=== PATIENT | female | born 1965 | race Caucasian/White ===

== ENCOUNTER 2019-08-15 10:49 | Outpatient (CLI) | payer MEDICAID, SELFPAY ==
--- NOTE | 2019-08-15 | US_ITS ---
WS: [id number] ULTRASOUND RENAL TECHNIQUE: Ultrasound examination of both kidneys. CLINICAL INFORMATION: LEFT FLANK PAIN COMPARISON: May 26, 2019 FINDINGS: RIGHT: Right kidney is normal in size and appearance. Echogenicity: Normal. Hydronephrosis: None. Perinephric fluid: None. Right kidney measures: 9.8 cm x 4.4 cm x 4.5 cm. LEFT: Incidental left renal cysts measuring 2.9 x 3.3 x 2.7 cm and 1.4 x 1.1 x 1.3 cm Left kidney is normal in size and appearance. Echogenicity: Normal. Hydronephrosis: None. Perinephric fluid: None. Left kidney measures: 10.3 cm x 5.6 cm x 4.9 cm. Normal visualized aorta. Normal bladder US/US renal BI* [id number] IMPRESSION: 1. Normal renal ultrasound. No hydronephrosis. 2. Incidental left renal cysts.
== END 2019-08-15 10:50 | disposition home or self-care (01) ==
LOC: RADOUTREAD 08-16 09:25
PROVIDERS: Family Provider Internal Medicine; Visit Provider Internal Medicine
DX: N28.1 Cyst of kidney, acquired (principal); R10.9 Unspecified abdominal pain

== ENCOUNTER 2020-08-21 09:03 | Outpatient (CLI) | payer MEDICAID, SELFPAY ==
--- NOTE | 2020-08-21 09:28 | MM_ITS ---
WS: [id number] BILATERAL DIGITAL SCREENING MAMMOGRAPHY WITH CAD CLINICAL INFORMATION: SCREENING HISTORY: Screening mammogram. No current complaints. COMPARISON: June 06, 2014 TECHNIQUE: Bilateral CC and MLO views. FINDINGS: Scattered fibroglandular densities bilaterally. No suspicious focal mass, asymmetry, calcifications, or architectural distortion. No evidence of malignancy. Punctate calcification right breast. MM/[place] [id number] IMPRESSION: BI-RADS: 2-Benign FOLLOW UP: 1 Year Follow-up Recommend return to annual screening mammography.
== END 2020-08-21 09:04 | disposition home or self-care (01) ==
LOC: RADSHAW 09:05
PROVIDERS: PCP Internal Medicine; Visit Provider Family Medicine
DX: Z12.31 Encounter for screening mammogram for malignant neoplasm of breast (principal)
CPT/HCPCS: 77067

== ENCOUNTER → 2020-09-13 13:28 | Outpatient (BNVA) | payer MEDICAID, SELFPAY | PROVIDERS: PCP Internal Medicine; Visit Provider Obstetrics & Gynecology | DX: Z20.822 Contact with and (suspected) exposure to COVID-19 (principal) | CPT/HCPCS: 87635 ==

== ENCOUNTER 2020-09-17 06:08 | Day surgery (SDC) | payer MEDICAID, SELFPAY ==
[2020-09-17 06:36] VITALS: BP 133/80; PULSE 81; RESP 18; TEMP 36.2; O2SAT 96
[2020-09-17] MEDS: sodium chloride 0.9% 1,000 ML 30 ML IV (06:53)
[2020-09-17 07:07] LABS: Basophils # 0.1 10^3/uL (0.0-0.1); Basophils % 0.5 %; Eosinophils # 0.1 10^3/uL (0.0-0.8); Eosinophils % 1.4 %; Hematocrit 42.2 % (37.0-47.0); Hemoglobin 13.9 g/dL (11.5-15.3); Lymphocytes # 3.7 10^3/uL (0.8-4.8); Lymphocytes % 38.1 %; Mean Corpuscular HGB Conc 32.9 g/dL (30.0-36.0); Mean Corpuscular Hemoglobin 30.1 pg (28.0-34.0); Mean Corpuscular Volume 91.3 fL (81-99); Mean Platelet Volume 9.3 fL (7.4-10.4); Monocytes # 0.6 10^3/uL (0.2-0.9); Monocytes % 6.2 %; Neutrophils # 5.16 10^3/uL (1.8-7.7); Neutrophils % 53.4 %; Nucleated Red Blood Cells % 0 %; Platelet Count 412 10^3/cmm (130-400); Red Blood Count 4.62 10^6/uL (4.1-5.3); Red Cell Distribution Width 13.4 % (12.1-15.1); White Blood Count 9.7 10^3/uL (4.0-10.0)
--- NOTE | 2020-09-17 07:23 | P.ANESASSM_ITS ---
Pre-Anesthetic Assessment Pre-Anesthetic Assessment: Height/Weight: Height 1.5 m Weight 59.421 kg Temp Pulse Resp BP Pulse Ox 97.2 F L 81 18 133/80 96 09/17/20 06:36 09/17/20 06:36 09/17/20 06:36 09/17/20 06:36 09/17/20 06:36 Preop Diagnosis: diagnostic Proposed Procedure: Operation Date: 09/17/20 08:05 Proposed Procedures p Hysteroscopy 58803 97136 N95.0 93901 R10.30(Not Applicable) - Courtney Alejandro MD s Dilation And Curettage (D&C)(Not Applicable) - Courtney Elliott MD s Colonoscopy(Not Applicable) - Trevor Hudson MD Familial anesthetic complications: NOne Was Beta Vj taken within 24 hours: Yes (states she took it this morning) Last intake: Intake Last Liquid Date 09/16/20 Last Liquid Time 19:00 Last Solid Date 09/15/20 Social: Social History: Tobacco and No alcohol Exam: Pre-Anes Outpt Exam: alert, oriented x 3, clear to auscultation bilaterally and regular rate & rhythm Airway: Cervical ROM: WNL MP: 3 Dentition: False and Other (2 broken/rotten teeth on bottom) Pulmonary: Pulmonary: COPD and Sleep apnea CV/HEM: CV/HEM: HTN Anesthetic Plan: ASA status: 3 Anesthesia: MAC Risk of > 500 ml blood loss (7ml/kg in children): No Meds/Allergies Current Medications: Current Medications Generic Name Dose Route Start Last Admin Trade Name Freq PRN Reason Stop Dose Admin Sodium Chloride 1,000 mls @ 30 ml s/hr 09/17/20 06:15 09/17/20 06:53 Sodium Chloride 0.9% IV 09/18/20 06:14 30 mls/hr .Q24H CHRIST Administration PFSH Anesthesia PFSH: Medical History Anxiety and depression Has been asymptomatic all her life per patient. She is well controlled on citalopram which she has been on since the and follows up with her primary care provider. Chronic back pain Reports having a herniated disc in her lower back and neck and just takes muscle relaxers for this. Used to follow up with the pain clinic in the past but not anymore and this is managed by her primary care provider Chronic hypertension Diagnosed in 2019 and has been on medication since then managed by PMD COPD (chronic obstructive pulmonary disease) Diagnosed in 2015 and is controlled with medication managed by PMD at this time Surgical History History of colonoscopy (~2015) S/P section At the age of 20 S/P cholecystectomy Laparoscopic procedure performed by Dr. Hudson at [facility] in June 2020 S/P tubal ligation At the age of 20 when she had her Family History Mother Diabetes Hypertension Thyroid condition Sister Diabetes Hypertension Father Diabetes Stroke Denies family history of Colon cancer Ovarian cancer Heart disease Hyperlipidemia Breast cancer Uterine cancer Data Anesthesia CBC & Chem 7: 09/17/20 06:45 Other Labs: Laboratory Results - last 48 hr 09/17/20 06:45 WBC 9.7 RBC 4.62 Hgb 13.9 Hct 42.2 MCV 91.3 MCH 30.1 MCHC 32.9 RDW 13.4 Plt Count 412 H MPV 9.3 Neut % (Auto) 53.4 Lymph % (Auto) 38.1 [place] % (Auto) 6.2 Eos % (Auto) 1.4 Baso % (Auto) 0.5 Neut # (Auto) 5.16 Lymph # (Auto) 3.7 [place] # (Auto) 0.6 Eos # (Auto) 0.1 Baso # (Auto) 0.1 Nucleated RBC % (auto) 0 Nucleated RBCs # 0.0 Cardiac Studies: No Data to Display
--- NOTE | 2020-09-17 09:34 | P.OP_ITS ---
Operative Report Date of procedure: September 17, 2020 OPERATIVE REPORT Date of surgery: 09/17/2020 Date of dictation: 09/17/2020 Preoperative diagnosis: Postmenopausal bleeding Postoperative diagnosis/findings: Same, 8-week size retroverted uterus, mobile, no adnexal masses. On hysteroscopy and the cervical canal and endometrial canal appeared normal-thin atrophic endometrium without any obvious growths noted. Bilateral ostia visualized. Procedure done: Hysteroscopy, D&C Specimens removed/disposition of specimens: Endometrial curettings sent to pathology Surgeon: Dr. Courtney Ingram litigation assistant: Lala Anesthesia: MAC Estimated blood loss: Less than 25 ml Intravenous fluids: 200 mL of LR Urine output: 20 mL of urine via red rubber catheter prior to start of procedure Medications: As per anesthesia records Complications: None, patient was left in the operating room for Dr. Hudson to perform his part of surgery-colonoscopy PROCEDURE: After consent was obtained patient was taken to the operating room where she is placed under laryngeal mask anesthesia without any difficulty. She was placed supine on the table in lithotomy position. Care was taken to ensure that her legs were well positioned to avoid pressure points. She was then prepped and draped in the usual sterile fashion. Exam under anesthesia was done at this time which showed findings noted above . The weighted speculum and lateral vaginal wall retractors were placed in the vagina and the cervix was visualized. The cervix appeared normal. The cervix was dilated to a 16 Bledsoe dilator. This allowed placement of a 3 mm hysteroscope into the uterine cavity without any difficulty. Once the hysteroscope was placed in the uterine cavity, the endoc ervical canal was visualized and appeared normal .the uterine cavity was visualized and normal with findings noted above. The hysteroscope was withdrawn. Sharp curettage was then performed and the endometrial curettings were sent to pathology. No active bleeding was noted from the cervix. Tenaculum was removed and hemostasis achieved with silver nitrate.. Good hemostasis was achieved. All instruments were removed from the vagina. Patient was left in lithotomy position for Dr. Hudson to perform colonoscopy. FOLLOW UP: Follow-up in 2 weeks and 6 weeks with surgeon MEDICATION ON DISCHARGE: Colace 100 mg by mouth every 12 hours when necessary constipation, 30 tablets, no refills Ibuprofen 800 mg by mouth every 8 hours when necessary pain, 60 tablets, no refills. [place] 5/325 mg 1 tablet by mouth every 6 hours when necessary pain,[default value] tablets, no refills Continue other home medication[default value] DISPOSITION: Home in a stable condition This documentation was created by Spangle test administrator software (known for inherent test administrator error). Every effort was made to assure accuracy of test administrator. Any obvious errors or omissions should be clarified with the author of the document. Pre-op Diagnosis: diagnostic
[2020-09-17] MEDS: silver nitrate applicator 1 EACH TOPICAL (09:41)
[2020-09-17 10:05] VITALS: BP 138/75; PULSE 81; RESP 16; TEMP 36.6; O2SAT 91
[2020-09-17 10:17] VITALS: BP 171/72; PULSE 84; RESP 18; O2SAT 96
--- NOTE | 2020-09-17 10:28 | P.HPUD_ITS ---
Surgery/Procedure H&P Update DATE OF PROCEDURE: September 17, 2020 DATE H&P PERFORMED: 09/10/20 H&P UPDATE INFORMATION: I have reviewed H&P completed within last 30 days, I have examined patient prior to procedure and No changes to prior documentation PREOP DIAGNOSIS: diagnostic PLANNED PROCEDURE: Operation Date: 09/17/20 08:05 Proposed Procedures p Hysteroscopy 23344 13971 N95.0 24745 R10.30(Not Applicable) - Courtney Alejandro MD s Dilation And Curettage (D&C)(Not Applicable) - Courtney Elliott MD s Colonoscopy(Not Applicable) - Trevor Hudson MD
--- NOTE | 2020-09-17 11:54 | ANE.PACU2 ---
Inpatient post-anesthesia follow up: Airway intact: Yes Vital signs: Temperature 97.9 F Pulse Rate 84 Respiratory Rate 18 Blood Pressure 171/72 Pulse Oximetry 96 Oxygen Delivery Me thod Room Air Oxygen Flow Rate Fraction of Inspir ed Oxygen Hydration adequate: Yes Nausea and vomiting: No Pain level: 1 Mental status: Baseline
== END 2020-09-17 11:10 | disposition home or self-care (01) ==
PROVIDERS: Surgery; PCP Internal Medicine; Visit Provider Obstetrics & Gynecology
PROC: 0UJD8ZZ Inspection of Uterus and Cervix, Via Natural or Artificial Opening Endoscopic (ICD-10-PCS; CPT 58555; principal; 2020-09-17 08:05)
PROC: (CPT 58120; 2020-09-17 08:05)
PROC: 0DJD8ZZ Inspection of Lower Intestinal Tract, Via Natural or Artificial Opening Endoscopic (ICD-10-PCS; CPT 45378; 2020-09-17 08:05)
DX: Z12.11 Encounter for screening for malignant neoplasm of colon (principal); N95.0 Postmenopausal bleeding; D12.2 Benign neoplasm of ascending colon; D12.4 Benign neoplasm of descending colon; D12.5 Benign neoplasm of sigmoid colon; K64.8 Other hemorrhoids; J44.9 Chronic obstructive pulmonary disease, unspecified; G47.30 Sleep apnea, unspecified; I10 Essential (primary) hypertension; Z82.49 Family history of ischemic heart disease and other diseases of the circulatory system; Z83.3 Family history of diabetes mellitus
CPT/HCPCS: 58558; 36415; 85025; 86850; 86900; 88305; J2704; J3010; J7030

== ENCOUNTER 2020-10-08 17:12 | Emergency (ER) | payer MEDICAID, SELFPAY ==
[2020-10-08 17:28] VITALS: BP 141/99; PULSE 78; RESP 18; TEMP 36.7; O2SAT 96; BMI 26.4
--- NOTE | 2020-10-08 17:37 | CTR_ITS ---
PROCEDURE INFORMATION: Exam: CT Abdomen And Pelvis With Contrast Exam date and time: 10/08/2020 6:01 PM Age: 55 years old Clinical indication: Fever and nausea and vomiting and other: Weakness; Abdominal pain; Localized; Upper; Prior surgery; Surgery type: Gb, tubal, , hyst; Additional info: Abd pain TECHNIQUE: Imaging protocol: Computed tomography of the abdomen and pelvis with contrast. Sagittal and coronal reformatted images were created and reviewed. Radiation optimization: All CT scans at this facility use at least one of these dose optimization techniques: automated exposure control; mA and/or kV adjustment per patient size (includes targeted exams where dose is matched to clinical indication); or iterative reconstruction. Contrast material: OMNI 300; Contrast volume: 95 ml; Contrast route: INTRAVENOUS (IV); COMPARISON: US transvaginal [id number] 06/05/2020 2:11 PM RADIATION DOSE METRICS: Total DLP (mGy-cm): 940.77 FINDINGS: Lungs: Visualized lungs are clear. Pleural spaces: No pleural effusion. Heart: Visualized portions of the heart are unremarkable. Liver: Diffuse, mildly decreased attenuation in the liver. Findings are consistent with mild fatty infiltration. Gallbladder and bile ducts: Patient has had a previous cholecystectomy. No biliary ductal dilatation. Pancreas: The pancreas is unremarkable. No pancreatic ductal dilatation. Spleen: The spleen is unremarkable. Adrenal glands: The right and left adrenal glands are unremarkable. Kidneys and ureters: Subcentimeter hypodense focus in the right kidney that is too small to characterize, however likely represents a small cyst. Minimally complex cyst in the left kidney with thin internal septation consistent with a Bosniak type 2 cyst, this measures 3.6 x 2.9 cm (series 2, image 19). Simple cyst in the left kidney measuring 1.6 cm (series 2, image 28). The right and left ureters are unremarkable. Stomach and bowel: No obstruction. No mucosal thickening. Appendix: The appendix is visualized and is unremarkable. No findings to suggest acute appendicitis. Intraperitoneal space: No free intraperitoneal air. No ascites. No loculated fluid collections to suggest an abscess. Vasculature: Mild atherosclerotic changes in the visualized arteries. No evidence for aortic aneurysm or aortic dissection. Incidental note of a retroaortic left renal vein. Hepatic veins, portal veins, splenic vein, and SMV are patent. Lymph nodes: No lymphadenopathy. Urinary bladder: The bladder is incompletely filled, which can limit evaluation. No focal abnormality in the bladder however. Reproductive: The uterus, right ovary, and left ovary are unremarkable. Bones/joints: [id number] multilevel degenerative changes in the visualized spine. Soft tissues: No acute abnormality in the extra-abdominal soft tissues. CT/CT abdomen pelvis w con* [id number] IMPRESSION: 1. No acute abnormality in the abdomen or pelvis. 2. The patient's history describes a prior hysterectomy. However, the uterus and both ovaries were visualized. Recommend correlation with surgical history. 3. Mild fatty infiltration of the liver. 4. Bosniak type 2 cyst in the left kidney. No further workup recommended. 5. Incidental/nonacute findings are listed in the report. COMMENTS: Consistent with the [employer]'s Incidental Findings Committee white paper (J Am Eric Radiol 2018): Any incidental renal lesion less than 1 cm or classified as too small to characterize, or any incidental cystic renal lesion characterized as simple-appearing, is likely benign. No follow-up imaging is recommended for these lesions per consensus recommendations based on imaging criteria. Radiation Dose CTDIVOL = (mGy): DLP = 940.77 (mGy-cm)
[2020-10-08] MEDS: ondansetron 2 mg/ML SDV 2 mL 4 MG IVP (17:47)
[2020-10-08] MEDS: sodium chloride 0.9% 1,000 ML 999 ML IV (17:48)
--- NOTE | 2020-10-08 17:59 | W.ED.ABDPA2 ---
HPI - Abdominal Pain General: Chief Complaint: Nausea/Vomiting/Diarrhea Stated Complaint: N/V, lower back pain,weakness Time Seen by Provider: 10/08/20 17:36 Source: patient Mode of arrival: ambulatory Limitations: no limitations History of Present Illness: HPI narrative: 55-year-old female who states she has had severe nausea vomiting over the last week with getting much worse today. States she had abdominal pain earlier in the week the pain is improved. States she just does not able to keep anything down. She states she was started on antibiotic for a paronychia and her vomiting started soon after that. She denies any diarrhea. Denies any fevers. Associated Symptoms: Reports nausea and vomiting; Denies chills, dysuria and fever(s) Review of Systems Const: Denies: fever(s), chills, body aches or change in appetite Eyes: Denies: blurry vision or eye discomfort ENMT: Denies: throat pain or dental pain Card: Denies: chest pain Resp: Denies: dyspnea GI: Reports: abdominal pain, nausea and vomiting : Denies: dysuria Musc: Denies: neck pain or back pain Skin/Breast: Denies: rash Neuro: Denies: headache(s) Psych: Denies: depression Josue/Lymph: Denies: easy bruising All/Imm: Denies: urticaria PFSH ED PFSH: Medical History Anxiety and depression Has been asymptomatic all her life per patient. She is well controlled on citalopram which she has been on since the and follows up with her primary care provider. Chronic back pain Reports having a herniated disc in her lower back and neck and just takes muscle relaxers for this. Used to follow up with the pain clinic in the past but not anymore and this is managed by her primary care provider Chronic hypertension Diagnosed in 2019 and has been on medication since then managed by PMD COPD (chronic obstructive pulmonary disease) Diagnosed in 2015 and is controlled with medication managed by PMD at this time Surgical History History of colonoscopy (09/17/20) 2016 S/P section At the age of 20 S/P cholecystectomy Laparoscopic procedure performed by Dr. Hudson at [facility] in June 2020 S/P tubal ligation At the age of 20 when she had her Status post hysteroscopy 09/17/2020---hysteroscopy with D&C for postmenopausal bleeding performed by Dr. Ingram at [facility]. ---at time of hysteroscopy benign atrophic endometrium identified without any polyps. Pathology showed inactive endometrial glands on a background of mucin and debris, no atypia or hyperplasia polyps or malignancy identified. Family History Mother Diabetes Hypertension Thyroid condition Sister Diabetes Hypertension Father Diabetes Stroke Denies family history of Colon cancer Ovarian cancer Heart disease Hyperlipidemia Breast cancer Uterine cancer Physical Exam Const: COMMON NORMALS: no acute distress, patient oriented x3 and healthy appearing HENMT: COMMON NORMALS: normocephalic and atraumatic HEAD & SCALP: normocephalic and atraumatic Eye: COMMON NORMALS: Equal, round and reactive pupils present and EOMs intact bilaterally PUPIL: Yes Equal, round and reactive pupils present Neck/C-Spine: COMMON NORMALS: full ROM and supple Chest: COMMONS NORMALS: normal inspection of the chest and normal palpation of entire chest wall Resp: COMMON NORMALS: normal respiratory effort, No retractions, No use of accessory muscles and clear to auscultation bilaterally AUSCULTATION: clear to auscultation bilaterally Cardio: COMMON NORMALS: regular rate, regular rhythm and No murmurs present (Cardio) RATE: regular rate RHYTHM: regular rhythm GI: COMMON NORMALS: Normal to inspection, nondistended, normoactive bowel sounds present, Soft to palpation, non-tender and no masses PALPATION: Yes Soft to palpation Extremity: COMMON NORMALS: normal to inspection and full ROM Neuro: COMMON NORMALS: patient oriented x3, moves all extremities and no focal motor deficits Psych: COMMON NORMALS: mental status grossly normal, Normal thought process present and cooperative THOUGHT PROCESS: Normal thought process present Skin: COMMON NORMALS: no rashes or lesions noted and no wounds GENERAL SKIN EXAM: no rashes or lesions noted Course Vital Signs: Vital signs: Vital Signs Temperature 98.0 F 10/08/20 17:28 Pulse Rate 82 10/08/20 19:08 Respiratory Rate 18 10/08/20 19:08 Blood Pressure 138/82 10/08/20 19:08 Pulse Oximetry 98 10/08/20 19:08 MDM - Abdominal Pain MDM Narrative: Medical decision making narrative: Piper presents here with vomiting can be related to antibiotics for viral syndrome. Her blood work and CT scan are negative. She is well-appearing here and abdominal exam at discharge is benign. Will place her on Zofran. She is to follow-up with PCP in 2 to 4 days return if worsening. She understands and agrees to plan. Lab Data: Labs: Lab Results 10/08/20 10/08/20 10/08/20 Range/Units 17:40 17:40 17:40 WBC 10.4 H (4.0-10.0) 10^3/ uL RBC 4.23 (4.1-5.3) 10^6/u L Hgb 12.8 (11.5-15.3) g/dL Hct 38.7 (37.0-47.0) % MCV 91.5 (81-99) fL MCH 30.3 (28.0-34.0) pg MCHC 33.1 (30.0-36.0) g/dL RDW 13.2 (12.1-15.1) % Plt Count 419 H (130-400) 10^3/c mm MPV 9.3 (7.4-10.4) fL Neut % (Auto) 65.7 % Lymph % (Auto) 28.3 % [place] % (Auto) 4.1 % Eos % (Auto) 1.1 % Baso % (Auto) 0.4 % Neut # (Auto) 6.86 (1.8-7.7) 10^3/u L Lymph # (Auto) 3.0 (0.8-4.8) 10^3/u L [place] # (Auto) 0.4 (0.2-0.9) 10^3/u L Eos # (Auto) 0.1 (0.0-0.8) 10^3/u L Baso # (Auto) 0.0 (0.0-0.1) 10^3/u L Nucleated RBC % (a uto) 0 % Nucleated RBCs # 0.0 /100WBC Sodium 135 L (136-145) mmol/L Potassium 3.4 L (3.5-5.1) mmol/L Chloride 99 (98-107) mmol/L Carbon Dioxide 26 (22-29) mmol/L Anion Gap 13.4 (5-19) BUN 8 (6-20) mg/dL Creatinine 0.9 (0.5-0.9) mg/dL GFR Calculation 64.8 L (90-130) mL/min Glucose 104 (65-115) mg/dL Calculated Osmolal ity 279 L (285-295) mOsm/k g Calcium 8.7 (8.5-10.5) mg/dL Total Bilirubin 0.4 (0.15-1.2) mg/dL AST 13 (0-32) U/L ALT 13 (0-33) U/L Alkaline Phosphata se 61 (35-105) IU/L Total Protein 7.5 (6.6-8.7) g/dL Albumin 4.2 (3.5-5.2) g/dL Globulin 3.3 (1.3-4.6) g/dL Lipase 14 (13-60) U/L Urine Color Yellow (Yellow) Urine Appearance Sl hazy (CLEAR) Urine pH 5 (5-7) Ur Specific Gravit y 1.025 (1.005-1.030) Urine Protein Trace (Negative) Urine Glucose (UA) Norm (Normal) Urine Ketones Negative (Negative) Urine Blood 3+ H (Negative) Urine Nitrate Negative (Negative) Urine Bilirubin Neg (Negative) Urine Urobilinogen Norm (Negative) mg/dL Ur Leukocyte Radha ase 1+ H (Negative) Urine RBC 5-10 H (0-2) /hpf Urine WBC 55-80 H (0-5) /hpf Ur Squamous Epith Cells 15-25 H (0-5) /hpf Amorphous Sediment Not Reportable Urine Bacteria 1+ H (NONE) /hpf Imaging Data ^: CT Abd/Pel: Attestation: I personally reviewed and interpreted this imaging study as follows: Radiologist's impression: [address] [address] [address] Scan Report Signed Patient: Sara Cummings Unit #: [id number] : 1965 Age/Sex: 55 / F ADM Date: 10/08/20 Loc: ER Room/Bed: Attending Dr: Ordering Provider/Ordering MD: Ildefonso Tony DO Date of Service: 10/08/20 Procedure(s): CT abdomen pelvis w con* [id number] Accession Number(s): [id number] Report Number: [id number] PROCEDURE INFORMATION: Exam: CT Abdomen And Pelvis With Contrast Exam date and time: 10/08/2020 6:01 PM Age: 55 years old Clinical indication: Fever and nausea and vomiting and other: Weakness; Abdominal pain; Localized; Upper; Prior surgery; Surgery type: Gb, tubal, , hyst; Additional info: Abd pain TECHNIQUE: Imaging protocol: Computed tomography of the abdomen and pelvis with contrast. Sagittal and coronal reformatted images were created and reviewed. Radiation optimization: All CT scans at this facility use at least one of these dose optimization techniques: automated exposure control; mA and/or kV adjustment per patient size (includes targeted exams where dose is matched to clinical indication); or iterative reconstruction. Contrast material: OMNI 300; Contrast volume: 95 ml; Contrast route: INTRAVENOUS (IV); COMPARISON: US transvaginal [id number] 06/05/2020 2:11 PM RADIATION DOSE METRICS: Total DLP (mGy-cm): 940.77 FINDINGS: Lungs: Visualized lungs are clear. Pleural spaces: No pleural effusion. Heart: Visualized portions of the heart are unremarkable. Liver: Diffuse, mildly decreased attenuation in the liver. Findings are consistent with mild fatty infiltration. Gallbladder and bile ducts: Patient has had a previous cholecystectomy. No biliary ductal dilatation. Pancreas: The pancreas is unremarkable. No pancreatic ductal dilatation. Spleen: The spleen is unremarkable. Adrenal glands: The right and left adrenal glands are unremarkable. Kidneys and ureters: Subcentimeter hypodense focus in the right kidney that is too small to characterize, however likely represents a small cyst. Minimally complex cyst in the left kidney with thin internal septation consistent with a Bosniak type 2 cyst, this measures 3.6 x 2.9 cm (series 2, image 19). Simple cyst in the left kidney measuring 1.6 cm (series 2, image 28). The right and left ureters are unremarkable. Stomach and bowel: No obstruction. No mucosal thickening. Appendix: The appendix is visualized and is unremarkable. No findings to suggest acute appendicitis. Intraperitoneal space: No free intraperitoneal air. No ascites. No loculated fluid collections to suggest an abscess. Vasculature: Mild atherosclerotic changes in the visualized arteries. No evidence for aortic aneurysm or aortic dissection. Incidental note of a retroaortic left renal vein. Hepatic veins, portal veins, splenic vein, and SMV are patent. Lymph nodes: No lymphadenopathy. Urinary bladder: The bladder is incompletely filled, which can limit evaluation. No focal abnormality in the bladder however. Reproductive: The uterus, right ovary, and left ovary are unremarkable. Bones/joints: [id number] multilevel degenerative changes in the visualized spine. Soft tissues: No acute abnormality in the extra-abdominal soft tissues. CT/CT abdomen pelvis w con* [id number] IMPRESSION: 1. No acute abnormality in the abdomen or pelvis. 2. The patient's history describes a prior hysterectomy. However, the uterus and both ovaries were visualized. Recommend correlation with surgical history. 3. Mild fatty infiltration of the liver. 4. Bosniak type 2 cyst in the left kidney. No further workup recommended. 5. Incidental/nonacute findings are listed in the report Discharge Plan Discharge Patient Disposition: Home Clinical Impression: Vomiting Qualifiers: Vomiting type: unspecified Vomiting Intractability: non-intractable Nausea presence: with nausea Qualified Code(s): R11.2 - Nausea with vomiting, unspecified Condition: Stable Prescriptions: New ondansetron 4 mg tablet,disintegrating 4 mg PO Q6H PRN (Reason: nausea and vomiting) Qty: 14 RF: 0 No Action ibuprofen 200 mg tablet 800 mg PO Q8H PRN (Reason: Pain) RF: 0 metronidazole 500 mg tablet 500 mg PO TID 7 Days Qty: 21 RF: 0 pantoprazole 40 mg tablet,delayed release (DR/EC) 40 mg PO DAILY RF: 0 metoprolol succinate 50 mg tablet extended release 24 hr 50 mg PO DAILY RF: 0 citalopram 20 mg tablet 20 mg PO DAILY RF: 0 potassium chloride 20 mEq tablet extended release 20 meq PO DAILY RF: 0 albuterol sulfate [ProAir HFA] 90 mcg/actuation HFA aerosol inhaler 2 puff inhalation Q6H PRN (Reason: Wheezing) RF: 0 albuterol sulfate 1.25 mg/3 mL solution for nebulization 1.25 mg inhalation QID PRN (Reason: Wheezing) RF: 0 baclofen 5 mg tablet 5 mg PO BID RF: 0 nicotine 21 mg/24 hr patch 24 hour 1 patch topical Q24H RF: 0 Discharge Orders: Discharge ED (Routine); Ordered 10/08/20 Ordered By: Shanice Singleton Referrals: Ten Branham DO [Primary Care Provider] - 1-3 days Discharge Diet: Advance as tolerated Discharge Activity: Resume usual activity Patient Instructions: Acute Nausea and Vomiting (ED) Coding Level of Care Code ED Certified Activities Director for Chg Fwd Exam Comprehensive
[2020-10-08 18:01] VITALS: BP 128/64; PULSE 72; RESP 23; O2SAT 97
[2020-10-08 18:02] VITALS: O2SAT 98
[2020-10-08 18:07] LABS: Urine Color Yellow (Yellow)
[2020-10-08 18:08] LABS: Add Urine Microscopic? YES; Bacteria Urine 1+ /hpf; Bilirubin Urine Neg (Negative); Blood Urine 3+ (Negative); Glucose Urine UA Norm (Normal); Ketones Urine Negative (Negative); Leukocyte Esterase Urine 1+ (Negative); Nitrate Urine Negative (Negative); Protein Urine Trace (Negative); Specific Gravity, Urine 1.025 (1.005-1.030); Squamous Epithelial Cell Urine 15-25 /hpf (0-5); Urine Appearance SL Hazy (CLEAR); Urobilinogen Urine Norm (Negative); WBC Urine 55-80 /hpf (0-5); pH Urine 5 (5-7)
[2020-10-08 18:10] LABS: Basophils % 0.4 %; Eosinophils # 0.1 10^3/uL (0.0-0.8); Eosinophils % 1.1 %; Hematocrit 38.7 % (37.0-47.0); Hemoglobin 12.8 g/dL (11.5-15.3); Lymphocytes % 28.3 %; Mean Corpuscular HGB Conc 33.1 g/dL (30.0-36.0); Mean Corpuscular Hemoglobin 30.3 pg (28.0-34.0); Mean Corpuscular Volume 91.5 fL (81-99); Mean Platelet Volume 9.3 fL (7.4-10.4); Monocytes # 0.4 10^3/uL (0.2-0.9); Monocytes % 4.1 %; Neutrophils # 6.86 10^3/uL (1.8-7.7); Neutrophils % 65.7 %; Nucleated Red Blood Cells % 0 %; Platelet Count 419 10^3/cmm (130-400); Red Blood Count 4.23 10^6/uL (4.1-5.3); Red Cell Distribution Width 13.2 % (12.1-15.1); White Blood Count 10.4 10^3/uL (4.0-10.0)
[2020-10-08] MEDS: iohexol 300 mg/mL 100 mL Btl IV (18:13)
[2020-10-08 18:25] LABS: Alanine Aminotransferase 13 U/L (0-33); Albumin Level 4.2 g/dL (3.5-5.2); Alkaline Phosphatase 61 IU/L (35-105); Aspartate Amino Transferase 13 U/L (0-32); Blood Urea Nitrogen 8 mg/dL (6-20); Calcium 8.7 mg/dL (8.5-10.5); Carbon Dioxide 26 mmol/L (22-29); Chloride 99 mmol/L (98-107); Globulin 3.3 g/dL (1.3-4.6); Glomerular Filtration Rate 64.8 mL/min (90-130); Glucose 104 mg/dL (65-115); Lipase 14 U/L (13-60); Osmolality Calculated 279 mOsm/kg (285-295); Sodium 135 mmol/L (136-145); Total Bilirubin 0.4 mg/dL (0.15-1.2); Total Protein 7.5 g/dL (6.6-8.7)
[2020-10-08 18:41] LABS: Anion Gap 13.4 (5-19); Potassium 3.4 mmol/L (3.5-5.1)
[2020-10-08 19:08] VITALS: BP 138/82; PULSE 82; RESP 18; O2SAT 98
== END 2020-10-08 19:10 | disposition home or self-care (01) ==
PROVIDERS: Family Medicine; Emergency Provider Emergency Medicine; PCP Internal Medicine
DX: R11.2 Nausea with vomiting, unspecified (principal); J44.9 Chronic obstructive pulmonary disease, unspecified
CPT/HCPCS: 74177; 80053; 81001; 83690; 85025; 96361; 96374; 99283; J2405; J7030; Q9967

== ENCOUNTER 2020-10-31 06:00 | Outpatient (CLI) | payer MEDICAID, SELFPAY | END 2020-10-31 06:01 | disposition home or self-care (01) | LOC: RAD 12-08 15:37 | PROVIDERS: PCP Family Medicine Adult Medicine; Visit Provider Orthopaedic Surgery | DX: M50.31 Other cervical disc degeneration, high cervical region (principal); M46.02 Spinal enthesopathy, cervical region | CPT/HCPCS: 72050 ==

== ENCOUNTER → 2021-01-03 10:04 | Outpatient (BNVA) | payer MEDICAID, SELFPAY | PROVIDERS: PCP Internal Medicine; Visit Provider Family Medicine Adult Medicine | DX: I10 Essential (primary) hypertension (principal); M15.9 Polyosteoarthritis, unspecified; J44.9 Chronic obstructive pulmonary disease, unspecified; F41.9 Anxiety disorder, unspecified; F32.9 Major depressive disorder, single episode, unspecified; M54.9 Dorsalgia, unspecified; G89.29 Other chronic pain; R94.4 Abnormal results of kidney function studies; Z87.898 Personal history of other specified conditions | CPT/HCPCS: 80053; 80061; 83036; 84443; 85025; 85651 ==

== ENCOUNTER → 2021-03-14 15:04 | Outpatient (BNVA) | payer MEDICAID, SELFPAY | PROVIDERS: PCP Family Medicine Adult Medicine; Visit Provider Obstetrics & Gynecology | DX: N89.8 Other specified noninflammatory disorders of vagina (principal); N82.9 Female genital tract fistula, unspecified | CPT/HCPCS: 87106; 87107 ==

== ENCOUNTER 2021-03-26 10:03 | Outpatient (CLI) | payer MEDICAID, SELFPAY ==
--- NOTE | 2021-03-26 10:12 | CT_ITS ---
WS: [id number] CT PELVIS WITHOUT AND WITH GADOLINIUM ENHANCEMENT RECTAL CONTRAST TECHNIQUE: Contrast-enhanced CT of the pelvis with coronal and sagittal reformatted images. CLINICAL INFORMATION: N82.9 - Female genital tract fistula, unspecified COMPARISON: CT abdomen pelvis October 08, 2020 DLP: 900.[address] scans at [facility] use at least one of these dose optimization techniques: automat ed exposure control; mA and/or kV adjustment per patient size (includes targeted exams where dose is matched to clinical indication); or iterative reconstruction. FINDINGS: Tortuous sigmoid colon. A few sigmoid diverticuli. No evidence of acute diverticulitis. No free fluid in the pelvis. Bladder is normal in appearance. Normal appendix in the right lower quadrant. Low rectovaginal fistula with fistulous connection in the perineum. Rectal contrast and air extends a nteriorly along the vaginal lumen after administration of rectal contrast. This is best seen on the s agittal imaging. IMPRESSION: 1. 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 2. Rectal contrast and air extends anteriorly along the vaginal lumen after administration of rectal contrast. Recommend correlation with clinical symptoms.
[2021-03-26] MEDS: iohexol 300 mg/mL 100 mL Btl IV (11:56)
[2021-03-26] MEDS: diatrizoate meglumine 120 mL Sol PR ×2 (12:00→12:01)
== END 2021-03-26 10:04 | disposition home or self-care (01) ==
PROVIDERS: PCP Family Medicine Adult Medicine; Visit Provider Obstetrics & Gynecology
DX: N82.9 Female genital tract fistula, unspecified (principal)
CPT/HCPCS: 72193; 87070; 87205

== ENCOUNTER → 2021-05-16 10:55 | Outpatient (BNVA) | payer MEDICAID, SELFPAY | PROVIDERS: PCP Family Medicine Adult Medicine; Visit Provider Obstetrics & Gynecology | DX: N82.9 Female genital tract fistula, unspecified (principal); Z20.822 Contact with and (suspected) exposure to COVID-19 | CPT/HCPCS: 87635 ==

== ENCOUNTER 2021-05-21 10:18 | Day surgery (SDC) | payer MEDICAID, SELFPAY ==
[2021-05-19 10:50] VITALS: BMI 25.4
--- NOTE | 2021-05-19 13:16 | ANES.PREANE2 ---
Pre-Anesthetic Assessment Pre-Anesthetic Assessment: Height/Weight: Height 1.5 m Weight 57.153 kg Preop Diagnosis: diagnostic Proposed Procedure: Operation Date: 05/21/21 08:00 Proposed Procedures p Recto-Vaginal Fistula Repair 55835 N82.9(Not Applicable) - Kwabean Cruz MD Was Beta Vj taken within 24 hours: Yes Was Clonidine taken within 24 hours: N/A Social: Social History: Tobacco and No alcohol Exam: Pre-Anes Outpt Exam: alert, oriented x 3 and regular rate & rhythm Airway: Submandibular: WNL Cervical ROM: WNL MP: 2 Dentition: False (upper) Pulmonary: Pulmonary: COPD CV/HEM: CV/HEM: HTN GI: GI: GERD Musc/skel: Musc/skel: Lower Back Pain Neuropsych: Neuropsych: Anxiety, Depression and Neuropathy Anesthetic Plan: ASA status: 3 Anesthesia: General Risk of > 500 ml blood loss (7ml/kg in children): No PFSH Anesthesia PFSH: Medical History Anxiety and depression Has been asymptomatic all her life per patient. She is well controlled on citalopram which she has been on since the and follows up with her primary care provider. Chronic back pain Reports having a herniated disc in her lower back and neck and just takes muscle relaxers for this. 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 Hudson at [facility] in June 2020 S/P tubal ligation At the age of 20 when she had her Status post hysteroscopy 09/17/2020---hysteroscopy with D&C for postmenopausal bleeding performed by Dr. Ingram at [facility]. ---at time of hysteroscopy benign atrophic endometrium identified without any polyps. Pathology showed inactive endometrial glands on a background of mucin and debris, no atypia or hyperplasia polyps or malignancy identified. Family History Mother Diabetes Hypertension Thyroid condition Sister Diabetes Hypertension Father Diabetes Stroke Denies family history of Colon cancer Ovarian cancer Heart disease Hyperlipidemia Breast cancer Uterine cancer Social History Smoking and tobacco status: current every day smoker cigarettes Packs smoked per day: 1.5 Alcohol intake: never Marital status: Number of children: 2 Number of grandchildren: 2 Current occupational status: disabled Data Anesthesia Cardiac Studies: No Data to Display
[2021-05-21] VITALS (8 sets, daily range): BP systolic 128–163; BP diastolic 66–107; PULSE 65–100; RESP 14–18; TEMP 36.1–36.6; O2SAT 93–100
--- NOTE | 2021-05-21 11:24 | W.PM.OPSUD ---
Surgery/Procedure H&P Update DATE OF PROCEDURE: May 21, 2021 DATE H&P PERFORMED: 05/19/21 H&P UPDATE INFORMATION: I have reviewed H&P completed within last 30 days, I have examined patient prior to procedure and No changes to prior documentation PREOP DIAGNOSIS: Rectovaginal fistula PLANNED PROCEDURE: Operation Date: 05/21/21 12:25 Proposed Procedures p Recto-Vaginal Fistula Repair [id number] N82.9(Not Applicable) - Kwabena Cruz MD
[2021-05-21] MEDS: scopolamine 1.5 Patch 1 PATCH TRANSDERMA (11:26)
[2021-05-21] MEDS: sodium chloride 0.9% 500 ML IV (11:26)
[2021-05-21 11:42] LABS: Basophils % 0.6 %; Eosinophils # 0.2 10^3/uL (0.0-0.8); Eosinophils % 2.9 %; Hematocrit 37.6 % (37.0-47.0); Hemoglobin 11.7 g/dL (11.5-15.3); Lymphocytes # 2.6 10^3/uL (0.8-4.8); Lymphocytes % 39.9 %; Mean Corpuscular HGB Conc 31.1 g/dL (30.0-36.0); Mean Corpuscular Hemoglobin 29.1 pg (28.0-34.0); Mean Corpuscular Volume 93.5 fl (81-99); Mean Platelet Volume 9.1 fL (7.4-10.4); Monocytes # 0.4 10^3/uL (0.2-0.9); Monocytes % 5.5 %; Neutrophils # 3.32 10^3/uL (1.8-7.7); Neutrophils % 50.8 %; Nucleated Red Blood Cells % 0 %; Platelet Count 404 10^3/cmm (130-400); Red Blood Count 4.02 10^6/uL (4.1-5.3); Red Cell Distribution Width 14.3 % (12.1-15.1); White Blood Count 6.5 10^3/uL (4.0-10.0)
[2021-05-21] MEDS: sodium chloride 0.9% 1,000 ML 30 ML IV (11:45)
[2021-05-21 11:58] LABS: Alanine Aminotransferase 8 U/L (0-33); Albumin Level 3.9 g/dL (3.5-5.2); Alkaline Phosphatase 60 IU/L (35-105); Aspartate Amino Transferase 12 U/L (0-32); Blood Urea Nitrogen 9 mg/dL (6-20); Calcium 8.9 mg/dL (8.5-10.5); Carbon Dioxide 24 mmol/L (22-29); Chloride 104 mmol/L (98-107); Globulin 3.3 g/dL (1.3-4.6); Glomerular Filtration Rate 103.4 mL/min (90-130); Glucose 82 mg/dL (65-115); Osmolality Calculated 290 mOsm/kg (285-295); Sodium 141 mmol/L (136-145); Total Bilirubin 0.2 mg/dL (0.15-1.2); Total Protein 7.2 g/dL (6.6-8.7)
--- NOTE | 2021-05-21 12:12 | ANES.PAUD2 ---
Pre-Anesthetic Update Pre-Anesthetic Assessment: Date of Surgery/Procedure: 05/21/21 Preop Diagnosis: Rectovaginal fistula Proposed Procedure: Operation Date: 05/21/21 12:25 Proposed Procedures p Recto-Vaginal Fistula Repair 51762 N82.9(Not Applicable) - Kwabena Cruz MD Any changes to Pre-Anesthetic Assessment?: No Last Intake: Intake Last Liquid Date 05/20/21 Last Liquid Time 20:00 Last Solid Date 05/20/21 Last Solid Time 20:00 Labs Last 48hrs: Laboratory Results - last 48 hr 05/21/21 05/21/21 05/21/21 11:21 11:21 11:21 WBC 6.5 RBC 4.02 L Hgb 11.7 Hct 37.6 MCV 93.5 MCH 29.1 MCHC 31.1 RDW 14.3 Plt Count 404 H MPV 9.1 Neut % (Auto) 50.8 Lymph % (Auto) 39.9 [place] % (Auto) 5.5 Eos % (Auto) 2.9 Baso % (Auto) 0.6 Neut # (Auto) 3.32 Lymph # (Auto) 2.6 [place] # (Auto) 0.4 Eos # (Auto) 0.2 Baso # (Auto) 0.0 Nucleated RBC % (a uto) 0 Nucleated RBCs # 0.0 Sodium 141 Chloride 104 Carbon Dioxide 24 BUN 9 Creatinine 0.6 GFR Calculation 103.4 Glucose 82 Calculated Osmolal ity 290 Calcium 8.9 Total Bilirubin 0.2 AST 12 ALT 8 Alkaline Phosphata se 60 Total Protein 7.2 Albumin 3.9 Globulin 3.3 Blood Type A Positive Rho(D) Type Positive Vitals: Temperature 97.0 F L 05/21/21 11:04 Temperature Source Temporal Artery S can 05/21/21 11:04 Pulse Rate 65 05/21/21 11:04 Pulse Rhythm 05/21/21 11:04 Pulse Strength 3+ Normal 05/21/21 11:04 Respiratory Rate 18 05/21/21 11:04 Blood Pressure 163/81 05/21/21 11:04 Blood Pressure Anika n 108 05/21/21 11:04 Pulse Oximetry 99 05/21/21 11:04 Oxygen Delivery Me thod 05/21/21 11:04 Exam: Pre-Anes Outpt Exam: alert, oriented x 3, clear to auscultation bilaterally and regular rate & rhythm Cardiac Studies: No Data to Display
[2021-05-21 12:19] LABS: Add Urine Microscopic? YES; Bilirubin Urine 1+ (Negative); Blood Urine 3+ (Negative); Glucose Urine UA Norm (Normal); Ketones Urine Negative (Negative); Leukocyte Esterase Urine 2+ (Negative); Nitrate Urine Negative (Negative); Protein Urine 1+ (Negative); Specific Gravity, Urine 1.015 (1.005-1.030); Urine Appearance Cloudy (CLEAR); Urine Color Yellow (Yellow); Urobilinogen Urine Norm (Negative); pH Urine 5 (5-7)
[2021-05-21 12:21] LABS: Bacteria Urine 2+ /hpf; Mucus Urine 1+ /hpf; RBC Urine 0-4 /hpf (0-2); Squamous Epithelial Cell Urine 15-25 /hpf (0-5); WBC Urine 40-55 /hpf (0-5)
[2021-05-21 12:22] LABS: Anion Gap 16.3 (5-19); Potassium 3.3 mmol/L (3.5-5.1)
[2021-05-21 12:22] LABS: Add Urine Culture? No
[2021-05-21] MEDS: metroNIDAZOLE IV 500 MG/100 ML PREMIX 100 MG IV (12:42)
[2021-05-21] MEDS: levofloxacin-dextrose 5 % 500 MG/100 ML PREMIX 100 MG IV (12:50)
--- NOTE | 2021-05-21 13:52 | P.OP_ITS ---
Operative Report Date of procedure: May 21, 2021 Pre-op Diagnosis: Rectovaginal fistula Post-op diagnosis: same Procedure Done: Rectovaginal fistula repair Pathology: none sent Surgeon: Kwabena Cruz MD Anesthesia: General Estimated blood loss (mL): 10 IV fluids (mL): 500 Urine output (mL): 100 Complications: None Condition: stable Disposition: PACU Procedure: After obtaining informed consent, the patient was taken to the operating room and she was then placed in the lithotomy position using candy- cane stirrups. The abdomen, vulva and vagina were prepped and draped in a sterile manner. A time out procedure was performed. A [place] retractor was placed. The posterior vaginal wall rectovaginal fistula was identified. A lacrimal duct probe was used to define the fistulous tract and the vaginal mucosa was then injected in the midline with 2% lidocaine with epinephrine. A transperineal incision was made. The rectovaginal septum was developed and with an index finger in the rectum, the rectovaginal septum was easily defined. The fistulous tract was isolated and using the lacrimal duct probe, it was complet clint isolated. Using electrocautery dissection on the pure cut mode, the rectal mucosa was entered in a circumferential fashion as was the vaginal mucosa. This allowed for removal of the fistulous tract intact, with both epithelial layers preserved. The perineum and rectum were irrigated vigorously and then the rectal mucosa was reapproximated with a running stitch of number 4-0 chromic. The rectal vault was distended with saline and the repair was watertight. The defect was irrigated, suctioned, inspected and found to be free of clot, blood or debris. The perineal body was reconstructed with reapproximation of the levator muscles, using a series of interrupted horizontal mattress stitches of number 2- 0 Vicryl. This allowed for excellent yazdanism of the perineal body. After this was accomplished, the defect was once again irrigated, suctioned, inspected, and found to be free of clot, blood or debris. The vaginal defect was closed with a running locking stitch of number 2-0 Vicryl and the perineal incision was closed with a subcuticular stitch of number 2-0 Vicryl. The patient was awakened and taken to the recovery room in stable condition, after having tolerated the procedure well.
[2021-05-21] MEDS: oxyCODONE-APAP 5-325 mg Tablet 1 TAB PO (14:55)
--- NOTE | 2021-05-21 15:46 | ANE.PACU2 ---
Inpatient post-anesthesia follow up: Airway intact: Yes Vital signs: Temperature 97.9 F Pulse Rate 82 Respiratory Rate 16 Blood Pressure 145/90 Pulse Oximetry 98 Oxygen Delivery Me thod Room Air Oxygen Flow Rate 4 Fraction of Inspir ed Oxygen Hydration adequate: Yes Nausea and vomiting: No Pain level: 3 Mental status: Baseline
== END 2021-05-21 15:15 | disposition home or self-care (01) ==
PROVIDERS: PCP Family Medicine Adult Medicine; Visit Provider Obstetrics & Gynecology
PROC: (CPT 57308; principal; 2021-05-21 12:15)
DX: N82.3 Fistula of vagina to large intestine (principal); J44.9 Chronic obstructive pulmonary disease, unspecified; I10 Essential (primary) hypertension; E78.5 Hyperlipidemia, unspecified; M15.9 Polyosteoarthritis, unspecified; Z98.51 Tubal ligation status; F17.210 Nicotine dependence, cigarettes, uncomplicated
CPT/HCPCS: 57308; 36415; 80053; 81001; 85025; 86850; 86900; 96365; J1100; J1956; J2405; J2704; J3010; J3490; J7030; J7040; S0030

== ENCOUNTER → 2021-06-12 13:45 | Outpatient (BNVA) | payer MEDICAID, SELFPAY | PROVIDERS: PCP Family Medicine Adult Medicine; Visit Provider Family Medicine Adult Medicine | DX: R39.15 Urgency of urination (principal); N82.9 Female genital tract fistula, unspecified; I10 Essential (primary) hypertension | CPT/HCPCS: 81000 ==

== ENCOUNTER 2021-06-21 18:15 | Emergency (ER) | payer MEDICAID, SELFPAY ==
[2021-06-21 18:18] VITALS: BP 144/80; PULSE 81; RESP 16; TEMP 37.3; O2SAT 97; BMI 25.2
--- NOTE | 2021-06-21 18:23 | CTR_ITS ---
PROCEDURE INFORMATION: Exam: CT Abdomen And Pelvis With Contrast Exam date and time: 06/21/2021 6:23 PM Age: 55 years old Clinical indication: Nausea and vomiting; Prior surgery; Surgery date: 6+ months; Surgery type: Gb, hyst, vaginal; Patient HX: C/O n/v/d x 5 days TECHNIQUE: Imaging protocol: Computed tomography of the abdomen and pelvis with contrast. Radiation optimization: All CT scans at this facility use at least one of these dose optimization techniques: automated exposure control; mA and/or kV adjustment per patient size (includes targeted exams where dose is matched to clinical indication); or iterative reconstruction. Contrast material: OMNI 300; Contrast volume: 95 ml; Contrast route: INTRAVENOUS (IV); COMPARISON: CT pelvis w con* [id number] 03/26/2021 11:46 AM RADIATION DOSE METRICS: Total DLP (mGy-cm): 821.11 FINDINGS: Liver: Normal. No mass. Gallbladder and bile ducts: Cholecystectomy. Nondilated biliary system. Pancreas: Normal. No ductal dilation. Spleen: Normal. No splenomegaly. Adrenal glands: Normal. No mass. Kidneys and ureters: Left renal cortical cyst. The cyst at the superior margin of the left kidney contains a thin enhancing septation. No nodularity. No calcification. Negative for hydronephrosis. Stomach and bowel: Unremarkable. No obstruction. No mucosal thickening. Appendix: Normal appendix. Intraperitoneal space: Unremarkable. No free air. No significant fluid collection. Vasculature: Unremarkable. No abdominal aortic aneurysm. Lymph nodes: Unremarkable. No enlarged lymph nodes. Urinary bladder: Unremarkable as visualized. Reproductive: Unremarkable as visualized. Bones/joints: Unremarkable. No acute fracture. Soft tissues: Unremarkable. CT/CT abdomen pelvis w con* [id number] IMPRESSION: 1. Negative for acute abdominopelvic abnormality. 2. Septated upper pole left renal cyst. 3. Recommend ultrasound follow-up in 12 months to document stability. COMMENTS: Consistent with the [employer]'s Incidental Findings Committee white paper (J Am Eric Radiol 2018): Any incidental renal lesion less than 1 cm or classified as too small to characterize, or any incidental cystic renal lesion characterized as simple-appearing, is likely benign. No follow-up imaging is recommended for these lesions per consensus recommendations based on imaging criteria. Radiation Dose CTDIVOL = (mGy): DLP = 821.11 (mGy-cm)
--- NOTE | 2021-06-21 18:23 | XRR_ITS ---
PROCEDURE INFORMATION: Exam: XR Chest Exam date and time: 06/21/2021 6:23 PM Age: 55 years old Clinical indication: Cough TECHNIQUE: Imaging protocol: XR of the chest. Views: 1 view. COMPARISON: CR Chest 2 views* [id number] 07/01/2018 9:57 AM FINDINGS: Lungs: Unremarkable. No consolidation. Pleural spaces: Unremarkable. No pleural effusion. No pneumothorax. Heart/Mediastinum: Unremarkable. No cardiomegaly. Bones/joints: Unremarkable. XR/XR chest 1V portable [id number] IMPRESSION: No acute findings. Radiation Dose CTDIVOL = (mGy): DLP = (mGy-cm)
--- NOTE | 2021-06-21 18:26 | W.ED.GENADLT ---
HPI - General Adult General: Chief complaint: General Medical Stated complaint: N/V/D X5 DAYS; RIGHT FLANK PAIN X2 DAYS Time Seen by Provider: 06/21/21 18:19 Source: patient and EMS Mode of arrival: EMS Limitations: no limitations History of Present Illness: HPI narrative: 55-year-old female who states that she has been having nausea vomiting diarrhea and abdominal cramping over the last 5 days she states she has not felt well getting weak from being dehydrated. She states that she is also had a slight cough subjective fevers at home afebrile here. She denies any worsening improving factors. Denies any chest pain denies any headache. Associated symptoms: Reports nausea and vomiting; Deny chest pain, headache(s) or rash Review of Systems Const: Denies: fever(s), chills, body aches or change in appetite Eyes: Denies: blurry vision or eye discomfort ENMT: Denies: throat pain or dental pain Card: Denies: chest pain Resp: Reports: non-productive cough GI: Reports: abdominal pain, nausea, vomiting and diarrhea : Denies: dysuria Musc: Denies: neck pain or back pain Skin/Breast: Denies: rash Neuro: Denies: headache(s) Psych: Denies: depression Josue/Lymph: Denies: easy bruising All/Imm: Denies: urticaria PFSH ED PFSH: Medical History Aftercare following surgery of the genitourinary system Anxiety and depression Has been asymptomatic all her life per patient. She is well controlled on citalopram which she has been on since the and follows up with her primary care provider. BV (bacterial vaginosis) Chronic back pain Reports having a herniated disc in her lower back and neck and just takes muscle relaxers for this. 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 Cruz at [facility] History of colonoscopy (09/17/20) 2016 S/P section At the age of 20 S/P cholecystectomy Laparoscopic procedure performed by Dr. Hudson at [facility] in June 2020 S/P tubal ligation At the age of 20 when she had her Status post hysteroscopy 09/17/2020---hysteroscopy with D&C for postmenopausal bleeding performed by Dr. Ingram at [facility]. ---at time of hysteroscopy benign atrophic endometrium identified without any polyps. Pathology showed inactive endometrial glands on a background of mucin and debris, no atypia or hyperplasia polyps or malignancy identified. Family History Mother Diabetes Hypertension Thyroid condition Sister Diabetes Hypertension Father Diabetes Stroke Denies family history of Colon cancer Ovarian cancer Heart disease Hyperlipidemia Breast cancer Uterine cancer Social History Smoking and tobacco status: current every day smoker cigarettes Packs smoked per day: 1 Alcohol intake: never Current occupational status: disabled Physical Exam Const: COMMON NORMALS: no acute distress, patient oriented x3 and healthy appearing HENMT: COMMON NORMALS: normocephalic and atraumatic HEAD & SCALP: normocephalic and atraumatic Eye: COMMON NORMALS: Equal, round and reactive pupils present and EOMs intact bilaterally PUPIL: Yes Equal, round and reactive pupils present Neck/C-Spine: COMMON NORMALS: full ROM and supple Chest: COMMONS NORMALS: normal inspection of the chest and normal palpation of entire chest wall Resp: COMMON NORMALS: normal respiratory effort, No retractions, No use of accessory muscles and clear to auscultation bilaterally AUSCULTATION: clear to auscultation bilaterally Cardio: COMMON NORMALS: regular rate, regular rhythm and No murmurs present (Cardio) RATE: regular rate RHYTHM: regular rhythm GI: COMMON NORMALS: Normal to inspection, nondistended, normoactive bowel sounds present, Soft to palpation, non-tender and no masses PALPATION: Yes Soft to palpation Extremity: COMMON NORMALS: normal to inspection and full ROM Neuro: COMMON NORMALS: patient oriented x3, moves all extremities and no focal motor deficits Psych: COMMON NORMALS: mental status grossly normal, Normal thought process present and cooperative THOUGHT PROCESS: Normal thought process present Skin: COMMON NORMALS: no rashes or lesions noted and no wounds GENERAL SKIN EXAM: no rashes or lesions noted Course Vital Signs: Vital signs: Vital Signs Temperature 99.1 F 06/21/21 18:18 Pulse Rate 81 06/21/21 18:18 Respiratory Rate 16 06/21/21 18:18 Blood Pressure 144/80 06/21/21 18:18 Pulse Oximetry 97 06/21/21 18:18 MDM - General Adult MDM Narrative: Medical decision making narrative: Patient presents with vomiting feels much improved here she is well-appearing here with normal blood work CT scan here shows no acute abnormalities does has a slight urinary tract infection. Will prescribe her some nausea medicine along with antibiotic she is to follow-up with PCP and return if worsening she understands agrees to plan. Lab Data: Labs: Lab Results 06/21/21 06/21/21 06/21/21 18:43 18:43 18:43 WBC 6.6 10^3/uL 10^3/ uL (4.0-10.0) RBC 3.62 10^6/uL L 10 ^6/uL (4.1-5.3) Hgb 10.7 g/dL L g/dL (11.5-15.3) Hct 31.0 % L % (37.0-47.0) MCV 85.6 fl fl (81-99) MCH 29.6 pg pg (28.0-34.0) MCHC 34.5 g/dL g/dL (30.0-36.0) RDW 13.1 % % (12.1-15.1) Plt Count 312 10^3/cmm 10^3 /cmm (130-400) MPV 9.5 fL fL (7.4-10.4) Neut % (Auto) 63.8 % % Lymph % (Auto) 27.5 % % Canadian % (Auto) 7.6 % % Eos % (Auto) 0.2 % % Baso % (Auto) 0.3 % % Neut # (Auto) 4.21 10^3/uL 10^3 /uL (1.8-7.7) Lymph # (Auto) 1.8 10^3/uL 10^3/ uL (0.8-4.8) [place] # (Auto) 0.5 10^3/uL 10^3/ uL (0.2-0.9) Eos # (Auto) 0.0 10^3/uL 10^3/ uL (0.0-0.8) Baso # (Auto) 0.0 10^3/uL 10^3/ uL (0.0-0.1) Nucleated RBC % (a uto) 0 % % Nucleated RBCs # 0.0 /100WBC /100W BC Sodium 135 mmol/L L mmol /L (136-145) Potassium 3.1 mmol/L L mmol /L (3.5-5.1) Chloride 95 mmol/L L mmol/ L (98-107) Carbon Dioxide 26 mmol/L mmol/L (22-29) Anion Gap 17.1 (5-19) BUN 14 mg/dL mg/dL (6-20) Creatinine 0.6 mg/dL mg/dL (0.5-0.9) GFR Calculation 103.4 mL/min mL/m in (90-130) Glucose 92 mg/dL mg/dL (65-115) Calculated Osmolal ity 280 mOsm/kg L mOs m/kg (285-295) Calcium 7.5 mg/dL L mg/dL (8.5-10.5) Total Bilirubin 0.3 mg/dL mg/dL (0.15-1.2) AST 8 U/L U/L (0-32) ALT < 5 U/L U/L (0-33) Alkaline Phosphata se 42 IU/L IU/L (35-105) Total Protein 5.8 g/dL L g/dL (6.6-8.7) Albumin 3.5 g/dL g/dL (3.5-5.2) Globulin 2.3 g/dL g/dL (1.3-4.6) Lipase 13 U/L U/L (13-60) Urine Color Urine Appearance Urine pH Ur Specific Gravit y Urine Protein Urine Glucose (UA) Urine Ketones Urine Blood Urine Nitrate Urine Bilirubin Urine Urobilinogen Ur Leukocyte Radha ase Amorphous Sediment SARS-CoV-2 Ag (Rap id) Negative (Negative) 06/21/21 20:09 WBC RBC Hgb Hct MCV MCH MCHC RDW Plt Count MPV Neut % (Auto) Lymph % (Auto) Canadian % (Auto) Eos % (Auto) Baso % (Auto) Neut # (Auto) Lymph # (Auto) Canadian # (Auto) Eos # (Auto) Baso # (Auto) Nucleated RBC % (a uto) Nucleated RBCs # Sodium Potassium Chloride Carbon Dioxide Anion Gap BUN Creatinine GFR Calculation Glucose Calculated Osmolal ity Calcium Total Bilirubin AST ALT Alkaline Phosphata se Total Protein Albumin Globulin Lipase Urine Color Yellow (Yellow) Urine Appearance Sl hazy (CLEAR) Urine pH 5 (5-7) Ur Specific Gravit y 1.010 (1.005-1.030) Urine Protein 1+ H (Negative) Urine Glucose (UA) Norm (Normal) Urine Ketones 1+ H (Negative) Urine Blood 3+ H (Negative) Urine Nitrate Negative (Negative) Urine Bilirubin Neg (Negative) Urine Urobilinogen Norm mg/dL mg/dL (Negative) Ur Leukocyte Radha ase 2+ H (Negative) Amorphous Sediment Not Reportable SARS-CoV-2 Ag (Rap id) Imaging Data^: CT Abd/Pel: Attestation: I personally reviewed and interpreted this imaging study as follows: Radiologist's impression: CT Scan Report Signed Patient: Sara López Unit #: [id number] : 1965 Age/Sex: 55 / F ADM Date: 06/21/21 Loc: ER Room/Bed: Attending Dr: Ordering Provider/Ordering MD: Shanice Singleton MD Date of Service: 06/21/21 Procedure(s): CT abdomen pelvis w con* [id number] Accession Number(s): [id number] Report Number: [id number] PROCEDURE INFORMATION: Exam: CT Abdomen And Pelvis With Contrast Exam date and time: 06/21/2021 6:23 PM Age: 55 years old Clinical indication: Nausea and vomiting; Prior surgery; Surgery date: 6+ months; Surgery type: Gb, hyst, vaginal; Patient HX: C/O n/v/d x 5 days TECHNIQUE: Imaging protocol: Computed tomography of the abdomen and pelvis with contrast. Radiation optimization: All CT scans at this facility use at least one of these dose optimization techniques: automated exposure control; mA and/or kV adjustment per patient size (includes targeted exams where dose is matched to clinical indication); or iterative reconstruction. Contrast material: OMNI 300; Contrast volume: 95 ml; Contrast route: INTRAVENOUS (IV); COMPARISON: CT pelvis w con* [id number] 03/26/2021 11:46 AM RADIATION DOSE METRICS: Total DLP (mGy-cm): 821.11 FINDINGS: Liver: Normal. No mass. Gallbladder and bile ducts: Cholecystectomy. Nondilated biliary system. Pancreas: Normal. No ductal dilation. Spleen: Normal. No splenomegaly. Adrenal glands: Normal. No mass. Kidneys and ureters: Left renal cortical cyst. The cyst at the superior margin of the left kidney contains a thin enhancing septation. No nodularity. No calcification. Negative for hydronephrosis. Stomach and bowel: Unremarkable. No obstruction. No mucosal thickening. Appendix: Normal appendix. Intraperitoneal space: Unremarkable. No free air. No significant fluid collection. Vasculature: Unremarkable. No abdominal aortic aneurysm. Lymph nodes: Unremarkable. No enlarged lymph nodes. Urinary bladder: Unremarkable as visualized. Reproductive: Unremarkable as visualized. Bones/joints: Unremarkable. No acute fracture. Soft tissues: Unremarkable. CT/CT abdomen pelvis w con* [id number] IMPRESSION: 1. Negative for acute abdominopelvic abnormality. 2. Septated upper pole left renal cyst. 3. Recommend ultrasound follow-up in 12 months to document stability. COMMENTS: Consistent with the [employer]'s Incidental Findings Committee white paper (J Am Eric Radiol 2018): Any incidental renal lesion less than 1 cm or classified as too small to characterize, or any incidental cystic renal lesion characterized as simple-appearing, is likely benign. No follow-up imaging is recommended for these lesions per consensus recommendations based on imaging criteria. Radiation Dose CTDIVOL = (mGy): DLP = 821.11 (mGy-cm) Dictated By: Yefri Asher Signed By: Yefri Asher Signed Date/Time: 06/21/212016 DD/ 22 Discharge Plan Discharge Patient Disposition: Home Clinical Impression: Acute cystitis Qualifiers: Hematuria presence: with hematuria Qualified Code(s): N30.01 - Acute cystitis with hematuria Vomiting Qualifiers: Vomiting type: unspecified Vomiting Intractability: non-intractable Nausea presence: without nausea Qualified Code(s): R11.11 - Vomiting without nausea Condition: Stable Prescriptions: New cephalexin 500 mg capsule 500 mg PO TID 7 Days Qty: 21 RF: 0 ondansetron 4 mg tablet,disintegrating 4 mg PO Q6H PRN (Reason: nausea and vomiting) Qty: 14 RF: 0 No Action sertraline 50 mg tablet 50 mg PO DAILY Qty: 30 RF: 4 niacin 250 mg tablet extended release 250 mg PO DAILY Qty: 60 RF: 5 metoprolol succinate 50 mg tablet extended release 24 hr 50 mg PO DAILY 90 Days Qty: 90 RF: 2 potassium chloride 20 mEq tablet extended release 20 meq PO DAILY 90 Days Qty: 90 RF: 2 pantoprazole 40 mg tablet,delayed release (DR/EC) 40 mg PO DAILY 90 Days Qty: 90 RF: 2 albuterol sulfate [ProAir HFA] 90 mcg/actuation HFA aerosol inhaler 2 puff inhalation Q6H PRN (Reason: Wheezing) 90 Days Qty: 25.5 RF: 0 albuterol sulfate 1.25 mg/3 mL solution for nebulization 1.25 mg inhalation QID PRN (Reason: Wheezing) 90 Days Qty: 90 RF: 2 (DME) Compact Compressor Nebulizer Misc See Rx Instructions .Route Qty: 1 RF: 0 Suprep Bowel Prep Kit 17.5-3.13-1.6 gram recon soln See Rx Instructions PO .COMPLEX Qty: 177 RF: 0 ibuprofen 800 mg tablet 800 mg PO TID PRN (Reason: pain) Qty: 60 RF: 0 Colace 100 mg capsule 100 mg PO BID Qty: 60 RF: 0 acetaminophen 325 mg capsule 325 mg PO Q4H PRN (Reason: fever or pain) Qty: 60 RF: 0 Discharge Orders: Discharge ED (Routine); Ordered 06/21/21 Ordered By: Shanice Snigleton Referrals: Thien Herbert MD [Primary Care Provider] - 1-3 days Discharge Diet: Advance as tolerated Discharge Activity: Resume usual activity Patient Instructions: Urinary Tract Infection in Women (DC), Acute Nausea and Vomiting (ED) Coding Level of Care Code ED [employer] for [employer] Fwd Exam Comprehensive
[2021-06-21] MEDS: sodium chloride 0.9% 1,000 ML 999 ML IV (18:29)
[2021-06-21 19:01] LABS: Basophils % 0.3 %; Eosinophils % 0.2 %; Hemoglobin 10.7 g/dL (11.5-15.3); Lymphocytes # 1.8 10^3/uL (0.8-4.8); Lymphocytes % 27.5 %; Mean Corpuscular HGB Conc 34.5 g/dL (30.0-36.0); Mean Corpuscular Hemoglobin 29.6 pg (28.0-34.0); Mean Corpuscular Volume 85.6 fl (81-99); Mean Platelet Volume 9.5 fL (7.4-10.4); Monocytes # 0.5 10^3/uL (0.2-0.9); Monocytes % 7.6 %; Neutrophils # 4.21 10^3/uL (1.8-7.7); Neutrophils % 63.8 %; Nucleated Red Blood Cells % 0 %; Platelet Count 312 10^3/cmm (130-400); Red Blood Count 3.62 10^6/uL (4.1-5.3); Red Cell Distribution Width 13.1 % (12.1-15.1); White Blood Count 6.6 10^3/uL (4.0-10.0)
[2021-06-21 19:17] LABS: Alanine Aminotransferase < 5 U/L (0-33); Albumin Level 3.5 g/dL (3.5-5.2); Alkaline Phosphatase 42 IU/L (35-105); Anion Gap 17.1 (5-19); Aspartate Amino Transferase 8 U/L (0-32); Blood Urea Nitrogen 14 mg/dL (6-20); Calcium 7.5 mg/dL (8.5-10.5); Carbon Dioxide 26 mmol/L (22-29); Chloride 95 mmol/L (98-107); Globulin 2.3 g/dL (1.3-4.6); Glomerular Filtration Rate 103.4 mL/min (90-130); Glucose 92 mg/dL (65-115); Lipase 13 U/L (13-60); Osmolality Calculated 280 mOsm/kg (285-295); Potassium 3.1 mmol/L (3.5-5.1); Sodium 135 mmol/L (136-145); Total Bilirubin 0.3 mg/dL (0.15-1.2); Total Protein 5.8 g/dL (6.6-8.7)
[2021-06-21 19:22] LABS: SARS Covid-2 Antigen Negative (Negative)
[2021-06-21] MEDS: iohexol 300 mg/mL 100 mL Btl IV (19:36)
[2021-06-21 20:00] VITALS: PULSE 84; RESP 16; O2SAT 98
[2021-06-21 20:57] LABS: Add Urine Microscopic? YES; Bilirubin Urine Neg (Negative); Blood Urine 3+ (Negative); Glucose Urine UA Norm (Normal); Ketones Urine 1+ (Negative); Leukocyte Esterase Urine 2+ (Negative); Nitrate Urine Negative (Negative); Protein Urine 1+ (Negative); Urine Appearance SL Hazy (CLEAR); Urine Color Yellow (Yellow); Urobilinogen Urine Norm (Negative); pH Urine 5 (5-7)
[2021-06-21 21:03] LABS: Add Urine Culture? Yes; Bacteria Urine 4+ /hpf; RBC Urine 25-40 /hpf (0-2); WBC Urine 80-100 /hpf (0-5)
[2021-06-21 21:28] VITALS: BP 146/56; PULSE 82; RESP 16; O2SAT 96
== END 2021-06-21 21:29 | disposition home or self-care (01) ==
PROVIDERS: Emergency Medicine; Emergency Provider Emergency Medicine; PCP Family Medicine Adult Medicine
DX: N30.01 Acute cystitis with hematuria (principal); R11.11 Vomiting without nausea; J44.9 Chronic obstructive pulmonary disease, unspecified; E78.5 Hyperlipidemia, unspecified; F17.210 Nicotine dependence, cigarettes, uncomplicated; Z20.822 Contact with and (suspected) exposure to COVID-19
CPT/HCPCS: 71045; 74177; 80053; 81001; 83690; 85025; 87077; 87086; 87186; 87426; 96360; 99283; J7030; Q9967

== ENCOUNTER 2021-06-30 13:09 | Inpatient (IN) | payer MEDICAID, SELFPAY ==
[2021-06-30 13:20] VITALS: BP 163/82; PULSE 78; RESP 18; TEMP 37; O2SAT 97; BMI 28.3
--- NOTE | 2021-06-30 13:29 | W.ED.GENADLT ---
HPI - General Adult General: Chief complaint: Nausea/Vomiting/Diarrhea Stated complaint: no intake x 1 wk,p/s vag bleeding,n/v Time Seen by Provider: 06/30/21 13:14 History of Present Illness: HPI narrative: Patient is a 55-year-old female with a history of rectovaginal fistula status post removal on 04/18/2021 who presents the emergency room with concerns of diarrhea, decreased p.o. intake and fatigue since procedure. Patient says that she has not been feeling well since her procedure. Patient says that she has decreased appetite and increased loose stool with weakness since then. Patient has no complaints abdominal pain, chest pain, shortness breath, fever or chills, cough, runny nose sore throat. Patient said that she has barely been able to hold anything down. Denies any melena or hematochezia has no urinary complaints at this time. Patient denies any recent travel, or hospitalization other than surgery. Of note, patient recently was seen on 06/2020 for evaluation of abdominal cramps which she is does not claim to have today. CT scan was normal at that time. Patient was diagnosed with UTI was given antibiotics to go home with. Patient says that she has been taking the cephalexin 500mg TID since onset of symptoms. Onset: chronic Duration:ongoing Location:home Severity:moderate Review of Systems Narrative: Constitutional: No fever, no chills. HEENT: No vision changes CV: No chest pain, no palpitations PULM: no cough, no dyspnea. GI: No abdominal pain, +N/+V/+D. : No dysuria MSKEL: No muscle pain SKIN: No new rashes, no lesions. NEURO: No headache, no focal weakness. HEME: No visible bruises PSYCH: Normal mood PFSH ED PFSH: Medical History Aftercare following surgery of the genitourinary system Anxiety and depression Has been asymptomatic all her life per patient. She is well controlled on citalopram which she has been on since the and follows up with her primary care provider. BV (bacterial vaginosis) Chronic back pain Reports having a herniated disc in her lower back and neck and just takes muscle relaxers for this. 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 Cruz at [facility] History of colonoscopy (09/17/20) 2015 S/P section At the age of 20 S/P cholecystectomy Laparoscopic procedure performed by Dr. Hudson at [facility] in June 2020 S/P tubal ligation At the age of 20 when she had her Status post hysteroscopy 09/17/2020---hysteroscopy with D&C for postmenopausal bleeding performed by Dr. Ingram at [facility]. ---at time of hysteroscopy benign atrophic endometrium identified without any polyps. Pathology showed inactive endometrial glands on a background of mucin and debris, no atypia or hyperplasia polyps or malignancy identified. Family History Mother Diabetes Hypertension Thyroid condition Sister Diabetes Hypertension Father Diabetes Stroke Denies family history of Colon cancer Ovarian cancer Heart disease Hyperlipidemia Breast cancer Uterine cancer Social History Smoking and tobacco status: current every day smoker cigarettes Packs smoked per day: 1 Alcohol intake: never Current occupational status: disabled Physical Exam Narrative: EXAM NARRATIVE: Head: Atraumatic Eyes: PERRL, conjunctiva without injection ENT: Mucous membrane Dry NECK: Supple, ROM intact LUNGS: LCTAB, no crackles/rhonchi CV: Sinus tachycardia ABDOMEN: Soft, no focal TTP. NO guarding rebound, guarding, rigidity. No CVA tenderness to percussion. Neg Dunham/Neg McBurney's point tenderness, no suprabupic tenderness to palpation. EXTREMITY: Normal ROM SKIN: No rash or erythema NEURO: Awake and alert, no focal motor deficits PSYCH: Normal mood and affect Course Vital Signs: Vital signs: Vital Signs Temperature 98.6 F 06/30/21 13:20 Pulse Rate 63 06/30/21 13:57 Respiratory Rate 18 06/30/21 13:57 Blood Pressure 163/82 06/30/21 13:57 Pulse Oximetry 18 L 06/30/21 13:57 MDM - General Adult MDM Narrative: Medical decision making narrative: Patient is a 55-year-old female with history of rectovaginal fistula, recent UTI diagnosis on Keflex 3 times daily presenting to the emergency room with worsening diarrhea, generalized weakness. On exam, patient appears to be dry mildly tachycardic. Laboratory evaluation potassium of 2.3, sodium 127. Patient is status post IV 20 mEq potassium and 40 mEq p.o. tablet for repletion. Patient received 2 L of fluid reported mild symptomatic improvement. Patient will be admitted to the hospital for rehydration electrolyte correction. Disposition: Admission Lab Data: Labs: Lab Results 06/30/21 06/30/21 06/30/21 13:36 13:36 13:41 WBC 7.4 10^3/uL 10^3/ uL (4.0-10.0) RBC 4.44 10^6/uL 10^6 /uL (4.1-5.3) Hgb 12.8 g/dL g/dL (11.5-15.3) Hct 36.8 % L % (37.0-47.0) MCV 82.9 fl fl (81-99) MCH 28.8 pg pg (28.0-34.0) MCHC 34.8 g/dL g/dL (30.0-36.0) RDW 12.5 % % (12.1-15.1) Plt Count 405 10^3/cmm H 10 ^3/cmm (130-400) MPV 9.4 fL fL (7.4-10.4) Neut % (Auto) 67.4 % % Lymph % (Auto) 23.2 % % [place] % (Auto) 8.3 % % Eos % (Auto) 0.4 % % Baso % (Auto) 0.3 % % Neut # (Auto) 4.98 10^3/uL 10^3 /uL (1.8-7.7) Lymph # (Auto) 1.7 10^3/uL 10^3/ uL (0.8-4.8) [place] # (Auto) 0.6 10^3/uL 10^3/ uL (0.2-0.9) Eos # (Auto) 0.0 10^3/uL 10^3/ uL (0.0-0.8) Baso # (Auto) 0.0 10^3/uL 10^3/ uL (0.0-0.1) Nucleated RBC % (a uto) 0 % % Nucleated RBCs # 0.0 /100WBC /100W BC Sodium 127 mmol/L L mmol /L (136-145) Potassium 2.3 mmol/L L* mmo l/L (3.5-5.1) Chloride 80 mmol/L L mmol/ L (98-107) Carbon Dioxide 33 mmol/L H mmol/ L (22-29) Anion Gap 16.3 (5-19) BUN 12 mg/dL mg/dL (6-20) Creatinine 0.4 mg/dL L mg/dL (0.5-0.9) GFR Calculation 165.1 mL/min H mL /min (90-130) Glucose 92 mg/dL mg/dL (65-115) Calculated Osmolal ity 263 mOsm/kg L mOs m/kg (285-295) Calcium 8.7 mg/dL mg/dL (8.5-10.5) Total Bilirubin 0.7 mg/dL mg/dL (0.15-1.2) AST 9 U/L U/L (0-32) ALT 6 U/L U/L (0-33) Alkaline Phosphata se 50 IU/L IU/L (35-105) Total Protein 6.0 g/dL L g/dL (6.6-8.7) Albumin 3.8 g/dL g/dL (3.5-5.2) Globulin 2.2 g/dL g/dL (1.3-4.6) Lipase 14 U/L U/L (13-60) Influenza Type A A g Negative (Negative) Influenza Type B A g Negative (Negative) SARS-CoV-2 Ag (Rap id) 06/30/21 13:41 WBC RBC Hgb Hct MCV MCH MCHC RDW Plt Count MPV Neut % (Auto) Lymph % (Auto) [place] % (Auto) Eos % (Auto) Baso % (Auto) Neut # (Auto) Lymph # (Auto) [place] # (Auto) Eos # (Auto) Baso # (Auto) Nucleated RBC % (a uto) Nucleated RBCs # Sodium Potassium Chloride Carbon Dioxide Anion Gap BUN Creatinine GFR Calculation Glucose Calculated Osmolal ity Calcium Total Bilirubin AST ALT Alkaline Phosphata se Total Protein Albumin Globulin Lipase Influenza Type A A g Influenza Type B A g SARS-CoV-2 Ag (Rap id) Negative (Negative) Discharge Plan Discharge Prescriptions: No Action sertraline 50 mg tablet 50 mg PO DAILY Qty: 30 RF: 4 niacin 250 mg tablet extended release 250 mg PO DAILY Qty: 60 RF: 5 metoprolol succinate 50 mg tablet extended release 24 hr 50 mg PO DAILY 90 Days Qty: 90 RF: 2 potassium chloride 20 mEq tablet extended release 20 meq PO DAILY 90 Days Qty: 90 RF: 2 pantoprazole 40 mg tablet,delayed release (DR/EC) 40 mg PO DAILY 90 Days Qty: 90 RF: 2 albuterol sulfate [ProAir HFA] 90 mcg/actuation HFA aerosol inhaler 2 puff inhalation Q6H PRN (Reason: Wheezing) 90 Days Qty: 25.5 RF: 0 albuterol sulfate 1.25 mg/3 mL solution for nebulization 1.25 mg inhalation QID PRN (Reason: Wheezing) 90 Days Qty: 90 RF: 2 (DME) Compact Compressor Nebulizer Misc See Rx Instructions .Route Qty: 1 RF: 0 Suprep Bowel Prep Kit 17.5-3.13-1.6 gram recon soln See Rx Instructions PO .COMPLEX Qty: 177 RF: 0 ondansetron 4 mg tablet,disintegrating 4 mg PO Q6H PRN (Reason: nausea and vomiting) Qty: 14 RF: 0 ibuprofen 800 mg tablet 800 mg PO TID PRN (Reason: pain) Qty: 60 RF: 0 Colace 100 mg capsule 100 mg PO BID Qty: 60 RF: 0 acetaminophen 325 mg capsule 325 mg PO Q4H PRN (Reason: fever or pain) Qty: 60 RF: 0 Coding Level of Care Code ED [employer] for [employer]a [employer]
[2021-06-30 13:54] LABS: Basophils % 0.3 %; Eosinophils % 0.4 %; Hematocrit 36.8 % (37.0-47.0); Hemoglobin 12.8 g/dL (11.5-15.3); Lymphocytes # 1.7 10^3/uL (0.8-4.8); Lymphocytes % 23.2 %; Mean Corpuscular HGB Conc 34.8 g/dL (30.0-36.0); Mean Corpuscular Hemoglobin 28.8 pg (28.0-34.0); Mean Corpuscular Volume 82.9 fl (81-99); Mean Platelet Volume 9.4 fL (7.4-10.4); Monocytes # 0.6 10^3/uL (0.2-0.9); Monocytes % 8.3 %; Neutrophils # 4.98 10^3/uL (1.8-7.7); Neutrophils % 67.4 %; Nucleated Red Blood Cells % 0 %; Platelet Count 405 10^3/cmm (130-400); Red Blood Count 4.44 10^6/uL (4.1-5.3); Red Cell Distribution Width 12.5 % (12.1-15.1); White Blood Count 7.4 10^3/uL (4.0-10.0)
[2021-06-30 13:57] VITALS: BP 163/82; PULSE 63; RESP 18; O2SAT 18
[2021-06-30] MEDS: lactated ringers 1,000 ML 999 ML IV ×2 (14:04→16:15)
[2021-06-30] MEDS: ondansetron 2 mg/ML SDV 2 mL 4 MG IVP (14:04)
[2021-06-30 14:15] LABS: Influenza A by IFA Negative (Negative); Influenza B by IFA Negative (Negative); SARS Covid-2 Antigen Negative (Negative)
[2021-06-30 14:24] LABS: Alanine Aminotransferase 6 U/L (0-33); Albumin Level 3.8 g/dL (3.5-5.2); Alkaline Phosphatase 50 IU/L (35-105); Anion Gap 16.3 (5-19); Aspartate Amino Transferase 9 U/L (0-32); Blood Urea Nitrogen 12 mg/dL (6-20); Calcium 8.7 mg/dL (8.5-10.5); Carbon Dioxide 33 mmol/L (22-29); Chloride 80 mmol/L (98-107); Globulin 2.2 g/dL (1.3-4.6); Glomerular Filtration Rate 165.1 mL/min (90-130); Glucose 92 mg/dL (65-115); Lipase 14 U/L (13-60); Osmolality Calculated 263 mOsm/kg (285-295); Sodium 127 mmol/L (136-145); Total Bilirubin 0.7 mg/dL (0.15-1.2)
[2021-06-30 14:25] LABS: Potassium 2.3 mmol/L (3.5-5.1)
--- NOTE | 2021-06-30 14:43 | CTR_ITS ---
PROCEDURE INFORMATION: Exam: CT Abdomen And Pelvis With Contrast Exam date and time: 06/30/2021 2:43 PM Age: 55 years old Clinical indication: Abdominal pain; Prior surgery; Additional info: Abd pain per Dr morrow TECHNIQUE: Imaging protocol: Computed tomography of the abdomen and pelvis with contrast. Radiation optimization: All CT scans at this facility use at least one of these dose optimization techniques: automated exposure control; mA and/or kV adjustment per patient size (includes targeted exams where dose is matched to clinical indication); or iterative reconstruction. Contrast material: OMNI 300; Contrast volume: 95 ml; Contrast route: INTRAVENOUS (IV); COMPARISON: CT abdomen pelvis w con* [id number] 06/21/2021 7:34 PM RADIATION DOSE METRICS: Total DLP (mGy-cm): 754.33 FINDINGS: Liver: Normal. No mass. Gallbladder and bile ducts: There has been cholecystectomy. Pancreas: Normal. No ductal dilation. Spleen: Normal. No splenomegaly. Adrenal glands: Normal. No mass. Kidneys and ureters: There is a 3.5 cm cyst in the superior left kidney as well as a cyst in the mid left kidney. No renal calcification or hydronephrosis. Stomach and bowel: No bowel obstruction or wall thickening. The appearance of the ascending colon is not significantly changed and is likely related to underdistention rather than pathology. Appendix: The appendix is visualized and appears normal. Intraperitoneal space: Unremarkable. No free air. No significant fluid collection. Vasculature: Unremarkable. No abdominal aortic aneurysm. Lymph nodes: Unremarkable. No enlarged lymph nodes. Urinary bladder: Unremarkable as visualized. Reproductive: Unremarkable as visualized. Bones/joints: Unremarkable. No acute fracture. Soft tissues: Unremarkable. CT/CT abdomen pelvis w con* [id number] IMPRESSION: There are no acute concerning abnormalities. No significant change when compared with 06/21/2021. COMMENTS: Consistent with the [employer]'s Incidental Findings Committee white paper (J Am Eric Radiol 2018): Any incidental renal lesion less than 1 cm or classified as too small to characterize, or any incidental cystic renal lesion characterized as simple-appearing, is likely benign. No follow-up imaging is recommended for these lesions per consensus recommendations based on imaging criteria. Radiation Dose CTDIVOL = (mGy): DLP = 754.33 (mGy-cm)
[2021-06-30 14:52] LABS: Lactate (Lactic Acid level) 1.4 mmol/L (0.5-2.2)
[2021-06-30 15:00] VITALS: BP 157/72; PULSE 68; RESP 18; O2SAT 100
[2021-06-30] MEDS: iohexol 300 mg/mL 100 mL Btl IV (15:03)
--- NOTE | 2021-06-30 15:47 | PC.PHAR ---
pt unable to verify medications-pt states her boyfriend genaro helps her with her medications-called genaro [phone] no answer left message-medications entered are meds that the pharmacy has filled recently and what was on previous entered med list-notes are made on the pharmacy comments
[2021-06-30 16:00] VITALS: PULSE 68; RESP 18; O2SAT 100
--- NOTE | 2021-06-30 16:31 | P.HP_ITS ---
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 Patient tells me that she had a history of rectovaginal fistula, status post repair on May 21, 2021, she did well after surgery, but starting on 21 June she started feeling ill, complaining of fatigue, malaise, nausea, vomiting, she she she also had low-grade fevers, she went to the emergency room, was diagnosed with UTI, was put on Keflex, she finished the Keflex, but continued to have symptoms. She tells me that she feels very nauseous, is not able to keep down anything, she is also having low-grade fevers, and developing epigastric discomfort. She says that her last bowel movement was this morning, no bloody or black stools. No hemoptysis, no hematemesis, no bilious emesis. Does have me that her abdomen is a bit distended. She also tells me that for the last few days, she has been noticing stool-like discharge coming from her vagina, she thinks that she is having recurrence of the rectovaginal fistula, she called Dr. Cruz's office, who advised her that she might need a fistulogram patient presented to the emergency room, she was found to be h yponatremic, hypokalemic, CT scan no acute findings, no hemodynamic compromise, remained afebrile, no cough, shortness of breath, known exposure to COVID-19, she was complaining of severe chills during my examination. Review of Systems Const: Reports: fever(s), chills, change in appetite, fatigue and malaise Eyes: Denies: change in vision or blurry vision ENMT: Denies: nasal congestion Card: Denies: chest pain or palpitations Resp: Denies: dyspnea, productive cough, non-productive cough or wheezing GI: Reports: abdominal pain, nausea and vomiting; Denies: hematemesis, diarrhea, constipation, hematochezia or melena : Denies: flank pain, dysuria or urinary frequency Musc: Denies: neck pain or back pain Skin/Breast: Denies: rash Neuro: Denies: headache(s), dizziness or vertigo Endo: Denies: polyuria or polydipsia Medications/Allergies Home Medications Medication Instructions Recorded Confirmed Last Taken Type albuterol sulfate 1.25 mg/3 mL 1.25 mg INHALATION QID PRN 90 Days 03/27/21 06/30/21 05/21/21 Rx solution for nebulization #90 ml albuterol sulfate 90 mcg/actuation 2 puff INHALATION Q6H PRN 90 Days 03/27/21 06/30/21 Unknown Rx aerosol inhaler #25.5 g pantoprazole 40 mg tablet,delayed 40 mg PO DAILY 90 Days #90 tab 03/27/21 06/30/21 05/20/21 Rx release potassium chloride 20 mEq 20 meq PO DAILY 90 Days #90 tab 03/27/21 06/30/21 05/20/21 Rx tablet,extended release acetaminophen 325 mg PO Q4H PRN #60 cap 05/21/21 06/30/21 Unknown Rx ibuprofen 800 mg PO TID PRN #60 tab 05/21/21 06/30/21 Unknown Rx nebulizers #1 ea 06/16/21 06/30/21 Unknown Rx ondansetron 4 mg PO Q6H PRN #14 tab 06/21/21 06/30/21 Unknown Rx cephalexin 500 mg PO TID 06/30/21 06/30/21 Unknown History docusate sodium [Colace] 100 mg PO BID 06/30/21 06/30/21 Unknown History metoprolol succinate 50 mg PO DAILY 06/30/21 06/30/21 Unknown History niacin 500 mg PO BID 06/30/21 06/30/21 Unknown History sertraline 50 mg PO DAILY 06/30/21 06/30/21 Unknown History sodium,potassium,mag sulfates See Rx Instructions PO .COMPLEX 06/30/21 06/30/21 Unknown History [Suprep Bowel Prep Kit] Allergies Allergy/AdvReac Type Severity Reaction Status Date / Time influenza virus vaccine tvs Allergy rash Verified 06/30/21 15:33 (65 yr and up) [From Fluad (65yr+)(PF)] Penicillins Allergy Rash Verified 06/30/21 15:33 vaccine adjuvant emulsion Allergy rash Verified 06/30/21 15:33 [id number].1 [From Fluad (65yr+)(PF)] oxycodone AdvReac Dizziness, Verified 06/30/21 15:33 flushed sulfamethoxazole AdvReac Nausea Verified 06/30/21 15:33 [From Bactrim] trimethoprim [From Bactrim] AdvReac Nausea Verified 06/30/21 15:33 PFSH Acute PFSH: Medical History Aftercare following surgery of the genitourinary system Anxiety and depression Has been asymptomatic all her life per patient. She is well controlled on citalopram which she has been on since the and follows up with her primary care provider. BV (bacterial vaginosis) Chronic back pain Reports having a herniated disc in her lower back and neck and just takes muscle relaxers for this. 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 Cruz at [facility] History of colonoscopy (09/17/20) 2015 S/P section At the age of 20 S/P cholecystectomy Laparoscopic procedure performed by Dr. Hudson at [facility] in June 2020 S/P tubal ligation At the age of 20 when she had her Status post hysteroscopy 09/17/2020---hysteroscopy with D&C for postmenopausal bleeding performed by Dr. Ingram at [facility]. ---at time of hysteroscopy benign atrophic endometrium identified without any polyps. Pathology showed inactive endometrial glands on a background of mucin and debris, no atypia or hyperplasia polyps or malignancy identified. Family History Mother Diabetes Hypertension Thyroid condition Sister Diabetes Hypertension Father Diabetes Stroke Denies family history of Colon cancer Ovarian cancer Heart disease Hyperlipidemia Breast cancer Uterine cancer Social History Smoking and tobacco status: current every day smoker cigarettes Packs smoked per day: 1 Alcohol intake: never Current occupational status: disabled Vitals/I&O/Wt Last Vital Signs Temp 98.6 F 06/30/21 13:20 Pulse 68 06/30/21 16:00 Resp 18 06/30/21 16:00 BP 157/72 06/30/21 15:00 Pulse Ox 100 06/30/21 16:00 06/30/21 06/30/21 06/30/21 06:59 14:59 22:59 Intake Total 1000 / 1000 Balance 1000 / 1000 Weight last 48 hrs Weight 63.503 kg Physical Exam Const: COMMON NORMALS: no acute distress and patient oriented x3 GENERAL APPEARANCE: cooperative and comfortable HENMT: COMMON NORMALS: normocephalic HEAD & SCALP: normocephalic Eye: COMMON NORMALS: Equal, round and reactive pupils present and EOMs intact bilaterally GENERAL EYE: appearance normal, both eyes and all related structures PUPIL: Yes Equal, round and reactive pupils present Neck/C-Spine: COMMON NORMALS: full ROM and no lymphadenopathy THYROID: Thyroid normal Lymph: LYMPHATIC: no lymphadenopathy noted Resp: COMMON NORMALS: normal respiratory effort, No retractions, No use of accessory muscles and clear to auscultation bilaterally AUSCULTATION: clear t o auscultation bilaterally Cardio: COMMON NORMALS: regular rate, regular rhythm, S1 normal heart sound present, S2 normal heart sound present, No gallops present (Cardio), No clicks present (Cardio) and No murmurs present (Cardio) RATE: regular rate RHYTHM: regular rhythm HEART SOUNDS: S1 normal heart sound present and S2 normal heart sound present GI: COMMON NORMALS: Normal to inspection, nondistended, normoactive bowel sounds present, Soft to palpation, non-tender and No hepatosplenomegaly present PALPATION: Yes Soft to palpation and Yes No hepatosplenomegaly present Extremity: COMMON NORMALS: no pedal edema Neuro: COMMON NORMALS: patient oriented x3, CN's II-XII intact bilaterally, moves all extremities and no focal motor deficits Psych: COMMON NORMALS: mental status grossly normal, Normal thought process present and cooperative THOUGHT PROCESS: Normal thought process present Data : 06/30/21 13:36 06/30/21 13:36 A&P Assessment and plan (1) 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 Cruz -We will likely require fistulogram Concerns for UTI, with history of rectovaginal fistula, CT scan no evidence of pyelonephritis, no flank pain, will start her on Primaxin Dehydration, IV hydration, clear liquid diet Hypokalemia, she is received 20 mEq of potassium in the emergency room, cannot take oral potassium, advised nurse to hold oral potassium, will give 40 mEq of potassium, recheck BMP at 10 PM Hyponatremia, secondary hydration, IV fluids Zofran for nausea Protonix for GI prophylaxis Lovenox for DVT prophylaxis Full code Status: Acute (2) Hypokalemia: Status: Acute (3) Dehydration: Status: Acute (4) Hyponatremia: Status: Acute Attestations Medical Necessity Statement*: Patient requires hospitalization, outpatient with observation, for dehydration, hypokalemia, hyponatremia, concerns for recurrence of rectovaginal fistula, UTI Coding Level of Care Code Acute 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
--- NOTE | 2021-06-30 16:57 | PC.NURSE ---
Attempt report to 259.2
[2021-06-30 17:00] VITALS: BP 157/72; PULSE 74; RESP 18; O2SAT 100
[2021-06-30 17:21] LABS: Bilirubin Urine Neg (Negative); Blood Urine 3+ (Negative); Glucose Urine UA Norm (Normal); Ketones Urine 2+ (Negative); Leukocyte Esterase Urine 2+ (Negative); Nitrate Urine Negative (Negative); Protein Urine Trace (Negative); Urine Appearance Hazy (CLEAR); Urine Color Yellow (Yellow); Urobilinogen Urine Norm (Negative); pH Urine 8 (5-7)
[2021-06-30 17:22] LABS: Add Urine Microscopic? YES; Bacteria Urine 1+ /hpf; RBC Urine 0-4 /hpf (0-2); WBC Urine 15-25 /hpf (0-5)
[2021-06-30 17:23] LABS: Add Urine Culture? Yes
[2021-06-30 18:00] LABS: Procalcitonin 0.05 ng/mL (0-0.5)
[2021-06-30 18:11] LABS: C Reactive Protein 16.3 mg/L (0.0-4.9); Creatine Phosphokinase 19 U/L (26-192); Lipase 14 U/L (13-60)
[2021-06-30 18:45] LABS: Lactate (Lactic Acid level) 0.8 mmol/L (0.5-2.2)
[2021-06-30] MEDS: dextrose 5%-sod chloride 0.9% 1,000 ML 100 ML IV (19:30)
[2021-06-30 20:00] VITALS: BP 154/72; PULSE 74; RESP 17; TEMP 36.8; O2SAT 94
[2021-06-30] MEDS: pantoprazole 40 mg SDV IVP (20:55)
[2021-06-30 20:57] VITALS: BMI 28.3
[2021-06-30 21:50] LABS: Alanine Aminotransferase < 5 U/L (0-33); Albumin Level 3.4 g/dL (3.5-5.2); Alkaline Phosphatase 41 IU/L (35-105); Anion Gap 18.3 (5-19); Aspartate Amino Transferase 8 U/L (0-32); Blood Urea Nitrogen 8 mg/dL (6-20); Carbon Dioxide 29 mmol/L (22-29); Chloride 83 mmol/L (98-107); Globulin 1.7 g/dL (1.3-4.6); Glomerular Filtration Rate 165.1 mL/min (90-130); Glucose 86 mg/dL (65-115); Osmolality Calculated 264 mOsm/kg (285-295); Sodium 128 mmol/L (136-145); Thyroid Stimulating Hormone 1.18 uIU/mL (0.27-4.20); Total Bilirubin 0.5 mg/dL (0.15-1.2); Total Protein 5.1 g/dL (6.6-8.7)
[2021-06-30 21:54] LABS: Potassium 2.3 mmol/L (3.5-5.1)
[2021-06-30] MEDS: enoxaparin 40 mg/0.4 mL Syringe SUBCUT (22:18)
[2021-06-30] MEDS: lidocaine 1% 5 ML in potassium chloride premix 100 ML 25 ML IV (22:44)
[2021-07-01] VITALS: BP 138/70; PULSE 74; RESP 18; TEMP 36.6; O2SAT 94
--- NOTE | 2021-07-01 | XR_ITS ---
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 FINDINGS: Normal bowel gas pattern. Mild lumbar curve. Cholecystectomy. XR/XR KUB [id number] Impression: Normal bowel gas pattern
[2021-07-01] MEDS: lidocaine 1% 5 ML in potassium chloride premix 100 ML 25 ML IV (03:21)
[2021-07-01 04:00] VITALS: BP 148/69; PULSE 66; RESP 16; TEMP 36.5; O2SAT 92
[2021-07-01] MEDS: dextrose 5%-sod chloride 0.9% 1,000 ML 100 ML IV ×2 (05:30→21:54)
[2021-07-01 06:56] LABS: Basophils % 0.5 %; Eosinophils # 0.1 10^3/uL (0.0-0.8); Eosinophils % 0.9 %; Hematocrit 35.1 % (37.0-47.0); Hemoglobin 12.1 g/dL (11.5-15.3); Lymphocytes # 2.2 10^3/uL (0.8-4.8); Lymphocytes % 34.2 %; Mean Corpuscular HGB Conc 34.5 g/dL (30.0-36.0); Mean Corpuscular Hemoglobin 28.9 pg (28.0-34.0); Mean Corpuscular Volume 83.8 fl (81-99); Mean Platelet Volume 9.7 fL (7.4-10.4); Monocytes # 0.6 10^3/uL (0.2-0.9); Monocytes % 9.5 %; Neutrophils % 54.6 %; Nucleated Red Blood Cells % 0 %; Platelet Count 358 10^3/cmm (130-400); Red Blood Count 4.19 10^6/uL (4.1-5.3); Red Cell Distribution Width 12.5 % (12.1-15.1); White Blood Count 6.4 10^3/uL (4.0-10.0)
[2021-07-01 07:15] LABS: Alanine Aminotransferase < 5 U/L (0-33); Albumin Level 3.4 g/dL (3.5-5.2); Alkaline Phosphatase 46 IU/L (35-105); Anion Gap 11.6 (5-19); Aspartate Amino Transferase 8 U/L (0-32); Blood Urea Nitrogen 7 mg/dL (6-20); Calcium 8.8 mg/dL (8.5-10.5); Carbon Dioxide 34 mmol/L (22-29); Chloride 88 mmol/L (98-107); Glomerular Filtration Rate 127.6 mL/min (90-130); Glucose 75 mg/dL (65-115); Magnesium 1.9 mg/dL (1.7-2.3); Osmolality Calculated 267 mOsm/kg (285-295); Phosphorus 3.3 mg/dL (2.5-4.5); Potassium 3.6 mmol/L (3.5-5.1); Sodium 130 mmol/L (136-145); Total Bilirubin 0.5 mg/dL (0.15-1.2); Total Protein 5.4 g/dL (6.6-8.7)
[2021-07-01 08:00] VITALS: BP 164/74; PULSE 60; RESP 17; TEMP 36.6; O2SAT 94
[2021-07-01] MEDS: pantoprazole 40 mg SDV IVP ×2 (08:53→21:55)
[2021-07-01] MEDS: metoprolol succinate ER (24 HR) 50 mg Tablet PO (08:53)
[2021-07-01 09:15] LABS: Influenza A by IFA Negative (Negative)
[2021-07-01 09:16] LABS: Influenza B by IFA Negative (Negative)
[2021-07-01 12:00] VITALS: BP 187/68; PULSE 59; RESP 18; TEMP 36.8; O2SAT 93
--- NOTE | 2021-07-01 12:53 | P.PN_ITS ---
Subjective Subjective: Interval history: Patient was seen this morning, she tells me that she is feeling better, no nausea, no vomiting, denies any vaginal discharge, no stool output from her vagina, no lightheadedness, no dizziness, Vitals/I&O/Wt Last Vital Signs Temp 97.8 F 07/01/21 08:00 Pulse 60 07/01/21 08:00 Resp 17 07/01/21 08:00 BP 164/74 07/01/21 08:00 Pulse Ox 94 07/01/21 08:00 06/30/21 07/01/21 07/01/21 22:59 06:59 14:59 Intake Total 1424.166 / 3424.999 345 / 345 Output Total 850 / 850 Balance 1424.166 / 3424.999 -505 / -505 Weight last 48 hrs Weight 63.503 kg Weight 63.503 kg Physical Exam Const: COMMON NORMALS: no acute distress and patient oriented x3 Resp: COMMON NORMALS: normal respiratory effort, No retractions, No use of accessory muscles and clear to auscultation bilaterally AUSCULTATION: clear to auscultation bilaterally Cardio: COMMON NORMALS: regular rate, regular rhythm, S1 normal heart sound present and S2 normal heart sound present RATE: regular rate RHYTHM: regu lar rhythm HEART SOUNDS: S1 normal heart sound present and S2 normal heart sound present GI: COMMON NORMALS: Normal to inspection, nondistended, normoactive bowel sounds present, Soft to palpation and non-tender PALPATION: Yes Soft to palpation Extremity: COMMON NORMALS: no pedal edema Neuro: COMMON NORMALS: patient oriented x3 Psych: COMMON NORMALS: mental status grossly normal Data : 07/01/21 05:58 07/01/21 05:58 Micro: Microbiology 06/30/21 18:08 Blood Culture - Preliminary Blood SPECIMEN COLLECTED 06/30/21 18:10 Blood Culture - Preliminary Blood SPECIMEN COLLECTED A&P Assessment and plan (1) 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 Cruz to see this afternoon, will order barium enema Concerns for UTI, UA with evidence of UTI with history of rectovaginal fistula, CT scan no evidence of pyelonephritis, no flank pain, will start her on Primaxin Dehydration, IV hydration, advance to full's Hypokalemia, resolved Hyponatremia, resolving Zofran for nausea Protonix for GI prophylaxis Lovenox for DVT prophylaxis Full code Status: Acute (2) Hypokalemia: Status: Acute (3) Dehydration: Status: Acute (4) Hyponatremia: Status: Acute Attestations Medical Necessity Statement*: Patient requires hospitalization for dehydration, UTI, concern for rectovaginal fistula Coding Level of Care Code Acute 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
[2021-07-01 14:50] LABS: Coronavirus Test Green County Not Detected
[2021-07-01 15:18] VITALS: BP 177/70; PULSE 64; RESP 18; TEMP 36.9; O2SAT 96
[2021-07-01] MEDS: ondansetron 2 mg/ML SDV 2 mL 4 MG IVP (16:34)
[2021-07-01] MEDS: amlodipine 10 mg Tablet PO (17:31)
[2021-07-01] MEDS: enoxaparin 40 mg/0.4 mL Syringe SUBCUT (17:31)
--- NOTE | 2021-07-01 18:32 | PC.NURSE ---
PATIENT HASN'T FELT WELL TODAY. SHE HAD ONE BM TODAY THROUGH RECTUM AND VAGINA. DR. FORTUNE NOTIFIED. PATIENT BECAME NAUSEOUS. ZOFRAN ADMINISTERED. GOOD URINE OUTPUT. MINIMAL COMPLAINTS OF PAIN. BLOOD PRESSURE ELEVATED. DR. FORTUNE NOTIFIED. AMLODIPINE STARTED.
[2021-07-01 20:00] VITALS: BP 159/64; PULSE 73; RESP 17; TEMP 36.9; O2SAT 96
[2021-07-02] VITALS: BP 141/56; PULSE 78; RESP 18; TEMP 37.1; O2SAT 93
[2021-07-02 04:00] VITALS: BP 145/56; PULSE 61; RESP 18; TEMP 36.5; O2SAT 96
[2021-07-02 06:33] LABS: Basophils % 0.4 %; Eosinophils % 0.4 %; Hematocrit 33.7 % (37.0-47.0); Hemoglobin 11.9 g/dL (11.5-15.3); Lymphocytes # 2.1 10^3/uL (0.8-4.8); Lymphocytes % 30.8 %; Mean Corpuscular HGB Conc 35.3 g/dL (30.0-36.0); Mean Corpuscular Hemoglobin 29.3 pg (28.0-34.0); Mean Platelet Volume 9.6 fL (7.4-10.4); Monocytes # 0.6 10^3/uL (0.2-0.9); Monocytes % 9.1 %; Neutrophils # 3.94 10^3/uL (1.8-7.7); Nucleated Red Blood Cells % 0 %; Platelet Count 351 10^3/cmm (130-400); Red Blood Count 4.06 10^6/uL (4.1-5.3); Red Cell Distribution Width 12.4 % (12.1-15.1); White Blood Count 6.7 10^3/uL (4.0-10.0)
[2021-07-02 06:54] LABS: Alanine Aminotransferase < 5 U/L (0-33); Albumin Level 3.4 g/dL (3.5-5.2); Alkaline Phosphatase 40 IU/L (35-105); Anion Gap 16.5 (5-19); Aspartate Amino Transferase 8 U/L (0-32); Blood Urea Nitrogen 6 mg/dL (6-20); Calcium 8.1 mg/dL (8.5-10.5); Carbon Dioxide 28 mmol/L (22-29); Chloride 86 mmol/L (98-107); Globulin 1.8 g/dL (1.3-4.6); Glomerular Filtration Rate 165.1 mL/min (90-130); Glucose 85 mg/dL (65-115); Magnesium 1.7 mg/dL (1.7-2.3); Osmolality Calculated 263 mOsm/kg (285-295); Sodium 128 mmol/L (136-145); Total Bilirubin 0.4 mg/dL (0.15-1.2); Total Protein 5.2 g/dL (6.6-8.7)
[2021-07-02 07:56] LABS: Potassium 2.5 mmol/L (3.5-5.1)
--- NOTE | 2021-07-02 08:12 | PC.NURSE ---
Dr. Pfeiffer notified at this time of critical K+ called to this nurse at this time. New orders received.
[2021-07-02] MEDS: metoprolol succinate ER (24 HR) 50 mg Tablet PO (08:17)
[2021-07-02] MEDS: amlodipine 10 mg Tablet PO (08:17)
[2021-07-02] MEDS: pantoprazole 40 mg SDV IVP ×2 (08:17→21:19)
[2021-07-02] MEDS: lidocaine 1% 5 ML in potassium chloride premix 100 ML IV ×2 (08:17→13:53)
[2021-07-02 08:30] VITALS: BP 142/63; PULSE 55; RESP 16; TEMP 36.5; O2SAT 97
[2021-07-02] MEDS: dextrose 5%-sod chloride 0.9% 1,000 ML 100 ML IV ×2 (08:33→22:20)
[2021-07-02 15:55] VITALS: BP 151/74; PULSE 68; RESP 16; TEMP 36.5; O2SAT 99
--- NOTE | 2021-07-02 16:16 | P.PN_ITS ---
Subjective Subjective: Interval history: Patient was seen this morning, yesterday afternoon patient refused to do her barium enema, as she had hemorrhoids, and was complaining of severe pain, this morning she again refuses to do the barium enema, I advised her that to definitively see if she has a rectovaginal fistula we would have to give her enema to help with the fistula, patient tells me that she does not want to have the test, but is willing to do it if we do it under anesthesia, I advised him not comfortable putting her through the the risk of anesthesia to perform the procedure. I offered to give her medication for pain anxiety however she declined. This morning she denies any chest pain, no palpitations, no lightheadedness, dizziness, she tells me that she has adequate oral intake, denies any dysuria, no hematuria, no diarrhea Vitals/I&O/Wt Last Vital Signs Temp 97.7 F 07/02/21 15:55 Pulse 68 07/02/21 15:55 Resp 16 07/02/21 15:55 BP 151/74 07/02/21 15:55 Pulse Ox 99 07/02/21 15:55 07/02/21 07/02/21 07/02/21 06:59 14:59 22:59 Intake Total 200 / 2221.667 1228 / 1228 Output Total 900 / 2350 Balance -700 / -626.635 4257 / 1228 Weight last 48 hrs Weight 63.503 kg Physical Exam Const: COMMON NORMALS: no acute distress and patient oriented x3 Resp: COMMON NORMALS: normal respiratory effort, No retractions, No use of accessory muscles and clear to auscultation bilaterally AUSCULTATION: clear to auscultation bilaterally Cardio: COMMON NORMALS: regular rate, regular rhythm, S1 normal heart sound present and S2 normal heart sound present RATE: regular rate RHYTHM: regular rhythm HEART SOUNDS: S1 normal heart sound present and S2 normal heart sound present GI: COMMON NORMALS: Normal to inspection, nondistended, normoactive bowel sounds present, Soft to palpation and non-tender PALPATION: Yes Soft to palpation Extremity: COMMON NORMALS: no pedal edema Neuro: COMMON NORMALS: patient oriented x3 Psych: COMMON NORMALS: mental status grossly normal Data : 07/02/21 05:48 07/02/21 05:48 Micro: Microbiology 06/30/21 16:45 Urine Culture - Final Urine,Clean Catch 07/01/21 16:30 C.difficile Toxin B Gene (PCR) - Final Stool Routine Collection 06/30/21 18:08 Blood Culture - Preliminary Blood NEGATIVE TO DATE 06/30/21 18:10 Blood Culture - Preliminary Blood NEGATIVE TO DATE A&P Assessment and plan (1) 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: -No complaints of stool discharge this morning -Now having severe dehydration, hyperkalemia, hyponatremia, -CT scan no acute findings -Patient declined a barium enema for now Concerns for UTI, UA with evidence of UTI with history of rectovaginal fistula, CT scan no evidence of pyelonephritis, no flank pain, continue Primaxin Dehydration, IV hydration, advance diet as tolerated Hypokalemia, potassium 2.5, will place Hyponatremia, sodium 128, IV hydration Zofran for nausea Protonix for GI prophylaxis Lovenox for DVT prophylaxis Full code Status: Acute (2) Hypokalemia: Status: Acute (3) Dehydration: Status: Acute (4) Hyponatremia: Status: Acute Attestations Medical Necessity Statement*: Patient requires hospitalization for rectovaginal fistula, severe hypokalemia, hyponatremia, UTI Coding Level of Care Code Acute 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
[2021-07-02] MEDS: enoxaparin 40 mg/0.4 mL Syringe SUBCUT (17:09)
[2021-07-02 20:00] VITALS: BP 116/63; PULSE 77; RESP 17; TEMP 36.9; O2SAT 98
[2021-07-02] MEDS: promethazine 25 mg/mL SDV 1 mL 12.5 MG IM (22:21)
[2021-07-03] VITALS (8 sets, daily range): BP systolic 110–144; BP diastolic 54–74; PULSE 62–75; RESP 16–18; TEMP 36.7–37.1; O2SAT 94–99
[2021-07-03 06:18] LABS: Basophils # 0.1 10^3/uL (0.0-0.1); Basophils % 0.6 %; Eosinophils # 0.1 10^3/uL (0.0-0.8); Eosinophils % 0.9 %; Hematocrit 34.2 % (37.0-47.0); Hemoglobin 11.8 g/dL (11.5-15.3); Lymphocytes # 2.2 10^3/uL (0.8-4.8); Mean Corpuscular HGB Conc 34.5 g/dL (30.0-36.0); Mean Corpuscular Hemoglobin 29.2 pg (28.0-34.0); Mean Corpuscular Volume 84.7 fl (81-99); Mean Platelet Volume 9.4 fL (7.4-10.4); Monocytes # 0.7 10^3/uL (0.2-0.9); Monocytes % 8.8 %; Neutrophils # 4.64 10^3/uL (1.8-7.7); Neutrophils % 60.3 %; Nucleated Red Blood Cells % 0 %; Platelet Count 327 10^3/cmm (130-400); Red Blood Count 4.04 10^6/uL (4.1-5.3); Red Cell Distribution Width 12.5 % (12.1-15.1); White Blood Count 7.7 10^3/uL (4.0-10.0)
[2021-07-03 06:39] LABS: Magnesium 1.6 mg/dL (1.7-2.3); Phosphorus 2.1 mg/dL (2.5-4.5)
[2021-07-03 06:47] LABS: Alanine Aminotransferase < 5 U/L (0-33); Albumin Level 3.2 g/dL (3.5-5.2); Alkaline Phosphatase 37 IU/L (35-105); Anion Gap 13.4 (5-19); Aspartate Amino Transferase 7 U/L (0-32); Blood Urea Nitrogen 2 mg/dL (6-20); Calcium 7.7 mg/dL (8.5-10.5); Carbon Dioxide 25 mmol/L (22-29); Chloride 93 mmol/L (98-107); Globulin 2.1 g/dL (1.3-4.6); Glomerular Filtration Rate 165.1 mL/min (90-130); Glucose 122 mg/dL (65-115); Osmolality Calculated 265 mOsm/kg (285-295); Sodium 129 mmol/L (136-145); Total Bilirubin 0.3 mg/dL (0.15-1.2); Total Protein 5.3 g/dL (6.6-8.7)
[2021-07-03 07:04] LABS: Potassium 2.4 mmol/L (3.5-5.1)
[2021-07-03] MEDS: metoprolol succinate ER (24 HR) 50 mg Tablet PO (08:31)
[2021-07-03] MEDS: amlodipine 10 mg Tablet PO (08:31)
[2021-07-03] MEDS: pantoprazole 40 mg SDV IVP ×2 (10:12→20:01)
[2021-07-03] MEDS: lidocaine 1% 5 ML in potassium chloride premix 100 ML 25 ML IV (10:25)
[2021-07-03] MEDS: magnesium sulfate premix 4 GM/100 ML PREMIX IV (10:57)
--- NOTE | 2021-07-03 12:37 | PM.CONSULT ---
Providers/Reason For Consult Consulting Physician/Specialty*: General Surgery Nestor Stephen MD Reason for Consult*: Requesting EGD for intractable nausea/vomiting. Attending Physician: Dimitrios Pfeiffer MD Primary Care Provider: Thien Herbert MD History of Present Illness History of Present Illness Sara López is a 55 year old female who was admitted several days ago with a 3-week history of nausea, vomiting and diarrhea. She was also complaining of fatigue, lightheadedness, dizziness and a poor appetite at that time. She tells me that her nausea started one day a little over 3 weeks ago. She had not changed medications. She was in the emergency department with what she thought was a recurrent rectovaginal fistula after having a repair in May of this year by Dr. Cruz. She was diagnosed with a urinary tract infection and put on Keflex. She said this did not help any of her symptoms. She has not been around anyone ill. When she came back to the emergency department several days ago she had a CAT scan which revealed no significant abnormalities. She was admitted after being found to have multiple electrolyte abnormalities which are being corrected. She says she feels the best that she has over the past couple of weeks today. She has been on a clear liquid diet but still vomited yesterday. She has never seen evidence of hematochezia, melena or hematemesis. She says she does have some epigastric discomfort but that has been going on for years. She has been advanced to a regular diet today but has not attempted this yet. The patient tells me that she has no known history of peptic ulcer disease. She had a colonoscopy earlier this year which apparently revealed a small colon polyp. She says she has been diagnosed with a hiatal hernia in the past in [place], but does not remember how this was done. She does not recall having an EGD in the past. She admits to me that she was taking perhaps 500 tablets of ibuprofen a month up until about 3 months ago. She said she has been doing that for probably 30 years for chronic back pain. She no longer takes regular NSAIDs. She has no known family history of upper GI neoplasia. Review of Systems General: Reports: 10 or more systems reviewed and unremarkable except in HPI and below Const: Reports: fever(s), chills and fatigue GI: Reports: abdominal pain (Epigastrium -- for years ) and diarrhea; Denies: hematemesis, hematochezia or melena Musc: Reports: back pain (Chronic) Psych: Reports: anxiety and depression Meds/Allergies Home Medications and Allergies Home Medications Medication Instructions Recorded Confirmed Last Taken Type albuterol sulfate 1.25 mg/3 mL 1.25 mg INHALATION QID PRN 90 Days 03/27/21 06/30/21 05/21/21 Rx solution for nebulization #90 ml albuterol sulfate 90 mcg/actuation 2 puff INHALATION Q6H PRN 90 Days 03/27/21 06/30/21 Unknown Rx aerosol inhaler #25.5 g pantoprazole 40 mg tablet,delayed 40 mg PO DAILY 90 Days #90 tab 03/27/21 06/30/21 05/20/21 Rx release potassium chloride 20 mEq 20 meq PO DAILY 90 Days #90 tab 03/27/21 06/30/21 05/20/21 Rx tablet,extended release acetaminophen 325 mg PO Q4H PRN #60 cap 05/21/21 06/30/21 Unknown Rx ibuprofen 800 mg PO TID PRN #60 tab 05/21/21 06/30/21 Unknown Rx nebulizers #1 ea 06/16/21 06/30/21 Unknown Rx ondansetron 4 mg PO Q6H PRN #14 tab 06/21/21 06/30/21 Unknown Rx cephalexin 500 mg PO TID 06/30/21 06/30/21 Unknown History docusate sodium [Colace] 100 mg PO BID 06/30/21 06/30/21 Unknown History metoprolol succinate 50 mg PO DAILY 06/30/21 06/30/21 Unknown History niacin 500 mg PO BID 06/30/21 06/30/21 Unknown History sertraline 50 mg PO DAILY 06/30/21 06/30/21 Unknown History sodium,potassium,mag sulfates See Rx Instructions PO .COMPLEX 06/30/21 06/30/21 Unknown History [Suprep Bowel Prep Kit] Allergies Allergy/AdvReac Type Severity Reaction Status Date / Time influenza virus vaccine tvs Allergy rash Verified 06/30/21 15:33 (65 yr and up) [From Fluad (65yr+)(PF)] Penicillins Allergy Rash Verified 06/30/21 15:33 vaccine adjuvant emulsion Allergy rash Verified 06/30/21 15:33 [id number] [From Fluad 2014-(65yr+)(PF)] oxycodone AdvReac Dizziness, Verified 06/30/21 15:33 flushed sulfamethoxazole AdvReac Nausea Verified 06/30/21 15:33 [From Bactrim] trimethoprim [From Bactrim] AdvReac Nausea Verified 06/30/21 15:33 Current Medications Current Medications Generic Name Dose Route Start Last Admin Trade Name Freq PRN Reason Stop Dose Admin Amlodipine Besylate 10 mg 07/01/21 17:05 07/03/21 08:31 Amlodipine 10 Mg Tablet PO 10 mg DAILY CHRIST Administration Enoxaparin Sodium 40 mg 06/30/21 19:30 07/02/21 17:09 Enoxaparin 40 Mg/0.4 Ml Syringe SUBCUT 40 mg Q24H CHRIST Administration Dextrose/Sodium Chloride 1,000 mls @ 100 mls/hr 06/30/21 19:30 07/03/21 03:15 Dextrose 5%-Sod Chloride 0.9% IV 100 mls/hr .Q10H CHRIST Infusion Metoprolol Succinate 50 mg 07/01/21 09:00 07/03/21 08:31 Metoprolol Succinate Er (24 Hr) 50 Mg Tablet PO 50 mg DAILY CHRIST Administration Ondansetron HCl 4 mg 06/30/21 19:30 07/01/21 16:34 Ondansetron 2 Mg/Ml Sdv 2 Ml IVP 4 mg Q8H PRN Administration vomiting, or N/V if npo Pantoprazole Sodium 40 mg 06/30/21 19:30 07/03/21 10:12 Pantoprazole 40 Mg Sdv IVP 40 mg Q12H CHRIST Administration Phenyleph/Shark Oil/Min Oil/Petrol 1 applic 07/01/21 21:00 07/03/21 11:29 Phenyleph-Mineral Oil-Petrolat Oint 28 Gm WA Not Given QID CHRIST Promethazine HCl 12.5 mg 06/30/21 19:30 07/02/21 22:21 Promethazine 25 Mg/Ml Sdv 1 Ml IM 12.5 mg Q6H PRN Administration NAUSEA PFSH Acute PFSH: Medical History (Updated 07/03/21 @ 12:54 by Nestor Stephen MD) Aftercare following surgery of the genitourinary system Anxiety and depression Has been asymptomatic all her life per patient. She is well controlled on citalopram which she has been on since the and follows up with her primary care provider. BV (bacterial vaginosis) Chronic back pain Reports having a herniated disc in her lower back and neck and just takes muscle relaxers for this. 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 Cruz at [facility] History of colonoscopy (09/17/20) 2016 S/P section At the age of 20 S/P cholecystectomy Laparoscopic procedure performed by Dr. Hudson at [facility] in June 2020 S/P tubal ligation At the age of 20 when she had her Status post hysteroscopy 09/17/2020---hysteroscopy with D&C for postmenopausal bleeding performed by Dr. Ingram at [facility]. ---at time of hysteroscopy benign atrophic endometrium identified without any polyps. Pathology showed inactive endometrial glands on a background of mucin and debris, no atypia or hyperplasia polyps or malignancy identified. Family History Mother Diabetes Hypertension Thyroid condition Sister Diabetes Hypertension Father Diabetes Stroke Denies family history of Colon cancer Ovarian cancer Heart disease Hyperlipidemia Breast cancer Uterine cancer Social History Smoking and tobacco status: current every day smoker cigarettes Packs smoked per day: 1 Alcohol intake: never Current occupational status: disabled Vitals/I&O/Wt Last Vital Signs Temp 98.0 F 07/03/21 11:28 Pulse 62 07/03/21 11:28 Resp 17 07/03/21 11:28 BP 125/69 07/03/21 11:28 Pulse Ox 96 07/03/21 11:28 07/02/21 07/03/21 07/03/21 22:59 06:59 14:59 Intake Total 1220.000 / 2923.000 325 / 2923.000 480 / 480 Output Total 1000 / 1000 Balance 220.000 / 1923.000 325 / 1923.000 480 / 480 Physical Exam Narrative: EXAM NARRATIVE: The patient was encountered in her hospital room. She does not appear to be in any acute distress. The pupils seem equal. No carotid bruits are heard. The lungs are clear anteriorly. The heart is regular. The abdomen is mildly obese but is soft. She has bowel sounds. She does have some mild tenderness in the epigastrium but no masses are palpated anywhere. The extremities reveal no edema. Neurologically the patient appears to be grossly intact. Data Micro: Micro: Microbiology 06/30/21 16:45 Urine Culture - Fi nal Urine,Clean Catch 07/01/21 16:30 C.difficile Toxin B Gene (PCR) - Fin al Stool Routine Col lection Imaging^: CT Abd/Pel: Radiologist's impression: CT abdomen pelvis 06/30/2021 IMPRESSION: There are no acute concerning abnormalities. No significant change when compared with 06/21/2021. A&P Assessment and plan (1) Nausea vomiting and diarrhea: This seemed to start without any rhyme or reason about 3-1/2 weeks ago. I have been asked to discuss an EGD with the patient. EGDs were discussed with her in some detail. The rare risks of the procedure including bleeding, possible need for surgical intervention, etc. were gone over. The patient seems to understand and agrees to proceed. I will make the patient n.p.o. after midnight tonight. She is on the schedule for an EGD at 07:30 tomorrow. Status: Acute (2) Epigastric discomfort: She has had epigastric pain for years. Status: Acute (3) NSAID long-term use: The patient has an impressive history of NSAID use, but says she quit this several months ago after doing it for perhaps 35 years. Status: Acute Consult Attestations Medical Necessity Statement: See admitting service's notation. 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
[2021-07-03] MEDS: dextrose 5%-ns + KCl 40 40 MEQ/1,000 ML BAG 100 MEQ IV (14:43)
--- NOTE | 2021-07-03 16:08 | PM.PN ---
Subjective Subjective: Interval history: Patient advises me that she has been feeling unwell overnight, she had was having significant epigastric discomfort, nausea, vomiting, is had several episodes of vomiting, was unable to keep down liquids, denies a history of EGD in the past, no history of hiatal hernia, Vitals/I&O/Wt Last Vital Signs Temp 98.5 F 07/03/21 16:00 Pulse 74 07/03/21 16:00 Resp 17 07/03/21 16:00 BP 129/74 07/03/21 16:00 Pulse Ox 96 07/03/21 16:00 07/03/21 07/03/21 07/03/21 06:59 14:59 22:59 Intake Total 325 / 2923.000 720 / 720 Balance 325 / 1923.000 720 / 720 Physical Exam Const: COMMON NORMALS: no acute distress and patient oriented x3 Resp: COMMON NORMALS: normal respiratory effort, No retractions, No use of accessory muscles and clear to auscultation bilaterally AUSCULTATION: clear to auscultation bilaterally Cardio: COMMON NORMALS: regular rate, regular rhythm, S1 normal heart sound present and S2 normal heart sound present RATE: regular rate RHYTHM: regular rhythm HEART SOUNDS: S1 normal heart sound present and S2 normal heart sound present GI: COMMON NORMALS: Normal to inspection, nondistended, normoactive bowel sounds present, Soft to palpation and non-tender PALPATION: Yes Soft to palpation Extremity: COMMON NORMALS: no pedal edema Neuro: COMMON NORMALS: patient oriented x3 Psych: COMMON NORMALS: mental status grossly normal Data : 07/03/21 05:28 07/03/21 05:28 Micro: Microbiology 06/30/21 16:45 Urine Culture - Final Urine,Clean Catch A&P Assessment and plan (1) 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: -No complaints of stool discharge this morning -Now having severe dehydration, hyperkalemia, hyponatremia, -CT scan no acute findings -Patient declined a barium enema for now Concerns for UTI, UA with evidence of UTI with history of rectovaginal fistula, CT scan no evidence of pyelonephritis, no flank pain, urine cultures negative, stop Primaxin Dehydration, IV hydration, advance diet as tolerated Hypokalemia, potassium 2.5, will place Hyponatremia, sodium 128, IV hydration Nausea, vomiting, epigastric discomfort, will consult general surgery for consideration of EGD Zofran for nausea Protonix for GI prophylaxis Lovenox for DVT prophylaxis Full code Status: Acute (2) Hypokalemia: Status: Acute (3) Dehydration: Status: Acute (4) Hyponatremia: Status: Acute Attestations Medical Necessity Statement*: Requires hospitalization for nausea vomiting, hyperkalemia, hypernatremia` Coding Level of Care Code Acute Photolith Operator for g Fwd Diagnoses 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
[2021-07-03] MEDS: enoxaparin 40 mg/0.4 mL Syringe SUBCUT (18:32)
[2021-07-04] MEDS: dextrose 5%-ns + KCl 40 40 MEQ/1,000 ML BAG 100 MEQ IV ×2 (00:09→10:55)
[2021-07-04 03:41] VITALS: BP 133/74; PULSE 73; RESP 18; TEMP 36.9; O2SAT 96
[2021-07-04 05:53] LABS: Basophils % 0.4 %; Eosinophils # 0.1 10^3/uL (0.0-0.8); Eosinophils % 1.1 %; Hematocrit 33.9 % (37.0-47.0); Hemoglobin 11.6 g/dL (11.5-15.3); Lymphocytes # 2.2 10^3/uL (0.8-4.8); Lymphocytes % 27.5 %; Mean Corpuscular HGB Conc 34.2 g/dL (30.0-36.0); Mean Corpuscular Hemoglobin 29.2 pg (28.0-34.0); Mean Corpuscular Volume 85.4 fl (81-99); Mean Platelet Volume 9.5 fL (7.4-10.4); Monocytes # 0.6 10^3/uL (0.2-0.9); Monocytes % 8.1 %; Neutrophils # 4.94 10^3/uL (1.8-7.7); Neutrophils % 62.5 %; Nucleated Red Blood Cells % 0 %; Platelet Count 308 10^3/cmm (130-400); Red Blood Count 3.97 10^6/uL (4.1-5.3); Red Cell Distribution Width 12.7 % (12.1-15.1); White Blood Count 7.9 10^3/uL (4.0-10.0)
[2021-07-04 06:22] LABS: Alanine Aminotransferase < 5 U/L (0-33); Alkaline Phosphatase 37 IU/L (35-105); Anion Gap 14.3 (5-19); Aspartate Amino Transferase 6 U/L (0-32); Blood Urea Nitrogen 2 mg/dL (6-20); Calcium 7.4 mg/dL (8.5-10.5); Carbon Dioxide 22 mmol/L (22-29); Chloride 96 mmol/L (98-107); Globulin 2.1 g/dL (1.3-4.6); Glomerular Filtration Rate 230.1 mL/min (90-130); Glucose 102 mg/dL (65-115); Osmolality Calculated 264 mOsm/kg (285-295); Potassium 3.3 mmol/L (3.5-5.1); Sodium 129 mmol/L (136-145); Total Bilirubin 0.3 mg/dL (0.15-1.2); Total Protein 5.1 g/dL (6.6-8.7)
[2021-07-04 06:26] LABS: Magnesium 1.9 mg/dL (1.7-2.3); Phosphorus 2.2 mg/dL (2.5-4.5)
[2021-07-04 06:27] VITALS: BP 143/80; PULSE 78; RESP 18; TEMP 36.9; O2SAT 97
[2021-07-04] MEDS: sodium chloride 0.9% 1,000 ML 30 ML IV (06:33)
--- NOTE | 2021-07-04 06:56 | ANES.PREANE2 ---
Pre-Anesthetic Assessment Pre-Anesthetic Assessment: Height/Weight: Height 1.5 m Weight 63.503 kg Temp Pulse Resp BP Pulse Ox 98.5 F 78 18 143/80 97 07/04/21 06:27 07/04/21 06:27 07/04/21 06:27 07/04/21 06:27 07/04/21 06:27 Preop Diagnosis: dehydration N/V Proposed Procedure: Operation Date: 07/04/21 07:30 Proposed Procedures p EGD(Not Applicable) - Nestor Stephen MD Last intake: Intake Last Liquid Date 07/03/21 Last Liquid Time 21:00 Last Solid Date 07/03/21 Last Solid Time 20:00 Social: Social History: Tobacco Exam: Pre-Anes Outpt Exam: alert and oriented x 3 Airway: Submandibular: WNL Cervical ROM: WNL MP: 2 Dentition: False History/ROS: No significant history except as noted Pulmonary: Pulmonary: COPD, Sleep apnea and SOB Comments: smoker, wears 2L oxygen continous. CV/HEM: CV/HEM: HTN : : Chronic renal Insufficiency Hepatic: Hepatic: None reported GI: GI: GERD Comments: frequent vomiting Metabolic: Metabolic: None reported Musc/skel: Musc/skel: Lower Back Pain and OA/DJD Neuropsych: Neuropsych: Anxiety Comments: METS 4 Anesthetic Plan: ASA status: 3 Anesthesia: MAC Risk of > 500 ml blood loss (7ml/kg in children): No Meds/Allergies Current Medications: Current Medications Generic Name Dose Route Start Last Admin Trade Name Freq PRN Reason Stop Dose Admin Amlodipine Besylat e 10 mg 07/01/21 17:05 07/03/21 08:31 Amlodipine 10 Mg Tablet PO 10 mg DAILY CHRIST Administration Enoxaparin Sodium 40 mg 06/30/21 19:30 07/03/21 18:32 Enoxaparin 40 Mg /0.4 Ml Syringe SUBCUT 40 mg Q24H CHRIST Administration Potassium Chloride /Dextrose/Sod Cl 40 meq in 1,000 m ls @ 100 mls/hr 07/03/21 13:00 07/04/21 00:09 Dextrose 5%-Ns + Kcl 40 IV 100 mls/hr .Q10H CHRIST Administration Sodium Chloride 1,000 mls @ 30 ml s/hr 07/04/21 06:30 07/04/21 06:33 Sodium Chloride 0.9% IV 07/05/21 06:29 30 mls/hr .Q24H CHRIST Administration Metoprolol Succina te 50 mg 07/01/21 09:00 07/03/21 08:31 Metoprolol Succi bobby Er (24 Hr) 50 Mg Tablet PO 50 mg DAILY CHRIST Administration Ondansetron HCl 4 mg 06/30/21 19:30 07/01/21 16:34 Ondansetron 2 Mg /Ml Sdv 2 Ml IVP 4 mg Q8H PRN Administration vomiting, or N/V if npo Pantoprazole Sodiu m 40 mg 06/30/21 19:30 07/03/21 20:01 Pantoprazole 40 Mg Sdv IVP 40 mg Q12H CHRIST Administration Phenyleph/Shark Oi l/Min Oil/Petrol 1 applic 07/01/21 21:00 07/03/21 20:28 Phenyleph-Minera l Oil-Petrolat Oin t 28 Gm MA Not Given QID CHRIST Promethazine HCl 12.5 mg 06/30/21 19:30 07/02/21 22:21 Promethazine 25 Mg/Ml Sdv 1 Ml IM 12.5 mg Q6H PRN Administration NAUSEA PFSH Anesthesia PFSH: Medical History (Updated 07/03/21 @ 12:54 by Nestor Stephen MD) Aftercare following surgery of the genitourinary system Anxiety and depression Has been asymptomatic all her life per patient. She is well controlled on citalopram which she has been on since the and follows up with her primary care provider. BV (bacterial vaginosis) Chronic back pain Reports having a herniated disc in her lower back and neck and just takes muscle relaxers for this. 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 Cruz at [facility] History of colonoscopy (09/17/20) 2016 S/P section At the age of 20 S/P cholecystectomy Laparoscopic procedure performed by Dr. Hudson at [facility] in June 2020 S/P tubal ligation At the age of 20 when she had her Status post hysteroscopy 09/17/2020---hysteroscopy with D&C for postmenopausal bleeding performed by Dr. Ingram at [facility]. ---at time of hysteroscopy benign atrophic endometrium identified without any polyps. Pathology showed inactive endometrial glands on a background of mucin and debris, no atypia or hyperplasia polyps or malignancy identified. Family History Mother Diabetes Hypertension Thyroid condition Sister Diabetes Hypertension Father Diabetes Stroke Denies family history of Colon cancer Ovarian cancer Heart disease Hyperlipidemia Breast cancer Uterine cancer Social History Smoking and tobacco status: current every day smoker cigarettes Packs smoked per day: 1 Alcohol intake: never Current occupational status: disabled Data Anesthesia CBC & Chem 7: 07/04/21 05:00 07/04/21 05:00 Other Labs: Laboratory Results - last 48 hr 07/02/21 07/03/21 07/03/21 05:48 05:28 05:28 WBC 7.7 RBC 4.04 L Hgb 11.8 Hct 34.2 L MCV 84.7 MCH 29.2 MCHC 34.5 RDW 12.5 Plt Count 327 MPV 9.4 Neut % (Auto) 60.3 Lymph % (Auto) 29.0 [place] % (Auto) 8.8 Eos % (Auto) 0.9 Baso % (Auto) 0.6 Neut # (Auto) 4.64 Lymph # (Auto) 2.2 [place] # (Auto) 0.7 Eos # (Auto) 0.1 Baso # (Auto) 0.1 Nucleated RBC % (auto) 0 Nucleated RBCs # 0.0 Sodium 128 L 129 L Potassium 2.5 L* D 2.4 L* Chloride 86 L 93 L Carbon Dioxide 25 Anion Gap 13.4 BUN 2 L Creatinine 0.4 L 0.4 L GFR Calculation 165.1 H 165.1 H Glucose 122 H Calculated Osmolality 263 L 265 L Calcium 8.1 L 7.7 L Phosphorus Magnesium Total Bilirubin 0.3 AST 7 ALT < 5 Alkaline Phosphatase 37 Total Protein 5.2 L 5.3 L Albumin 3.4 L 3.2 L Globulin 2.1 07/03/21 07/04/21 07/04/21 05:28 05:00 05:00 WBC 7.9 RBC 3.97 L Hgb 11.6 Hct 33.9 L MCV 85.4 MCH 29.2 MCHC 34.2 RDW 12.7 Plt Count 308 MPV 9.5 Neut % (Auto) 62.5 Lymph % (Auto) 27.5 [place] % (Auto) 8.1 Eos % (Auto) 1.1 Baso % (Auto) 0.4 Neut # (Auto) 4.94 Lymph # (Auto) 2.2 [place] # (Auto) 0.6 Eos # (Auto) 0.1 Baso # (Auto) 0.0 Nucleated RBC % (auto) 0 Nucleated RBCs # 0.0 Sodium 129 L Potassium 3.3 L Chloride 96 L Carbon Dioxide 22 Anion Gap 14.3 BUN 2 L Creatinine 0.3 L GFR Calculation 230.1 H Glucose 102 Calculated Osmolality 264 L Calcium 7.4 L Phosphorus 2.1 L Magnesium 1.6 L Total Bilirubin 0.3 AST 6 ALT < 5 Alkaline Phosphatase 37 Total Protein 5.1 L Albumin 3.0 L Globulin 2.1 07/04/21 05:00 WBC RBC Hgb Hct MCV MCH MCHC RDW Plt Count MPV Neut % (Auto) Lymph % (Auto) [place] % (Auto) Eos % (Auto) Baso % (Auto) Neut # (Auto) Lymph # (Auto) [place] # (Auto) Eos # (Auto) Baso # (Auto) Nucleated RBC % (auto) Nucleated RBCs # Sodium Potassium Chloride Carbon Dioxide Anion Gap BUN Creatinine GFR Calculation Glucose Calculated Osmolality Calcium Phosphorus 2.2 L Magnesium 1.9 Total Bilirubin AST ALT Alkaline Phosphatase Total Protein Albumin Globulin Cardiac Studies: No Data to Display
--- NOTE | 2021-07-04 07:01 | P.PN_ITS ---
Subjective Subjective: Interval history: The patient said she tolerated solid food yesterday for the first time in weeks. She is not quite back to normal but says she is very close. Vitals/I&O/Wt Last Vital Signs Temp 98.5 F 07/04/21 06:27 Pulse 78 07/04/21 06:27 Resp 18 07/04/21 06:27 BP 143/80 07/04/21 06:27 Pulse Ox 97 07/04/21 06:27 07/03/21 07/04/21 07/04/21 22:59 06:59 14:59 Intake Total 1249.0909 / 2912.4239 943.333 / 2912.4239 Balance 1249.0909 / 2912.4239 943.333 / 2912.4239 Physical Exam Narrative: EXAM NARRATIVE: No significant change. Data : 07/04/21 05:00 07/04/21 05:00 A&P Assessment and plan (1) Nausea vomiting and diarrhea: I told the patient it is possible we will not find anything significant in her stomach, but given the sudden onset of her symptoms several weeks ago I think it is worth checking just to make sure there is nothing there that could have precipitated these events. She agrees. EGD this morning. Status: Acute (2) Epigastric discomfort: She has had epigastric pain for years. Status: Acute (3) NSAID long-term use: The patient has an impressive history of NSAID use, but says she quit this several months ago after doing it for perhaps 35 years. Status: Acute Attestations Medical Necessity Statement*: See admitting service's notation. Coding Level of Care Code Acute Check Out Clerk for [facility] Diagnoses Nausea vomiting and diarrhea R11.2; R19.7 Epigastric discomfort R10.13 NSAID long-term use Z79.1
[2021-07-04 07:52] VITALS: BP 141/74; PULSE 69; RESP 16; TEMP 36.3; O2SAT 98
--- NOTE | 2021-07-04 08:02 | ANE.PACU2 ---
Inpatient post-anesthesia follow up: Airway intact: Yes Vital signs: Temperature 97.4 F Pulse Rate 69 Respiratory Rate 16 Blood Pressure 141/74 Pulse Oximetry 98 Oxygen Delivery Me thod Nasal Cannula Oxygen Flow Rate 2 Fraction of Inspir ed Oxygen Hydration adequate: Yes Nausea and vomiting: No Mental status: Baseline
[2021-07-04 08:09] VITALS: BP 134/69; PULSE 71; RESP 16; O2SAT 99
--- NOTE | 2021-07-04 08:11 | PC.NURSE ---
Active bowel sounds in all four quadrants, pt denies pain.
[2021-07-04 08:36] VITALS: BP 138/74; PULSE 67; RESP 16; TEMP 36.8; O2SAT 95
[2021-07-04] MEDS: amlodipine 10 mg Tablet PO (08:43)
[2021-07-04] MEDS: metoprolol succinate ER (24 HR) 50 mg Tablet PO (08:43)
[2021-07-04] MEDS: phosphorus 250 mg Tablet PO (10:55)
[2021-07-04] MEDS: magnesium oxide 400 mg tablet PO (10:55)
[2021-07-04] MEDS: potassium chloride ER 20 mEq Tablet 40 MEQ PO (10:55)
[2021-07-04 11:41] VITALS: BP 133/80; PULSE 71; RESP 16; TEMP 36.9; O2SAT 97
--- NOTE | 2021-07-04 13:36 | P.DS_ITS ---
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 Patient was admitted to [facility] for dehydration, with hypokalemia, hyponatremia, hypomagnesemia, requiring IV replacement over multiple days, nausea control, EGD performed due to epigastric discomfort and nausea did not show any significant findings. Electrolytes improved throughout her hospitalization, discharged on instructions to drink plenty of electrolyte balance fluids, p.o. electrolyte replacement, and follow-up with primary care provider for recheck potassium and phosphorus as outpatient. Patient has had a history of rectovaginal fistula repair, had complaints of recurrence of rectovaginal fistula, due to complaints of stool discharge from her vagina, CT scan of the abdomen did not show any acute findings, attempts were made to perform barium enema however patient declined testing due to significant pain. Patient will follow up with Dr. Benjamin as outpatient. There is also concern for UTI during hospital admission, she did receive broad- spectrum therapy, cultures have been unremarkable. Physical Exam Const: COMMON NORMALS: no acute distress and patient oriented x3 Resp: COMMON NORMALS: normal respiratory effort, No retractions, No use of accessory muscles and clear to auscultation bilaterally AUSCULTATION: clear to auscultation bilaterally Cardio: COMMON NORMALS: regular rate, regular rhythm, S1 normal heart sound present and S2 normal heart sound present RATE: regular rate RHYTHM: regular rhythm HEART SOUNDS: S1 normal heart sound present and S2 normal heart sound present GI: COMMON NORMALS: Normal to inspection, nondistended, normoactive bowel sounds present, Soft to palpation and non-tender PALPATION: Yes Soft to palpation Extremity: COMMON NORMALS: no pedal edema Neuro: COMMON NORMALS: patient oriented x3 Psych: COMMON NORMALS: mental status grossly normal Discharge Data Data Completed and Pending: Completed Studies During Hospitalization Category Date Time Status CT abdomen pelvis w con* [id number] Urge nt Cat Scan 06/30/21 14:43 Completed XR KUB [id number] Rout ine Exams 07/01/21 Completed Pending at discharge Category Date Time Status Blood Culture Sta t Lab 06/30/21 18:08 Results Clostridioides Di fficile PCR Routin e Lab 07/03/21 12:10 Ordered Enteric Bacterial Panel by PCR Rout ine Lab 07/03/21 12:10 Ordered Enteric Parasite Panel by PCR Routi ne Lab 07/03/21 12:10 Ordered H. Pylori / KENNETH T est Routine Lab 07/04/21 07:52 Ordered Immunochemical Fe annbael OCB Routine Lab 07/03/21 12:10 Ordered Lactoferrin Routi ne Lab 07/03/21 12:10 Ordered Magnesium AM LABS Lab 07/05/21 04:00 Ordered Magnesium AM LABS Lab 07/06/21 04:00 Ordered Phosphorus AM LAB S Lab 07/05/21 04:00 Ordered Phosphorus AM LAB S Lab 07/06/21 04:00 Ordered Labs from last 24 hours 07/04/21 07/04/21 07/04/21 05:00 05:00 05:00 WBC 7.9 RBC 3.97 L Hgb 11.6 Hct 33.9 L MCV 85.4 MCH 29.2 MCHC 34.2 RDW 12.7 Plt Count 308 MPV 9.5 Neut % (Auto) 62.5 Lymph % (Auto) 27.5 [place] % (Auto) 8.1 Eos % (Auto) 1.1 Baso % (Auto) 0.4 Neut # (Auto) 4.94 Lymph # (Auto) 2.2 [place] # (Auto) 0.6 Eos # (Auto) 0.1 Baso # (Auto) 0.0 Nucleated RBC % (a uto) 0 Nucleated RBCs # 0.0 Sodium 129 L Potassium 3.3 L Chloride 96 L Carbon Dioxide 22 Anion Gap 14.3 BUN 2 L Creatinine 0.3 L GFR Calculation 230.1 H Glucose 102 Calculated Osmolal ity 264 L Calcium 7.4 L Phosphorus 2.2 L Magnesium 1.9 Total Bilirubin 0.3 AST 6 ALT < 5 Alkaline Phosphata se 37 Total Protein 5.1 L Albumin 3.0 L Globulin 2.1 Vitals: Last Vital Signs Temp 98.5 F 07/04/21 11:41 Pulse 71 07/04/21 11:41 Resp 16 07/04/21 11:41 BP 133/80 07/04/21 11:41 Pulse Ox 97 07/04/21 11:41 Discharge Plan Discharge Patient Disposition: Home Condition: Stable Prescriptions: New Preparation H 0.25-14-74.9 % Ointment 1 applic IA QID PRN (Reason: hemorrhoids) 30 Days Qty: 57 RF: 0 potassium chloride [Klor-Con M20] 20 mEq Tablet,Er Particles/Crystals 20 meq PO DAILY 30 Days Qty: 30 RF: 0 amlodipine 10 mg Tablet 10 mg PO DAILY 30 Days Qty: 3 RF: 0 Phospha 250 Neutral 250 mg Tablet 250 mg PO BID 30 Days Qty: 60 RF: 0 Continued pantoprazole 40 mg tablet,delayed release (DR/EC) 40 mg PO DAILY 90 Days Qty: 90 RF: 2 albuterol sulfate [ProAir HFA] 90 mcg/actuation HFA aerosol inhaler 2 puff inhalation Q6H PRN (Reason: Wheezing) 90 Days Qty: 25.5 RF: 0 albuterol sulfate 1.25 mg/3 mL solution for nebulization 1.25 mg inhalation QID PRN (Reason: Wheezing) 90 Days Qty: 90 RF: 2 (DME) Compact Compressor Nebulizer Misc See Rx Instructions .Route Qty: 1 RF: 0 niacin 500 mg tablet extended release 24 hr 500 mg PO BID RF: 0 metoprolol succinate 50 mg tablet extended release 24 hr 50 mg PO DAILY RF: 0 Colace 100 mg capsule 100 mg PO BID RF: 0 sertraline 50 mg tablet 50 mg PO DAILY RF: 0 ibuprofen 800 mg tablet 800 mg PO TID PRN (Reason: pain) Qty: 60 RF: 0 acetaminophen 325 mg capsule 325 mg PO Q4H PRN (Reason: fever or pain) Qty: 60 RF: 0 ondansetron 4 mg tablet,disintegrating 4 mg PO Q6H PRN (Reason: nausea and vomiting) 15 Days Qty: 30 RF: 0 Discontinued potassium chloride 20 mEq tablet extended release 20 meq PO DAILY 90 Days Qty: 90 RF: 2 cephalexin 500 mg capsule 500 mg PO TID RF: 0 Suprep Bowel Prep Kit 17.5-3.13-1.6 gram recon soln See Rx Instructions PO .COMPLEX RF: 0 Discharge Orders: Discharge Order (Routine); Ordered 07/04/21 Ordered By: Dimitrios Pfeiffer Referrals: Kwabena Cruz MD [Physician] - 1 week Thien Herbert MD [Primary Care Provider] - 07/10/21 9:30 am Discharge Diet: Advance as tolerated and Regular Discharge Activity: Resume usual activity Patient Instructions: GI Discharge Instructions, Opioid Safety Activity Restrictions/Additional Instructions: -Please drink plenty of electrolyte balance fluids such as Gatorade or Powerade, at least 2 L a day -Please follow-up with primary care provider about electrolyte replacement and repeat potassium and phosphorus check -Follow-up with Dr. Cruz, for consideration of referral for barium enema under sedation Discharge Attestations Time Spent in Discharge Care*: less than 30 min Quality Metrics Clinical Quality Measures During this hospital stay, did patient experience: None Coding Level of Care Code Acute Chg DC note Diagnoses Nausea vomiting and diarrhea R11.2; R19.7 Epigastric discomfort R10.13 NSAID long-term use Z79.1
[2021-07-07 06:59] LABS: H. Pylori / CLO Test Negative
== END 2021-07-04 14:15 | disposition home or self-care (01) | DRG 641 ==
LOC: ER 15:32 → MEDSURG 07-02 14:37
PROVIDERS: Surgery; Admitting Provider Family Medicine; Emergency Provider Emergency Medicine; PCP Family Medicine Adult Medicine; Visit Provider Family Medicine
PROC: 0DJ08ZZ Inspection of Upper Intestinal Tract, Via Natural or Artificial Opening Endoscopic (ICD-10-PCS; CPT 43235; principal; 2021-07-04 07:30)
DX: E87.1 Hypo-osmolality and hyponatremia (principal); N39.0 Urinary tract infection, site not specified; N82.3 Fistula of vagina to large intestine; E86.0 Dehydration; E87.6 Hypokalemia; F41.8 Other specified anxiety disorders; G89.29 Other chronic pain; M54.9 Dorsalgia, unspecified; I10 Essential (primary) hypertension; J44.9 Chronic obstructive pulmonary disease, unspecified; E78.5 Hyperlipidemia, unspecified; R73.03 Prediabetes; M19.90 Unspecified osteoarthritis, unspecified site; F17.210 Nicotine dependence, cigarettes, uncomplicated; Z79.51 Long term (current) use of inhaled steroids; R10.13 Epigastric pain; E83.42 Hypomagnesemia; K29.70 Gastritis, unspecified, without bleeding; K64.9 Unspecified hemorrhoids
CPT/HCPCS: 36415; 43239; 74018; 74177; 74270; 80053; 81001; 82550; 83605; 83690; 83735; 84100; 84145; 84443; 85025; 86140; 87040; 87077; 87086; 87426; 87493; 87635; 87804; 96372; C9113; J0743; J1650; J2405; J2550; J2704; J3475; J3480; J7030; Q9963; Q9967

== ENCOUNTER → 2021-07-10 10:10 | Outpatient (BNVA) | payer MEDICAID, SELFPAY | PROVIDERS: PCP Family Medicine Adult Medicine; Visit Provider Family Medicine Adult Medicine | DX: E86.0 Dehydration (principal); Z09 Encounter for follow-up examination after completed treatment for conditions other than malignant neoplasm | CPT/HCPCS: 80048 ==

== ENCOUNTER 2021-10-14 09:41 | Outpatient (CLI) | payer MEDICAID, SELFPAY ==
--- NOTE | 2021-10-14 10:45 | FL_ITS ---
WS: [id number] Single contrast barium enema, 10/14/2021 Clinical Data: N82.3 - Fistula of vagina to large intestine Comparison: None. Fluoroscopy time: 4.1 minutes. Findings: The barium was introduced in a retrograde fashion to fill the entire colon. There is reflux into the appendix. There was no fistula connecting the large intestine to the vagina. The mucosal surface was normal. No polyps or masses were seen. The hospital pattern was unremarkable. There is reflux into th e appendix. The postevacuation films are unremarkable. There are clips in the right upper quadrant fr om a cholecystectomy. FL/FL barium enema [id number] Impression: 1. Negative barium enema. 2. No evidence of fistula connecting large bowel with the vagina.
== END 2021-10-14 09:42 | disposition home or self-care (01) ==
LOC: RAD 09:41
PROVIDERS: PCP Family Medicine Adult Medicine; Visit Provider Obstetrics & Gynecology
DX: N82.3 Fistula of vagina to large intestine (principal)
CPT/HCPCS: 74270

== ENCOUNTER 2022-05-21 12:25 | Emergency (ER) | payer MEDICAID, SELFPAY ==
[2022-05-21 12:50] VITALS: BP 133/75; PULSE 84; RESP 15; TEMP 36.4; O2SAT 98
[2022-05-21 12:51] VITALS: BMI 25.4
[2022-05-21 14:11] LABS: Basophils % 0.4 %; Eosinophils % 0.4 %; Hematocrit 41.8 % (37.0-47.0); Hemoglobin 13.6 g/dL (11.5-15.3); Lymphocytes # 2.5 10^3/uL (0.8-4.8); Lymphocytes % 29.6 %; Mean Corpuscular HGB Conc 32.5 g/dL (30.0-36.0); Mean Corpuscular Hemoglobin 29.4 pg (28.0-34.0); Mean Corpuscular Volume 90.5 fl (81-99); Monocytes # 0.4 10^3/uL (0.2-0.9); Monocytes % 4.5 %; Neutrophils # 5.38 10^3/uL (1.8-7.7); Neutrophils % 64.7 %; Nucleated Red Blood Cells % 0 %; Platelet Count 374 10^3/cmm (130-400); Red Blood Count 4.62 10^6/uL (4.1-5.3); White Blood Count 8.3 10^3/uL (4.0-10.0)
[2022-05-21 14:31] LABS: Alanine Aminotransferase 8 U/L (0-33); Albumin Level 4.5 g/dL (3.5-5.2); Alkaline Phosphatase 81 U/L (35-105); Anion Gap 22.8 (5-19); Aspartate Amino Transferase 14 U/L (0-32); Blood Urea Nitrogen 18 mg/dL (6-20); Calcium 9.5 mg/dL (8.5-10.5); Carbon Dioxide 23 mmol/L (22-29); Chloride 95 mmol/L (98-107); Globulin 3.5 g/dL (1.3-4.6); Glomerular Filtration Rate 86.2 mL/min (90-130); Glucose 73 mg/dL (65-115); Osmolality Calculated 284 mOsm/kg (285-295); Potassium 3.8 mmol/L (3.5-5.1); Sodium 137 mmol/L (136-145); Total Bilirubin 0.4 mg/dL (0.15-1.2)
--- NOTE | 2022-05-21 17:25 | W.ED.DIZZY ---
HPI - Dizziness General: Chief Complaint: Dizziness Stated Complaint: N/V Time Seen by Provider: 05/21/22 17:25 History of Present Illness: HPI Narrative: Ms. López is a 56-year-old lady who presents to the emergency department due to generalized illness. Onset of symptoms was subacute approximately 4 days ago. She endorses dizziness with lightheadedness and poor p.o. intake. Dizziness is a spinning sensation and worse with movement including head movement and mildly improved with remaining still. She has had numerous episodes of nonbilious and nonbloody emesis. She also notes hearing loss out of the left ear. Overall intensity symptoms is moderate to severe. Course has worsened. No other specific changes in health, exacerbating, or alleviating factors identified. Onset (ago): day(s) Timing: sudden onset Severity: severe Description: sense of movement, room spinning and difficulty walking History of similar symptoms: No Exacerbating factors: movement/ambulation, change in body position and keeping eyes open Relieving factors: remaining still Associated symptoms: Reports change in hearing, headache(s), malaise, nausea and vomiting Review of Systems General: Reports: 10 or more systems reviewed and unremarkable except in HPI and below Const: Reports: malaise ENMT: Reports: change in hearing GI: Reports: nausea and vomiting Neuro: Reports: headache(s) PFSH ED PFSH: Medical History Anxiety Anxiety and depression Has been asymptomatic all her life per patient. She is well controlled on citalopram which she has been on since the and follows up with her primary care provider. Benign essential tremor BV (bacterial vaginosis) Chronic back pain Reports having a herniated disc in her lower back and neck and just takes muscle relaxers for this. 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 Cruz at [facility] History of colonoscopy (09/17/20) 2016 S/P section At the age of 20 S/P cholecystectomy [place] [facility] [place] S/P tubal ligation At the age of 20 when she had her Status post hysteroscopy 09/17/2020---hysteroscopy with D&C for postmenopausal bleeding [place] [facility] [place]at time of hysteroscopy benign atrophic endometrium identified without any polyps. Pathology showed inactive endometrial glands on a background of mucin and debris, no atypia or hyperplasia polyps or malignancy identified. Family History Mother Diabetes Hypertension Thyroid condition Sister Diabetes Hypertension Father Diabetes Stroke Denies family history of Colon cancer Ovarian cancer Heart disease Hyperlipidemia Breast cancer Uterine cancer Social History Smoking and tobacco status: current every day smoker (1ppd) cigarettes Packs smoked per day: 1 Alcohol intake: never Adopted: No Caregiver/support person: No Lives independently: Yes service: No Current occupational status: disabled History of recent travel: No Current gender identity: Female Special yair needs: No Physical Exam Const: COMMON NORMALS: patient oriented x3 and alert GENERAL APPEARANCE: cooperative and well developed HENMT: COMMON NORMALS: normocephalic, atraumatic, external ears normal, EAC's normal, TM's normal bilaterally and Normal external nose present HEAD & SCALP: normocephalic and atraumatic NOSE: Normal external nose present EXTERNAL EAR: Yes external ears normal EXTERNAL AUDITORY CANAL: EAC's normal TYMPANIC MEMBRANE: TM's normal bilaterally THROAT: posterior oropharynx normal Eye: COMMON NORMALS: conjunctivae normal CONJUNCTIVA: Yes conjunctivae normal SCLERA: sclerae normal Neck/C-Spine: COMMON NORMALS: supple GENERAL: Yes trachea midline Resp: COMMON NORMALS: normal respiratory effort EFFORT & INSPECTION: Yes able to speak in complete sentences Cardio: COMMON NORMALS: regular rate and regular rhythm RATE: regular rate RHYTHM: regular rhythm GI: COMMON NORMALS: Soft to palpation PALPATION: Yes Soft to palpation and No Tenderness to palpation present (GI) PERCUSSION: normal to percussion Extremity: GENERAL: Yes normal exam except as noted and No edema Neuro: COMMON NORMALS: patient oriented x3, CN's II-XII intact bilaterally, moves all extremities, no focal motor deficits and no sensory deficits noted SENSORIUM/ORIENTATION: Yes alert and No Orientation impaired OTHER: Leftward beating nystagmus on far right gaze Psych: COMMON NORMALS: mental status grossly normal and Normal thought process present THOUGHT PROCESS: Normal thought process present Course Vital Signs: Vital signs: Vital Signs Temperature 97.6 F 05/21/22 12:50 Pulse Rate 78 05/21/22 20:37 Respiratory Rate 16 05/21/22 20:37 Blood Pressure 115/73 05/21/22 20:37 Pulse Oximetry 99 05/21/22 20:37 Oxygen Delivery Me thod 05/21/22 19:49 MDM - Dizziness Medical Decision Making 56-year-old lady presenting with dizzy and lightheaded feeling as well as poor p.o. intake. Neurologic exam only remarkable for leftward beating nystagmus on far right gaze. There are no other focal neurologic symptoms and no evidence of meningismus. Vital signs satisfactory. Laboratory studies notable for unremarkable hematologic panel, metabolic panel with likely mild dehydration. Urinalysis with hematuria, squamous epithelial contamination present. Patient does not have symptoms of urinary tract infection. Given somewhat mixed central and peripheral description of patient's symptoms CT imaging is warranted. CT/CTA notable for no intracranial hemorrhage or mass. No large vessel occlusion or significant stenosis. Upon reassessment patient had mild to moderate improvement in symptoms and is satisfactory for outpatient management. The results of ED evaluation were discussed with the patient including prescriptions and/or symptomatic cares (if applicable) including appropriate and responsible use, followup plan, and return precautions. The patient verbalized understanding and felt safe for discharge. Medical Records I reviewed the patient's medical records. Lab Data I reviewed the patient's lab results. : 05/21/22 13:56 05/21/22 13:56 Radiology Impressions Head/Neck CTA 05/21/22 18:03 IMPRESSION: No large vessel stenosis or occlusion. IMPRESSION: No stenosis or occlusion. REFERENCES: NASCET CRITERIA. The degree of stenosis in the cervical segment of the internal carotid artery is based on NASCET criteria. Normal is no stenosis. Mild is less than 50% stenosis. Moderate is 50-69% stenosis. Severe is 70% to 99% stenosis. Total occlusion is no detectable patent lumen. Laboratory Results WBC 8.3 10^3/uL (4.0-10.0) 05/21/22 13:56 RBC 4.62 10^6/uL (4.1-5.3) 05/21/22 13:56 Hgb 13.6 g/dL (11.5-15.3) 05/21/22 13:56 Hct 41.8 % (37.0-47.0) 05/21/22 13:56 MCV 90.5 fl (81-99) 05/21/22 13:56 MCH 29.4 pg (28.0-34.0) 05/21/22 13:56 MCHC 32.5 g/dL (30.0-36.0) 05/21/22 13:56 RDW 14.0 % (12.1-15.1) 05/21/22 13:56 Plt Count 374 10^3/cmm (130-400) 05/21/22 13:56 MPV 9.0 fL (7.4-10.4) 05/21/22 13:56 Neut % (Auto) 64.7 % 05/21/22 13:56 Lymph % (Auto) 29.6 % 05/21/22 13:56 Hand % (Auto) 4.5 % 05/21/22 13:56 Eos % (Auto) 0.4 % 05/21/22 13:56 Baso % (Auto) 0.4 % 05/21/22 13:56 Neut # (Auto) 5.38 10^3/uL (1.8-7.7) 05/21/22 13:56 Lymph # (Auto) 2.5 10^3/uL (0.8-4.8) 05/21/22 13:56 Hand # (Auto) 0.4 10^3/uL (0.2-0.9) 05/21/22 13:56 Eos # (Auto) 0.0 10^3/uL (0.0-0.8) 05/21/22 13:56 Baso # (Auto) 0.0 10^3/uL (0.0-0.1) 05/21/22 13:56 Nucleated RBC % (auto) 0 % 05/21/22 13:56 Nucleated RBCs # 0.0 /100WBC 05/21/22 13:56 Sodium 137 mmol/L (136-145) 05/21/22 13:56 Potassium 3.8 mmol/L (3.5-5.1) 05/21/22 13:56 Chloride 95 mmol/L (98-107) L 05/21/22 13:56 Carbon Dioxide 23 mmol/L (22-29) 05/21/22 13:56 Anion Gap 22.8 (5-19) H 05/21/22 13:56 BUN 18 mg/dL (6-20) 05/21/22 13:56 Creatinine 0.7 mg/dL (0.5-0.9) 05/21/22 13:56 GFR Calculation 86.2 mL/min (90-130) L 05/21/22 13:56 Glucose 73 mg/dL (65-115) 05/21/22 13:56 Calculated Osmolality 284 mOsm/kg (285-295) L 05/21/22 13:56 Calcium 9.5 mg/dL (8.5-10.5) 05/21/22 13:56 Total Bilirubin 0.4 mg/dL (0.15-1.2) 05/21/22 13:56 AST 14 U/L (0-32) 05/21/22 13:56 ALT 8 U/L (0-33) 05/21/22 13:56 Alkaline Phosphatase 81 U/L (35-105) 05/21/22 13:56 Total Protein 8.0 g/dL (6.6-8.7) 05/21/22 13:56 Albumin 4.5 g/dL (3.5-5.2) 05/21/22 13:56 Globulin 3.5 g/dL (1.3-4.6) 05/21/22 13:56 Urine Color Yellow (Yellow) 05/21/22 17:40 Urine Appearance Clear (CLEAR) 05/21/22 17:40 Urine pH 5 (5-7) 05/21/22 17:40 Ur Specific [place] 1.025 (1.005-1.030) 05/21/22 17:40 Urine Protein 1+ (Negative) H 05/21/22 17:40 Urine Glucose (UA) Norm (Normal) 05/21/22 17:40 Urine Ketones 3+ (Negative) H 05/21/22 17:40 Urine Blood 2+ (Negative) H 05/21/22 17:40 Urine Nitrate Negative (Negative) 05/21/22 17:40 Urine Bilirubin Neg (Negative) 05/21/22 17:40 Urine Urobilinogen Norm mg/dL (Negative) 05/21/22 17:40 Ur Leukocyte Esterase 1+ (Negative) H 05/21/22 17:40 Urine RBC 0-4 /hpf (0-2) H 05/21/22 17:40 Urine WBC 25-40 /hpf (0-5) H 05/21/22 17:40 Ur Squamous Epith Cells 5-10 /hpf (0-5) H 05/21/22 17:40 Amorphous Sediment Not Reportable 05/21/22 17:40 Urine Bacteria 1+ /hpf (NONE) H 05/21/22 17:40 Discharge Plan Discharge Patient Disposition: Home Clinical Impression: Dizziness, Hematuria, Dehydration Condition: Stable Prescriptions: New ondansetron 4 mg tablet,disintegrating 4 mg PO Q8H PRN (Reason: nausea and vomiting) Qty: 15 0RF meclizine 25 mg tablet 25 mg PO TID PRN (Reason: dizziness) Qty: 20 0RF No Action (DME) CPAP Mask small- Air Touch F-20 with tubing and supplies See Rx Instructions .Route .MEDSUPPLY Qty: 1 0RF Rx Instructions: As directed buspirone 5 mg tablet 5 mg PO TID Qty: 90 3RF oxybutynin chloride [Ditropan XL] 10 mg tablet extended release 24hr 10 mg PO DAILY Qty: 30 3RF albuterol sulfate [ProAir HFA] 90 mcg/actuation HFA aerosol inhaler 2 puff inhalation Q6H PRN (Reason: Wheezing) 90 Days Qty: 25.5 11RF guaifenesin 600 mg tablet extended release 12hr 600 mg PO BID Qty: 30 0RF (DME) Compact Compressor Nebulizer Misc See Rx Instructions .Route Qty: 1 0RF Rx Instructions: As directed, tubing and supplies included. ibuprofen 800 mg tablet See Rx Instructions .ROUTE .COMPLEX Qty: 90 3RF Dose Instruction: TAKE 1 TABLET BY MOUTH EVERY 8 HOURS NEEDED FOR PAIN Rx Instructions: TAKE 1 TABLET BY MOUTH EVERY 8 HOURS NEEDED FOR PAIN metoprolol succinate 50 mg tablet extended release 24 hr See Rx Instructions .ROUTE .COMPLEX Qty: 90 0RF Dose Instruction: TAKE 1 TABLET BY MOUTH EVERY DAY Rx Instructions: TAKE 1 TABLET BY MOUTH EVERY DAY potassium chloride 20 mEq tablet extended release See Rx Instructions .ROUTE .COMPLEX Qty: 90 0RF Dose Instruction: TAKE 1 TABLET BY MOUTH EVERY DAY Rx Instructions: TAKE 1 TABLET BY MOUTH EVERY DAY pantoprazole 40 mg tablet,delayed release (DR/EC) See Rx Instructions .ROUTE .COMPLEX Qty: 90 0RF Dose Instruction: TAKE 1 TABLET BY MOUTH EVERY DAY Rx Instructions: TAKE 1 TABLET BY MOUTH EVERY DAY albuterol sulfate 1.25 mg/3 mL solution for nebulization See Rx Instructions .ROUTE .COMPLEX Qty: 75 2RF Dose Instruction: USE ONE VIAL IN NEBULIZER FOUR TIMES DAILY NEEDED FOR WHEEZING Rx Instructions: USE ONE VIAL IN NEBULIZER FOUR TIMES DAILY NEEDED FOR WHEEZING sertraline 50 mg tablet 50 mg PO DAILY Qty: 90 1RF meclizine 25 mg tablet 25 mg PO .q 6hr PRN (Reason: dizziness) Qty: 30 0RF doxycycline hyclate 100 mg capsule 100 mg PO BID Qty: 14 0RF Discharge Orders: Discharge ED (Routine); Ordered 05/21/22 Ordered By: Danyel Ly Referrals: Thien Herbert MD [Primary Care Provider] - Discharge Diet: Usual diet Discharge Activity: Increase activity as tolerated Patient Instructions: Dehydration (ED), Vertigo (ED), Hematuria (ED), Dizziness (ED) Activity Restrictions/Additional Instructions: Thank you for visiting the emergency department. You were seen and evaluated for dizziness. The exact cause of your symptoms is unclear though may be related to vertigo. You were found to have dehydration and blood in your urine. I recommend follow-up with a primary care provider including repeat urinalysis to ensure resolution as if you still have blood in your urine you need urology follow-up. Please return to the emergency department for any new neurologic symptoms or anything else that you are concerned about and feel needs emergency department evaluation. Coding Level of Care Code ED Motor Tune Up Specialist for Britta Fwmiriam Exam Comprehensive
[2022-05-21 17:30] VITALS: BP 111/69; PULSE 80; O2SAT 97
--- NOTE | 2022-05-21 18:03 | CTR_ITS ---
PROCEDURE INFORMATION: Exam: CTA Head With Contrast, Arteriography Exam date and time: 05/21/2022 6:40 PM Age: 56 years old Clinical indication: Headache; Additional info: Headache, L ear hearing loss, dizzy TECHNIQUE: Imaging protocol: Computed tomographic angiography of the head with contrast. Exam focused on the arteries. 3D rendering (Not supervised by radiologist): MIP and/or 3D reconstructed images were created by the technologist. Radiation optimization: All CT scans at this facility use at least one of these dose optimization techniques: automated exposure control; mA and/or kV adjustment per patient size (includes targeted exams where dose is matched to clinical indication); or iterative reconstruction. Contrast material: OMNI 350; Contrast volume: 100 ml; Contrast route: INTRAVENOUS (IV); COMPARISON: CR XR cervical spine 4-5V [id number] 10/31/2020 2:22 PM RADIATION DOSE METRICS: Total DLP (mGy-cm): 1009.74 FINDINGS: ANTERIOR CIRCULATION: Right internal carotid artery: Intracranial segment is patent with no significant stenosis. No aneurysm. Right middle cerebral artery: No occlusion or significant stenosis. No aneurysm. Right anterior cerebral artery: No occlusion or significant stenosis. No aneurysm. Left internal carotid artery: Intracranial segment is patent with no significant stenosis. No aneurysm. Left middle cerebral artery: No occlusion or significant stenosis. No aneurysm. Left anterior cerebral artery: No occlusion or significant stenosis. No aneurysm. POSTERIOR CIRCULATION: Right vertebral artery: No occlusion or significant stenosis. No aneurysm. Left vertebral artery: No occlusion or significant stenosis. No aneurysm. Basilar artery: No occlusion or significant stenosis. No aneurysm. Right posterior cerebral artery: No occlusion or significant stenosis. No aneurysm. Left posterior cerebral artery: No occlusion or significant stenosis. No aneurysm. Brain: No intracranial hemorrhage. No edema. No significant white matter disease. No mass effect. Cerebral ventricles: No ventriculomegaly. Bones/joints: Unremarkable. No acute fracture. Soft tissues: Unremarkable. PROCEDURE INFORMATION: Exam: CTA Neck With Contrast Exam date and time: 05/21/2022 6:40 PM Age: 56 years old Clinical indication: Headache; Additional info: Headache, L ear hearing loss, dizzy TECHNIQUE: Imaging protocol: Computed tomographic angiography of the neck with contrast. 3D rendering (Not supervised by radiologist): MIP and/or 3D reconstructed images were created by the technologist. Radiation optimization: All CT scans at this facility use at least one of these dose optimization techniques: automated exposure control; mA and/or kV adjustment per patient size (includes targeted exams where dose is matched to clinical indication); or iterative reconstruction. Contrast material: OMNI 350; Contrast volume: 100 ml; Contrast route: INTRAVENOUS (IV); COMPARISON: CR XR cervical spine 4-5V [id number] 10/31/2020 2:22 PM RADIATION DOSE METRICS: Total DLP (mGy-cm): 1009.74 FINDINGS: Right common carotid artery: No stenosis. No dissection or occlusion. Right internal carotid artery: No stenosis of the extracranial segment. No dissection or occlusion. Right external carotid artery: No occlusion or stenosis of the origin. Left common carotid artery: No stenosis. No dissection or occlusion. Left internal carotid artery: No stenosis of the extracranial segment. No dissection or occlusion. Left external carotid artery: No occlusion or stenosis of the origin. Right vertebral artery: No stenosis. No dissection or occlusion. Left vertebral artery: No stenosis. No dissection or occlusion. Soft tissues: Normal. No significant soft tissue swelling. Bones/joints: No acute fracture. CT/CT angio headneck* [id number] IMPRESSION: No large vessel stenosis or occlusion. IMPRESSION: No stenosis or occlusion. REFERENCES: NASCET CRITERIA. The degree of stenosis in the cervical segment of the internal carotid artery is based on NASCET criteria. Normal is no stenosis. Mild is less than 50% stenosis. Moderate is 50-69% stenosis. Severe is 70% to 99% stenosis. Total occlusion is no detectable patent lumen.
[2022-05-21] MEDS: meclizine 25 mg tablet 50 MG PO (18:12)
[2022-05-21 18:14] LABS: Specific Gravity, Urine 1.025 (1.005-1.030); Urine Appearance Clear (CLEAR); Urine Color Yellow (Yellow); pH Urine 5 (5-7)
[2022-05-21 18:15] LABS: Add Urine Microscopic? YES; Bilirubin Urine Neg (Negative); Blood Urine 2+ (Negative); Glucose Urine UA Norm (Normal); Ketones Urine 3+ (Negative); Leukocyte Esterase Urine 1+ (Negative); Nitrate Urine Negative (Negative); Protein Urine 1+ (Negative); Urobilinogen Urine Norm (Negative)
[2022-05-21] MEDS: sodium chloride 0.9% 1,000 ML 999 ML IV (18:15)
[2022-05-21 18:16] LABS: Bacteria Urine 1+ /hpf; RBC Urine 0-4 /hpf (0-2); WBC Urine 25-40 /hpf (0-5)
[2022-05-21 18:17] LABS: Add Urine Culture? No
[2022-05-21] MEDS: iohexol 350 mg/mL 100 mL Btl IV (18:46)
[2022-05-21] MEDS: metoclopramide 5 mg/mL SDV 2 mL 10 MG IVP (19:47)
[2022-05-21] MEDS: diphenhydrAMINE 50 mg/mL SDV 1mL 12.5 MG IVP (19:48)
[2022-05-21 19:49] VITALS: PULSE 71; RESP 16; O2SAT 98
[2022-05-21 20:37] VITALS: BP 115/73; PULSE 78; RESP 16; O2SAT 99
== END 2022-05-21 20:34 | disposition home or self-care (01) ==
PROVIDERS: Emergency Provider Emergency Medicine; PCP Family Medicine Adult Medicine
DX: R42 Dizziness and giddiness (principal); R31.9 Hematuria, unspecified; E86.0 Dehydration; F17.210 Nicotine dependence, cigarettes, uncomplicated; J44.9 Chronic obstructive pulmonary disease, unspecified; E78.5 Hyperlipidemia, unspecified
CPT/HCPCS: 36415; 70496; 70498; 80053; 81001; 85025; 96361; 96374; 96375; 99285; J1200; J2765; J7030; J8597; Q9967

== ENCOUNTER → 2022-06-01 07:44 | Outpatient (BNVA) | payer MEDICAID, SELFPAY | PROVIDERS: PCP Family Medicine Adult Medicine; Visit Provider Surgery | DX: N82.9 Female genital tract fistula, unspecified (principal) | CPT/HCPCS: 99213 ==

== ENCOUNTER → 2022-06-10 16:15 | Outpatient (BNVA) | payer MEDICAID, SELFPAY | PROVIDERS: PCP Family Medicine Adult Medicine; Visit Provider Family Medicine Adult Medicine | DX: R31.9 Hematuria, unspecified (principal); N95.2 Postmenopausal atrophic vaginitis | CPT/HCPCS: 81000 ==

== ENCOUNTER → 2022-07-08 12:31 | Outpatient (BNVA) | payer MEDICAID, SELFPAY | PROVIDERS: PCP Family Medicine Adult Medicine; Visit Provider Otolaryngology | DX: H60.543 Acute eczematoid otitis externa, bilateral (principal); H91.93 Unspecified hearing loss, bilateral | CPT/HCPCS: 99203 ==

== ENCOUNTER → 2022-08-10 09:29 | Outpatient (BNVA) | payer MEDICAID, SELFPAY | PROVIDERS: PCP Family Medicine Adult Medicine; Visit Provider Otolaryngology | DX: H60.543 Acute eczematoid otitis externa, bilateral (principal); H91.93 Unspecified hearing loss, bilateral | CPT/HCPCS: 99213 ==

== ENCOUNTER 2022-08-19 09:58 | Outpatient (CLI) | payer MEDICAID, SELFPAY ==
--- NOTE | 2022-08-19 10:07 | FL_ITS ---
WS: [email or web address] FL barium enema [id number] REASON FOR EXAM: FISTULA/INVOLVING FEMALE GENITAL FLUOROSCOPY TIME: 2min [id number] # OF SPOT FILMS: Multiple FINDINGS: Due to the clinical history of possible vaginal colorectal fistula examination was performed as follo ws: Procedure was performed as a solid column examination. Barium was infused to the level of the hepatic flexure with the patient in the left lateral decubitus position. Multiple spot films were obtained of the rectum and rectosigmoid colon with the patient in both lateral decubitus position and both oblique positions. No fistula to the vagina or uterine cavity was identified. The enema tip balloon was deflated and multiple spot films obtained in both decubitus and oblique to determine if there was a low rectal fistula. Again, no fistula to the vaginal vault or uterine cavity was identified. Postevacuation images in the AP and both oblique projections were obtained. No fistula to the uterine cavity or vaginal vault was identified. There is no diverticulosis of the sigmoid or left colon. No mucosal lesion or intraluminal mass was identified in the rectum or sigmoid or distal left colon. FL/FL barium enema [id number] IMPRESSION: Focused, limited barium enema was performed as described above without demonstr ation of the anticipated colorectal vaginal or uterine fistula. No disease of the rectum, sigmoid, distal left colon was identified that might cause fistulous communication with the vaginal vaginal vault or uterine cavity.
== END 2022-08-19 09:59 | disposition home or self-care (01) ==
LOC: RAD 09:58
PROVIDERS: PCP Family Medicine Adult Medicine; Visit Provider Family Medicine Adult Medicine
DX: N82.9 Female genital tract fistula, unspecified (principal)
CPT/HCPCS: 74270

== ENCOUNTER → 2022-11-03 16:06 | Outpatient (BNVA) | payer MEDICAID, SELFPAY | PROVIDERS: PCP Family Medicine Adult Medicine; Visit Provider Obstetrics & Gynecology | DX: Z00.00 Encounter for general adult medical examination without abnormal findings (principal) | CPT/HCPCS: 87624 ==

== ENCOUNTER → 2022-11-10 10:04 | Outpatient (BNVA) | payer MEDICAID, SELFPAY | PROVIDERS: PCP Family Medicine Adult Medicine; Visit Provider Family Medicine Adult Medicine | DX: G25.0 Essential tremor (principal); I10 Essential (primary) hypertension; E78.5 Hyperlipidemia, unspecified | CPT/HCPCS: 80053; 80061; 83036; 84443 ==

== ENCOUNTER 2022-11-12 09:22 | Outpatient (CLI) | payer MEDICAID, SELFPAY ==
--- NOTE | 2022-11-12 09:33 | MM_ITS ---
WS: [email or web address] BILATERAL SCREENING DIGITAL TOMOSYNTHESIS MAMMOGRAM WITH CAD HISTORY: Screening. COMPARISON: 08/21/2020 Bilateral CC and MLO views with tomosynthesis and synthetic mammography submitted. Computer aided det ection analyzed. Breast composition: There are scattered areas of fibroglandular density. No suspicious masses, microc alcifications or architectural distortion. Benign calcification RIGHT breast. MM/[place] [id number] IMPRESSION: BI-RADS: 2-Benign FOLLOW UP: 1 Year Follow-up
== END 2022-11-12 09:23 | disposition home or self-care (01) ==
LOC: RAD 09:23
PROVIDERS: PCP Family Medicine Adult Medicine; Visit Provider Obstetrics & Gynecology
DX: Z12.31 Encounter for screening mammogram for malignant neoplasm of breast (principal)
CPT/HCPCS: 77063; 77067

== ENCOUNTER → 2023-01-11 08:49 | Outpatient (BNVA) | payer MEDICAID, SELFPAY | PROVIDERS: PCP Family Medicine Adult Medicine; Visit Provider Internal Medicine Cardiovascular Disease | DX: R07.9 Chest pain, unspecified (principal); R06.09 Other forms of dyspnea; F17.210 Nicotine dependence, cigarettes, uncomplicated; E78.5 Hyperlipidemia, unspecified | CPT/HCPCS: 93005; 99204 ==

== ENCOUNTER → 2023-01-11 09:05 | Outpatient (BNVA) | payer MEDICAID, SELFPAY | PROVIDERS: PCP Family Medicine Adult Medicine; Visit Provider Internal Medicine Cardiovascular Disease | DX: R06.09 Other forms of dyspnea (principal); R07.9 Chest pain, unspecified; R55 Syncope and collapse; E78.5 Hyperlipidemia, unspecified; I10 Essential (primary) hypertension; J44.9 Chronic obstructive pulmonary disease, unspecified; G47.33 Obstructive sleep apnea (adult) (pediatric); Z99.89 Dependence on other enabling machines and devices; F17.210 Nicotine dependence, cigarettes, uncomplicated | CPT/HCPCS: 93005 ==

== ENCOUNTER 2023-02-15 07:53 | Outpatient (CLI) | payer MEDICAID, SELFPAY ==
--- NOTE | 2023-02-15 | ECG_ITS ---
[facility] Test Date: 2023-02-15 Pat Name: Sara López Department: Room: Gender: Female Diversity Manager: Charo Fowler : 1965 Requested By: Hawa Jarrett Order Number: [id number] Ruchi MD: Hawa Jarrett M.D. Interpretive Statements NAME OF STUDY: EXERCISE SESTAMIBI STRESS TEST INDICATION: Chest Pain Baseline blood pressure of 132/71 mm Hg, heart rate of 69 beats per minute and oxygen saturation of 96%. EKG showed sinus rhythm with normal axis with artifact with normal ST-Ts. The patient exercised for 2 minutes 44 seconds on a standard Riccardo protocol. Patient attained a maximum heart rate of 149 beats per minute(91 % of the maximum predicted heart rate) with a blood pressure at the peak exercise of 172/95 mm Hg oxygen saturation of 97%. The EKG at the peak exercise revealed sinus tachycardia with no significant ST-T wave changes. Patient did not have any chest pain or any significant arrhythmis with the exercise. During the recovery phase, there were no new changes. Blood pressure at the end of the recovery phase was 170/85 mm Hg with a heart rate of 82 beats per minute oxygen saturation of 98%. CONCLUSION: 1. Normal EKG response to treadmill exercise 2. No exercise-induced chest pain or cardiac arrhythmia 3. Decreased exercise tolerance, attained a maximum of METs. 4. Baseline normal blood pressure with normal response to exercise. 5. Perfusion scan will be documented separately. Electronically Signed On 02-24-2023 15:07:25 CDT by Hawa Jarrett M.D. [email or web address]
[2023-02-15 08:01] VITALS: BMI 26.2
--- NOTE | 2023-02-15 08:17 | NMCV_ITS ---
NM gabriel perf SPECT r/s* [id number] Sara López Age: 57 Gender: F : 1965 Exam Date: 02/15/2023 08:52 Ordering Phys: Hawa Jarrett MD ([email or web address]) Technologist: MAYNOR Rushing Exam Location: [facility] Indications: SHORTNESS OF BREATH, CHEST PAIN STRESS TEST Please see separate stress test report in [facility] for full findings IMAGE PROTOCOL Rest/Stress 1 Exercise Day Radiopharmaceutical Dose (mCi) Administration Site Administered by Rest: Tc-99m 10.7 IV MAYNOR Kwon Sestamibi Stress:Tc-99m 32.6 IV MAYNOR Kwon Sestamibi Rest: 15-Feb-2023 60 Discovery 630 Stress: 15-Feb-2023 30 Discovery 630 Radiopharmaceutical was injected at 87 % maximum heart rate. Images obtained in supine and prone position. SPECT RESULTS Technical Quality: Excellent Raw Data Analysis: Normal Image Corrections: No attenuation or motion correction applied Summed Stress Score: 0 Summed Rest Score: 0 Summed Difference Score: 0 PERFUSION FINDINGS SPECT images demonstrate homogeneous tracer distribution throughout the myocardium. FUNCTIONAL RESULTS (calculated via Gated SPECT) Stress Image LV EF (%): 93 Stress EDV (mL):59 TID: 0.81 Stress ESV (mL):4 FUNCTIONAL FINDINGS: The left ventricle is normal in size. Transient Ischemia Dilatation of 0.81. The left ventricular ejection fraction is normal with a value of 93%. There is hyperdynamic left ventricular wall thickening. IMPRESSIONS 1. Myocardial perfusion imaging is normal. 2. Overall left ventricular systolic function is hyperdynamic without regional wall motion abnormalities, LVEF=93%. 3. EKG portion of the study will be reported separately. 4. Scan indicates low risk for cardiac events. Hawa Jarrett MD (Electronically Signed) Final Date: 19 February 2023 20:37 S
[2023-02-15 09:50] VITALS: BP 170/85; PULSE 82
== END 2023-02-15 07:54 | disposition home or self-care (01) ==
LOC: CDL 07:53
PROVIDERS: PCP Family Medicine Adult Medicine; Visit Provider Internal Medicine Cardiovascular Disease
DX: R07.9 Chest pain, unspecified (principal)
CPT/HCPCS: 36415; 78452; 93017; 99204; A9500

== ENCOUNTER → 2023-03-10 14:50 | Outpatient (BNVA) | payer MEDICAID, SELFPAY | PROVIDERS: PCP Family Medicine Adult Medicine; Visit Provider Family Medicine Adult Medicine | DX: R39.9 Unspecified symptoms and signs involving the genitourinary system (principal); G25.0 Essential tremor; R32 Unspecified urinary incontinence; I10 Essential (primary) hypertension; G47.33 Obstructive sleep apnea (adult) (pediatric); Z99.89 Dependence on other enabling machines and devices; J30.9 Allergic rhinitis, unspecified; F41.9 Anxiety disorder, unspecified; F32.9 Major depressive disorder, single episode, unspecified; J44.9 Chronic obstructive pulmonary disease, unspecified | CPT/HCPCS: 81000 ==

== ENCOUNTER → 2023-04-12 10:15 | Outpatient (BNVA) | payer MEDICAID, SELFPAY | PROVIDERS: PCP Family Medicine Adult Medicine; Visit Provider Internal Medicine Cardiovascular Disease | DX: R07.9 Chest pain, unspecified (principal); F17.210 Nicotine dependence, cigarettes, uncomplicated | CPT/HCPCS: 99214 ==

== ENCOUNTER 2023-06-03 13:22 | Outpatient (CLI) | payer MEDICAID, SELFPAY ==
--- NOTE | 2023-06-03 13:32 | MR_ITS ---
WS: [email or web address] MRI BRAIN WITH HIGH-RESOLUTION IMAGING THROUGH THE INTERNAL AUDITORY CANALS WITHOUT AND WITH CONTRAST HISTORY: Dizziness and giddiness, hearing loss COMPARISON: None available. TECHNIQUE: Multiplanar, multisequence imaging is performed through the brain. Additional 3 mm imaging performed in multiple planes through the internal auditory canal. Postcontrast imaging with 10 ml's of MultiHance. No acute intracranial hemorrhage, midline shift, edema or mass effect. No significant atrophy. There is mild small vessel ischemic changes in the periventricular white daniele er. No prior infarct. No midline shift. Ventricles and extra-axial spaces are normal. No inferior displacement of cerebellar tonsils. Clivus and pituitary gland are normal. Internal and external auditory canals: Unremarkable. Cranial nerves VII and VIII complexes: Unremarkable. No enhancement or mass. Cerebellopontine angles: Normal. Paranasal sinuses: Mucous retention cyst in the posterior sphenoid sinus. Mastoid air cells: Normal. Calvarium and scalp: Normal. Visualized [place] and dural venous sinuses demonstrate no abnormality. IMPRESSION: 1. Normal appearance of the internal auditory canals. No enhancement or mass effect. 2. No significant atrophy. Mild small vessel ischemic changes in the periventricular white matter. 3. No intracranial mass. 4. Sphenoid sinus mucous retention cyst.
[2023-06-03] MEDS: gadobenate dimeglumine 20 mL vial IV (14:45)
== END 2023-06-03 13:23 | disposition home or self-care (01) ==
LOC: RAD 13:22
PROVIDERS: PCP Family Medicine Adult Medicine; Visit Provider Otolaryngology
DX: H83.02 Labyrinthitis, left ear (principal); H90.3 Sensorineural hearing loss, bilateral; R42 Dizziness and giddiness; J34.1 Cyst and mucocele of nose and nasal sinus
CPT/HCPCS: 70553; A9577

== ENCOUNTER 2023-10-05 20:00 | Outpatient (CLI) | payer MEDICAID, SELFPAY | END 2023-10-05 20:01 | disposition home or self-care (01) | LOC: SLEEP 10-06 06:05 | PROVIDERS: PCP Family Medicine Adult Medicine; Visit Provider Specialist | DX: G47.33 Obstructive sleep apnea (adult) (pediatric) (principal) | CPT/HCPCS: 95810 ==

== ENCOUNTER → 2023-10-21 08:40 | Outpatient (BNVA) | payer MEDICAID, SELFPAY | PROVIDERS: PCP Family Medicine Adult Medicine; Visit Provider Family Medicine Adult Medicine | DX: R39.9 Unspecified symptoms and signs involving the genitourinary system (principal); L98.9 Disorder of the skin and subcutaneous tissue, unspecified; L98.499 Non-pressure chronic ulcer of skin of other sites with unspecified severity | CPT/HCPCS: 81000 ==

== ENCOUNTER → 2023-12-09 15:44 | Outpatient (BNVA) | payer MEDICAID, SELFPAY | PROVIDERS: PCP Family Medicine Adult Medicine; Visit Provider Nurse Practitioner Women's Health | DX: Z78.0 Asymptomatic menopausal state (principal); Z13.820 Encounter for screening for osteoporosis; I10 Essential (primary) hypertension; Z01.411 Encounter for gynecological examination (general) (routine) with abnormal findings; L73.2 Hidradenitis suppurativa; N82.9 Female genital tract fistula, unspecified | CPT/HCPCS: 80053 ==

== ENCOUNTER 2023-12-15 13:53 | Outpatient (CLI) | payer OTHER, SELFPAY ==
--- NOTE | 2023-12-15 14:00 | XR_ITS ---
WS: [email or web address] DEXA (DUAL ENERGY X-RAY ABSORPTIOMETRY) Bone mineral density was performed using a [employer] machine. HISTORY: Z78.0 - Asymptomatic menopausal state COMPARISON: None available. Lumbar spine BMD (L1-L4): 1.240 g/cm2 T score: 0.5 Z score: 1.9 Total hip BMD: Left: 0.956 g/cm2. T score: -0.4 Z score: 0.7 Right: 1.002 g/cm2. T score: 0.0 Z score: 1.0 10 year probability of a major osteoporotic fracture is 11.0%. XR/XR DEXA axial skeleton* [id number] IMPRESSION: NORMAL BONE MINERAL DENSITY based upon the WHO classification for females.
--- NOTE | 2023-12-15 14:30 | MM_ITS ---
WS: [email or web address] Bilateral screening 3D tomosynthesis digital mammogram, 12/15/2023 Clinical Data: Z12.31 - Encounter for screening mammogram for malignant ... Comparison: 11/12/2022, 08/21/2020, 06/06/2014. Findings: The breast parenchymal pattern shows fibroglandular tissue. No spiculated masses or clustered calcifi cations are seen. There are no secondary signs of carcinoma. MM/[place] [id number] Impression: 1. Negative bilateral mammogram unchanged. 2. Recommend annual screening mammograms. BIRADS: 1-Negative FOLLOW UP: 1 Year Follow-up The CAD checkering machine adjuster was used.
== END 2023-12-15 13:54 | disposition home or self-care (01) ==
LOC: RAD 13:53
PROVIDERS: PCP Family Medicine Adult Medicine; Visit Provider Nurse Practitioner Women's Health
DX: Z12.31 Encounter for screening mammogram for malignant neoplasm of breast (principal); Z78.0 Asymptomatic menopausal state; Z13.820 Encounter for screening for osteoporosis; R92.323 Mammographic fibroglandular density, bilateral breasts
CPT/HCPCS: 77063; 77067; 77080

== ENCOUNTER 2024-03-16 14:27 | Outpatient (CLI) | payer MEDICAID, SELFPAY ==
--- NOTE | 2024-03-16 14:45 | CT_ITS ---
WS: [email or web address] LDCT LUNG CANCER SCREENING HISTORY: screening in smoker TECHNIQUE: Axial imaging performed from the apices to 1 cm below the costophrenic angles. Coronal and sagittal reformats are submitted with axial MIP series. All CT scans at [facility] use at least one of these dose optimization techniques: automated exposure control; mA and/or kV adjustment per patient size (includes targeted exams where dose is matched to clinical indication); or iterativ e reconstruction. DLP: 40.32 mGy.cm DIvol: Mean CTDIvol: 0.90 (mGy) COMPARISON: None available. Diagnostic quality: Satisfactory. Lungs: Mild pulmonary hyperexpansion. There is mild diffuse interstitial thickening and mild bronchia l wall thickening from respiratory bronchiolitis. There are a few tiny micronodules but no nodules gr eater than 3 mm. Mild groundglass attenuation at the LEFT lung base correlates to an area of mild ate lectasis. No endobronchial lesions. Heart: Normal size heart with no pericardial effusion.. Other findings: Mild atherosclerosis aorta. Normal size pulmonary artery. Small mediastinal and hilar lymph nodes. No adenopathy identified on this unenhanced exam. CT/CT lung screening [id number] IMPRESSION: LUNG-RADS: 2-Benign Appearance or Behavior FOLLOW UP: 12 Month: Continue annual screening with LDCT OTHER FINDINGS (S MODIFIER): None.
== END 2024-03-16 14:28 | disposition home or self-care (01) ==
LOC: RAD 14:29
PROVIDERS: PCP Family Medicine Adult Medicine; Visit Provider Family Medicine Adult Medicine
DX: F17.200 Nicotine dependence, unspecified, uncomplicated (principal); R91.8 Other nonspecific abnormal finding of lung field; I70.0 Atherosclerosis of aorta
CPT/HCPCS: 71271; 85025; 85610

== ENCOUNTER 2024-03-28 09:41 | Outpatient (CLI) | payer MEDICAID, SELFPAY ==
--- NOTE | 2024-03-28 10:00 | CT_ITS ---
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 TECHNIQUE: Imaging performed of the abdomen and pelvis with IV contrast. Multi phase imaging of the a bdomen and pelvis. Rectal contrast was also provided. Coronal and sagittal reformats are submitted. All CT scans at [facility] use at least one of these dose optimization techniques: automated e xposure control; mA and/or kV adjustment per patient size (includes targeted exams where dose is matc hed to clinical indication); or iterative reconstruction. IV CONTRAST: Omnipaque 350; 100 mL IV. Oral contrast: Rectal contrast. DLP: 772.04 mGy.cm COMPARISON: 06/30/2021 Lower thorax: Mild pulmonary hyperexpansion and emphysema. Heart is normal size. No hiatal hernia. Liver/biliary system: Small subcapsular cyst is stable along the LEFT lobe. No bile duct dilatation. Mild focal fatty sparing along the falciform ligament. No intrahepatic duct dilatation. Subtle area o f decreased attenuation in the inferior RIGHT lobe is also present in 2020 without progression. Gallbladder: Prior cholecystectomy. Pancreas: Normal size pancreas and pancreatic duct. No adjacent inflammation. Spleen: Normal size spleen. No mass or infarct. Adrenal glands: Normal. Right kidney: Stable cortical hypodensity which is too small to characterize. No obstruction. Left kidney: Normal size kidney with no obstruction. 2 hypodense dense masses in the LEFT kidney. The largest from the superior pole measures 3.4 x 3.6 cm with a thin septation. No solid mass. Aorta: Mild atherosclerosis with no aneurysm. Retroaortic LEFT renal vein. Lymphadenopathy: None. Free fluid: None. GI tract: No obstruction. No colitis. Normal appendix. Abdominal wall: Fat containing umbilical hernia. Pelvis: Small inguinal lymph nodes. On the initial imaging through the pelvis with rectal but no IV contrast there is a tiny focus of con trast anterior to the rectal balloon. On prone and additional imaging slightly more contrast extends into the vagina. On the thin cuts especially seen on the sagittal view is contrast extending from the anterior rectum into the vagina. Postevacuation imaging is also obtained and there is persistent con trast extending along the fistulous tract. Bones: Unremarkable. CT/CT abdomen pelvis w con* [id number] IMPRESSION: 1. 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 This c ould be an anovaginal fistula due to its position but is difficult to different iate by CT. This is a very small fistula. Contrast is noted extending from the region of the rectoanal junction into the vagina. 2. No abscess. 3. LEFT renal cysts. 4. Prior cholecystectomy.
[2024-03-28] MEDS: iohexol 350 mg/mL 500 mL Btl (per mL) IV (12:29)
[2024-03-28] MEDS: iohexol 350 mg/mL 500 mL Btl (per mL) PO (12:29)
== END 2024-03-28 09:42 | disposition home or self-care (01) ==
LOC: RAD 09:42
PROVIDERS: PCP Family Medicine Adult Medicine; Visit Provider Nurse Practitioner Women's Health
DX: N82.9 Female genital tract fistula, unspecified (principal); K42.9 Umbilical hernia without obstruction or gangrene; Q61.02 Congenital multiple renal cysts; Z90.49 Acquired absence of other specified parts of digestive tract
CPT/HCPCS: 74177; Q9967

== ENCOUNTER → 2024-05-24 07:49 | Outpatient (BNVA) | payer MEDICAID, SELFPAY | PROVIDERS: PCP Family Medicine Adult Medicine; Referring Provider Family Medicine Adult Medicine; Visit Provider Nurse Practitioner Family | DX: L30.9 Dermatitis, unspecified (principal); L73.2 Hidradenitis suppurativa; L82.1 Other seborrheic keratosis; D18.01 Hemangioma of skin and subcutaneous tissue; D69.2 Other nonthrombocytopenic purpura; F17.200 Nicotine dependence, unspecified, uncomplicated | CPT/HCPCS: 11104; 99204 ==

== ENCOUNTER → 2024-08-29 09:39 | Outpatient (BNVA) | payer MEDICAID, SELFPAY | PROVIDERS: PCP Family Medicine; Visit Provider Family Medicine | DX: I10 Essential (primary) hypertension (principal); I70.0 Atherosclerosis of aorta; R73.01 Impaired fasting glucose; E87.6 Hypokalemia; N28.1 Cyst of kidney, acquired; N39.46 Mixed incontinence; F41.9 Anxiety disorder, unspecified; F32.9 Major depressive disorder, single episode, unspecified; F33.1 Major depressive disorder, recurrent, moderate; J43.1 Panlobular emphysema; G47.33 Obstructive sleep apnea (adult) (pediatric); J44.9 Chronic obstructive pulmonary disease, unspecified; Z12.2 Encounter for screening for malignant neoplasm of respiratory organs; G25.0 Essential tremor; F17.210 Nicotine dependence, cigarettes, uncomplicated; K21.9 Gastro-esophageal reflux disease without esophagitis; Z76.89 Persons encountering health services in other specified circumstances | CPT/HCPCS: 80053; 83036; 87086 ==

== ENCOUNTER 2024-09-08 08:16 | Outpatient (CLI) | payer MEDICAID, SELFPAY ==
--- NOTE | 2024-09-08 08:30 | US_ITS ---
WS: [email or web address] RENAL ULTRASOUND HISTORY: renal cysts on CT COMPARISON: 08/15/2019 TECHNIQUE: 2-D and color Doppler imaging of the kidney submitted. Right kidney: 9.4 cm x 4.2 cm x 5.0 cm. Cortex: 1.0 cm Normal echogenicity with no hydronephrosis or mass. Cortical cyst mid kidney 0.7 x 0.7 x 0.8 cm. Left kidney: 9.8 cm x 5.1 cm x 5.2 cm. Cortex: 1.0 cm Normal size kidney with no hydronephrosis. Two renal cysts are identified. The largest exophytic from the superior pole measures 3.3 x 2.9 x 2.8 cm. Mid renal cyst 2.3 x 2.4 x 2.1 cm. Aorta: Normal. Urinary Bladder: Normal distention. US/US renal BI* [id number] IMPRESSION: 1. No hydronephrosis or solid renal mass. 2. Bilateral renal cysts. Cortical cyst in the RIGHT kidney is new since 2019. 3. LEFT renal cysts have been previously described with slight increase in siz e since 2019.
== END 2024-09-08 08:17 | disposition home or self-care (01) ==
LOC: RAD 08:17
PROVIDERS: PCP Family Medicine; Visit Provider Family Medicine
DX: N28.1 Cyst of kidney, acquired (principal)
CPT/HCPCS: 76770

== ENCOUNTER → 2024-10-16 10:51 | Outpatient (BNVA) | payer MEDICAID, SELFPAY | PROVIDERS: PCP Family Medicine; Visit Provider Family Medicine | DX: R00.2 Palpitations (principal); E78.5 Hyperlipidemia, unspecified; I10 Essential (primary) hypertension; H81.10 Benign paroxysmal vertigo, unspecified ear; R42 Dizziness and giddiness | CPT/HCPCS: 80053; 80061; 84443; 85025 ==

== ENCOUNTER → 2024-11-27 08:12 | Outpatient (BNVA) | payer MEDICAID, SELFPAY | PROVIDERS: PCP Family Medicine; Visit Provider Family Medicine | DX: D64.9 Anemia, unspecified (principal); R30.0 Dysuria; F41.9 Anxiety disorder, unspecified; F32.9 Major depressive disorder, single episode, unspecified; I10 Essential (primary) hypertension; E78.5 Hyperlipidemia, unspecified; K21.9 Gastro-esophageal reflux disease without esophagitis; R42 Dizziness and giddiness; F17.210 Nicotine dependence, cigarettes, uncomplicated; M54.50 Low back pain, unspecified | CPT/HCPCS: 82607; 83540; 85025; 87086 ==

== ENCOUNTER 2024-12-15 08:12 | Outpatient (CLI) | payer MEDICAID, SELFPAY ==
--- NOTE | 2024-12-15 08:15 | MM_ITS ---
WS: [email or web address] BILATERAL SCREENING DIGITAL TOMOSYNTHESIS MAMMOGRAM WITH CAD HISTORY: SCREENING COMPARISON: 12/15/2023, 11/12/2022 Bilateral CC and MLO views with tomosynthesis and synthetic mammography submitted. Computer aided detection analyzed. Breast composition: There are scattered areas of fibroglandular density. No suspicious masses, microcalcifications or architectural distortion. There are a few benign scattered calcifications. MM/MM scr tomosynthesis [id number] IMPRESSION: BI-RADS: 2 - Benign. FOLLOW UP: 1 Year Follow-up
== END 2024-12-15 08:13 | disposition home or self-care (01) ==
PROVIDERS: PCP Family Medicine; Visit Provider Family Medicine
DX: Z12.31 Encounter for screening mammogram for malignant neoplasm of breast (principal); R92.323 Mammographic fibroglandular density, bilateral breasts; R92.1 Mammographic calcification found on diagnostic imaging of breast
CPT/HCPCS: 77063; 77067

== ENCOUNTER → 2024-12-26 10:39 | Outpatient (BNVA) | payer MEDICAID, SELFPAY | PROVIDERS: PCP Family Medicine; Visit Provider Nurse Practitioner Women's Health | DX: Z78.0 Asymptomatic menopausal state (principal); Z01.419 Encounter for gynecological examination (general) (routine) without abnormal findings | CPT/HCPCS: 82306; 87624 ==

== ENCOUNTER → 2025-02-08 10:23 | Outpatient (BNVA) | payer MEDICAID, SELFPAY | PROVIDERS: PCP Family Medicine; Visit Provider Physician Assistant | DX: R52 Pain, unspecified (principal) | CPT/HCPCS: 73610 ==

== ENCOUNTER 2025-02-20 11:52 | Emergency (ER) | payer MEDICAID, SELFPAY ==
[2025-02-20 12:04] VITALS: BP 122/59; PULSE 82; RESP 16; TEMP 36.8; O2SAT 98
--- OUTSIDE RECORDS SUMMARY | 2025-02-20 12:04 | XMS_ITS | Patient Health Record ---
Author Organization [facility] Address [address] [place], [place] [id number] Care Team Providers Care Irrigation Worker Name Role Phone Kaylynn Boyce APRN Primary Care Provider Kourtney Kendrick MD, William Unavailable [phone] Allergies Allergen (clinical drug ingredient) Drug/Non Drug Allergy documented on EMR Reaction Allergy Type Onset Date Status penicillin Unknown Drug Allergy Active Reason For Referral No Information Medications Medication SIG (Take, Route, Frequency, Duration) Notes Start Date End Date Status acetaminophen-hydrocodone 325 mg-10 mg 1/4 tab po orally Q2H prn pain Active promethazine 25 mg 1 tab po orally QID prn nausea Active potassium chloride 10 mEq 2 tabs orally QD for 30 day(s) Active omeprazole 20 mg 1 cap orally once a day for 30 day(s) Active HYDROmorphone 2 mg 1 tab po orally Q4H prn pain (max 4/day; hold within 4H of planned sleep) for 30 days Active tiZANidine 4 mg 1 tab po orally QID prn spasm Active ibuprofen 200 mg 1-2 tabs orally as directed Active CeleXA 40 mg 1 tab orally once a day for 30 day(s) Active Problems Problem Type SNOMED Code ICD Code Onset Dates Problem Status W/U Status Risk Notes Problem Lumbosacral spondylosis without myelopathy (62504793) Lumbosacral spondylosis without myelopathy (721.3) Active confirmed Problem Displacement of lumbar intervertebral disc without myelopathy (94487167) Lumbar (w/out myelopathy) intervertebral disc disorder (722.10) Active confirmed Problem Hypersomnia (62111081) Hypersomnia (780.54) Active confirmed Problem Low back pain (904863111) Low back pain (724.2) Active confirmed Problem Long-term drug therapy (435767700) LONG-TERM USE MEDS NEC (V58.69) Active confirmed R/O substance abuse Problem Anxiety state (308082321) Anxiety State, other, specified: procedure related (300.09) Active confirmed Problem Solitary sacroiliitis (808065657) Sacroiliitis (720.2) Active confirmed Plan Of Treatment No Information Insurance Providers Payer Name Payer Address Payer Phone Subscriber Number Group Number Insured Name Patient Relationship to Insured Coverage Start Date Coverage End Date [place] [employer] [address] [place] [address] [id number] Sara Wilcox Self - patient is the insured Medical (General) History Medical History History ICD Code Hypokalemia Sciatica Sacroiliitis Myalgia Bone spurs, lumbar Depression Panic attacks Back pain Hiatal hernia Gastroesophageal reflux disease
--- NOTE | 2025-02-20 13:04 | CT_ITS ---
WS: [email or web address] CT HEAD NONCONTRAST HISTORY: weakness TECHNIQUE: Contiguous axial imaging performed through the brain. Bone and soft tissue windows. Sagittal and coronal reformats reviewed. All CT scans at [facility] use at least one of these dose optimization techniques: automated exposure control; mA and/or kV adjustment per patient size (includes targeted exams where dose is matched to clinical indication); or iterative reconstruction. DLP: 998.38 mGy.cm COMPARISON: 05/21/2022 No acute intracranial hemorrhage, midline shift or mass effect. No atrophy or prior infarcts or herniation. Ventricles: Normal size with no hydrocephalus. Mild ectopia of the cerebellar tonsils. The entire tonsils have not been included on this CT. The RIGHT tonsil looks appears descend greater than the LEFT. No Chiari malformation suspected. Paranasal sinuses: Mucous retention cyst in the LEFT sphenoid sinus. Mastoid air cells: Well pneumatized. Calvarium and scalp: Skull is intact with no soft tissue edema or swelling. CT/CT head wo con* [id number] IMPRESSION: 1. No acute intracranial hemorrhage or edema. 2. Mild ectopia of the RIGHT cerebellar tonsil. 3. No ventriculomegaly.
--- NOTE | 2025-02-20 13:09 | MR_ITS ---
WS: [email or web address] MRI HEAD WITHOUT CONTRAST TECHNIQUE: Sagittal T1, T2 axial, T2 axial FLAIR, axial and coronal T1 images, axial susceptibility weighted imaging, axial diffusion weighted images, and coronal T2 images were obtained. CLINICAL INFORMATION: left side arm weakness COMPARISON: CT 02/20/2025 FINDINGS: No evidence of restricted diffusion to suggest acute ischemia. Mild small vessel changes. No significant parenchymal volume loss. No hemosiderin on the susceptibility weighted imaging. Normal posterior fossa. Normal vascular flow voids at the skull base. No extra-axial fluid collections. Paranasal sinuses and mastoid air cells are well aerated. Normal optic chiasm and pituitary infundibulum. Temporal lobes and hippocampal formations are normal in appearance. Incidental slightly low-lying cerebellar tonsils. No hydrocephalus. Fourth ventricle is patent. No other remarkable findings. MR/MR head wo con* [id number] IMPRESSION: 1. No acute intracranial findings. 2. No restricted diffusion to suggest acute ischemia. 3. Mild small vessel changes. No significant parenchymal volume loss. 4. No hemosiderin. 5. Incidental slightly low-lying cerebellar tonsils. No hydrocephalus. Fourth ventricle is patent.
--- NOTE | 2025-02-20 13:09 | MR_ITS ---
WS: [id number] MR CERVICAL SPINE WO/W HISTORY: neck pain radiculopathy TECHNIQUE: Sagittal T1, T2 and T2 inversion recovery; axial T2, T2 gradient and fiesta. Post gadolinium imaging with fat saturation technique. FINDINGS:Straightening of the normal cervical lordosis. No high grade central canal narrowing. Cord signal is normal. No abnormal gadolinium enhancement. C2-3: Mild facet arthropathy. Spinal canal and foramen are patent. C3-4: Mild disc bulging with osteophyte ridging. Uncovertebral joint hypertrophy. Mild facet arthropathy. Mild RIGHT and no significant LEFT foraminal narrowing. Moderate facet arthropathy. C4-5: Minimal disc bulging. Mild facet arthropathy. Spinal canal and foramen are patent. C5-6: Central disc osteophyte protrusion with slight contact of the cervical cord. Moderate to severe LEFT foraminal narrowing. RIGHT foramen is patent. Uncovertebral joint hypertrophy. C6-7: Mild disc bulging. Spinal canal and foramen are patent. C7-T1: Spinal canal and foramen are patent. MR/MR cervical spine wo/w [id number] IMPRESSION: Some images are degraded by motion artifact 1. Central disc osteophyte protrusion C5-C6 with indentation of the cervical c ord and mild central canal stenosis. 2. Moderate to severe LEFT C5-6 foraminal narrowing. 3. Slight reversal of the normal cervical lordosis. 4. Cord signal is normal 5. No abnormal gadolinium enhancement.
--- NOTE | 2025-02-20 13:09 | ED_ITS ---
HPI - General Adult 2 General: Chief complaint: General Medical Stated complaint: Lt. arm going numb Time Seen by Provider: 02/20/25 12:43 Source: patient Mode of arrival: ambulatory Limitations: no limitations History of Present Illness: 59-year-old female states for last 2 day s she has been having left-sided paresthesias along some left-sided arm weakness. States she been having some slight neck pains as well. She does have a slight drift of her left arm she denies any specific injuries. She denies any headache no other focal deficits she denies any fevers Associated symptoms: Deny chest pain, dyspnea, headache(s), nausea, rash or vomiting Related Data Home Medications ?Medication ?Instructions ?Recorded ?Confirmed oxygen-air delivery systems 12/09/23 02/20/25 albuterol sulfate 1.25 mg/3 mL 1.25 mg continuous nebu lization 02/20/25 02/20/25 solution for nebulization Q4H PRN Shortness Of Breath Or Wheezing albuterol sulfate 90 mcg/actuation 2 puff inhalation Q 6H PRN Wheezing 02/20/25 02/20/25 aerosol inhaler (Ventolin HFA) cholecalciferol (vitamin D3) 25 25 mcg PO DAILY 02/20/25 mcg (1,000 unit) tablet (Vitamin D3) fluticasone 250 mcg-salmeterol 50 2 inh inhalation BID 02/20/25 02/20/25 mcg/dose blistr powdr for inhalation (Advair Diskus) pantoprazole 40 mg tablet,delayed 40 mg PO DAILY 02/2002/20/25 release potassium chloride 20 mEq 20 meq PO DAILY 02/20/25 tablet,extended release sertraline 100 mg tablet 100 mg PO DAILY 02/20/25 Previous Rx's ?Medication ?Instructions ?Recorded CPAP Mask small- Air Touch F-20 #1 ea 05/05/22 with tubing and supplies nebulizers (Compact Compressor #1 ea 09/18/22 Nebulizer) aspirin 81 mg tablet,delayed 81 mg PO DAILY circulatio n #100 03/21/24 release (Adult Low Dose Aspirin) tabs hydroxyzine HCl 25 mg tablet 25 mg PO BID PRN anxiety #60 tabs 08/03/24 atorvastatin 20 mg tablet 20 mg PO DAILY cholesterol # 90 tabs 08/29/24 metoprolol succinate 50 mg 25 mg (1/2 x 50 mg) PO ANA PAULA Y #90 10/19/24 tablet,extended release 24 hr tabs cyanocobalamin (vitamin B-12) 1,000 mcg IM .qwk #10 mL 11/28/24 1,000 mcg/mL injection solution syringe with needle 3 mL 23 gauge #100 ea 12/19/24 x 1 1/2 (CareTouch Luer Lock Syringe with needle) estradiol 0.01% (0.1 mg/gram) 1 g vaginal .twice weekl y #42.5 12/26/24 vaginal cream (Estrace) grams ipratropium 0.5 mg-albuterol 3 mg 3 ml inhalation Q4H PRN wheezing 12/29/24 (2.5 mg base)/3 mL nebulization #180 mL soln prednisone 50 mg tablet 50 mg PO DAILY #5 tabs 02/20 Allergies Allergy/AdvReac Type Severity Reaction Status Date / Time influenza virus vaccine tvs Allergy rash Verified 02/08/25 10:12 (65 yr and up) (From Fluad (65yr+)(PF)) Penicillins Allergy Rash Verified 02/08/25 10:12 vaccine adjuvant emulsion Allergy rash Verified 02/08/25 10:12 [id number].1 (From Fluad (65yr+)(PF)) oxycodone AdvReac Dizziness, Verified 02/08/25 10:12 flushed sulfamethoxazole (From AdvReac Nausea Verified 02/08/25 10:12 Bactrim) trimethoprim (From Bactrim) AdvReac Nausea Verified 02/08/25 10:12 Review of Systems 2 Const: Denies: fever(s), chills, body aches or change in appetite ENMT: Denies: throat pain or dental pain Card: Denies: chest pain Resp: Denies: dyspnea GI: Denies: abdominal pain, nausea, vomiting or diarrhea Musc: Reports: neck pain; Denies: back pain Skin/Breast: Denies: rash Neuro: Reports: numbness in extremities and weakness in extremities; Denies: headache(s) PFSH ED 2 PFSH: Medical History Vitamin B12 deficiency anemia Anemia, unspecified Dizziness Palpitations Vertigo, benign paroxysmal GERD without esophagitis Fasting hyperglycemia Screening for lung cancer started age 6; last LDCT 03.16.24; Nicotine dependence, cigarettes, uncomplicated last LDCT 03.16.24 Atherosclerosis of aorta Renal cyst Chronic neck pain 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 Used to follow up with the pain clinic in the past but not anymore and this is managed by her primary care provider Anxiety and depression COPD (chronic obstructive pulmonary disease) Diagnosed in 2015 and is controlled with medication managed by PMD at this time Chronic hypertension Surgical History H/O vaginal surgery 05/21/2021- Rectovaginal fistula repair performed by Dr. Cruz at [facility] Status post hysteroscopy 09/17/2020---hysteroscopy with D&C for postmenopausal bleeding performed by Dr. Ingram at [facility] [place]. ---at time of hysteroscopy benign atrophic endometrium identified without any polyps. Pathology showed inactive endometrial glands on a background of mucin and debris, no atypia or hyperplasia polyps or malignancy identified. History of colonoscopy (09/17/20) 2015; 2.5.21 colitis--txed w/ abx, hyperplastic polyp; surgeon note says f/u colonoscopy 10 yrs S/P cholecystectomy Laparoscopic procedure performed by Dr. Hudson at [facility] in June 2020 S/P section At the age of 20 S/P tubal ligation At the age of 20 when she had her Family History Mother Diabetes Hypertension Thyroid disease Hyperlipidemia Sister Diabetes Hypertension Lung cancer Hyperlipidemia Father Diabetes Stroke Grandmother Breast cancer MGM Family/Other Prostate cancer PATERNAL UNCLE Denies family history of Ovarian cancer Myocardial infarction Uterine cancer Social History Smoking and tobacco/nicotine status: never used tobacco/nicotine Alcohol intake: never Substance/Drug Use: never Household members: other Details: lives with sister and her Marital status: / Number of children: 3 Highest education level completed: 10th Grade Current occupational status: disabled 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; 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 Female Reproductive History: Spontaneous abortions: No Physical Exam 2 Const: COMMON NORMALS: no acute distress, patient oriented x3, healthy appearing and alert ORIENTATION/CONSCIOUSNESS: Yes oriented to person, Yes oriented to place and Yes oriented to time HENMT: COMMON NORMALS: normocephalic and atraumatic HEAD & SCALP: n ormocephalic and atraumatic Eye: COMMON NORMALS: conjunctivae normal CONJUNCTIVA: Yes conjunctivae normal Neck/C-Spine: COMMON NORMALS: full ROM and supple CERVICAL SPINE: No Cervical spine tenderness Chest: COMMONS NORMALS: normal inspection of the chest and normal palpation of entire chest wall Resp: COMMON NORMALS: normal respiratory effort, No retractions, No use of accessory muscles and clear to auscultation bilaterally AUSCULTATION: clear to auscultation bilaterally Cardio: COMMON NORMALS: regular rate, regular rhythm and No murmurs present (Cardio) RATE: regular rate RHYTHM: regular rhythm Extremity: COMMON NORMALS: normal to inspection and full ROM Neuro: COMMON NORMALS: patient oriented x3, moves all extremities and no focal motor deficits SENSORIUM/ORIENTATION: Yes alert, Yes oriented to person, Yes oriented to place and Yes oriented to time CRANIAL NERVES: Yes CN normal except as noted SPEECH: speech normal GAIT: Yes Normal gait present O THER: Patient has slight drift of the left arm along with numbness to the left arm strength other extremities and sensation intact Psych: COMMON NORMALS: mental status grossly normal, Normal thought process present and cooperative THOUGHT PROCESS: Normal thought process present Skin: COMMON NORMALS: no rashes or lesions noted and no wounds GENERAL SKIN EXAM: no rashes or lesions noted Course 2 Vital Signs: Vital signs: Vital Signs Temperature 98.3 F 02/20/25 12:04 Pulse Rate 82 02/20/25 12:04 Respiratory Rate 16 02/20/25 12:04 Blood Pressure 122/59 02/20/25 12:04 Pulse Oximetry 98 02/20/25 12:04 Oxygen Delivery Me thod Room Air 02/20/25 12:04 MDM - General Adult Medical Decision Making Patient presents here with symptoms of cervical radiculopathy I did speak to spine surgeon Dr. Cerda who reviewed her films he is mary see her in office on we will start her on steroid she is return if worsening she understands agrees to plan Medical Records I reviewed the patient's medical records. Lab Data I reviewed the patient's lab results. 02/20/25 14:51 02/20/25 14:[address] 02/20/25 13:04 IMPRESSION: 1. No acute intracranial hemorrhage or edema. 2. Mild ectopia of the RIGHT cerebellar tonsil. 3. No ventriculomegaly. Cervical Spine MRI 02/20/25 13:09 IMPRESSION: Some images are degraded by motion artifact 1. Central disc osteophyte protrusion C5-C6 with indentation of the cervical cord and mild central canal stenosis. 2. Moderate to severe LEFT C5-6 foraminal narrowing. 3. Slight reversal of the normal cervical lordosis. 4. Cord signal is normal 5. No abnormal gadolinium enhancement. Head MRI 02/20/25 13:09 IMPRESSION: 1. No acute intracranial findings. 2. No restricted diffusion to suggest acute ischemia. 3. Mild small vessel changes. No significant parenchymal volume loss. 4. No hemosiderin. 5. Incidental slightly low-lying cerebellar tonsils. No hydrocephalus. Fourth ventricle is patent. Laboratory Results WBC 7.20 10^3/uL (3.29-11.43) 02/20/25 14:51 RBC 3.37 10^6/uL (3.85-5.65) L 02/20/25 14:51 Hgb 9.40 g/dL (11.27-16.99) L 02/20/25 14:51 Hct 30.5 % (36-47) L 02/20/25 14:51 MCV 90.5 fl (85-98) 02/20/25 14:51 MCH 27.9 pg (27-33) 02/20/25 14:51 MCHC 30.8 g/dL (30-55) 02/20/25 14:51 RDW 13.5 % (12.1-15.1) 02/20/25 14:51 Plt Count 329 10^3/cmm (157-399) 02/20/25 14:51 MPV 8.6 fL (7.4-10.4) 02/20/25 14:51 Neut % (Auto) 58.6 % 02/20/25 14:51 Lymph % (Auto) 33.6 % 02/20/25 14:51 Lee % (Auto) 5.4 % 02/20/25 14:51 Eos % (Auto) 1.7 % 02/20/25 14:51 Baso % (Auto) 0.4 % 02/20/25 14:51 Neut # (Auto) 4.22 10^3/uL (1.8-7.7) 02/20/25 14:51 Lymph # (Auto) 2.4 10^3/uL (0.8-4.8) 02/20/25 14:51 Lee # (Auto) 0.4 10^3/uL (0.2-0.9) 02/20/25 14:51 Eos # (Auto) 0.1 10^3/uL (0.0-0.8) 02/20/25 14:51 Baso # (Auto) 0.0 10^3/uL (0.0-0.1) 02/20/25 14:51 Nucleated RBC % (auto) 0 % 02/20/25 14:51 Nucleated RBCs # 0.0 /100WBC 02/20/25 14:51 All radiology interpretation(s) finalized by discharge EKG Data EKG 1: I personally reviewed and interpreted this EKG as follows: EKG interpretation date: 02/20/25 EKG interpretation time: 14:21 Interpretation: nsr hr 71 qrs 78 qtc 409 Computer generated interpretation: Head CT 02/20/25 13:04 IMPRESSION: 1. No acute intracranial hemorrhage or edema. 2. Mild ectopia of the RIGHT cerebellar tonsil. 3. No ventriculomegaly. Cervical Spine MRI 02/20/25 13:09 IMPRESSION: Some images are degraded by motion artifact 1. Central disc osteophyte protrusion C5-C6 with indentation of the cervical cord and mild central canal stenosis. 2. Moderate to severe LEFT C5-6 foraminal narrowing. 3. Slight reversal of the normal cervical lordosis. 4. Cord signal is normal 5. No abnormal gadolinium enhancement. Head MRI 02/20/25 13:09 IMPRESSION: 1. No acute intracranial findings. 2. No restricted diffusion to suggest acute ischemia. 3. Mild small vessel changes. No significant parenchymal volume loss. 4. No hemosiderin. 5. Incidental slightly low-lying cerebellar tonsils. No hydrocephalus. Fourth ventricle is patent. Discharge Plan Discharge Patient Disposition: Home Clinical Impression: Cervical radiculopathy Condition: Stable Prescriptions: New prednisone 50 mg tablet 50 mg PO DAILY Qty: 5 0RF No Action estradiol [Estrace] 0.01 % (0.1 mg/gram) cream 1 g vaginal .twice weekly Qty: 42.5 3RF Rx Instructions: space out doses atorvastatin 20 mg tablet 20 mg PO DAILY Qty: 90 3RF (DME) CPAP Mask small- Air Touch F-20 with tubing and supplies See Rx Instructions .Route .MEDSUPPLY Qty: 1 0RF Rx Instructions: As directed (DME) oxygen-air delivery systems Device See Rx Instructions .Route Rx Instructions: As directed (DME) Compact Compressor Nebulizer Misc See Rx Instructions .Route Qty: 1 0RF Rx Instructions: As directed, tubing and supplies included. aspirin [Adult Low Dose Aspirin] 81 mg tablet,delayed release (DR/EC) 81 mg PO DAILY Qty: 100 3RF hydroxyzine HCl 25 mg tablet 25 mg PO BID PRN (Reason: anxiety) Qty: 60 1RF metoprolol succinate 50 mg tablet extended release 24 hr 25 mg PO DAILY Qty: 90 0RF cyanocobalamin (vitamin B-12) 1,000 mcg/mL solution 1,000 mcg IM .qwk Qty: 10 3RF Rx Instructions: Tuesdays (DME) syringe with needle [CareTouch Luer Lock Syr-needle] 3 mL 23 gauge x 1 1/2 syringe See Rx Instructions .Route Qty: 100 1RF Rx Instructions: As directed for B12 injections ipratropium-albuterol 0.5 mg-3 mg(2.5 mg base)/3 mL solution for nebulization 3 ml inhalation Q4H PRN (Reason: wheezing) Qty: 180 3RF fluticasone propion-salmeterol [Advair Diskus] 250-50 mcg/dose blister with device 2 inh inhalation BID albuterol sulfate 1.25 mg/3 mL solution for nebulization 1.25 mg continuous nebulization Q4H PRN (Reason: Shortness Of Breath Or Wheezing) sertraline 100 mg tablet 100 mg PO DAILY pantoprazole 40 mg tablet,delayed release (DR/EC) 40 mg PO DAILY albuterol sulfate [Ventolin HFA] 90 mcg/actuation HFA aerosol inhaler 2 puff inhalation Q6H PRN (Reason: Wheezing) potassium chloride 20 mEq tablet extended release 20 meq PO DAILY cholecalciferol (vitamin D3) [Vitamin D3] 25 mcg (1,000 unit) Tablet 25 mcg PO DAILY Discharge Orders: Discharge ED (Routine); Ordered 02/20/25 Ordered By: Shanice Singleton Referrals: Osmany Cerda DO [Physician, Orthopedics] - 4-7 days Haley Kinsey MD [Primary Care Provider, Family Practice] Discharge Diet: Advance as tolerated Discharge Activity: Resume usual activity Patient Instructions: Cervical Radiculopathy (ED) Print Language: Yakut Coding Level of Care Code ED Steam Conditioner Operator for Britta Zhu
--- NOTE | 2025-02-20 13:17 | XRR_ITS ---
PROCEDURE INFORMATION: Exam: XR Chest Exam date and time: 02/20/2025 1:19 PM Age: 59 years old Clinical indication: Other: Arm weakness TECHNIQUE: Imaging protocol: Radiologic exam of the chest. Views: 1 view. COMPARISON: CT lung screening [id number] 03/16/2024 3:13 PM FINDINGS: Lungs: Unremarkable. No consolidation. Pleural spaces: Unremarkable. No pleural effusion. No pneumothorax. Heart/Mediastinum: Unremarkable. No cardiomegaly. Bones/joints: Unremarkable. XR/XR chest 1V portable [id number] IMPRESSION: No acute findings.
[2025-02-20] MEDS: LORazepam 1 MG/0.5 ML injection IVP (13:36)
[2025-02-20] MEDS: gadobenate dimeglumine 20 mL vial 13 ML IV (14:08)
--- NOTE | 2025-02-20 14:21 | ECG_ITS ---
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 Measurements Intervals Elmo Rate: 71 P: 46 NM: 187 QRS: 10 QRSD: 78 T: 36 QT: 387 QTc: 422 Interpretive Statements SINUS RHYTHM Compared to ECG 01/11/2023 09:22:49 No significant changes Electronically Signed On 02-22-2025 09:04:46 CDT by Ramirez Willson M.D. [email or web address]
[2025-02-20 14:50] LABS: Hematocrit 30.5 % (36-47); Hemoglobin 9.40 g/dL (11.27-16.99); Mean Corpuscular HGB Conc 30.8 g/dL (30-55); Mean Corpuscular Hemoglobin 27.9 pg (27-33); Mean Corpuscular Volume 90.5 fl (85-98); Nucleated Red Blood Cells % 0 %; Platelet Count 329 10^3/cmm (157-399); Red Blood Count 3.37 10^6/uL (3.85-5.65); White Blood Count 7.20 10^3/uL (3.29-11.43)
[2025-02-20] MEDS: methylPREDNISolone sod succ 125 mg/2 mL INJ IVP (15:10)
[2025-02-20 15:15] VITALS: BP 166/98; PULSE 69; O2SAT 95
[2025-02-20 15:17] LABS: Alanine Aminotransferase < 5 U/L (0-33); Albumin Level 3.7 g/dL (3.5-5.2); Alkaline Phosphatase 63 U/L (35-105); Anion Gap 16.8 (5-19); Aspartate Amino Transferase 9 U/L (0-32); Blood Urea Nitrogen 10 mg/dL (8-23); Calcium 9.5 mg/dL (8.5-10.5); Carbon Dioxide 26 mmol/L (22-29); Chloride 101 mmol/L (98-107); Creatinine Clr Calc Pharmacy 57.4043; Globulin 2.9 g/dL (1.3-4.6); Glucose 91 mg/dL (65-115); Osmolality Calculated 289 mOsm/kg (285-295); Potassium 3.8 mmol/L (3.5-5.1); Sodium 140 mmol/L (136-145); Total Protein 6.6 g/dL (6.6-8.7)
--- NOTE | 2025-02-20 15:19 | DCPLANNER ---
Message sent to Dr Cerda's office- Patient presents here with symptoms of cervical radiculopathy I did speak to spine surgeon Dr. Cerda who reviewed her films he is mary see her in office on we will start her on steroid she is return if worsening she understands agrees to plan
[2025-02-20 15:26] VITALS: BP 166/98; PULSE 69; O2SAT 96
== END 2025-02-20 15:27 | disposition home or self-care (01) ==
PROVIDERS: Family Medicine; Emergency Provider Emergency Medicine; PCP Family Medicine
DX: M54.12 Radiculopathy, cervical region (principal); Z79.82 Long term (current) use of aspirin; J44.9 Chronic obstructive pulmonary disease, unspecified; I10 Essential (primary) hypertension; E78.5 Hyperlipidemia, unspecified
CPT/HCPCS: 70450; 70551; 71045; 72156; 80053; 85025; 93005; 96374; 96375; 99285; A9577; J2060; J2919

== ENCOUNTER → 2025-02-22 07:58 | Outpatient (BNVA) | payer MEDICAID, SELFPAY | PROVIDERS: PCP Family Medicine; Visit Provider Orthopaedic Surgery | DX: M54.12 Radiculopathy, cervical region (principal); M48.02 Spinal stenosis, cervical region; G89.29 Other chronic pain | CPT/HCPCS: 72050; 99203 ==

== ENCOUNTER → 2025-03-01 09:14 | Outpatient (BNVA) | payer MEDICAID, SELFPAY | PROVIDERS: PCP Family Medicine; Visit Provider Family Medicine | DX: D51.9 Vitamin B12 deficiency anemia, unspecified (principal); D64.9 Anemia, unspecified; E55.9 Vitamin D deficiency, unspecified | CPT/HCPCS: 82306; 82607; 83550; 85025 ==

== ENCOUNTER 2025-03-05 11:16 | Emergency (ER) | payer MEDICAID, SELFPAY ==
--- OUTSIDE RECORDS SUMMARY | 2025-03-05 11:21 | XMS_ITS | Patient Health Record ---
Author Organization [facility] Address [address] [place], [place] [id number] Care Team Providers Care Manager Interface Name Role Phone Kaylynn Boyce APRN Primary Care Provider Kourtney Kendrick MD, William Unavailable [phone] Allergies Allergen (clinical drug ingredient) Drug/Non Drug [...] potassium chloride 10 mEq 2 tabs orally QD; Duration: 30 day(s) Active omeprazole 20 mg 1 cap orally once a day; Duration: 30 day(s) Active HYDROmorphone 2 mg 1 tab po orally Q4H prn pain (max 4/day; hold within 4H of planned sleep); Duration: 30 days Active tiZANidine 4 mg 1 tab po orally QID prn spasm Active ibuprofen 200 mg 1-2 tabs orally as directed Active CeleXA 40 mg 1 tab orally once a day; Duration: 30 day(s) Active Problems Problem Type SNOMED Code ICD Code Onset Dates Problem Status W/U Status Risk Notes Problem Lumbosacral spondylosis without myelopathy (10687513) Lumbosacral spondylosis without myelopathy (721.3) Active confirmed Problem Displacement of lumbar intervertebral disc without myelopathy (22526502) Lumbar (w/out myelopathy) intervertebral disc disorder (722.10) Active confirmed Problem Hypersomnia (37576671) Hypersomnia (780.54) Active confirmed Problem Low back pain (183831741) Low back pain (724.2) Active confirmed Problem Long-term drug therapy (300268254) LONG-TERM USE MEDS NEC (V58.69) Active confirmed R/O substance abuse Problem Anxiety state (152360131) Anxiety State, other, specified: procedure related (300.09) Active confirmed Problem Sacroiliitis (90173830) Sacroiliitis (720.2) Active confirmed Plan Of Treatment No Information Insurance Providers Payer Name Payer Address Payer Phone Subscriber Number Group Number Insured Name Patient Relationship to Insured Coverage Start Date Coverage End Date [place] [address] [place] [address] [id number] Sara Wilcox Self - patient is the insured Medical (General) History Medical History History ICD Code Hypokalemia Sciatica Sacroiliitis Myalgia Bone spurs, lumbar Depression Panic attacks Back pain Hiatal hernia Gastroesophageal reflux disease
--- OUTSIDE RECORDS SUMMARY | 2025-03-05 11:21 | XMS_ITS | Clinical Summary ---
Author Organization [facility] Administrative Offices Address [address] [place] [id number] Care Team Providers Care Lithographers Printer Name Role Phone Unavailable Primary Care Provider Unavailabl e Social History Tobacco Use Types Packs/Day Years Used Date Smoking Tobacco: Never Assessed Comments Unknown Sex and Gender Information Value Date Recorded Sex Assigned at Not on file Legal Sex Female 11:20 AM [employer] Gender Identity Not on file Sexual Orientation Not on file Plan of Treatment Health Maintenance Due Date Last Done Comments DTAP/TDAP/TD VACCINES (1 - Tdap) 1983 HPV/Cotest (21-29) 1985 CERVICAL CANCER SCREENING 1994 HPV/Cotest (30-65) 1994 PAP SMEAR 1994 BREAST CANCER SCREENING 2004 COLORECTAL SCREENING 2009 Colorectal Cancer Screening 2009 FIT-DNA Q 3 years 2009 FIT/FOBT Q 1 year 2009 Flex Sig/CT Colonography Q 5 years 2009 ZOSTER VACCINE (1 of 2) 2014 INFLUENZA VACCINE (#1) 2025 RSV VACCINE (60+ or ) (1 - 1-dose 75+ series) 2039 HEPATITIS B VACCINES Aged Out No long er eligible based on patient's age to complete this topic Insurance [id number]
[2025-03-05 11:27] VITALS: BP 132/82; PULSE 84; RESP 18; TEMP 37.1; O2SAT 98; BMI 26.6
--- NOTE | 2025-03-05 13:07 | ED_ITS ---
HPI - Extremity Problem General: Chief complaint: Extremity Problem,Nontraumatic Stated complaint: L side numbness Time Seen by Provider: 03/05/25 12:43 Source: patient Mode of arrival: ambulatory Limitations: no limitations History of Present Illness: Patient is a 59-year-old female presents to ED today with a complaint of continued numbness to her left arm. Patient was seen here on 02/20 with symptoms and diagnosed with cervical radiculopathy. She did have a cervical MRI showing central disc osteophyte protrusion at C5-C6 as well as moderate to severe left C5-C6 foraminal narrowing. She also had MRI of her head showing no evidence of cerebrovascular event. She has since followed up with Dr. Cerda as well as primary care Dr. Navarro. She is scheduled to see pain management, Dr. Guzman, on 03/13. MD Complaint: other (L arm numbness) Onset (ago): week(s) Location: left and upper extremity Quality: burning and other (feels ) Relieving factors: nothing Exacerbating factors: nothing Associated symptoms: Reports no associated symptoms; Deny chest pain or fever(s) Related Data Home Medications ?Medication ?Instructions ?Recorded ?Confirmed oxygen-air delivery systems 12/09/23 03/01/25 albuterol sulfate 1.25 mg/3 mL 1.25 mg continuous nebu lization 02/20/25 03/01/25 solution for nebulization Q4H PRN Shortness Of Breath Or Wheezing albuterol sulfate 90 mcg/actuation 2 puff inhalation Q 6H PRN Wheezing 02/20/25 03/01/25 aerosol inhaler (Ventolin HFA) cholecalciferol (vitamin D3) 25 25 mcg PO DAILY 03/01/25 mcg (1,000 unit) tablet (Vitamin D3) fluticasone 250 mcg-salmeterol 50 2 inh inhalation BID 02/20/25 03/01/25 mcg/dose blistr powdr for inhalation (Advair Diskus) pantoprazole 40 mg tablet,delayed 40 mg PO DAILY 02/2003/01/25 release potassium chloride 20 mEq 20 meq PO DAILY 02/20/25 tablet,extended release sertraline 100 mg tablet 100 mg PO DAILY 02/20/25 Previous Rx's ?Medication ?Instructions ?Recorded CPAP Mask small- Air Touch F-20 #1 ea 05/05/22 with tubing and supplies nebulizers (Compact Compressor #1 ea 09/18/22 Nebulizer) aspirin 81 mg tablet,delayed 81 mg PO DAILY circulatio n #100 03/21/24 release (Adult Low Dose Aspirin) tabs hydroxyzine HCl 25 mg tablet 25 mg PO BID PRN anxiety #60 tabs 08/03/24 atorvastatin 20 mg tablet 20 mg PO DAILY cholesterol # 90 tabs 08/29/24 metoprolol succinate 50 mg 25 mg (1/2 x 50 mg) PO ANA PAULA Y #90 10/19/24 tablet,extended release 24 hr tabs cyanocobalamin (vitamin B-12) 1,000 mcg IM .qwk #10 mL 11/28/24 1,000 mcg/mL injection solution syringe with needle 3 mL 23 gauge #100 ea 12/19/24 x 1 1/2 (CareTouch Luer Lock Syringe with needle) estradiol 0.01% (0.1 mg/gram) 1 g vaginal .twice weekl y #42.5 12/26/24 vaginal cream (Estrace) grams ipratropium 0.5 mg-albuterol 3 mg 3 ml inhalation Q4H PRN wheezing 12/29/24 (2.5 mg base)/3 mL nebulization #180 mL soln prednisone 50 mg tablet 50 mg PO DAILY #5 tabs 02/20 bupropion HCl 150 mg tablet,12 hr 150 mg PO BID #60 ta bs 03/01/25 sustained-release (Wellbutrin SR) cyclobenzaprine 10 mg tablet 10 mg PO TID #14 tabs 11/24 Allergies Allergy/AdvReac Type Severity Reaction Status Date / Time influenza virus vaccine tvs Allergy rash Verified 03/01/25 08:41 (65 yr and up) (From Fluad (65yr+)(PF)) Penicillins Allergy Rash Verified 03/01/25 08:41 vaccine adjuvant emulsion Allergy rash Verified 03/01/25 08:41 [id number].1 (From Fluad (65yr+)(PF)) oxycodone AdvReac Dizziness, Verified 03/01/25 08:41 flushed sulfamethoxazole (From AdvReac Nausea Verified 03/01/25 08:41 Bactrim) trimethoprim (From Bactrim) AdvReac Nausea Verified 03/01/25 08:41 Review of Systems Const: Denies: fever(s), chills, body aches, fatigue or malaise Card: Denies: chest pain, palpitations, lightheadedness, syncope or pre- syncope Resp: Denies: dyspnea Musc: Reports: muscle weakness (L UE); Denies: neck pain, back pain, joint pain, joint swelling or limited range of motion Neuro: Reports: numbness in extremities (numbness to L UE); Denies: weakness in extremities PFSH ED PFSH: Medical History Cervical radiculopathy Vitamin D deficiency Anemia due to vitamin B12 deficiency, unspecified B12 deficiency type now on B12 injections Anemia, unspecified Dizziness Palpitations Vertigo, benign paroxysmal GERD without esophagitis Fasting hyperglycemia Screening for lung cancer started age 6; last LDCT 03.16.24; Nicotine dependence, cigarettes, uncomplicated last LDCT 03.16.24 Atherosclerosis of aorta Renal cyst Chronic neck pain 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 Aaron Ocular migraine Lead Setter, Dr. Aaron Hearing loss of both ears Benign essential tremor Peripheral neuropathic pain Dyslipidemia (high LDL; low HDL) Osteoarthritis involving multiple joints on both sides of body Chronic back pain Reports having a herniated disc in her lower back and neck and just takes muscle relaxers for this. Used to follow up with the pain clinic in the past but not anymore and this is managed by her primary care provider Anxiety and depression COPD (chronic obstructive pulmonary disease) Diagnosed in 2016 and is controlled with medication managed by PMD at this time Chronic hypertension Surgical History H/O vaginal surgery 05/21/2021- Rectovaginal fistula repair performed by Dr. Cruz at [facility] Status post hysteroscopy 09/17/2020---hysteroscopy with D&C for postmenopausal bleeding performed by Dr. Ingram at [facility]. ---at time of hysteroscopy benign atrophic endometrium identified without any polyps. Pathology showed inactive endometrial glands on a background of mucin and debris, no atypia or hyperplasia polyps or malignancy identified. History of colonoscopy (09/17/20) 2015; 2.5.21 colitis--txed w/ abx, hyperplastic polyp; surgeon note says f/u colonoscopy 10 yrs S/P cholecystectomy Laparoscopic procedure performed by Dr. Hudson at [facility] in June 2020 S/P section At the age of 20 S/P tubal ligation At the age of 20 when she had her Family History Mother Diabetes Hypertension Thyroid disease Hyperlipidemia Sister Diabetes Hypertension Lung cancer Hyperlipidemia Father Diabetes Stroke Grandmother Breast cancer MGM Family/Other Prostate cancer PATERNAL UNCLE Denies family history of Ovarian cancer Myocardial infarction Uterine cancer Social History Smoking and tobacco/nicotine status: never used tobacco/nicotine Alcohol intake: never Substance/Drug Use: never Household members: other Details: lives with sister and her Marital status: / Number of children: 3 Highest education level completed: 10th Grade Current occupational status: disabled 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; 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 Female Reproductive History: Spontaneous abortions: No Physical Exam Const: COMMON NORMALS: no acute distress, average body habitus, patient oriented x3, no limitations, healthy appearing, alert and well nourished GENERAL APPEARANCE: cooperative ORIENTATION/CONSCIOUSNESS: Yes awake, Yes oriented to person, Yes oriented to place and Yes oriented to time Neck/C-Spine: COMMON NORMALS: full ROM CERVICAL SPINE: No Cervical spine tenderness, No Paracervical muscle tenderness, No Paracervical spasm, No Trapezius muscle tenderness and No Lhermitte's sign positive Resp: COMMON NORMALS: normal respiratory effort and clear to auscultation bilaterally AUSCULTATION: clear to auscultation bilaterally Cardio: COMMON NORMALS: regular rate and regular rhythm RATE: regular rate RHYTHM: regular rhythm Back/Pelvis: COMMON NORMALS: thoracic and lumbar spine normal to inspection, no thoracic nor lumbar tenderness and thoraco-lumbar ROM normal Extremity: COMMON NORMALS: normal to inspection, capillary refill normal, no joint enlargement and no clubbing, cyanosis or edema GENERAL: Yes normal exam except as noted OTHER: pt reporting numbness throughout L arm but with eyes closed she is able to feel me touch her throughout the extremity; she has full ROM with flexion/abduction/rotational movements; distal pulses are normal with normal cap refill; she does seemingly have some weakness to the limb when compared to R UE Neuro: COMMON NORMALS: patient oriented x3 and moves all extremities SENSORIUM/ORIENTATION: Yes alert, Yes oriented to person, Yes oriented to place and Yes oriented to time Skin: COMMON NORMALS: no rashes or lesions noted GENERAL SKIN EXAM: no rashes or lesions noted Course Vital Signs: Vital signs: Vital Signs Temperature 98.8 F 03/05/25 11:27 Pulse Rate 76 03/05/25 13:24 Respiratory Rate 18 03/05/25 13:24 Blood Pressure 136/84 03/05/25 13:24 Pulse Oximetry 99 03/05/25 13:24 Oxygen Delivery Me thod Room Air 03/05/25 11:27 MDM - Extremity (Nontraumatic) Medical Decision Making Patient has already underwent cervical MRI imaging. Symptoms are consistent with these findings. Recommend she continue plan to see Dr. Guzman and for continued care through Dr. Cerda if indicated. She does not want steroids. Requested to try muscle relaxer. Medical Records I reviewed the patient's medical records. No radiology studies performed this visit Discharge Plan Discharge Patient Disposition: Home Clinical Impression: Cervical radiculopathy Condition: Stable Prescriptions: New cyclobenzaprine 10 mg tablet 10 mg PO TID Qty: 14 0RF No Action estradiol [Estrace] 0.01 % (0.1 mg/gram) cream 1 g vaginal .twice weekly Qty: 42.5 3RF Rx Instructions: space out doses atorvastatin 20 mg tablet 20 mg PO DAILY Qty: 90 3RF (DME) CPAP Mask small- Air Touch F-20 with tubing and supplies See Rx Instructions .Route .MEDSUPPLY Qty: 1 0RF Rx Instructions: As directed (DME) oxygen-air delivery systems Device See Rx Instructions .Route Rx Instructions: As directed bupropion HCl [Wellbutrin SR] 150 mg tablet sustained-release 12 hr 150 mg PO BID Qty: 60 5RF (DME) Compact Compressor Nebulizer Misc See Rx Instructions .Route Qty: 1 0RF Rx Instructions: As directed, tubing and supplies included. aspirin [Adult Low Dose Aspirin] 81 mg tablet,delayed release (DR/EC) 81 mg PO DAILY Qty: 100 3RF hydroxyzine HCl 25 mg tablet 25 mg PO BID PRN (Reason: anxiety) Qty: 60 1RF metoprolol succinate 50 mg tablet extended release 24 hr 25 mg PO DAILY Qty: 90 0RF cyanocobalamin (vitamin B-12) 1,000 mcg/mL solution 1,000 mcg IM .qwk Qty: 10 3RF Rx Instructions: Tuesdays (DME) syringe with needle [[facility] Luer Lock Syr-needle] 3 mL 23 gauge x 1 1/2 syringe See Rx Instructions .Route Qty: 100 1RF Rx Instructions: As directed for B12 injections ipratropium-albuterol 0.5 mg-3 mg(2.5 mg base)/3 mL solution for nebulization 3 ml inhalation Q4H PRN (Reason: wheezing) Qty: 180 3RF fluticasone propion-salmeterol [Advair Diskus] 250-50 mcg/dose blister with device 2 inh inhalation BID albuterol sulfate 1.25 mg/3 mL solution for nebulization 1.25 mg continuous nebulization Q4H PRN (Reason: Shortness Of Breath Or Wheezing) sertraline 100 mg tablet 100 mg PO DAILY pantoprazole 40 mg tablet,delayed release (DR/EC) 40 mg PO DAILY albuterol sulfate [Ventolin HFA] 90 mcg/actuation HFA aerosol inhaler 2 puff inhalation Q6H PRN (Reason: Wheezing) potassium chloride 20 mEq tablet extended release 20 meq PO DAILY cholecalciferol (vitamin D3) [Vitamin D3] 25 mcg (1,000 unit) Tablet 25 mcg PO DAILY prednisone 50 mg tablet 50 mg PO DAILY Qty: 5 0RF Discharge Orders: Discharge ED (Routine); Ordered 03/05/25 Ordered By: Carloee Harden Referrals: Haley Kinsey MD [Primary Care Provider, Family Practice] Patient Instructions: Cervical Radiculopathy (ED), Cervical Radiculopathy, Patient Portal & Royce Instructions Print Language: Tamazight Coding Level of Care Code ED Truck Driver Supervisor for Britta Zhu
[2025-03-05] MEDS: orphenadrine 30 mg/mL Inj 2 mL 60 MG IM (13:19)
[2025-03-05 13:24] VITALS: BP 136/84; PULSE 76; RESP 18; O2SAT 99
== END 2025-03-05 13:25 | disposition home or self-care (01) ==
PROVIDERS: Emergency Provider Physician Assistant; PCP Family Medicine
DX: M54.12 Radiculopathy, cervical region (principal); Z79.82 Long term (current) use of aspirin; J44.9 Chronic obstructive pulmonary disease, unspecified; I10 Essential (primary) hypertension; E78.5 Hyperlipidemia, unspecified
CPT/HCPCS: 96372; 99284; J1100; J1885; J2360

== ENCOUNTER → 2025-03-13 10:34 | Outpatient (BNVA) | payer MEDICAID, SELFPAY | PROVIDERS: PCP Family Medicine; Visit Provider Anesthesiology Pain Medicine | DX: M54.2 Cervicalgia (principal); G89.29 Other chronic pain; M47.812 Spondylosis without myelopathy or radiculopathy, cervical region | CPT/HCPCS: 99204 ==

== ENCOUNTER 2025-03-15 11:45 | Emergency (ER) | payer MEDICAID, SELFPAY ==
[2025-03-15 11:48] VITALS: BP 151/72; PULSE 95; RESP 16; TEMP 37; O2SAT 98; BMI 26.6
--- OUTSIDE RECORDS SUMMARY | 2025-03-15 11:51 | XMS_ITS | Patient Health Record ---
Author Organization [facility] Address [address] [place], [place] [id number] Care Team Providers Care Sales Professional Bilingual Name Role Phone Kaylynn Boyce APRN Primary Care Provider Kourtney Kendrick MD, William Unavailable [phone] Allergies Allergen (clinical drug ingredient) Drug/Non Drug [...] Risk Notes Problem Lumbosacral spondylosis without myelopathy (89567396) Lumbosacral spondylosis without myelopathy (721.3) Active confirmed Problem Displacement of lumbar intervertebral disc without myelopathy (33114747) Lumbar (w/out myelopathy) intervertebral disc disorder (722.10) Active confirmed Problem Hypersomnia (62222444) Hypersomnia (780.54) Active confirmed Problem Low back pain (780034909) Low back pain (724.2) Active confirmed Problem Long-term drug therapy (090983088) LONG-TERM USE MEDS NEC (V58.69) Active confirmed R/O substance abuse Problem Anxiety state (016739681) Anxiety State, other, specified: procedure related (300.09) Active confirmed Problem Sacroiliitis (69549825) Sacroiliitis (720.2) Active confirmed Plan Of Treatment No Information Insurance Providers Payer Name Payer Address Payer Phone Subscriber Number Group Number Insured Name Patient Relationship to Insured Coverage Start Date Coverage End Date [place] [employer] [address] [place] [address] [phone] [id number] Sara Wilcox Self - patient is the insured Medical (General) History Medical History History ICD Code Hypokalemia Sciatica Sacroiliitis Myalgia Bone spurs, lumbar Depression Panic attacks Back pain Hiatal hernia Gastroesophageal reflux disease
--- OUTSIDE RECORDS SUMMARY | 2025-03-15 11:51 | XMS_ITS | Clinical Summary ---
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
--- NOTE | 2025-03-15 13:32 | XR_ITS ---
WS: [id number] Portable AP upright chest, 03/15/2025 Clinical Data: sob, weakness Comparison: Portable chest, 02/20/2025 Findings: No nodules, masses or effusions are seen. The heart is normal. The pulmonary vascularity is not increased. No pneumonia or pneumothorax is seen. The aortic arch shows minimal calcification. There are cholecystectomy clips in the right upper quadrant. XR/XR chest 1V portable [id number] Impression: Atherosclerosis.
--- NOTE | 2025-03-15 13:36 | W.ED.NAVMDI ---
HPI - Nausea/Vomiting/Diarrhea General: Chief complaint: Nausea/Vomiting/Diarrhea Stated complaint: generalized illness Time Seen by Provider: 03/15/25 12:10 Source: patient Mode of arrival: ambulatory Limitations: no limitations History of Present Illness: Patient is a 59-year-old female who presents the emergency department complaining of nausea and vomiting for a week. Patient well-known to the emergency department, was seen last on 03/05, and she states that she thinks she was exposed to someone that was sick in the waiting room. She has been dealing with issues of chronic neck pain recently, specifically has been seen Ortho/spine for cervical radiculopathy, and at this time stating she has pain in the low back and thinks that she has a urinary tract infection as well. She has many complaints, stating she feels short of breath, is having bad acid reflux, abdominal pain, diffuse weakness, dehydration, and states that she has been unable to take her medications. At this time her vitals are stable, she states that she ran a fever earlier and took ibuprofen, she is afebrile at this time. She is anemic from vitamin B12 deficiency, does have a history of GERD with esophagitis, is a chronic everyday smoker, with psych history. No blood in her vomit or coffee-ground appearance. MD elicited complaint: nausea and vomiting Onset (ago): week(s) Associated nausea: Yes Associated abdominal pain: Yes Location of pain: Epigastric Context: sick contacts (Subjective) and smoking Associated symtoms: Reports fatigue, malaise and nausea; Denies chest pain, diaphoresis, dizziness, dysuria, headache(s) or palpitations Related Data Home Medications ?Medication ?Instructions ?Recorded ?Confirmed oxygen-air delivery systems 12/09/23 03/13/25 albuterol sulfate 1.25 mg/3 mL 1.25 mg continuous nebulization 02/20/25 03/13/25 solution for nebulization Q4H PRN Shortness Of Breath Or Wheezing albuterol sulfate 90 mcg/actuation 2 puff inhalation Q6H PRN Wheezing 02/20/25 03/13/25 aerosol inhaler (Ventolin HFA) cholecalciferol (vitamin D3) 25 25 mcg PO DAILY 02/20/25 03/13/25 mcg (1,000 unit) tablet (Vitamin D3) fluticasone 250 mcg-salmeterol 50 2 inh inhalation BID 02/20/25 03/13/25 mcg/dose blistr powdr for inhalation (Advair Diskus) pantoprazole 40 mg tablet,delayed 40 mg PO DAILY 02/20/25 03/13/25 release potassium chloride 20 mEq 20 meq PO DAILY 02/20/25 03/13/25 tablet,extended release Previous Rx's ?Medication ?Instructions ?Recorded CPAP Mask small- Air Touch F-20 #1 ea 05/05/22 with tubing and supplies nebulizers (Compact Compressor #1 ea 09/18/22 Nebulizer) aspirin 81 mg tablet,delayed 81 mg PO DAILY circulation #100 03/21/24 release (Adult Low Dose Aspirin) tabs hydroxyzine HCl 25 mg tablet 25 mg PO BID PRN anxiety #60 tabs 08/03/24 atorvastatin 20 mg tablet 20 mg PO DAILY cholesterol #90 tabs 08/29/24 metoprolol succinate 50 mg 25 mg (1/2 x 50 mg) PO DAILY #90 10/19/24 tablet,extended release 24 hr tabs cyanocobalamin (vitamin B-12) 1,000 mcg IM .qwk #10 mL 11/28/24 1,000 mcg/mL injection solution syringe with needle 3 mL 23 gauge #100 ea 12/19/24 x 1 1/2 (CareTouch Luer Lock Syringe with needle) estradiol 0.01% (0.1 mg/gram) 1 g vaginal .twice weekly #42.5 12/26/24 vaginal cream (Estrace) grams ipratropium 0.5 mg-albuterol 3 mg 3 ml inhalation Q4H PRN wheezing 12/29/24 (2.5 mg base)/3 mL nebulization #180 mL soln cyclobenzaprine 10 mg tablet 10 mg PO TID #14 tabs 03/05/25 cefdinir 300 mg capsule 300 mg PO BID 7 days #14 caps 03/15/25 ondansetron 4 mg disintegrating 4 mg PO TID PRN nausea and 03/15/25 tablet vomiting #30 tabs sertraline 100 mg tablet 100 mg PO DAILY #90 tabs 03/15/25 Allergies Allergy/AdvReac Type Severity Reaction Status Date / Time influenza virus vaccine tvs Allergy rash Verified 03/15/25 11:52 (65 yr and up) (From Fluad (65yr+)(PF)) Penicillins Allergy Rash Verified 03/15/25 11:52 vaccine adjuvant emulsion Allergy rash Verified 03/15/25 11:52 [id number] (From Fluad (65yr+)(PF)) oxycodone AdvReac Dizziness, Verified 03/15/25 11:52 flushed sulfamethoxazole (From AdvReac Nausea Verified 03/15/25 11:52 Bactrim) trimethoprim (From Bactrim) AdvReac Nausea Verified 03/15/25 11:52 Review of Systems General: Reports: 10 or more systems reviewed and unremarkable except in HPI and below Const: Reports: fever(s), body aches, change in appetite, fatigue and malaise; Denies: chills, change in weight or diaphoresis ENMT: Denies: throat pain or hoarseness Card: Denies: chest pain, palpitations or lightheadedness Resp: Reports: dyspnea; Denies: productive cough or wheezing GI: Reports: abdominal pain, nausea, vomiting and heartburn; Denies: hematemesis, coffee ground emesis or diarrhea : Denies: flank pain, difficulty voiding, dysuria, urinary frequency or urinary urgency Musc: Reports: back pain; Denies: neck pain Skin/Breast: Denies: rash or new lesions Neuro: Denies: headache(s) or dizziness PFSH ED PFSH: Medical History Cervical radiculopathy Vitamin D deficiency Anemia due to vitamin B12 deficiency, unspecified B12 deficiency type now on B12 injections Anemia, unspecified Dizziness Palpitations Vertigo, benign paroxysmal GERD without esophagitis Fasting hyperglycemia Screening for lung cancer started age 6; last LDCT 03.16.24; Nicotine dependence, cigarettes, uncomplicated last LDCT 03.16.24 Atherosclerosis of aorta Renal cyst Chronic neck pain 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 Aaron Ocular migraine Keyliner, Dr. Aaron Hearing loss of both ears Benign essential tremor Peripheral neuropathic pain Dyslipidemia (high LDL; low HDL) Osteoarthritis involving multiple joints on both sides of body Chronic back pain Reports having a herniated disc in her lower back and neck and just takes muscle relaxers for this. Used to follow up with the pain clinic in the past but not anymore and this is managed by her primary care provider Anxiety and depression COPD (chronic obstructive pulmonary disease) Diagnosed in 2015 and is controlled with medication managed by PMD at this time Chronic hypertension Surgical History H/O vaginal surgery 05/21/2021- Rectovaginal fistula repair performed by Dr. Cruz at [facility] Status post hysteroscopy 09/17/2020---hysteroscopy with D&C for postmenopausal bleeding performed by Dr. Ingram at [facility]. ---at time of hysteroscopy benign atrophic endometrium identified without any polyps. Pathology showed inactive endometrial glands on a background of mucin and debris, no atypia or hyperplasia polyps or malignancy identified. History of colonoscopy (09/17/20) 2015; 2.5.21 colitis--txed w/ abx, hyperplastic polyp; surgeon note says f/u colonoscopy 10 yrs S/P cholecystectomy Laparoscopic procedure performed by Dr. Hudson at [facility] in June 2020 S/P section At the age of 20 S/P tubal ligation At the age of 20 when she had her Family History Mother Diabetes Hypertension Thyroid disease Hyperlipidemia Sister Diabetes Hypertension Lung cancer Hyperlipidemia Father Diabetes Stroke Grandmother Breast cancer MGM Family/Other Prostate cancer PATERNAL UNCLE Denies family history of Ovarian cancer Myocardial infarction Uterine cancer Social History Smoking and tobacco/nicotine status: never used tobacco/nicotine Alcohol intake: never Substance/Drug Use: never Household members: other Details: lives with sister and her Marital status: / Number of children: 3 Highest education level completed: 10th Grade Current occupational status: disabled 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; 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 Female Reproductive History: Spontaneous abortions: No Physical Exam Const: COMMON NORMALS: no acute distress, average body habitus, patient oriented x3, no limitations, healthy appearing, alert and well nourished GENERAL APPEARANCE: cooperative ORIENTATION/CONSCIOUSNESS: Yes awake OTHER: Tired appearing HENMT: COMMON NORMALS: normocephalic, atraumatic, hearing grossly normal bilaterally, external ears normal, Normal external nose present, Normal nasal mucous membranes and turbinates present and moist oral mucous membranes HEAD & SCALP: normocephalic and atraumatic NOSE: Normal external nose present and Normal nasal mucous membranes and turbinates present EXTERNAL EAR: Yes external ears normal Eye: COMMON NORMALS: Equal, round and reactive pupils present, EOMs intact bilaterally, conjunctivae normal and normal visual moon by confrontation CONJUNCTIVA: Yes conjunctivae normal PUPIL: Yes Equal, round and reactive pupils present Neck/C-Spine: COMMON NORMALS: full ROM, supple, no meningeal signs and no JVD Resp: COMMON NORMALS: normal respiratory effort, No retractions, No use of accessory muscles and clear to auscultation bilaterally AUSCULTATION: clear to auscultation bilaterally, no crackles, no rales, no rhonchi and no wheezes Cardio: COMMON NORMALS: no JVD, regular rate, regular rhythm, S1 normal heart sound present, S2 normal heart sound present, No gallops present (Cardio), No clicks present (Cardio), No murmurs present (Cardio), No rub (Cardio) and Peripheral pulses 2+ throughout RATE: regular rate RHYTHM: regular rhythm HEART SOUNDS: S1 normal heart sound present and S2 normal heart sound present PERIPHERAL PULSES: Peripheral pulses 2+ throughout GI: COMMON NORMALS: Normal to inspection, nondistended, normoactive bowel sounds present, Soft to palpation, non-tender, No hepatosplenomegaly present and no masses AUSCULTATION: Yes normoactive bowel sounds PALPATION: Yes Soft to palpation, No Guarding due to palpation present (GI), No Rigid due to palpation and Yes No hepatosplenomegaly present RECTAL EXAM: deferred : COMMON NORMALS: Yes no CVA tenderness BLADDER/KIDNEY EXAM: Yes no CVA tenderness Back/Pelvis: COMMON NORMALS: no CVA tenderness Extremity: COMMON NORMALS: normal to inspection and full ROM Neuro: COMMON NORMALS: patient oriented x3, moves all extremities, no focal motor deficits and no sensory deficits noted SENSORIUM/ORIENTATION: Yes alert MENINGEAL SIGNS: Yes no meningeal signs Psych: COMMON NORMALS: mental status grossly normal, cooperative and speech normal SPEECH: Yes normal speech Skin: COMMON NORMALS: no rashes or lesions noted GENERAL SKIN EXAM: no rashes or lesions noted Course Vital Signs: Vital signs: Vital Signs Temperature 98.6 F 03/15/25 11:48 Pulse Rate 83 03/15/25 14:09 Respiratory Rate 16 03/15/25 11:48 Blood Pressure 149/73 03/15/25 14:09 Pulse Oximetry 98 03/15/25 14:09 Oxygen Delivery Me thod Room Air 03/15/25 14:09 MDM - Nausea/Vomiting/Diarrhea Medical Decision Making This patient presented with a week of multiple symptoms, well-known to the emergency department here and has presented in the past with the symptoms. Basic labs were ordered and appear unremarkable. Her chest x-ray was normal. Urinalysis does show signs of UTI, which could be explain her acute feeling ill, also after fluid she states she felt much better so could be component of dehydration mild. Her COVID flu RSV swab was negative, though likely a viral illness on top of this UTI due to her repeated exposure in the ER, ultimately she is stable for discharge home and agrees with discharge home plan on antibiotics and nausea medications. She also given GI cocktail here for her chronic GERD. She had no episodes of vomiting here, her vitals have been stable and notably afebrile. She is given general return precautions. Medical Records I reviewed the patient's medical records. Lab Data I reviewed the patient's lab results. 03/15/25 13:42 03/15/25 13:42 Radiology Impressions Chest X-Ray 03/15/25 13:32 Impression: Atherosclerosis. Laboratory Results WBC 6.92 10^3/uL (3.29-11.43) 03/15/25 13:42 RBC 3.96 10^6/uL (3.85-5.65) 03/15/25 13:42 Hgb 11.40 g/dL (11.27-16.99) 03/15/25 13:42 Hct 34.5 % (36-47) L 03/15/25 13:42 MCV 87.1 fl (85-98) 03/15/25 13:42 MCH 28.8 pg (27-33) 03/15/25 13:42 MCHC 33.0 g/dL (30-55) 03/15/25 13:42 RDW 13.8 % (12.1-15.1) 03/15/25 13:42 Plt Count 318 10^3/cmm (157-399) 03/15/25 13:42 MPV 8.9 fL (7.4-10.4) 03/15/25 13:42 Neut % (Auto) 79.7 % 03/15/25 13:42 Lymph % (Auto) 14.2 % 03/15/25 13:42 [place] % (Auto) 4.9 % 03/15/25 13:42 Eos % (Auto) 0.6 % 03/15/25 13:42 Baso % (Auto) 0.3 % 03/15/25 13:42 Neut # (Auto) 5.52 10^3/uL (1.8-7.7) 03/15/25 13:42 Lymph # (Auto) 1.0 10^3/uL (0.8-4.8) 03/15/25 13:42 [place] # (Auto) 0.3 10^3/uL (0.2-0.9) 03/15/25 13:42 Eos # (Auto) 0.0 10^3/uL (0.0-0.8) 03/15/25 13:42 Baso # (Auto) 0.0 10^3/uL (0.0-0.1) 03/15/25 13:42 Nucleated RBC % (auto) 0 % 03/15/25 13:42 Nucleated RBCs # 0.0 /100WBC 03/15/25 13:42 Sodium 137 mmol/L (136-145) 03/15/25 13:42 Potassium 3.6 mmol/L (3.5-5.1) 03/15/25 13:42 Chloride 95 mmol/L (98-107) L 03/15/25 13:42 Carbon Dioxide 27 mmol/L (22-29) 03/15/25 13:42 Anion Gap 18.6 (5-19) 03/15/25 13:42 BUN 13 mg/dL (8-23) 03/15/25 13:42 Creatinine 0.8 mg/dL (0.5-0.9) 03/15/25 13:42 GFR Calculation 73.2 mL/min (90-130) L 03/15/25 13:42 Glucose 99 mg/dL (65-115) 03/15/25 13:42 Calculated Osmolality 284 mOsm/kg (285-295) L 03/15/25 13:42 Calcium 9.4 mg/dL (8.5-10.5) 03/15/25 13:42 Total Bilirubin 0.6 mg/dL (0.15-1.2) 03/15/25 13:42 AST 13 U/L (0-32) 03/15/25 13:42 ALT 8 U/L (0-33) 03/15/25 13:42 Alkaline Phosphatase 58 U/L (35-105) 03/15/25 13:42 Total Protein 7.8 g/dL (6.6-8.7) 03/15/25 13:42 Albumin 4.3 g/dL (3.5-5.2) 03/15/25 13:42 Globulin 3.5 g/dL (1.3-4.6) 03/15/25 13:42 Urine Color Yellow (Yellow) 03/15/25 13:42 Urine Appearance Turbid (CLEAR) A 03/15/25 13:42 Urine pH 5.0 (5-7) 03/15/25 13:42 Ur Specific [place] 1.024 (1.005-1.030) 03/15/25 13:42 Urine Protein 2+ (Negative) A 03/15/25 13:42 Urine Glucose (UA) Negative (Normal) 03/15/25 13:42 Urine Ketones 2+ (Negative) H 03/15/25 13:42 Urine Blood 3+ (Negative) A 03/15/25 13:42 Urine Nitrate Negative (Negative) 03/15/25 13:42 Urine Bilirubin Negative (Negative) 03/15/25 13:42 Urine Urobilinogen 1.0 mg/dL (Negative) 03/15/25 13:42 Ur Leukocyte Esterase 1+ (Negative) A 03/15/25 13:42 Urine RBC 5-10 /hpf (0-2) H 03/15/25 13:42 Urine WBC 15-25 /hpf (0-5) H 03/15/25 13:42 Ur Squamous Epith Cells 5-10 /hpf (0-5) H 03/15/25 13:42 Calcium Oxalate Crystal 25-40 /hpf H 03/15/25 13:42 Amorphous Sediment 1+ /hpf 03/15/25 13:42 Urine Bacteria 1+ /hpf (NONE) H 03/15/25 13:42 Urine Mucus 4+ /hpf 03/15/25 13:42 Influenza A (PCR) Negative (Negative) 03/15/25 13:07 Influenza Type B (PCR) Negative (Negative) 03/15/25 13:07 RSV (PCR) Negative (Negative) 03/15/25 13:07 SARS-CoV-2 (PCR) Negative (Negative) 03/15/25 13:07 All radiology interpretation(s) finalized by discharge Discharge Plan Discharge Patient Disposition: Home Clinical Impression: Urinary tract infection, Viral syndrome Condition: Stable Prescriptions: New cefdinir 300 mg capsule 300 mg PO BID 7 Days Qty: 14 0RF ondansetron 4 mg tablet,disintegrating 4 mg PO TID PRN (Reason: nausea and vomiting) Qty: 30 0RF No Action estradiol [Estrace] 0.01 % (0.1 mg/gram) cream 1 g vaginal .twice weekly Qty: 42.5 3RF Rx Instructions: space out doses atorvastatin 20 mg tablet 20 mg PO DAILY Qty: 90 3RF (DME) CPAP Mask small- Air Touch F-20 with tubing and supplies See Rx Instructions .Route .MEDSUPPLY Qty: 1 0RF Rx Instructions: As directed (DME) oxygen-air delivery systems Device See Rx Instructions .Route Rx Instructions: As directed (DME) Compact Compressor Nebulizer Misc See Rx Instructions .Route Qty: 1 0RF Rx Instructions: As directed, tubing and supplies included. aspirin [Adult Low Dose Aspirin] 81 mg tablet,delayed release (DR/EC) 81 mg PO DAILY Qty: 100 3RF hydroxyzine HCl 25 mg tablet 25 mg PO BID PRN (Reason: anxiety) Qty: 60 1RF metoprolol succinate 50 mg tablet extended release 24 hr 25 mg PO DAILY Qty: 90 0RF cyanocobalamin (vitamin B-12) 1,000 mcg/mL solution 1,000 mcg IM .qwk Qty: 10 3RF Rx Instructions: Tuesdays (DME) syringe with needle [CareTouch Luer Lock Syr-needle] 3 mL 23 gauge x 1 1/2 syringe See Rx Instructions .Route Qty: 100 1RF Rx Instructions: As directed for B12 injections ipratropium-albuterol 0.5 mg-3 mg(2.5 mg base)/3 mL solution for nebulization 3 ml inhalation Q4H PRN (Reason: wheezing) Qty: 180 3RF sertraline 100 mg tablet 100 mg PO DAILY Qty: 90 0RF cyclobenzaprine 10 mg tablet 10 mg PO TID Qty: 14 0RF fluticasone propion-salmeterol [Advair Diskus] 250-50 mcg/dose blister with device 2 inh inhalation BID albuterol sulfate 1.25 mg/3 mL solution for nebulization 1.25 mg continuous nebulization Q4H PRN (Reason: Shortness Of Breath Or Wheezing) pantoprazole 40 mg tablet,delayed release (DR/EC) 40 mg PO DAILY albuterol sulfate [Ventolin HFA] 90 mcg/actuation HFA aerosol inhaler 2 puff inhalation Q6H PRN (Reason: Wheezing) potassium chloride 20 mEq tablet extended release 20 meq PO DAILY cholecalciferol (vitamin D3) [Vitamin D3] 25 mcg (1,000 unit) Tablet 25 mcg PO DAILY Discharge Orders: Discharge ED (Routine); Ordered 03/15/25 Ordered By: Yuriy Lopez Referrals: Haley Kinsey MD [Primary Care Provider, Family Practice] Patient Instructions: Patient Portal & Royce Instructions Activity Restrictions/Additional Instructions: UTI Discharge Instructions Diagnosis: - Acute uncomplicated urinary tract infection (UTI) - Viral syndrome (laboratory and chest X-ray reassuring) Medications: - Cefdinir 300 mg PO BID x 7 days - Take exactly as prescribed; do not skip doses or stop early, even if symptoms improve. Early discontinuation or missed doses may reduce effectiveness and promote resistance. - Cefdinir may be taken with or without food. - Drug interactions: - Avoid antacids containing magnesium or aluminum within 2 hours of cefdinir dose, as they reduce absorption. - Avoid iron supplements or multivitamins containing iron within 2 hours of cefdinir dose. - Common side effects: - Diarrhea is common and usually self-limited. If diarrhea is severe, watery, or bloody, or occurs with fever or abdominal pain, contact a physician promptly (risk of C. difficile colitis). - Rash, allergic reactions, or other new symptoms should prompt medical attention. - Ondansetron (Zofran) for nausea - Use as directed for nausea. - Common side effects: headache, constipation, rarely QT prolongation. Home Treatment and Supportive Care: - Hydration: - Maintain adequate oral fluid intake to help flush bacteria from the urinary tract. - Symptom management: - Acetaminophen or NSAIDs may be used for fever or discomfort, unless contraindicated. - Rest: - Rest as needed, especially while recovering from viral syndrome. - Viral syndrome: - No antibiotics are indicated for viral infections. Supportive care (hydration, rest, antipyretics) is recommended. Prevention and Lifestyle: - Wipe front to back after toileting. - Urinate after sexual activity. - Avoid delaying urination. - Consider cranberry products for prevention of future UTIs, though evidence is mixed. Return Precautions: - Contact a physician or seek care immediately for any of the following: - Persistent or worsening fever (>101?F) after 48 hours of antibiotics - Severe abdominal, back, or flank pain - Vomiting preventing oral intake or medication adherence - New onset confusion, weakness, or inability to ambulate - Signs of allergic reaction (rash, swelling, difficulty breathing) - Severe, watery, or bloody diarrhea, especially with abdominal pain or fever (possible C. difficile colitis) - No improvement in urinary symptoms after 3 days of antibiotics - Any other concerning or rapidly worsening symptoms Follow-up: - Routine follow-up is not required for uncomplicated UTI unless symptoms persist or worsen. - If symptoms do not improve after 3 days, or if recurrent UTIs occur, urine culture and further evaluation may be indicated. Special Considerations: - If renal insufficiency is present (CrCl <30 mL/min), cefdinir dose should be reduced to 300 mg once daily. - If diabetic, monitor for changes in blood glucose, especially if oral suspension is used (contains sucrose). Patient Education: - Antibiotics are only effective for bacterial infections, not viral illnesses. - Complete the full course of antibiotics to prevent resistance and recurrence. - Report any adverse effects or lack of improvement as outlined above. Print Language: Haitian Coding Level of Care Code ED Professional Engineer for Britta Zhu
[2025-03-15] MEDS: ondansetron 2 mg/ML SDV 2 mL 4 MG IVP (13:40)
[2025-03-15 13:51] LABS: Hematocrit 34.5 % (36-47); Hemoglobin 11.40 g/dL (11.27-16.99); Mean Corpuscular HGB Conc 33.0 g/dL (30-55); Mean Corpuscular Hemoglobin 28.8 pg (27-33); Mean Corpuscular Volume 87.1 fl (85-98); Nucleated Red Blood Cells % 0 %; Platelet Count 318 10^3/cmm (157-399); Red Blood Count 3.96 10^6/uL (3.85-5.65); White Blood Count 6.92 10^3/uL (3.29-11.43)
[2025-03-15 13:52] LABS: Glucose Urine UA Negative (Normal); Nitrate Urine Negative (Negative); Specific Gravity, Urine 1.024 (1.005-1.030)
[2025-03-15 13:54] LABS: Respiratory Syncytial Virus Ce NEGATIVE (Negative); SARS-CoV-2 PCR NEGATIVE (Negative)
[2025-03-15 14:00] LABS: UA Slide Review UA Slide Review Perf
[2025-03-15 14:02] LABS: Add Urine Microscopic? YES
[2025-03-15 14:09] VITALS: BP 149/73; PULSE 83; O2SAT 98
[2025-03-15 14:14] LABS: Alanine Aminotransferase 8 U/L (0-33); Albumin Level 4.3 g/dL (3.5-5.2); Alkaline Phosphatase 58 U/L (35-105); Anion Gap 18.6 (5-19); Aspartate Amino Transferase 13 U/L (0-32); Blood Urea Nitrogen 13 mg/dL (8-23); Calcium 9.4 mg/dL (8.5-10.5); Carbon Dioxide 27 mmol/L (22-29); Chloride 95 mmol/L (98-107); Creatinine Clr Calc Pharmacy 70.6846; Globulin 3.5 g/dL (1.3-4.6); Glucose 99 mg/dL (65-115); Osmolality Calculated 284 mOsm/kg (285-295); Potassium 3.6 mmol/L (3.5-5.1); Sodium 137 mmol/L (136-145); Total Protein 7.8 g/dL (6.6-8.7)
[2025-03-15] MEDS: lidocaine 2% viscous 15 ML, aluminum-mag hydrox-simethicon 30 ML, sucralfate oral liq 1 GM PO (14:43)
[2025-03-15 14:46] VITALS: BP 139/52; PULSE 92; O2SAT 99
== END 2025-03-15 14:47 | disposition home or self-care (01) ==
PROVIDERS: Emergency Medicine; Emergency Provider Physician Assistant; PCP Family Medicine
DX: N39.0 Urinary tract infection, site not specified (principal); B34.9 Viral infection, unspecified; Z11.52 Encounter for screening for COVID-19; Z79.82 Long term (current) use of aspirin; J44.9 Chronic obstructive pulmonary disease, unspecified; E78.5 Hyperlipidemia, unspecified; I10 Essential (primary) hypertension
CPT/HCPCS: 36415; 71045; 80053; 81001; 85025; 87086; 87637; 96361; 96374; 99284; J2405; J7030; J9999

== ENCOUNTER 2025-03-17 20:12 | Emergency (ER) | payer MEDICAID, SELFPAY ==
--- OUTSIDE RECORDS SUMMARY | 2025-03-17 20:18 | XMS_ITS | Patient Health Record ---
Author Organization [facility] Address [address] [place], [place] [id number] Care Team Providers Care Freezing Room Worker Name Role Phone Kaylynn Boyce APRN Primary Care Provider Kourtney Kendrick MD, William Unavailable [phone] Allergies Allergen (clinical drug ingredient) Drug/Non Drug [...] Risk Notes Problem Lumbosacral spondylosis without myelopathy (25657239) Lumbosacral spondylosis without myelopathy (721.3) Active confirmed Problem Displacement of lumbar intervertebral disc without myelopathy (75480862) Lumbar (w/out myelopathy) intervertebral disc disorder (722.10) Active confirmed Problem Hypersomnia (83149864) Hypersomnia (780.54) Active confirmed Problem Low back pain (728182410) Low back pain (724.2) Active confirmed Problem Long-term drug therapy (766614473) LONG-TERM USE MEDS NEC (V58.69) Active confirmed R/O substance abuse Problem Anxiety state (537192178) Anxiety State, other, specified: procedure related (300.09) Active confirmed Problem Sacroiliitis (86472154) Sacroiliitis (720.2) Active confirmed Plan Of Treatment No Information Insurance Providers Payer Name Payer Address Payer Phone Subscriber Number Group Number Insured Name Patient Relationship to Insured Coverage Start Date Coverage End Date [place] [address] [place] [address] [id number] Sara Wilcox Self - patient is the insured Medical (General) History Medical History History ICD Code Hypokalemia Sciatica Sacroiliitis Myalgia Bone spurs, lumbar Depression Panic attacks Back pain Hiatal hernia Gastroesophageal reflux disease
--- OUTSIDE RECORDS SUMMARY | 2025-03-17 20:18 | XMS_ITS | Clinical Summary ---
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
[2025-03-17 20:20] VITALS: BP 163/67; PULSE 61; RESP 18; TEMP 37.4; O2SAT 97; BMI 26.6
--- NOTE | 2025-03-17 20:28 | ED_ITS ---
HPI - Weakness 2 General: Chief complaint: Weakness Stated complaint: AMS Time Seen by Provider: 03/17/25 20:17 History of Present Illness: This 59-year-old female presents to the emergency department with a 10-day history of intractable nausea and vomiting. She reports being unable to hold down any food or water during this period, with vomiting occurring every time she attempts to drink water. Associated symptoms include hallucinations, specifically reporting conversations with her sister and , as well as subjective fever. She experiences dizziness and room spinning when lying down, with associated head heaviness. The patient denies abdominal pain but reports back pain. She denies diarrhea, dysuria, hematuria, or blood in vomit. She was recently treated for a urinary tract infection and has been taking antibiotics, though compliance may be limited due to vomiting. She has tried anti-nausea medication at home with limited success. Related Data Home Medications ?Medication ?Instructions ?Recorded ?Confirmed oxygen-air delivery systems 12/09/23 03/13/25 albuterol sulfate 1.25 mg/3 mL 1.25 mg continuous nebu lization 02/20/25 03/13/25 solution for nebulization Q4H PRN Shortness Of Breath Or Wheezing albuterol sulfate 90 mcg/actuation 2 puff inhalation Q 6H PRN Wheezing 02/20/25 03/13/25 aerosol inhaler (Ventolin HFA) cholecalciferol (vitamin D3) 25 25 mcg PO DAILY 03/13/25 mcg (1,000 unit) tablet (Vitamin D3) fluticasone 250 mcg-salmeterol 50 2 inh inhalation BID 02/20/25 03/13/25 mcg/dose blistr powdr for inhalation (Advair Diskus) pantoprazole 40 mg tablet,delayed 40 mg PO DAILY 02/2003/13/25 release potassium chloride 20 mEq 20 meq PO DAILY 02/20/2507/26 tablet,extended release Previous Rx's ?Medication ?Instructions ?Recorded CPAP Mask small- Air Touch F-20 #1 ea 05/05/22 with tubing and supplies nebulizers (Compact Compressor #1 ea 09/18/22 Nebulizer) aspirin 81 mg tablet,delayed 81 mg PO DAILY circulatio n #100 03/21/24 release (Adult Low Dose Aspirin) tabs hydroxyzine HCl 25 mg tablet 25 mg PO BID PRN anxiety #60 tabs 08/03/24 atorvastatin 20 mg tablet 20 mg PO DAILY cholesterol # 90 tabs 08/29/24 metoprolol succinate 50 mg 25 mg (1/2 x 50 mg) PO ANA PAULA Y #90 10/19/24 tablet,extended release 24 hr tabs cyanocobalamin (vitamin B-12) 1,000 mcg IM .qwk #10 mL 11/28/24 1,000 mcg/mL injection solution syringe with needle 3 mL 23 gauge #100 ea 12/19/24 x 1 1/2 (CareTouch Luer Lock Syringe with needle) estradiol 0.01% (0.1 mg/gram) 1 g vaginal .twice weekl y #42.5 12/26/24 vaginal cream (Estrace) grams ipratropium 0.5 mg-albuterol 3 mg 3 ml inhalation Q4H PRN wheezing 12/29/24 (2.5 mg base)/3 mL nebulization #180 mL soln cyclobenzaprine 10 mg tablet 10 mg PO TID #14 tabs 11/24 cefdinir 300 mg capsule 300 mg PO BID 7 days #14 cap s 03/15/25 ondansetron 4 mg disintegrating 4 mg PO TID PRN nausea and 03/15/25 tablet vomiting #30 tabs sertraline 100 mg tablet 100 mg PO DAILY #90 tabs promethazine 25 mg tablet 25 mg PO Q6H PRN nausea and 03/17/25 vomiting #14 tabs Allergies Allergy/AdvReac Type Severity Reaction Status Date / Time influenza virus vaccine tvs Allergy rash Verified 03/15/25 11:52 (65 yr and up) (From Fluad (65yr+)(PF)) Penicillins Allergy Rash Verified 03/15/25 11:52 vaccine adjuvant emulsion Allergy rash Verified 03/15/25 11:52 [id number] (From Fluad (65yr+)(PF)) oxycodone AdvReac Dizziness, Verified 03/15/25 11:52 flushed sulfamethoxazole (From AdvReac Nausea Verified 03/15/25 11:52 Bactrim) trimethoprim (From Bactrim) AdvReac Nausea Verified 03/15/25 11:52 PFSH ED 2 PFSH: Medical History Cervical radiculopathy Vitamin D deficiency Anemia due to vitamin B12 deficiency, unspecified B12 deficiency type now on B12 injections Anemia, unspecified Dizziness Palpitations Vertigo, benign paroxysmal GERD without esophagitis Fasting hyperglycemia Screening for lung cancer started age 6; last LDCT 03.16.24; Nicotine dependence, cigarettes, uncomplicated last LDCT 03.16.24 Atherosclerosis of aorta Renal cyst Chronic neck pain 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 Aaron Hearing loss of both ears Benign essential tremor Peripheral neuropathic pain Dyslipidemia (high LDL; low HDL) Osteoarthritis involving multiple joints on both sides of body Chronic back pain Reports having a herniated disc in her lower back and neck and just takes muscle relaxers for this. Used to follow up with the pain clinic in the past but not anymore and this is managed by her primary care provider Anxiety and depression COPD (chronic obstructive pulmonary disease) Diagnosed in 2016 and is controlled with medication managed by PMD at this time Chronic hypertension Surgical History H/O vaginal surgery 05/21/2021- Rectovaginal fistula repair performed by Dr. Cruz at [facility] Status post hysteroscopy 09/17/2020---hysteroscopy with D&C for post[place] bleeding [place] [facility] [place]at time of hysteroscopy benign atrophic endometrium identified without any polyps. Pathology showed inactive endometrial glands on a background of mucin and debris, no atypia or hyperplasia polyps or malignancy identified. History of colonoscopy (09/17/20) 2016; 2.5.21 colitis--txed w/ abx, hyperplastic polyp; surgeon note says f/u colonoscopy 10 yrs S/P cholecystectomy Laparoscopic [place]. Hudson [place] [facility] [place] S/P section At the age of 20 S/P tubal ligation At the age of 20 when she had her Family History Mother Diabetes Hypertension Thyroid disease Hyperlipidemia Sister Diabetes Hypertension Lung cancer Hyperlipidemia Father Diabetes Stroke Grandmother Breast cancer MGM Family/Other Prostate cancer PATERNAL UNCLE Denies family history of Ovarian cancer Myocardial infarction Uterine cancer Social History Smoking and tobacco/nicotine status: never used tobacco/nicotine Alcohol intake: never Substance/Drug Use: never Household members: other Details: lives with sister and her Marital status: / Number of children: 3 Highest education level completed: 10th Grade Current occupational status: disabled 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; 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 Female Reproductive History: Spontaneous abortions: No Physical Exam 2 Const: GENERAL APPEARANCE: cooperative; not frail appearing HENMT: COMMON NORMALS: normocephalic, atraumatic and Normal external nose present HEAD & SCALP: normocephalic and atraumatic FACE & SINUS: normal facial exam and face symmetric NOSE: Normal external nose present Eye: COMMON NORMALS: Equal, round and reactive pupils present and EOMs intact bilaterally PUPIL: Yes Equal, round and reactive pupils present Neck/C-Spine: GENERAL: Yes trachea midline Chest: CHEST: Yes Symmetrical chest wall rise Resp: COMMON NORMALS: normal respiratory effort, No retractions, No use of accessory muscles and clear to auscultation bilaterally AUSCULTATION: clear to auscultation bilaterally Cardio: COMMON NORMALS: regular rate and regular rhythm RATE: regular rate RHYTHM: regular rhythm GI: COMMON NORMALS: Soft to palpation INSPECTION: Yes abdominal distension (mild) PALPATION: Yes Soft to palpation, No Tenderness to palpation present (GI) and No Guarding due to palpation present (GI) Extremity: COMMON NORMALS: no pedal edema Neuro: CHRISTOPHER COMA SCALE: document GCS findings [place] coma scale eye opening: Spontaneous Christopher coma scale verbal response: Orientated Christopher coma scale motor response: Obey commands Christopher coma scale total score: 15 S ENSORY EXAM: Yes extremities (intact) Psych: COMMON NORMALS: speech normal SPEECH: Yes normal speech Skin: COMMON NORMALS: no rashes or lesions noted GENERAL SKIN EXAM: no rashes or lesions noted Course 2 Vital Signs: Vital signs: Vital Signs Temperature 99.3 F 03/17/25 20:20 Pulse Rate 67 03/18/25 00:10 Respiratory Rate 15 03/18/25 00:10 Blood Pressure 153/96 03/18/25 00:10 Pulse Oximetry 95 03/18/25 00:10 Oxygen Delivery Me thod Room Air 03/17/25 21:56 MDM - Weakness Medical Decision Making 59-year-old female with vomiting. She has a low-grade temperature here. However white blood cell count is only 6.8. Hemoglobin 11.6. CRP is 16. Sodium is 129. Potassium is normal at 3.8. Urinalysis shows hematuria and whites in her urine with only 1+ leukocyte esterase. Urine culture from prior visit did not grow a single pathologic organism only aiden. Lactic acid is normal here. She received IV fluid, Zofran. Nausea is improved. She will be discharged on scheduled promethazine for the next 48 hours, then as needed. Liquid diet to advance. Return for worsening symptoms Lab Data 03/17/25 20:57 03/17/25 20:57 Radiology Impressions Abdomen/Pelvis CT 03/17/25 20:31 IMPRESSION: Findings most suggestive of gastroenteritis no obstruction Normal appendix Findings are left renal cysts. COMMENTS: Consistent with the [employer]'s Incidental Findings Committee white paper (J Am Eric Radiol 2018): Any incidental renal lesion less than 1 cm or classified as too small to characterize, or any incidental cystic renal lesion characterized as simple-appearing, is likely benign. No follow-up imaging is recommended for these lesions per consensus recommendations based on imaging criteria. Laboratory Results WBC 6.78 10^3/uL (3.29-11.43) 03/17/25 20:57 RBC 4.10 10^6/uL (3.85-5.65) 03/17/25 20:57 Hgb 11.60 g/dL (11.27-16.99) 03/17/25 20:57 Hct 34.6 % (36-47) L 03/17/25 20:57 MCV 84.4 fl (85-98) L 03/17/25 20:57 MCH 28.3 pg (27-33) 03/17/25 20:57 MCHC 33.5 g/dL (30-55) 03/17/25 20:57 RDW 13.2 % (12.1-15.1) 03/17/25 20:57 Plt Count 314 10^3/cmm (157-399) 03/17/25 20:57 MPV 8.7 fL (7.4-10.4) 03/17/25 20:57 Neut % (Auto) 75.7 % 03/17/25 20:57 Lymph % (Auto) 17.7 % 03/17/25 20:57 [place] % (Auto) 5.6 % 03/17/25 20:57 Eos % (Auto) 0.4 % 03/17/25 20:57 Baso % (Auto) 0.3 % 03/17/25 20:57 Neut # (Auto) 5.13 10^3/uL (1.8-7.7) 03/17/25 20:57 Lymph # (Auto) 1.2 10^3/uL (0.8-4.8) 03/17/25 20:57 [place] # (Auto) 0.4 10^3/uL (0.2-0.9) 03/17/25 20:57 Eos # (Auto) 0.0 10^3/uL (0.0-0.8) 03/17/25 20:57 Baso # (Auto) 0.0 10^3/uL (0.0-0.1) 03/17/25 20:57 Nucleated RBC % (auto) 0 % 03/17/25 20:57 Nucleated RBCs # 0.0 /100WBC 03/17/25 20:57 Sodium 129 mmol/L (136-145) L 03/17/25 20:57 Potassium 3.8 mmol/L (3.5-5.1) 03/17/25 20:57 Chloride 89 mmol/L (98-107) L 03/17/25 20:57 Carbon Dioxide 27 mmol/L (22-29) 03/17/25 20:57 Anion Gap 16.8 (5-19) 03/17/25 20:57 BUN 14 mg/dL (8-23) 03/17/25 20:57 Creatinine 0.8 mg/dL (0.5-0.9) 03/17/25 20:57 GFR Calculation 73.2 mL/min (90-130) L 03/17/25 20:57 Glucose 90 mg/dL (65-115) 03/17/25 20:57 Calculated Osmolality 268 mOsm/kg (285-295) L 03/17/25 20:57 Lactic Acid 0.8 mmol/L (0.5-2.2) 03/17/25 20:57 Calcium 9.0 mg/dL (8.5-10.5) 03/17/25 20:57 Magnesium 2.0 mg/dL (1.7-2.3) 03/17/25 20:57 Total Bilirubin 0.7 mg/dL (0.15-1.2) 03/17/25 20:57 AST 9 U/L (0-32) 03/17/25 20:57 ALT 9 U/L (0-33) 03/17/25 20:57 Alkaline Phosphatase 52 U/L (35-105) 03/17/25 20:57 C-Reactive Protein 16.1 mg/L (0.0-4.9) H 03/17/25 20:57 Total Protein 6.9 g/dL (6.6-8.7) 03/17/25 20:57 Albumin 4.0 g/dL (3.5-5.2) 03/17/25 20:57 Globulin 2.9 g/dL (1.3-4.6) 03/17/25 20:57 Lipase 20 U/L (13-60) 03/17/25 20:57 Urine Color Yellow (Yellow) 03/17/25 22:30 Urine Appearance Clear (CLEAR) 03/17/25 22:30 Urine pH 6.0 (5-7) 03/17/25 22:30 Ur Specific [place] 1.060 (1.005-1.030) H 03/17/25 22:30 Urine Protein 1+ (Negative) A 03/17/25: Urine Glucose (UA) Negative (Normal) 03/17/25 22:30 Urine Ketones 2+ (Negative) H 03/17/25 22:30 Urine Blood 2+ (Negative) A 03/17/25 22:30 Urine Nitrate Negative (Negative) 03/17/25 22: Urine Bilirubin Negative (Negative) 03/17/25 22:30 Urine Urobilinogen 1.0 mg/dL (Negative) 03/17/25 22:30 Ur Leukocyte Esterase 1+ (Negative) A 03/17/25 22:30 Urine RBC 25-40 /hpf (0-2) H 03/17/25 22:30 Urine WBC 21-50 /hpf (0-5) H 03/17/25 22:30 Ur Squamous Epith Cells 11-20 /hpf (0-5) H 03/17/25 22:30 Amorphous Sediment Not Reportable 03/17/25 22:30 Urine Bacteria 1+ /hpf (NONE) H 03/17/25 22:30 Urine Mucus 1+ /hpf 03/17/25 22:30 All radiology interpretation(s) finalized by discharge Discharge Plan Discharge Patient Disposition: Home Clinical Impression: Gastroenteritis Condition: Stable Prescriptions: New promethazine 25 mg tablet 25 mg PO Q6H PRN (Reason: nausea and vomiting) Qty: 14 0RF No Action estradiol [Estrace] 0.01 % (0.1 mg/gram) cream 1 g vaginal .twice weekly Qty: 42.5 3RF Rx Instructions: space out doses atorvastatin 20 mg tablet 20 mg PO DAILY Qty: 90 3RF (DME) CPAP Mask small- Air Touch F-20 with tubing and supplies See Rx Instructions .Route .MEDSUPPLY Qty: 1 0RF Rx Instructions: As directed (DME) oxygen-air delivery systems Device See Rx Instructions .Route Rx Instructions: As directed (DME) Compact Compressor Nebulizer Misc See Rx Instructions .Route Qty: 1 0RF Rx Instructions: As directed, tubing and supplies included. aspirin [Adult Low Dose Aspirin] 81 mg tablet,delayed release (DR/EC) 81 mg PO DAILY Qty: 100 3RF hydroxyzine HCl 25 mg tablet 25 mg PO BID PRN (Reason: anxiety) Qty: 60 1RF metoprolol succinate 50 mg tablet extended release 24 hr 25 mg PO DAILY Qty: 90 0RF cyanocobalamin (vitamin B-12) 1,000 mcg/mL solution 1,000 mcg IM .qwk Qty: 10 3RF Rx Instructions: Tuesdays (DME) syringe with needle [CareTouch Luer Lock Syr-needle] 3 mL 23 gauge x 1 1/2 syringe See Rx Instructions .Route Qty: 100 1RF Rx Instructions: As directed for B12 injections ipratropium-albuterol 0.5 mg-3 mg(2.5 mg base)/3 mL solution for nebulization 3 ml inhalation Q4H PRN (Reason: wheezing) Qty: 180 3RF sertraline 100 mg tablet 100 mg PO DAILY Qty: 90 0RF cyclobenzaprine 10 mg tablet 10 mg PO TID Qty: 14 0RF cefdinir 300 mg capsule 300 mg PO BID 7 Days Qty: 14 0RF ondansetron 4 mg tablet,disintegrating 4 mg PO TID PRN (Reason: nausea and vomiting) Qty: 30 0RF fluticasone propion-salmeterol [Advair Diskus] 250-50 mcg/dose blister with device 2 inh inhalation BID albuterol sulfate 1.25 mg/3 mL solution for nebulization 1.25 mg continuous nebulization Q4H PRN (Reason: Shortness Of Breath Or Wheezing) pantoprazole 40 mg tablet,delayed release (DR/EC) 40 mg PO DAILY albuterol sulfate [Ventolin HFA] 90 mcg/actuation HFA aerosol inhaler 2 puff inhalation Q6H PRN (Reason: Wheezing) potassium chloride 20 mEq tablet extended release 20 meq PO DAILY cholecalciferol (vitamin D3) [Vitamin D3] 25 mcg (1,000 unit) Tablet 25 mcg PO DAILY Discharge Orders: Discharge ED (Routine); Ordered 03/17/25 Ordered By: Jarrett Mauricio Referrals: Haley Kinsey MD [Primary Care Provider, Family Practice] - 4-7 days Patient Instructions: Gastroenteritis (ED), Opioid Safety, Pain Management, Patient Portal & Royce Instructions Activity Restrictions/Additional Instructions: Take the nausea medication we gave you every 6 hours scheduled for the next 48 hours whether you are feeling nauseated or not. Then you may use it as needed following that. You may continue your antibiotic, although urine cultures from the other day did not grow bacteria. Call your doctor Wednesday for follow-up appointment. Return for any problems. Print Language: Cambodian Coding Level of Care Code ED Installment Account Checker for Britta Zhu
--- NOTE | 2025-03-17 20:31 | CTR_ITS ---
PROCEDURE INFORMATION: Exam: CT Abdomen And Pelvis With Contrast Exam date and time: 03/17/2025 9:06 PM Age: 59 years old Clinical indication: Bloating and nausea and vomiting; Prior surgery; Surgery date: 6+ months; Surgery type: Gb. Tubal. Csection. Abd distention with n/v; Additional info: Abd distension, back pain, vomiting TECHNIQUE: Imaging protocol: Computed tomography of the abdomen and pelvis with contrast. Radiation optimization: All CT scans at this facility use at least one of these dose optimization techniques: automated exposure control; mA and/or kV adjustment per patient size (includes targeted exams where dose is matched to clinical indication); or iterative reconstruction. Contrast material: OMNI 350; Contrast volume: 80 ml; Contrast route: INTRAVENOUS (IV); COMPARISON: CT abdomen pelvis w con* [id number] 03/28/2024 10:59 AM RADIATION DOSE METRICS: Total DLP (mGy-cm): 368.2 FINDINGS: Liver: Hypodensity present in the left and right liver lobes largest measuring 7 mm compatible with liver cysts Gallbladder and biliary ducts: Patient is status post cholecystectomy. Pancreas: Unremarkable. No ductal dilation. Spleen: Unremarkable. No splenomegaly. Adrenal glands: Normal. No mass. Kidneys and ureters: Hypodensity present in the left kidney largest left upper pole 2.4 cm compatible with renal cysts Stomach and bowel: Bowel demonstrates no obstruction there are fluid levels in nondistended large and small bowel gastroenteritis is a consideration Appendix: Appendix is normal Intraperitoneal space: There is no intra abdominopelvic free air or free fluid present. Vasculature: Unremarkable. No abdominal aortic aneurysm. Lymph nodes: Unremarkable. No enlarged lymph nodes. Urinary bladder: Unremarkable as visualized. Reproductive: Unremarkable as visualized. Bones/joints: Unremarkable. No acute fracture. Soft tissues: Unremarkable. CT/CT abdomen pelvis w con* [id number] IMPRESSION: Findings most suggestive of gastroenteritis no obstruction Normal appendix Findings are left renal cysts. COMMENTS: Consistent with the [employer]'s Incidental Findings Committee white paper (J Am Eric Radiol 2018): Any incidental renal lesion less than 1 cm or classified as too small to characterize, or any incidental cystic renal lesion characterized as simple-appearing, is likely benign. No follow-up imaging is recommended for these lesions per consensus recommendations based on imaging criteria.
[2025-03-17 20:56] VITALS: BP 144/63; PULSE 62; RESP 16; O2SAT 98
[2025-03-17 21:05] LABS: Hematocrit 34.6 % (36-47); Hemoglobin 11.60 g/dL (11.27-16.99); Mean Corpuscular HGB Conc 33.5 g/dL (30-55); Mean Corpuscular Hemoglobin 28.3 pg (27-33); Mean Corpuscular Volume 84.4 fl (85-98); Nucleated Red Blood Cells % 0 %; Platelet Count 314 10^3/cmm (157-399); Red Blood Count 4.10 10^6/uL (3.85-5.65); White Blood Count 6.78 10^3/uL (3.29-11.43)
[2025-03-17] MEDS: iohexol 350 mg/mL 500 mL Btl (per mL) IV (21:08)
[2025-03-17 21:20] LABS: Lactic Sepsis W/Reflex 0.8 mmol/L (0.5-2.2)
[2025-03-17 21:22] LABS: Alanine Aminotransferase 9 U/L (0-33); Albumin Level 4.0 g/dL (3.5-5.2); Alkaline Phosphatase 52 U/L (35-105); Anion Gap 16.8 (5-19); Aspartate Amino Transferase 9 U/L (0-32); Blood Urea Nitrogen 14 mg/dL (8-23); Calcium 9.0 mg/dL (8.5-10.5); Carbon Dioxide 27 mmol/L (22-29); Chloride 89 mmol/L (98-107); Creatinine Clr Calc Pharmacy 70.6846; Globulin 2.9 g/dL (1.3-4.6); Glucose 90 mg/dL (65-115); Lipase 20 U/L (13-60); Magnesium 2.0 mg/dL (1.7-2.3); Osmolality Calculated 268 mOsm/kg (285-295); Potassium 3.8 mmol/L (3.5-5.1); Sodium 129 mmol/L (136-145); Total Protein 6.9 g/dL (6.6-8.7)
[2025-03-17] MEDS: ondansetron 2 mg/ML SDV 2 mL 4 MG IVP (21:28)
[2025-03-17 21:56] VITALS: BP 146/59; PULSE 68; RESP 17; O2SAT 95
[2025-03-17 22:56] VITALS: BP 143/68; PULSE 67; RESP 15; O2SAT 100
[2025-03-17 22:56] LABS: Glucose Urine UA Negative (Normal); Nitrate Urine Negative (Negative)
[2025-03-17 23:30] VITALS: BP 163/86; PULSE 65; RESP 15; O2SAT 93
[2025-03-17 23:31] LABS: Specific Gravity, Urine 1.060 (1.005-1.030)
[2025-03-17 23:33] LABS: Add Urine Microscopic? YES; UA Manual Slide Review YES; UA Slide Review UA Slide Review Perf
[2025-03-17 23:34] LABS: Universal Test for UA Present (0)
[2025-03-18 00:10] VITALS: BP 153/96; PULSE 67; RESP 15; O2SAT 95
== END 2025-03-18 00:05 | disposition home or self-care (01) ==
PROVIDERS: Emergency Provider Emergency Medicine; PCP Family Medicine
DX: K52.9 Noninfective gastroenteritis and colitis, unspecified (principal); Z79.82 Long term (current) use of aspirin; J44.9 Chronic obstructive pulmonary disease, unspecified; E78.5 Hyperlipidemia, unspecified; I10 Essential (primary) hypertension
CPT/HCPCS: 36415; 74177; 80053; 81001; 83605; 83690; 83735; 85025; 86140; 87086; 96361; 96374; 99285; J2405; J7030

== ENCOUNTER 2025-03-20 12:26 | Inpatient (IN) | payer MEDICAID, SELFPAY ==
[2025-03-20] VITALS (9 sets, daily range): BP systolic 144–184; BP diastolic 64–90; PULSE 63–79; RESP 16–18; TEMP 36.6–36.8; O2SAT 90–98; BMI 26.2
--- NOTE | 2025-03-20 12:35 | W.ED.NAVMDI ---
HPI - Nausea/Vomiting/Diarrhea General: Chief complaint: Nausea/Vomiting/Diarrhea Stated complaint: N/V Time Seen by Provider: 03/20/25 12:26 Source: patient and EMS Mode of arrival: EMS Limitations: no limitations History of Present Illness: 59-year-old female states she been having nausea vomiting over the last month she been seen in the ER multiple times had a negative CT 2 days ago states that she did have a UTI and finished her antibiotic she denies any fevers. She denies any worse or improving factors. Associated nausea: Yes Associated symtoms: Reports nausea; Denies chest pain, dysuria or headache(s) Related Data Home Medications ?Medication ?Instructions ?Recorded ?Confirmed oxygen-air delivery systems 12/09/23 03/13/25 albuterol sulfate 1.25 mg/3 mL 1.25 mg continuous nebulization 02/20/25 03/13/25 solution for nebulization Q4H PRN Shortness Of Breath Or Wheezing albuterol sulfate 90 mcg/actuation 2 puff inhalation Q6H PRN Wheezing 02/20/25 03/13/25 aerosol inhaler (Ventolin HFA) cholecalciferol (vitamin D3) 25 25 mcg PO DAILY 02/20/25 03/13/25 mcg (1,000 unit) tablet (Vitamin D3) fluticasone 250 mcg-salmeterol 50 2 inh inhalation BID 02/20/25 03/13/25 mcg/dose blistr powdr for inhalation (Advair Diskus) pantoprazole 40 mg tablet,delayed 40 mg PO DAILY 02/20/25 03/13/25 release potassium chloride 20 mEq 20 meq PO DAILY 02/20/25 03/13/25 tablet,extended release Previous Rx's ?Medication ?Instructions ?Recorded CPAP Mask small- Air Touch F-20 #1 ea 05/05/22 with tubing and supplies nebulizers (Compact Compressor #1 ea 09/18/22 Nebulizer) aspirin 81 mg tablet,delayed 81 mg PO DAILY circulation #100 03/21/24 release (Adult Low Dose Aspirin) tabs hydroxyzine HCl 25 mg tablet 25 mg PO BID PRN anxiety #60 tabs 08/03/24 atorvastatin 20 mg tablet 20 mg PO DAILY cholesterol #90 tabs 08/29/24 metoprolol succinate 50 mg 25 mg (1/2 x 50 mg) PO DAILY #90 10/19/24 tablet,extended release 24 hr tabs cyanocobalamin (vitamin B-12) 1,000 mcg IM .qwk #10 mL 11/28/24 1,000 mcg/mL injection solution syringe with needle 3 mL 23 gauge #100 ea 12/19/24 x 1 1/2 (CareTouch Luer Lock Syringe with needle) estradiol 0.01% (0.1 mg/gram) 1 g vaginal .twice weekly #42.5 12/26/24 vaginal cream (Estrace) grams ipratropium 0.5 mg-albuterol 3 mg 3 ml inhalation Q4H PRN wheezing 12/29/24 (2.5 mg base)/3 mL nebulization #180 mL soln cyclobenzaprine 10 mg tablet 10 mg PO TID #14 tabs 03/05/25 cefdinir 300 mg capsule 300 mg PO BID 7 days #14 caps 03/15/25 ondansetron 4 mg disintegrating 4 mg PO TID PRN nausea and 03/15/25 tablet vomiting #30 tabs sertraline 100 mg tablet 100 mg PO DAILY #90 tabs 03/15/25 promethazine 25 mg tablet 25 mg PO Q6H PRN nausea and 03/17/25 vomiting #14 tabs Allergies Allergy/AdvReac Type Severity Reaction Status Date / Time influenza virus vaccine tvs Allergy rash Verified 03/15/25 11:52 (65 yr and up) (From Fluad (65yr+)(PF)) Penicillins Allergy Rash Verified 03/15/25 11:52 vaccine adjuvant emulsion Allergy rash Verified 03/15/25 11:52 [id number].1 (From Fluad (65yr+)(PF)) oxycodone AdvReac Dizziness, Verified 03/15/25 11:52 flushed sulfamethoxazole (From AdvReac Nausea Verified 03/15/25 11:52 Bactrim) trimethoprim (From Bactrim) AdvReac Nausea Verified 03/15/25 11:52 Review of Systems Const: Denies: fever(s), chills, body aches or change in appetite ENMT: Denies: throat pain or dental pain Card: Denies: chest pain Resp: Denies: dyspnea GI: Reports: nausea and vomiting; Denies: abdominal pain or diarrhea : Denies: dysuria Musc: Denies: neck pain or back pain Skin/Breast: Denies: rash Neuro: Denies: headache(s) PFSH ED PFSH: Medical History Cervical radiculopathy Vitamin D deficiency Anemia due to vitamin B12 deficiency, unspecified B12 deficiency type now on B12 injections Anemia, unspecified Dizziness Palpitations Vertigo, benign paroxysmal GERD without esophagitis Fasting hyperglycemia Screening for lung cancer started age 6; last LDCT 03.16.24; Nicotine dependence, cigarettes, uncomplicated last LDCT 03.16.24 Atherosclerosis of aorta Renal cyst Chronic neck pain 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 Aaron Hearing loss of both ears Benign essential tremor Peripheral neuropathic pain Dyslipidemia (high LDL; low HDL) Osteoarthritis involving multiple joints on both sides of body Chronic back pain Reports having a herniated disc in her lower back and neck and just takes muscle relaxers for this. Used to follow up with the pain clinic in the past but not anymore and this is managed by her primary care provider Anxiety and depression COPD (chronic obstructive pulmonary disease) Diagnosed in 2016 and is controlled with medication managed by PMD at this time Chronic hypertension Surgical History H/O vaginal surgery 05/21/2021- Rectovaginal fistula repair performed by Dr. Cruz at [facility] Status post hysteroscopy 09/17/2020---hysteroscopy with D&C for postmenopausal bleeding performed [place] Dr. Ingram [place] [facility] ---at time of hysteroscopy benign atrophic endometrium identified without any polyps. Pathology showed inactive endometrial glands on a background of mucin and debris, no atypia or hyperplasia polyps or malignancy identified. History of colonoscopy (09/17/20) 2016; 2.5.21 colitis--txed w/ abx, hyperplastic polyp; surgeon note says f/u colonoscopy 10 yrs S/P cholecystectomy Laparoscopic procedure performed by Dr. Hudson at [facility] in June 2020 S/P section At the age of 20 S/P tubal ligation At the age of 20 when she had her Family History Mother Diabetes Hypertension Thyroid disease Hyperlipidemia Sister Diabetes Hypertension Lung cancer Hyperlipidemia Father Diabetes Stroke Grandmother Breast cancer MGM Family/Other Prostate cancer PATERNAL UNCLE Denies family history of Ovarian cancer Myocardial infarction Uterine cancer Social History Smoking and tobacco/nicotine status: never used tobacco/nicotine Alcohol intake: never Substance/Drug Use: never Household members: other Details: lives with sister and her Marital status: / Number of children: 3 Highest education level completed: 10th Grade Current occupational status: disabled 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; 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 Female Reproductive History: Spontaneous abortions: No Physical Exam Const: COMMON NORMALS: no acute distress, patient oriented x3 and healthy appearing HENMT: COMMON NORMALS: normocephalic and atraumatic HEAD & SCALP: normocephalic and atraumatic Eye: COMMON NORMALS: conjunctivae normal CONJUNCTIVA: Yes conjunctivae normal Neck/C-Spine: COMMON NORMALS: full ROM and supple Chest: COMMONS NORMALS: normal inspection of the chest Resp: COMMON NORMALS: normal respiratory effort, No retractions, No use of accessory muscles and clear to auscultation bilaterally AUSCULTATION: clear to auscultation bilaterally Cardio: COMMON NORMALS: regular rate, regular rhythm and No murmurs present (Cardio) RATE: regular rate RHYTHM: regular rhythm GI: COMMON NORMALS: Normal to inspection, nondistended, normoactive bowel sounds present, Soft to palpation, non-tender and no masses PALPATION: Yes Soft to palpation Extremity: COMMON NORMALS: normal to inspection and full ROM Neuro: COMMON NORMALS: patient oriented x3, moves all extremities and no focal motor deficits Psych: COMMON NORMALS: mental status grossly normal, Normal thought process present and cooperative THOUGHT PROCESS: Normal thought process present Skin: COMMON NORMALS: no rashes or lesions noted and no wounds GENERAL SKIN EXAM: no rashes or lesions noted Course Vital Signs: Vital signs: Vital Signs Temperature 98.1 F 03/20/25 12:31 Pulse Rate 64 03/20/25 12:31 Respiratory Rate 18 03/20/25 12:31 Blood Pressure 147/78 03/20/25 12:31 Pulse Oximetry 98 03/20/25 12:31 MDM - Nausea/Vomiting/Diarrhea Medical Decision Making Patient presents with vomiting is going on for weeks she is now hyponatremic, hypokalemic likely from her vomiting. She had a CT scan 2 days ago was normal white count here is normal I spoke to hospitalist will admit for observation for electrolyte repletion Medical Records I reviewed the patient's medical records. Lab Data I reviewed the patient's lab results. 03/20/25 13:04 03/20/25 13:04 Laboratory Results WBC 5.74 10^3/uL (3.29-11.43) 03/20/25 13:04 RBC 3.55 10^6/uL (3.85-5.65) L 03/20/25 13:04 Hgb 10.40 g/dL (11.27-16.99) L 03/20/25 13:04 Hct 29.6 % (36-47) L 03/20/25 13:04 MCV 83.4 fl (85-98) L 03/20/25 13:04 MCH 29.3 pg (27-33) 03/20/25 13:04 MCHC 35.1 g/dL (30-55) 03/20/25 13:04 RDW 13.2 % (12.1-15.1) 03/20/25 13:04 Plt Count 335 10^3/cmm (157-399) 03/20/25 13:04 MPV 8.9 fL (7.4-10.4) 03/20/25 13:04 Neut % (Auto) 66.6 % 03/20/25 13:04 Lymph % (Auto) 24.0 % 03/20/25 13:04 [place] % (Auto) 8.2 % 03/20/25 13:04 Eos % (Auto) 0.5 % 03/20/25 13:04 Baso % (Auto) 0.2 % 03/20/25 13:04 Neut # (Auto) 3.82 10^3/uL (1.8-7.7) 03/20/25 13:04 Lymph # (Auto) 1.4 10^3/uL (0.8-4.8) 03/20/25 13:04 [place] # (Auto) 0.5 10^3/uL (0.2-0.9) 03/20/25 13:04 Eos # (Auto) 0.0 10^3/uL (0.0-0.8) 03/20/25 13:04 Baso # (Auto) 0.0 10^3/uL (0.0-0.1) 03/20/25 13:04 Nucleated RBC % (auto) 0 % 03/20/25 13:04 Nucleated RBCs # 0.0 /100WBC 03/20/25 13:04 Sodium 125 mmol/L (136-145) L 03/20/25 13:04 Potassium 2.9 mmol/L (3.5-5.1) L 03/20/25 13:04 Chloride 86 mmol/L (98-107) L 03/20/25 13:04 Carbon Dioxide 25 mmol/L (22-29) 03/20/25 13:04 Anion Gap 16.9 (5-19) 03/20/25 13:04 BUN 16 mg/dL (8-23) 03/20/25 13:04 Creatinine 0.6 mg/dL (0.5-0.9) 03/20/25 13:04 GFR Calculation 102.0 mL/min (90-130) 03/20/25 13:04 Glucose 87 mg/dL (65-115) 03/20/25 13:04 Calculated Osmolality 261 mOsm/kg (285-295) L 03/20/25 13:04 Calcium 8.5 mg/dL (8.5-10.5) 03/20/25 13:04 Total Bilirubin 0.5 mg/dL (0.15-1.2) 03/20/25 13:04 AST 7 U/L (0-32) 03/20/25 13:04 ALT 6 U/L (0-33) 03/20/25 13:04 Alkaline Phosphatase 48 U/L (35-105) 03/20/25 13:04 Total Protein 6.1 g/dL (6.6-8.7) L 03/20/25 13:04 Albumin 3.4 g/dL (3.5-5.2) L 03/20/25 13:04 Globulin 2.7 g/dL (1.3-4.6) 03/20/25 13:04 Lipase 13 U/L (13-60) 03/20/25 13:04 Amorphous Sediment Not Reportable 03/20/25 13:30 No radiology studies performed this visit Discharge Plan Discharge Patient Disposition: Admitted As Inpatient Clinical Impression: Hypokalemia, Vomiting, Hyponatremia Condition: Stable Coding Level of Care Code ED Credit Collections Manager for Britta Zhu
--- OUTSIDE RECORDS SUMMARY | 2025-03-20 12:43 | XMS_ITS | Clinical Summary ---
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
--- OUTSIDE RECORDS SUMMARY | 2025-03-20 12:43 | XMS_ITS | Patient Health Record ---
Author Organization [facility] Address [address] [place], [place] [id number] Care Team Providers Care Repair Service Dispatcher Name Role Phone Kaylynn Boyce APRN Primary Care Provider Kourtney Kendrick MD, William Unavailable [phone] Allergies Allergen (clinical drug ingredient) Drug/Non Drug [...] Risk Notes Problem Lumbosacral spondylosis without myelopathy (47225846) Lumbosacral spondylosis without myelopathy (721.3) Active confirmed Problem Displacement of lumbar intervertebral disc without myelopathy (48121546) Lumbar (w/out myelopathy) intervertebral disc disorder (722.10) Active confirmed Problem Hypersomnia (56065422) Hypersomnia (780.54) Active confirmed Problem Low back pain (350376320) Low back pain (724.2) Active confirmed Problem Long-term drug therapy (403170433) LONG-TERM USE MEDS NEC (V58.69) Active confirmed R/O substance abuse Problem Anxiety state (785464742) Anxiety State, other, specified: procedure related (300.09) Active confirmed Problem Sacroiliitis (71098871) Sacroiliitis (720.2) Active confirmed Plan Of Treatment No Information Insurance Providers Payer Name Payer Address Payer Phone Subscriber Number Group Number Insured Name Patient Relationship to Insured Coverage Start Date Coverage End Date [place] [address] [place] [address] [id number] Sara Wilcox Self - patient is the insured Medical (General) History Medical History History ICD Code Hypokalemia Sciatica Sacroiliitis Myalgia Bone spurs, lumbar Depression Panic attacks Back pain Hiatal hernia Gastroesophageal reflux disease
[2025-03-20 13:22] LABS: Hematocrit 29.6 % (36-47); Hemoglobin 10.40 g/dL (11.27-16.99); Mean Corpuscular HGB Conc 35.1 g/dL (30-55); Mean Corpuscular Hemoglobin 29.3 pg (27-33); Mean Corpuscular Volume 83.4 fl (85-98); Nucleated Red Blood Cells % 0 %; Platelet Count 335 10^3/cmm (157-399); Red Blood Count 3.55 10^6/uL (3.85-5.65); White Blood Count 5.74 10^3/uL (3.29-11.43)
[2025-03-20] MEDS: ondansetron 2 mg/ML SDV 2 mL 4 MG IVP (13:22)
[2025-03-20 13:40] LABS: Alanine Aminotransferase 6 U/L (0-33); Albumin Level 3.4 g/dL (3.5-5.2); Alkaline Phosphatase 48 U/L (35-105); Anion Gap 16.9 (5-19); Aspartate Amino Transferase 7 U/L (0-32); Blood Urea Nitrogen 16 mg/dL (8-23); Calcium 8.5 mg/dL (8.5-10.5); Carbon Dioxide 25 mmol/L (22-29); Chloride 86 mmol/L (98-107); Globulin 2.7 g/dL (1.3-4.6); Glucose 87 mg/dL (65-115); Lipase 13 U/L (13-60); Osmolality Calculated 261 mOsm/kg (285-295); Sodium 125 mmol/L (136-145); Total Protein 6.1 g/dL (6.6-8.7)
[2025-03-20 13:49] LABS: Potassium 2.9 mmol/L (3.5-5.1)
[2025-03-20 13:55] LABS: Glucose Urine UA Negative (Normal); Nitrate Urine Negative (Negative); Specific Gravity, Urine 1.024 (1.005-1.030)
[2025-03-20 14:23] LABS: Add Urine Microscopic? YES; UA Manual Slide Review YES
[2025-03-20 14:37] LABS: Magnesium 2.0 mg/dL (1.7-2.3)
--- NOTE | 2025-03-20 14:56 | PM.HP ---
Providers/Chief Complaint Primary Care Provider: Haley Kinsey MD Chief Complaint: N/V History of Present Illness Sara López is a 59 year old female with PMH of anxiety, depression, GERD without esophagitis, hypertension, UTI presents to the ER today because of generalized weakness which has been getting worse over the last 1 week. As per patient she has been having nausea and vomiting for last 4 to 5 weeks. She is not able to tolerate oral intake and vomits even with liquid diet. Vomitus is usually nonbilious, not foul-smelling, not bloodstained. Denies any changes in medications. Complains of occasional heartburn. States heartburn has gotten worse recently. States only the change for her recently was that she stopped smoking few days prior to initiation of vomiting. Review of Systems General: Reports: 10 or more systems reviewed and unremarkable except in HPI and below Const: Denies: fever(s), chills, body aches, change in appetite, change in weight, malaise, night sweats, diaphoresis, change in sleep pattern, daytime sleepiness or snoring Eyes: Denies: change in vision, blurry vision, photophobia, eye discomfort or eye discharge ENMT: Denies: throat pain, enlarged tonsils, hoarseness, mouth pain, oral sores, dry mouth, tinnitus, nasal congestion or post nasal drip Card: Denies: chest pain, palpitations, irregular heart rhythm, edema, swelling of feet/ankles, lightheadedness, syncope, pre-syncope, dyspnea on exertion, orthopnea, leg pain with exertion or acrocyanosis Resp: Denies: dyspnea, productive cough, non-productive cough, wheezing, stridor, pain on inspiration, change in phlegm color, hemoptysis or chest congestion GI: Denies: abdominal pain, nausea, vomiting, hematemesis, coffee ground emesis, dysphagia, heartburn, diarrhea, constipation, bloating, GI cramping, change in bowel habits, pain on defecation, hematochezia or melena : Denies: flank pain, dysuria, urinary frequency, urinary urgency, urinary hesitancy, nocturia or hematuria Musc: Denies: neck pain, back pain, extremity pain, joint pain, joint swelling, joint redness, joint stiffness or limited range of motion Neuro: Denies: headache(s), numbness in extremities, weakness in extremities, sensory changes, lack of coordination, difficulty walking, frequent falls, dizziness, vertigo, confusion, Slurred speech present, difficulty communicating thoughts or seizure-like activity Psych: Denies: anxiety, depression, mood swings, panic attacks, hopelessness or irritability Endo: Denies: polyuria, polydipsia, tired all the time, cold intolerance, excessive sweating, flushing or heat intolerance Josue/Lymph: Denies: easy bruising or easy bleeding All/Imm: Denies: tongue swelling, facial swelling or acute wheezing Medications/Allergies Home Medications ?Medication ?Instructions ?Recorded ?Confirmed ?Last Taken ?Type CPAP Mask small- Air Touch F-20 #1 ea 05/05/22 03/20/25 Unknown Rx with tubing and supplies nebulizers (Compact Compressor #1 ea 09/18/22 03/20/25 Unknown Rx Nebulizer) oxygen-air delivery systems 12/09/23 03/20/25 Unknown History aspirin 81 mg tablet,delayed 81 mg PO DAILY circulation #100 03/21/24 03/20/25 03/20/25 Rx release (Adult Low Dose Aspirin) tabs hydroxyzine HCl 25 mg tablet 25 mg PO BID PRN anxiety #60 tabs 08/03/24 03/20/25 Unknown Rx atorvastatin 20 mg tablet 20 mg PO DAILY cholesterol #90 tabs 08/29/24 03/20/25 03/20/25 Rx metoprolol succinate 50 mg 25 mg (1/2 x 50 mg) PO DAILY #90 10/19/24 03/20/25 03/20/25 Rx tablet,extended release 24 hr tabs syringe with needle 3 mL 23 gauge #100 ea 12/19/24 03/20/25 Unknown Rx x 1 1/2 (CareTouch Luer Lock Syringe with needle) estradiol 0.01% (0.1 mg/gram) 1 g vaginal .twice weekly #42.5 12/26/24 03/20/25 02/19/25 Rx vaginal cream (Estrace) grams ipratropium 0.5 mg-albuterol 3 mg 3 ml inhalation Q4H PRN wheezing 12/29/24 03/20/25 Unknown Rx (2.5 mg base)/3 mL nebulization #180 mL soln albuterol sulfate 1.25 mg/3 mL 1.25 mg continuous nebulization 02/20/25 03/20/25 02/20/25 History solution for nebulization Q4H PRN Shortness Of Breath Or Wheezing albuterol sulfate 90 mcg/actuation 2 puff inhalation Q6H PRN Wheezing 02/20/25 03/20/25 02/19/25 History aerosol inhaler (Ventolin HFA) cholecalciferol (vitamin D3) 25 25 mcg PO DAILY 02/20/25 03/20/25 03/20/25 History mcg (1,000 unit) tablet (Vitamin D3) fluticasone 250 mcg-salmeterol 50 2 inh inhalation BID 02/20/25 03/20/25 03/20/25 History mcg/dose blistr powdr for inhalation (Advair Diskus) pantoprazole 40 mg tablet,delayed 40 mg PO DAILY 02/20/25 03/20/25 03/20/25 History release potassium chloride 20 mEq 20 meq PO DAILY 02/20/25 03/20/25 03/20/25 History tablet,extended release cefdinir 300 mg capsule 300 mg PO BID 7 days #14 caps 03/15/25 03/20/25 03/20/25 Rx ondansetron 4 mg disintegrating 4 mg PO TID PRN nausea and 03/15/25 03/20/25 Unknown Rx tablet vomiting #30 tabs sertraline 100 mg tablet 100 mg PO DAILY #90 tabs 03/15/25 03/20/25 03/20/25 Rx promethazine 25 mg tablet 25 mg PO Q6H PRN nausea and 03/17/25 03/20/25 Unknown Rx vomiting #14 tabs bupropion HCl 150 mg tablet,12 hr 150 mg PO BID 03/20/25 03/20/25 03/20/25 History sustained-release cyanocobalamin (vitamin B-12) 1,000 mcg IM Q7D 03/20/25 03/20/25 03/20/25 History 1,000 mcg/mL injection solution cyclobenzaprine 10 mg tablet 10 mg PO TID PRN muscle spasms 03/20/25 03/20/25 Unknown History Allergies Allergy/AdvReac Type Severity Reaction Status Date / Time influenza virus vaccine tvs Allergy rash Verified 03/15/25 11:52 (65 yr and up) (From Fluad (65yr+)(PF)) Penicillins Allergy Rash Verified 03/15/25 11:52 vaccine adjuvant emulsion Allergy rash Verified 03/15/25 11:52 [id number] (From Fluad (65yr+)(PF)) oxycodone AdvReac Dizziness, Verified 03/15/25 11:52 flushed sulfamethoxazole (From AdvReac Nausea Verified 03/15/25 11:52 Bactrim) trimethoprim (From Bactrim) AdvReac Nausea Verified 03/15/25 11:52 PFSH Acute PFSH: Medical History (Updated 03/20/25 @ 17:54 by Gerhard Vazquez MD) Cervical radiculopathy Vitamin D deficiency Anemia due to vitamin B12 deficiency, unspecified B12 deficiency type now on B12 injections Anemia, unspecified Dizziness Palpitations Vertigo, benign paroxysmal GERD without esophagitis Fasting hyperglycemia Screening for lung cancer started age 6; last LDCT 03.16.24; Nicotine dependence, cigarettes, uncomplicated last LDCT 03.16.24 Atherosclerosis of aorta Renal cyst Chronic neck pain 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 Aaron Ocular migraine [employer] Faculty Member, Dr. Aaron Hearing loss of both ears Benign essential tremor Peripheral neuropathic pain Dyslipidemia (high LDL; low HDL) Osteoarthritis involving multiple joints on both sides of body Chronic back pain Reports having a herniated disc in her lower back and neck and just takes muscle relaxers for this. Used to follow up with the pain clinic in the past but not anymore and this is managed by her primary care provider Anxiety and depression COPD (chronic obstructive pulmonary disease) Diagnosed in 2016 and is controlled with medication managed by PMD at this time Chronic hypertension Surgical History H/O vaginal surgery 05/21/2021- Rectovaginal fistula repair performed by Dr. Cruz at [facility] Status post hysteroscopy 09/17/2020---hysteroscopy with D&C for postmenopausal bleeding performed by Dr. Ingram at [facility]. ---at time of hysteroscopy benign atrophic endometrium identified without any polyps. Pathology showed inactive endometrial glands on a background of mucin and debris, no atypia or hyperplasia polyps or malignancy identified. History of colonoscopy (09/17/20) 2016; 2.5.21 colitis--txed w/ abx, hyperplastic polyp; surgeon note says f/u colonoscopy 10 yrs S/P cholecystectomy Laparoscopic procedure performed by Dr. Hudson at [facility] in June 2020 S/P section At the age of 20 S/P tubal ligation At the age of 20 when she had her Family History Mother Diabetes Hypertension Thyroid disease Hyperlipidemia Sister Diabetes Hypertension Lung cancer Hyperlipidemia Father Diabetes Stroke Grandmother Breast cancer MGM Family/Other Prostate cancer PATERNAL UNCLE Denies family history of Ovarian cancer Myocardial infarction Uterine cancer Social History Smoking and tobacco/nicotine status: never used tobacco/nicotine Alcohol intake: never Substance/Drug Use: never Household members: other Details: lives with sister and her Marital status: / Number of children: 3 Highest education level completed: 10th Grade Current occupational status: disabled 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 HEENT: PERRLA, pupils bilaterally equal and reactive Chest: Normal vesicular breath sounds, no added sounds, equal good air entry bilaterally CVS: S1-S2 regular, no murmurs, no tachycardia, no gallops, no rubs Abdomen: Soft, nontender, no organomegaly, bowel sounds present Neuro: No focal deficits, no facial deformity, AO x3, power 5/5 in all limbs Data 03/20/25 13:04 03/20/25 13:04 A&P Assessment and plan 1. Nausea and vomiting: Has had workup within the last 1 week. Pelvis on 03/17 did not show any obstruction, constipation. Patient denies any abdominal pain. Denies any dysuria. UA negative for concerns for UTI. Could be in setting of worsening esophagitis or withdrawal from nicotine as she was a heavy smoker before and she stopped smoking abruptly just prior to initiation of vomiting. Protonix twice daily. Zofran as needed, promethazine as needed. Scopolamine patch. Nicotine patch. Start on clear liquid diet for now. If does not improve in next 24 hours can most likely consult surgery for possible EGD and get barium swallow. 2. GERD without esophagitis: 3. Hyponatremia: Most likely in setting of dehydration. Start on normal saline at 75 cc/h. Monitor BMP daily. 4. Hypokalemia: Repleted 40 mg in ER. Will replace 80 mg more. Add 20 mg of potassium chloride in NS and continue at 75 cc/h. 5. Dehydration: 6. Anxiety and depression: Continue other chronic home medications including bupropion, hydroxyzine as needed, sertraline. 7. Chronic hypertension: 8. COPD (chronic obstructive pulmonary disease): Not in exacerbation for now. DuoNeb every 6 hours as needed. Plan: Continue chronic home medications including aspirin, statin, bupropion, metoprolol, Zoloft. Full code Clear liquid diet Protonix for PUD prophylaxis Heparin for DVT prophylaxis PDMP PDMP Reviewed: Not Reviewed Attestations Medical Necessity Statement*: Admission under observation for less than 2 midnights for management of dehydration due to nausea and vomiting leading to hyponatremia and hypokalemia. Diagnoses Nausea and vomiting R11.2 GERD without esophagitis K21.9 Hyponatremia E87.1 Hypokalemia E87.6 Dehydration E86.0 Anxiety and depression F41.9; F32.A Chronic hypertension I10 COPD (chronic obstructive pulmonary disease) J44.9
[2025-03-20 15:17] LABS: PCP Screen Urine Negative (Negative)
[2025-03-20 15:28] LABS: Potassium, Radom Urine 58 mmol/L; Urine Random Chloride 40 mmol/L; Urine Random Sodium 40 mmol/L
[2025-03-20 16:10] LABS: Lactic Sepsis W/Reflex 0.7 mmol/L (0.5-2.2)
[2025-03-20] MEDS: sodium chlor 0.9% + KCl 20 mEq 20 MEQ/1,000 ML BAG 100 MEQ IV (16:17)
[2025-03-20 16:20] LABS: Procalcitonin 0.06 ng/mL (0-0.5)
[2025-03-20] MEDS: pantoprazole 40 mg SDV IVP (17:55)
[2025-03-20] MEDS: cefTRIAXone 1,000 mg SDV 1000 MG IVP (17:55)
[2025-03-20] MEDS: heparin 5,000 unit/mL INJ 1 mL 5000 UNIT SUBCUT (17:55)
[2025-03-20] MEDS: lactulose oral liq 20 gm/30 mL UDC 10 GM PO (17:56)
[2025-03-20 19:16] LABS: Estmated Average Glucose 100; Hemoglobin A1C 5.1 % (4.0-6.0)
[2025-03-20 20:08] LABS: Iron 24 ug/dL (37-145); Thyroid Stimulating Hormone 1.26 uIU/mL (0.27-4.20); Total Iron Binding Capacity 190 mcg/dl; Unsaturated Iron Binding 166 ug/dL (112-347)
[2025-03-20] MEDS: ATORVASTATIN 10 MG TABLET 20 MG PO (20:38)
[2025-03-21] VITALS (8 sets, daily range): BP systolic 145–166; BP diastolic 53–74; PULSE 65–82; RESP 16–18; TEMP 36.3–37.1; O2SAT 94–98
[2025-03-21] MEDS: sodium chlor 0.9% + KCl 20 mEq 20 MEQ/1,000 ML BAG 100 MEQ IV (01:42)
[2025-03-21 05:01] LABS: Hematocrit 27.9 % (36-47); Hemoglobin 9.60 g/dL (11.27-16.99); Mean Corpuscular HGB Conc 34.4 g/dL (30-55); Mean Corpuscular Hemoglobin 28.0 pg (27-33); Mean Corpuscular Volume 81.3 fl (85-98); Nucleated Red Blood Cells % 0 %; Platelet Count 337 10^3/cmm (157-399); Red Blood Count 3.43 10^6/uL (3.85-5.65); White Blood Count 6.95 10^3/uL (3.29-11.43)
[2025-03-21] MEDS: pantoprazole 40 mg SDV IVP ×2 (05:03→17:40)
[2025-03-21] MEDS: heparin 5,000 unit/mL INJ 1 mL 5000 UNIT SUBCUT ×2 (05:03→17:41)
[2025-03-21 05:27] LABS: Alanine Aminotransferase 6 U/L (0-33); Albumin Level 3.2 g/dL (3.5-5.2); Alkaline Phosphatase 46 U/L (35-105); Anion Gap 16.7 (5-19); Aspartate Amino Transferase 8 U/L (0-32); Blood Urea Nitrogen 9 mg/dL (8-23); Calcium 8.1 mg/dL (8.5-10.5); Carbon Dioxide 22 mmol/L (22-29); Chloride 90 mmol/L (98-107); Creatinine Clr Calc Pharmacy 92.8184; Globulin 2.6 g/dL (1.3-4.6); Glucose 82 mg/dL (65-115); Magnesium 1.8 mg/dL (1.7-2.3); Osmolality Calculated 258 mOsm/kg (285-295); Potassium 3.7 mmol/L (3.5-5.1); Procalcitonin 0.07 ng/mL (0-0.5); Sodium 125 mmol/L (136-145); Total Protein 5.8 g/dL (6.6-8.7)
[2025-03-21 05:30] LABS: Cholesterol 95 mg/dL (0-200); HDL Cholesterol 20 mg/dL (60-100); Triglycerides 110 mg/dL (0-150)
[2025-03-21] MEDS: metoprolol succinate ER (24 HR) 50 mg Tablet 25 MG PO (09:40)
--- NOTE | 2025-03-21 10:02 | PC.CHAP ---
Pastoral Care Encounter/Spiritual Assessment Type of Contact [] Declined solar sales representative visit [] Patient/Family/Request visit [] Outpatient visit [] Follow-up visit [] Physician referral [] Code/Alert [x] Routine visit [] Staff referral [] Actively dying [] Patient sleeping [] Family support [] [] Out of room [] Palliative care [] [] Receiving care in room [] Pre-surgical visit [] Trauma [] Long length of stay [] ICU visit [] Other: Relational/Emotional Strength [x] Patient feels connected with others/family/visitors/staff [] Distress [] Loneliness/isolation [] Abandonment Spirituality of Patient [x] Person of Cindy [] Attends Advent of their Cindy [x] Believes in Prayer [] Reads Bible or Evangelical materials [] There are Spiritual issues to be addressed Beauty Counselor Interventions [x] Prayer [x] Active listening [x] Non-anxious presence [x] Spiritual/emotional support [] Crisis/trauma care [] Spiritual counseling [] Bereavement support [] Provided bereavement packet [] Provided Bible/devotional materials [] Provided toy/stuffed animal, coloring book to patient or family member [] Provided Communion [] Anointing/[place] [] Salvation [x] Completed spiritual assessment [] Other: Impact on Illness or Injury [] Angry [] Fearful [] Anxious [] Often cries [] Exhaustion [] Unable to work [] Unable to attend druze [] Unable to walk/stand [] Unable to read [] Unable to drive [] Unable to eat/drink [] Unable to sleep [] Unable to be with family [] Patient intubated [] Other: Summary Time spent with patient 5 min
--- NOTE | 2025-03-21 14:22 | P.PN_ITS ---
Subjective 2 Subjective: No acute vents overnight. Patient has remained hemodynamically stable and afebrile. Laying comfortably in bed. States she is able to tolerate liquid diet now without any further episodes of vomiting. Vitals/I&O/Wt Last Vital Signs Temp 98.4 F 03/21/25 11:24 Pulse 66 03/21/25 11:30 Resp 18 03/21/25 11:30 BP 145/71 03/21/25 11:24 Pulse Ox 96 03/21/25 11:30 O2 Del Method Room Air 03/21/25 11:30 03/20/25 03/21/25 03/21/25 22:59 06:59 14:59 Intake Total 1480 / 1480 1181.667 / 2661.667 Output Total 300 / 300 Balance 1180 / 1180 1181.667 / 2361.667 Weight last 48 hrs Weight 2.892 kg Weight 58.967 kg Physical Exam 2 Narrative: General: No acute distress, AO x3, weak appearing, dehydrated. HEENT: PERRLA, pupils bilaterally equal and reactive Chest: Normal vesicular breath sounds, no added sounds, equal good air entry bilaterally CVS: S1-S2 regular, no murmurs, no tachycardia, no gallops, no rubs Abdomen: Soft, nontender, no organomegaly, bowel sounds present Neuro: No focal deficits, no facial deformity, AO x3, power 5/5 in all limbs Data 03/21/25 04:40 03/21/25 04:40 Micro: Microbiology 03/20/25 13:30 Bacterial Antigens - Final Urine Kidney A&P Assessment and plan 1. Nausea and vomiting: Has had workup within the last 1 week. Pelvis on 03/17 did not show any obstruction, constipation. Patient denies any abdominal pain. Denies any dysuria. UA negative for concerns for UTI. Could be in setting of worsening esophagitis or withdrawal from nicotine as she was a heavy smoker before and she stopped smoking abruptly just prior to initiation of vomiting. Protonix twice daily. Zofran as needed, promethazine as needed. Scopolamine patch. Nicotine patch. Start on clear liquid diet for now. If does not improve in next 24 hours can most likely consult surgery for possible EGD and get barium swallow. 2. GERD without esophagitis: 3. Hyponatremia: Most likely in setting of dehydration. Start on normal saline at 75 cc/h. Monitor BMP daily. 4. Hypokalemia: Repleted 40 mg in ER. Will replace 80 mg more. Add 20 mg of potassium chloride in NS and continue at 75 cc/h. 5. Dehydration: 6. Anxiety and depression: Continue other chronic home medications including bupropion, hydroxyzine as needed, sertraline. 7. Chronic hypertension: 8. Panlobular emphysema: Not in exacerbation for now. DuoNeb every 6 hours as needed. Plan: Continue chronic home medications including aspirin, statin, bupropion, metoprolol, Zoloft. Full code Clear liquid diet Protonix for PUD prophylaxis Heparin for DVT prophylaxis Plan for today: Vomiting most likely in setting of nicotine withdrawal. Continue with nicotine patch. Vomiting seems to be resolving. Advance to full liquid diet. Continue Protonix IV twice daily. Scopolamine patch along with Zofran as needed. Potassium level improved. Continue with normal saline with 20 mL of potassium at 100 cc/h. Repeat BMP in afternoon. Continues to have hyponatremia. Again most likely in setting of dehydration. Check urine lites. PDMP PDMP Reviewed: Not Reviewed Attestations 2 Medical Necessity Statement*: Requires further hospitalization for management of weakness in setting of hyponatremia, dehydration due to persistent vomiting due to nicotine withdrawal Diagnoses Nausea and vomiting R11.2 GERD without esophagitis K21.9 Hyponatremia E87.1 Hypokalemia E87.6 Dehydration E86.0 Anxiety and depression F41.9; F32.A Chronic hypertension I10 Panlobular emphysema J43.1 COPD type: emphysema Emphysema type: panlobular
[2025-03-21 16:35] LABS: Anion Gap 16.1 (5-19); Blood Urea Nitrogen 9 mg/dL (8-23); Calcium 8.0 mg/dL (8.5-10.5); Carbon Dioxide 22 mmol/L (22-29); Chloride 88 mmol/L (98-107); Creatinine Clr Calc Pharmacy 5.4627; Glucose 85 mg/dL (65-115); Osmolality Calculated 254 mOsm/kg (285-295); Potassium 3.1 mmol/L (3.5-5.1); Sodium 123 mmol/L (136-145)
[2025-03-21] MEDS: cefTRIAXone 1,000 mg SDV 1000 MG IVP (17:40)
[2025-03-21] MEDS: ATORVASTATIN 10 MG TABLET 20 MG PO (20:53)
[2025-03-22] VITALS (7 sets, daily range): BP systolic 118–164; BP diastolic 63–71; PULSE 68–93; RESP 15–18; TEMP 36.5–36.9; O2SAT 93–97
[2025-03-22] MEDS: pantoprazole 40 mg SDV IVP (05:27)
[2025-03-22] MEDS: heparin 5,000 unit/mL INJ 1 mL 5000 UNIT SUBCUT (05:27)
[2025-03-22 06:07] LABS: Hematocrit 28.6 % (36-47); Hemoglobin 9.80 g/dL (11.27-16.99); Mean Corpuscular HGB Conc 34.3 g/dL (30-55); Mean Corpuscular Hemoglobin 27.8 pg (27-33); Mean Corpuscular Volume 81.3 fl (85-98); Nucleated Red Blood Cells % 0 %; Platelet Count 368 10^3/cmm (157-399); Red Blood Count 3.52 10^6/uL (3.85-5.65); White Blood Count 6.22 10^3/uL (3.29-11.43)
[2025-03-22 06:26] LABS: Alanine Aminotransferase < 5 U/L (0-33); Albumin Level 3.3 g/dL (3.5-5.2); Alkaline Phosphatase 46 U/L (35-105); Anion Gap 16.4 (5-19); Aspartate Amino Transferase 6 U/L (0-32); Blood Urea Nitrogen 9 mg/dL (8-23); Calcium 8.6 mg/dL (8.5-10.5); Carbon Dioxide 24 mmol/L (22-29); Chloride 88 mmol/L (98-107); Creatinine Clr Calc Pharmacy 87.8207; Globulin 2.8 g/dL (1.3-4.6); Glucose 104 mg/dL (65-115); Magnesium 1.7 mg/dL (1.7-2.3); Osmolality Calculated 259 mOsm/kg (285-295); Potassium 3.4 mmol/L (3.5-5.1); Sodium 125 mmol/L (136-145); Total Protein 6.1 g/dL (6.6-8.7)
[2025-03-22] MEDS: metoprolol succinate ER (24 HR) 50 mg Tablet 25 MG PO (08:01)
[2025-03-22] MEDS: ondansetron hcl ODT 4 mg Tab PO (08:07)
--- NOTE | 2025-03-22 08:38 | P.DS_ITS ---
Discharge Providers Date of Admission: 03/21/25 13:27 Date of Discharge: March 22, 2025 Attending Provider at Admission: Gerhard Vazquez MD Attending Provider at Discharge: Gerhard Vazquez MD Primary Care Provider: Haley Kinsey MD Diagnoses at Discharge Discharge Diagnosis 1. Nausea and vomitin. GERD without esophagitis: 3. Hyponatremia: 4. Hypokalemia: 5. Dehydration: 6. Anxiety and depression: 7. Chronic hypertension: 8. Panlobular emphysema: Reason for Visit Reason for Visit: N/V Hospital Course Hospital Course Sara López is a 59 year old female with PMH of anxiety, depression, GERD without esophagitis, hypertension, UTI presents to the ER today because of generalized weakness which has been getting worse over the last 1 week. As per patient she has been having nausea and vomiting for last 4 to 5 weeks. She is not able to tolerate oral intake and vomits even with liquid diet. Vomitus is usually nonbilious, not foul-smelling, not bloodstained. Denies any changes in medications. Complains of occasional heartburn. States heartburn has gotten worse recently. States only the change for her recently was that she stopped smoking few days prior to initiation of vomiting. Patient was admitted to the hospital for evaluation and management of extensive nausea and vomiting leading to hyponatremia and hypokalemia and dehydration. She was admitted to [facility] for evaluation and management of dehydration and weakness in setting of hypokalemia and hyponatremia with extensive nausea and vomiting for last 4 weeks. It is believed her nausea and vomiting is in setting of nicotine withdrawal as she stopped smoking few days prior to start of her chronic vomiting for last 28 days. Her nausea improved after starting of nicotine patch. She is able to tolerate full liquid diet. Electrolyte abnormality also improved. Her sodium levels initially improved but later transitioned down on IV fluids. Given concerns for antidepressants with the possibility of SIADH she was started on fluid restriction after which her sodium levels improved. She has been discharged hemodynamically stable condition with advised to maintain good 50 to 60 ounces of liquid intake daily out of which one third should be Gatorade for managing electrolyte abnormalities advised to follow-up with a primary care provider within next 1 week for repeat BMP. She is also use nicotine patch daily. Physical Exam Narrative: General: No acute distress, AO x3, weak appearing. HEENT: PERRLA, pupils bilaterally equal and reactive Chest: Normal vesicular breath sounds, no added sounds, equal good air entry bilaterally CVS: S1-S2 regular, no murmurs, no tachycardia, no gallops, no rubs Abdomen: Soft, nontender, no organomegaly, bowel sounds present Neuro: No focal deficits, no facial deformity, AO x3, power 5/5 in all limbs Discharge Data Studies Completed and Pending Pending at discharge Category Date Time Status BMP [Basic Metabolic Panel] Timed Lab 03/22/25 15:00 Ordered Complete Blood Count w/Auto AM LABS Lab 03/23/25 04:00 Ordered Comprehensive Metabolic Panel AM LABS Lab 03/23/25 04:00 Ordered Magnesium AM LABS Lab 03/23/25 04:00 Ordered Phosphorus AM LABS Lab 03/23/25 04:00 Ordered Urine Lytes [Urine Random Lytes] Routine Lab 03/21/25 14:23 Uncollected Laboratory Results WBC 6.22 10^3/uL (3.29-11.43) 03/22/25 05:14 RBC 3.52 10^6/uL (3.85-5.65) L 03/22/25 05:14 Hgb 9.80 g/dL (11.27-16.99) L 03/22/25 05:14 Hct 28.6 % (36-47) L 03/22/25 05:14 MCV 81.3 fl (85-98) L 03/22/25 05:14 MCH 27.8 pg (27-33) 03/22/25 05:14 MCHC 34.3 g/dL (30-55) 03/22/25 05:14 RDW 13.2 % (12.1-15.1) 03/22/25 05:14 Plt Count 368 10^3/cmm (157-399) 03/22/25 05:14 MPV 8.9 fL (7.4-10.4) 03/22/25 05:14 Neut % (Auto) 64.5 % 03/22/25 05:14 Lymph % (Auto) 24.8 % 03/22/25 05:14 Nash % (Auto) 9.3 % 03/22/25 05:14 Eos % (Auto) 0.5 % 03/22/25 05:14 Baso % (Auto) 0.3 % 03/22/25 05:14 Neut # (Auto) 4.01 10^3/uL (1.8-7.7) 03/22/25 05:14 Lymph # (Auto) 1.5 10^3/uL (0.8-4.8) 03/22/25 05:14 Nash # (Auto) 0.6 10^3/uL (0.2-0.9) 03/22/25 05:14 Eos # (Auto) 0.0 10^3/uL (0.0-0.8) 03/22/25 05:14 Baso # (Auto) 0.0 10^3/uL (0.0-0.1) 03/22/25 05:14 Nucleated RBC % (auto) 0 % 03/22/25 05:14 Nucleated RBCs # 0.0 /100WBC 03/22/25 05:14 Sodium 125 mmol/L (136-145) L 03/22/25 05:14 Potassium 3.4 mmol/L (3.5-5.1) L 03/22/25 05:14 Chloride 88 mmol/L (98-107) L 03/22/25 05:14 Carbon Dioxide 24 mmol/L (22-29) 03/22/25 05:14 Anion Gap 16.4 (5-19) 03/22/25 05:14 BUN 9 mg/dL (8-23) 03/22/25 05:14 Creatinine 0.6 mg/dL (0.5-0.9) 03/22/25 05:14 GFR Calculation 102.0 mL/min (90-130) 03/22/25 05:14 Glucose 104 mg/dL (65-115) 03/22/25 05:14 Estimat Average Glucose 100 03/20/25 13:04 Hemoglobin A1c 5.1 % (4.0-6.0) 03/20/25 13:04 Calculated Osmolality 259 mOsm/kg (285-295) L 03/22/25 05:14 Lactic Acid 0.7 mmol/L (0.5-2.2) 03/20/25 15:40 Calcium 8.6 mg/dL (8.5-10.5) 03/22/25 05:14 Phosphorus 3.2 mg/dL (2.5-4.5) 03/22/25 05:14 Magnesium 1.7 mg/dL (1.7-2.3) 03/22/25 05:14 Iron 24 ug/dL (37-145) L 03/20/25 13:04 TIBC 190 mcg/dl 03/20/25 13:04 % Saturation 12.6 % (20-50) L 03/20/25 13:04 Unsat Iron Binding 166 ug/dL (112-347) 03/20/25 13:04 Total Bilirubin 0.4 mg/dL (0.15-1.2) 03/22/25 05:14 AST 6 U/L (0-32) 03/22/25 05:14 ALT < 5 U/L (0-33) 03/22/25 05:14 Alkaline Phosphatase 46 U/L (35-105) 03/22/25 05:14 Total Protein 6.1 g/dL (6.6-8.7) L 03/22/25 05:14 Albumin 3.3 g/dL (3.5-5.2) L 03/22/25 05:14 Globulin 2.8 g/dL (1.3-4.6) 03/22/25 05:14 Triglycerides 110 mg/dL (0-150) 03/21/25 04:40 Cholesterol 95 mg/dL (0-200) 03/21/25 04:40 LDL Cholesterol, Calc 53 mg/dL (50-129) 03/21/25 04:40 HDL Cholesterol 20 mg/dL (60-100) L 03/21/25 04:40 LDL/HDL Ratio 2.65 RATIO (0.00-3.22) 03/21/25 04:40 Cholesterol/HDL Ratio 4.75 mg/dL (0.0-4.40) H 03/21/25 04:40 Lipase 13 U/L (13-60) 03/20/25 13:04 Folate 6.3 ng/mL (4.8-37.3) 03/21/25 04:40 Procalcitonin 0.07 ng/mL (0-0.5) 03/21/25 04:40 TSH 1.26 uIU/mL (0.27-4.20) 03/20/25 13:04 Urine Color Yellow (Yellow) 03/20/25 13:30 Urine Appearance Clear (CLEAR) 03/20/25 13:30 Urine pH 5.5 (5-7) 03/20/25 13:30 Ur Specific [place] 1.024 (1.005-1.030) 03/20/25 13:30 Urine Protein 2+ (Negative) A 03/20/25 13:30 Urine Glucose (UA) Negative (Normal) 03/20/25 13:30 Urine Ketones 3+ (Negative) H 03/20/25 13:30 Urine Blood 3+ (Negative) A 03/20/25 13:30 Urine Nitrate Negative (Negative) 03/20/25 13:30 Urine Bilirubin Negative (Negative) 03/20/25 13:30 Urine Urobilinogen 1.0 mg/dL (Negative) 03/20/25 13:30 Ur Leukocyte Esterase 1+ (Negative) A 03/20/25 13:30 Urine RBC None /hpf (0-2) 03/20/25 13:30 Urine WBC 5-10 /hpf (0-5) H 03/20/25 13:30 Ur Squamous Epith Cells 15-25 /hpf (0-5) H 03/20/25 13:30 Amorphous Sediment Not Reportable 03/20/25 13:30 Urine Bacteria 1+ /hpf (NONE) H 03/20/25 13:30 Ur Random Sodium 40 mmol/L 03/20/25 13:30 Ur Random Potassium 58 mmol/L 03/20/25 13:30 Ur Random Chloride 40 mmol/L 03/20/25 13:30 Urine Opiates Screen Negative ng/mL (Negative) 03/20/25 13:30 Ur Barbiturates Screen Negative ng/mL (Negative) 03/20/25 13:30 Ur Phencyclidine Scrn Negative ng/mL (Negative) 03/20/25 13:30 Ur Amphetamines Screen Negative ng/mL (Negative) 03/20/25 13:30 U Benzodiazepines Scrn Negative ng/mL (Negative) 03/20/25 13:30 Urine Cocaine Screen Negative ng/mL (Negative) 03/20/25 13:30 U Marijuana (THC) Screen Negative ng/mL (Negative) 03/20/25 13:30 Vitals Last Vital Signs Temp 98.4 F 03/22/25 07:19 Pulse 73 03/22/25 07:19 Resp 15 03/22/25 07:19 BP 147/71 03/22/25 07:19 Pulse Ox 93 03/22/25 07:19 O2 Del Method Room Air 03/22/25 07:19 Discharge Plan Discharge Patient Disposition: Home Condition: Stable Prescriptions: New nicotine 21 mg/24 hr Patch 24 Hour 1 patch transdermal DAILY Qty: 14 0RF Continued estradiol [Estrace] 0.01 % (0.1 mg/gram) cream 1 g vaginal .twice weekly Qty: 42.5 3RF Rx Instructions: space out doses atorvastatin 20 mg tablet 20 mg PO DAILY Qty: 90 3RF (DME) CPAP Mask small- Air Touch F-20 with tubing and supplies See Rx Instructions .Route .MEDSUPPLY Qty: 1 0RF Rx Instructions: As directed (DME) oxygen-air delivery systems Device See Rx Instructions .Route Rx Instructions: As directed (DME) Compact Compressor Nebulizer Misc See Rx Instructions .Route Qty: 1 0RF Rx Instructions: As directed, tubing and supplies included. aspirin [Adult Low Dose Aspirin] 81 mg tablet,delayed release (DR/EC) 81 mg PO DAILY Qty: 100 3RF hydroxyzine HCl 25 mg tablet 25 mg PO BID PRN (Reason: anxiety) Qty: 60 1RF metoprolol succinate 50 mg tablet extended release 24 hr 25 mg PO DAILY Qty: 90 0RF (DME) syringe with needle [sciencebiteuch Luer Lock Syr-needle] 3 mL 23 gauge x 1 1/2 syringe See Rx Instructions .Route Qty: 100 1RF Rx Instructions: As directed for B12 injections ipratropium-albuterol 0.5 mg-3 mg(2.5 mg base)/3 mL solution for nebulization 3 ml inhalation Q4H PRN (Reason: wheezing) Qty: 180 3RF sertraline 100 mg tablet 100 mg PO DAILY Qty: 90 0RF ondansetron 4 mg tablet,disintegrating 4 mg PO TID PRN (Reason: nausea and vomiting) Qty: 30 0RF fluticasone propion-salmeterol [Advair Diskus] 250-50 mcg/dose blister with device 2 inh inhalation BID albuterol sulfate 1.25 mg/3 mL solution for nebulization 1.25 mg continuous nebulization Q4H PRN (Reason: Shortness Of Breath Or Whe ezing) albuterol sulfate [Ventolin HFA] 90 mcg/actuation HFA aerosol inhaler 2 puff inhalation Q6H PRN (Reason: Wheezing) cholecalciferol (vitamin D3) [Vitamin D3] 25 mcg (1,000 unit) Tablet 25 mcg PO DAILY promethazine 25 mg tablet 25 mg PO Q6H PRN (Reason: nausea and vomiting) Qty: 14 0RF bupropion HCl 150 mg tablet sustained-release 12 hr 150 mg PO BID cyclobenzaprine 10 mg tablet 10 mg PO TID PRN (Reason: muscle spasms) cyanocobalamin (vitamin B-12) 1,000 mcg/mL solution 1,000 mcg IM Q7D Rx Instructions: Tuesdays Changed pantoprazole 40 mg tablet,delayed release (DR/EC) 40 mg PO BIDWM Qty: 60 0RF potassium chloride 20 mEq tablet extended release 40 meq PO DAILY 14 Days Qty: 28 0RF Discontinued cefdinir 300 mg capsule 300 mg PO BID 7 Days Qty: 14 0RF Referrals: Haley Kinsey MD [Primary Care Provider, [facility]] - 04/20/25 1:30 pm Referral Note: Repeat BMP in 1 week with your PCP Discharge Diet: Advance as tolerated and Full LIquid Patient Instructions: Nicotine (Absorbed through the skin) (Nicoderm CQ, Nicoderm CQ..., How to Stop Smoking (DC), Dehydration (DC), Hyponatremia (DC), Hypokalemia (DC), COPD Stoplight, Opioid Safety, Patient Portal & Royce Instructions Activity Restrictions/Additional Instructions: Continue with full liquid diet for next 1 to 2 days and advance to a regular diet within the next 3 to 4 days. Continue using nicotine patch. Repeat BMP with your primary care provider within next 1 week. Please maintain oral intake with liquids up to 50 ounces daily. At least one third of that should be with Gatorade to maintain your electrolytes. Discharge Attestations Time Spent in Discharge Care*: greater than 30 min Specific Discharge Activities: educating patient, educating and/or supporting family/caregiver, discussing with pcp/other providers, discussing with case loader operator/social workers/dc planners, documenting/other paperwork and evaluating patient/reviewing data Status at Discharge: Cognitive status at discharge: cognitively intact , Behavioral status at discharge: cooperative , Functional status at discharge: independent ambulation , Overall status at discharge: patient is back to baseline Quality Metrics Clinical Quality Measures [ No reported AMI, CVA or VTE this stay] Coding Level of Care Code 51356 Total time (in minutes) for Discharge: 60 Diagnoses Nausea and vomiting R11.2 GERD without esophagitis K21.9 Hyponatremia E87.1 Hypokalemia E87.6 Dehydration E86.0 Anxiety and depression F41.9; F32.9 Chronic hypertension I10 Panlobular emphysema J43.1 COPD type: emphysema Emphysema type: panlobular
[2025-03-22] MEDS: FUROsemide 10 mg/mL SDV 2mL 20 MG IVP (09:00)
[2025-03-22 14:28] LABS: Anion Gap 17.0 (5-19); Blood Urea Nitrogen 12 mg/dL (8-23); Calcium 8.5 mg/dL (8.5-10.5); Carbon Dioxide 25 mmol/L (22-29); Chloride 86 mmol/L (98-107); Creatinine Clr Calc Pharmacy 87.8207; Glucose 96 mg/dL (65-115); Osmolality Calculated 260 mOsm/kg (285-295); Potassium 3.0 mmol/L (3.5-5.1); Sodium 125 mmol/L (136-145)
== END 2025-03-22 15:40 | disposition home or self-care (01) | DRG 641 ==
LOC: ER 13:59 → MEDSURG 17:18
PROVIDERS: Admitting Provider Student in an Organized Health Care Education/Training Program; Emergency Provider Emergency Medicine; PCP Family Medicine; Visit Provider Student in an Organized Health Care Education/Training Program
DX: E86.0 Dehydration (principal); F17.213 Nicotine dependence, cigarettes, with withdrawal; F33.1 Major depressive disorder, recurrent, moderate; K21.9 Gastro-esophageal reflux disease without esophagitis; E87.1 Hypo-osmolality and hyponatremia; E87.6 Hypokalemia; F41.9 Anxiety disorder, unspecified; F32.A Depression, unspecified; I10 Essential (primary) hypertension; J43.1 Panlobular emphysema; E55.9 Vitamin D deficiency, unspecified; M15.9 Polyosteoarthritis, unspecified; E78.5 Hyperlipidemia, unspecified; R25.1 Tremor, unspecified; G47.33 Obstructive sleep apnea (adult) (pediatric); G89.29 Other chronic pain; M54.2 Cervicalgia; Z79.890 Hormone replacement therapy; Z79.82 Long term (current) use of aspirin; Z87.440 Personal history of urinary (tract) infections
CPT/HCPCS: 36415; 80048; 80053; 80061; 80306; 81001; 82436; 82746; 83036; 83540; 83550; 83605; 83690; 83735; 84100; 84133; 84145; 84300; 84443; 85025; 86403; 96361; 96372; 96374; 99285; G0378; J0696; J1644; J1938; J2405; J2470; J3480; J7030; J9999; Q0162

== ENCOUNTER 2025-03-24 19:44 | Inpatient (IN) | payer MEDICAID, SELFPAY ==
--- OUTSIDE RECORDS SUMMARY | 2020-06-14 19:22 | XMS_ITS | Continuity of Care Document ---
Author Organization [facility] Address [address] [place] [address] Phone Care Team Providers Care Cancer Genetics Assistant Name Role Phone No Information Unavailable Unavailable Advance Directives Directive Yes / No Effective Date File Name No Information Encounters Encounter Description Practice Location Reason(s) For Visit Diagnoses Date Provider Providers Copied on Encounter Medical Clinic [facility], [address], [place], [place], [id number], [place] tel:[phone] No Information No Information Family History Family Member Type Diagnosis Age At Onset No Information Payers Payer name Insurance type Covered libertarian ID Authoriza tion(s) No Information Social History Type Description Quantity Date Captured Comments Sex Female Smoking Status No Information Chief Complaint And Reason For Visit No Information Reason For Referral Reason For Referral No Information History Of Present Illness Encounter Date Complaint History Of Prese nt Illness No Information Functional Status Date Functional Assessmen t No Information Instructions Date Instruction Additional Infor mation No Information Assessments Type Assessment Date No Information Patient Care Teams Name Effective Dates (start - stop) Status Members No Information
--- OUTSIDE RECORDS SUMMARY | 2020-06-14 19:22 | XMS_ITS | Continuity of Care Document ---
Author Organization [facility] Address [address] [place] [address] Phone Care Team Providers Care Sourcing Consultant Name Role Phone No Information Unavailable Unavailable Advance Directives Directive Yes / No Effective Date File Name No Information Encounters Encounter Description Practice Location Reason(s) For Visit Diagnoses Date Provider Providers Copied on Encounter Medical Clinic [facility], [address], [place], [place], [id number], [place] tel:[phone] No Information No Information Family History Family Member Type Diagnosis Age At Onset No Information Payers Payer name Insurance type Covered constitution party ID Authoriza tion(s) No Information Social History [...]
[2025-03-24 19:48] VITALS: BP 137/53; PULSE 76; RESP 18; TEMP 37.7; O2SAT 95; BMI 24.6
--- OUTSIDE RECORDS SUMMARY | 2025-03-24 19:48 | XMS_ITS | Patient Health Record ---
Author Organization [facility] Address [address] [place], [place] [id number] Care Team Providers Care Practice Specialist Name Role Phone Kaylynn Boyce APRN Primary Care Provider Kourtney Kendrick MD, William Unavailable [phone] Allergies Allergen (clinical drug ingredient) Drug/Non Drug [...] Risk Notes Problem Lumbosacral spondylosis without myelopathy (14807048) Lumbosacral spondylosis without myelopathy (721.3) Active confirmed Problem Displacement of lumbar intervertebral disc without myelopathy (21526711) Lumbar (w/out myelopathy) intervertebral disc disorder (722.10) Active confirmed Problem Hypersomnia (34010852) Hypersomnia (780.54) Active confirmed Problem Low back pain (286969955) Low back pain (724.2) Active confirmed Problem Long-term drug therapy (026801801) LONG-TERM USE MEDS NEC (V58.69) Active confirmed R/O substance abuse Problem Anxiety state (786251219) Anxiety State, other, specified: procedure related (300.09) Active confirmed Problem Sacroiliitis (39864374) Sacroiliitis (720.2) Active confirmed Plan Of Treatment No Information Insurance Providers Payer Name Payer Address Payer Phone Subscriber Number Group Number Insured Name Patient Relationship to Insured Coverage Start Date Coverage End Date [place] [employer] [address] [place] [address] [id number] Sara Wilcox Self - patient is the insured Medical (General) History Medical History History ICD Code Hypokalemia Sciatica Sacroiliitis Myalgia Bone spurs, lumbar Depression Panic attacks Back pain Hiatal hernia Gastroesophageal reflux disease
--- OUTSIDE RECORDS SUMMARY | 2025-03-24 19:48 | XMS_ITS | Clinical Summary ---
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
--- NOTE | 2025-03-24 20:02 | XRR_ITS ---
PROCEDURE INFORMATION: Exam: XR Chest Exam date and time: 03/24/2025 8:05 PM Age: 59 years old Clinical indication: Other: General weakness; Prior surgery; Surgery date: 6+ months; Surgery type: Gb TECHNIQUE: Imaging protocol: Radiologic exam of the chest. Views: 1 view. COMPARISON: CR XR chest 1V portable [id number] 03/15/2025 1:45 PM FINDINGS: Lungs: Unremarkable. No consolidation. Pleural spaces: Unremarkable. No pleural effusion. No pneumothorax. Heart/Mediastinum: Unremarkable. No cardiomegaly. Bones/joints: Unremarkable. XR/XR chest 1V portable [id number] IMPRESSION: No acute findings.
--- NOTE | 2025-03-24 20:11 | ECG_ITS ---
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 Measurements Intervals [place] Rate: 77 P: 59 IL: 165 QRS: 22 QRSD: 84 T: 35 QT: 402 QTc: 457 Interpretive Statements SINUS RHYTHM NONSPECIFIC T-WAVE ABNORMALITY Compared to ECG 02/20/2025 14:21:34 T-wave abnormality now present Electronically Signed On 03-25-2025 19:07:51 CDT by Abraham García M.D. [email or web address]
--- NOTE | 2025-03-24 20:27 | CTR_ITS ---
PROCEDURE INFORMATION: Exam: CT Head Without Contrast Exam date and time: 03/24/2025 8:37 PM Age: 59 years old Clinical indication: Altered mental status/memory loss; EMS arrival for general weakness. Patient acting confused. Patient discharged from hospital two days ago for hyponatremia. ; Additional info: Confusion TECHNIQUE: Imaging protocol: Computed tomography of the head without contrast. Radiation optimization: All CT scans at this facility use at least one of these dose optimization techniques: automated exposure control; mA and/or kV adjustment per patient size (includes targeted exams where dose is matched to clinical indication); or iterative reconstruction. COMPARISON: MR head wo con* [id number] 02/20/2025 1:33 PM RADIATION DOSE METRICS: Total DLP (mGy-cm): 2012.93 FINDINGS: Brain: Normal. No hemorrhage. Unremarkable white matter. No mass effect. Cerebral ventricles: No ventriculomegaly. Paranasal sinuses: Visualized sinuses are unremarkable. No fluid levels. Mastoid air cells: Visualized mastoid air cells are well aerated. Bones: Unremarkable. No acute fracture. Soft tissues: Unremarkable. CT/CT head wo con* [id number] IMPRESSION: No acute intracranial abnormality.
[2025-03-24 20:30] VITALS: BP 144/72; PULSE 77; O2SAT 94
[2025-03-24 20:36] LABS: Hematocrit 29.4 % (36-47); Hemoglobin 10.40 g/dL (11.27-16.99); Mean Corpuscular HGB Conc 35.4 g/dL (30-55); Mean Corpuscular Hemoglobin 28.3 pg (27-33); Mean Corpuscular Volume 79.9 fl (85-98); Nucleated Red Blood Cells % 0 %; Platelet Count 353 10^3/cmm (157-399); Red Blood Count 3.68 10^6/uL (3.85-5.65); White Blood Count 8.02 10^3/uL (3.29-11.43)
[2025-03-24 20:38] LABS: Glucose Urine UA Negative (Normal); Nitrate Urine Negative (Negative); Specific Gravity, Urine 1.025 (1.005-1.030)
--- NOTE | 2025-03-24 20:40 | ED_ITS ---
Documented by User: FILI Ventura 03/24/25 22:50 HPI - Weakness 2 General: Chief complaint: Weakness Stated complaint: WEAKNESS Source: family (sister) and EMS Mode of arrival: EMS Limitations: altered mental status History of Present Illness: This patient is a 59-year-old female with extensive past medical history, multiple recent visits, and history of recent hospitalization for dehydration and electrolyte abnormalities who was brought in by EMS for generalized weakness and acute change in mental status. She was discharged 3 days ago after IV fluid and electrolyte replacement. Since discharge, her sister reports that the patient has continued to vomit, has had minimal oral intake, and has developed new incontinence of both urine and stool. She was recently treated with antibiotics for urinary tract infection. Today the sister notes worsening confusion and called EMS. On arrival patient is febrile to 100 degrees, hemodynamically stable, but acutely disoriented to place and time and unable to provide reliable history. No reported chest pain, shortness of breath, abdominal pain, or focal neurological deficits prior to the acute change. MD Complaint: generalized weakness Onset (ago): day(s) Duration: constant and progressively worsening Related Data Home Medications ?Medication ?Instructions ?Recorded ?Confirmed oxygen-air delivery systems 12/09/23 03/20/25 albuterol sulfate 1.25 mg/3 mL 1.25 mg continuous nebu lization 02/20/25 03/20/25 solution for nebulization Q4H PRN Shortness Of Breath Or Wheezing albuterol sulfate 90 mcg/actuation 2 puff inhalation Q 6H PRN Wheezing 02/20/25 03/20/25 aerosol inhaler (Ventolin HFA) cholecalciferol (vitamin D3) 25 25 mcg PO DAILY 03/20/25 mcg (1,000 unit) tablet (Vitamin D3) fluticasone 250 mcg-salmeterol 50 2 inh inhalation BID 02/20/25 03/20/25 mcg/dose blistr powdr for inhalation (Advair Diskus) bupropion HCl 150 mg tablet,12 hr 150 mg PO BID 03/20/25 sustained-release cyanocobalamin (vitamin B-12) 1,000 mcg IM Q7D 5 03/20/25 1,000 mcg/mL injection solution cyclobenzaprine 10 mg tablet 10 mg PO TID PRN muscle s pasms 03/20/25 03/20/25 Previous Rx's ?Medication ?Instructions ?Recorded CPAP Mask small- Air Touch F-20 #1 ea 05/05/22 with tubing and supplies nebulizers (Compact Compressor #1 ea 09/18/22 Nebulizer) aspirin 81 mg tablet,delayed 81 mg PO DAILY circulatio n #100 03/21/24 release (Adult Low Dose Aspirin) tabs hydroxyzine HCl 25 mg tablet 25 mg PO BID PRN anxiety #60 tabs 08/03/24 atorvastatin 20 mg tablet 20 mg PO DAILY cholesterol # 90 tabs 08/29/24 metoprolol succinate 50 mg 25 mg (1/2 x 50 mg) PO ANA PAULA Y #90 10/19/24 tablet,extended release 24 hr tabs syringe with needle 3 mL 23 gauge #100 ea 12/19/24 x 1 1/2 (CareTouch Luer Lock Syringe with needle) estradiol 0.01% (0.1 mg/gram) 1 g vaginal .twice weekl y #42.5 12/26/24 vaginal cream (Estrace) grams ipratropium 0.5 mg-albuterol 3 mg 3 ml inhalation Q4H PRN wheezing 12/29/24 (2.5 mg base)/3 mL nebulization #180 mL soln ondansetron 4 mg disintegrating 4 mg PO TID PRN nausea and 03/15/25 tablet vomiting #30 tabs sertraline 100 mg tablet 100 mg PO DAILY #90 tabs promethazine 25 mg tablet 25 mg PO Q6H PRN nausea and 03/17/25 vomiting #14 tabs nicotine 21 mg/24 hr daily 1 patch transdermal DAILY # 14 ea 03/22/25 transdermal patch pantoprazole 40 mg tablet,delayed 40 mg PO BIDWM #60 t abs 03/22/25 release potassium chloride 20 mEq 40 meq (2 x 20 mEq) PO DAILY 14 03/22/25 tablet,extended release days #28 tabs sodium chloride 1,000 mg soluble 1,000 mg PO BID 10 da ys #20 tabs 03/22/25 tablet Allergies Allergy/AdvReac Type Severity Reaction Status Date / Time influenza virus vaccine tvs Allergy rash Verified 03/15/25 11:52 (65 yr and up) (From Fluad (65yr+)(PF)) Penicillins Allergy Rash Verified 03/15/25 11:52 vaccine adjuvant emulsion Allergy rash Verified 03/15/25 11:52 MF59C.1 (From Fluad (65yr+)(PF)) oxycodone AdvReac Dizziness, Verified 03/15/25 11:52 flushed sulfamethoxazole (From AdvReac Nausea Verified 03/15/25 11:52 Bactrim) trimethoprim (From Bactrim) AdvReac Nausea Verified 03/15/25 11:52 Review of Systems 2 General: Reports: ROS unobtainable due to mental status PFSH ED 2 PFSH: Medical History Cervical radiculopathy Vitamin D deficiency Anemia due to vitamin B12 deficiency, unspecified B12 deficiency type now on B12 injections Anemia, unspecified Dizziness Palpitations Vertigo, benign paroxysmal GERD without esophagitis Fasting hyperglycemia Screening for lung cancer started age 6; last LDCT 03.16.24; Nicotine dependence, cigarettes, uncomplicated last LDCT 03.16.24 Atherosclerosis of aorta Renal cyst Chronic neck pain 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 Aaron Ocular migraine Pulmonology Physician, Dr. Aaron Hearing loss of both ears Benign essential tremor Peripheral neuropathic pain Dyslipidemia (high LDL; low HDL) Osteoarthritis involving multiple joints on both sides of body Chronic back pain Reports having a herniated disc in her lower back and neck and just takes muscle relaxers for this. Used to follow up with the pain clinic in the past but not anymore and this is managed by her primary care provider Anxiety and depression COPD (chronic obstructive pulmonary disease) Diagnosed in 2016 and is controlled with medication managed by PMD at this time Chronic hypertension Surgical History H/O vaginal surgery 05/21/2021- Rectovaginal fistula repair performed by Dr. Cruz at [facility] Status post hysteroscopy 09/17/2020---hysteroscopy with D&C for postmenopausal bleeding performed by Dr. Ingram at [facility]. ---at time of hysteroscopy benign atrophic endometrium identified without any polyps. Pathology showed inactive endometrial glands on a background of mucin and debris, no atypia or hyperplasia polyps or malignancy identified. History of colonoscopy (09/17/20) 2015; 2.5.21 colitis--txed w/ abx, hyperplastic polyp; surgeon note says f/u colonoscopy 10 yrs S/P cholecystectomy Laparoscopic procedure performed by Dr. Hudson at [facility] in June 2020 S/P section At the age of 20 S/P tubal ligation At the age of 20 when she had her Family History Mother Diabetes Hypertension Thyroid disease Hyperlipidemia Sister Diabetes Hypertension Lung cancer Hyperlipidemia Father Diabetes Stroke Grandmother Breast cancer MGM Family/Other Prostate cancer PATERNAL UNCLE Denies family history of Ovarian cancer Myocardial infarction Uterine cancer Social History Smoking and tobacco/nicotine status: never used tobacco/nicotine Alcohol intake: never Substance/Drug Use: never Household members: other Details: lives with sister and her Marital status: / Number of children: 3 Highest education level completed: 10th Grade Current occupational status: disabled 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; 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 Female Reproductive History: Spontaneous abortions: No Physical Exam 2 Const: COMMON NORMALS: average body habitus and alert EXAM LIMITATIONS: a ltered mental status GENERAL APPEARANCE: ill appearing O RIENTATION/CONSCIOUSNESS: Yes awake OTHER: Oriented to person, disoriented to place and time HENMT: COMMON NORMALS: normocephalic and atraumatic HEAD & SCALP: n ormocephalic and atraumatic OTHER: Dry oral mucosa, cracked tongue Eye: COMMON NORMALS: Equal, round and reactive pupils present, EOMs intact bilaterally and conjunctivae normal CONJUNCTIVA: Yes conjunctivae normal P UPIL: Yes Equal, round and reactive pupils present Neck/C-Spine: COMMON NORMALS: full ROM, supple and no JVD GENERAL: Yes normal visual inspection CERVICAL SPINE: Yes cervical ROM normal Resp: COMMON NORMALS: normal respiratory effort, No retractions, No use of accessory muscles and clear to auscultation bilaterally AUSCULTATION: clear to auscultation bilaterally Cardio: COMMON NORMALS: no JVD, regular rate, regular rhythm and Peripheral pulses 2+ throughout RATE: regular rate RHYTHM: regular rhythm P ERIPHERAL PULSES: Peripheral pulses 2+ throughout GI: COMMON NORMALS: Normal to inspection, nondistended, normoactive bowel sounds present, Soft to palpation and non-tender PALPATION: Yes Soft to palpation Extremity: COMMON NORMALS: normal to inspection, full ROM, capillary refill normal and no pedal edema Neuro: COMMON NORMALS: moves all extremities, no focal motor deficits and no sensory deficits noted SENSORIUM/ORIENTATION: Yes alert OTHER: No appreciable facial droop. No unilateral extremity weakness or paralysis. No apparent speech abnormalities. Skin: COMMON NORMALS: no rashes or lesions noted GENERAL SKIN EXAM: no rashes or lesions noted Course 2 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 She is experience progressive confusion over the past 3 weeks, poor oral intake, intermittent urinary and fecal incontinence, and refusal of medications at home, resulting in her inability to safely care for herself. On presentation she was febrile to 100 degrees but hemodynamically stable with labs notable for chronic hyponatremia and hypokalemia; the remainder of her labs, including CBC, UA, and viral panel, were unremarkable. Imaging, including recent head MRI that was reviewed, was also unremarkable and with today's visit including a normal head CT and normal chest x-ray. Plan for admission to medicine service for IV fluid electrolyte management, monitoring and supportive nutrition, and supervision of medication administration. Likely there will be coordination with social work and potential discharge to correction facility. Infectious causes will continue to monitor given her low-grade fever, but empiric antibiotics not initiated at present. Electrolytes will be closely monitored and corrected cautiously given the chronicity. Discussed with son who arrived plan for admission, he agreed and all other questions and concerns addressed. Dr. Mauricio to put in manage orders. Dr. Pfeiffer is the admitting hospitalist. Lab Data 03/24/25 20:20 03/24/25 20:20 Radiology Impressions Chest X-Ray 03/24/25 20:02 IMPRESSION: No acute findings. Head CT 03/24/25 20:27 IMPRESSION: No acute intracranial abnormality. Laboratory Results WBC 8.02 10^3/uL (3.29-11.43) 03/24/25 20:20 RBC 3.68 10^6/uL (3.85-5.65) L 03/24/25 20:20 Hgb 10.40 g/dL (11.27-16.99) L 03/24/25 20:20 Hct 29.4 % (36-47) L 03/24/25 20:20 MCV 79.9 fl (85-98) L 03/24/25 20:20 MCH 28.3 pg (27-33) 03/24/25 20:20 MCHC 35.4 g/dL (30-55) 03/24/25 20:20 RDW 13.1 % (12.1-15.1) 03/24/25 20:20 Plt Count 353 10^3/cmm (157-399) 03/24/25 20:20 MPV 8.5 fL (7.4-10.4) 03/24/25 20:20 Neut % (Auto) 75.9 % 03/24/25 20:20 Lymph % (Auto) 12.6 % 03/24/25 20:20 [place] % (Auto) 10.2 % 03/24/25 20:20 Eos % (Auto) 0.2 % 03/24/25 20:20 Baso % (Auto) 0.1 % 03/24/25 20:20 Neut # (Auto) 6.08 10^3/uL (1.8-7.7) 03/24/25 20:20 Lymph # (Auto) 1.0 10^3/uL (0.8-4.8) 03/24/25 20:20 [place] # (Auto) 0.8 10^3/uL (0.2-0.9) 03/24/25 20:20 Eos # (Auto) 0.0 10^3/uL (0.0-0.8) 03/24/25 20:20 Baso # (Auto) 0.0 10^3/uL (0.0-0.1) 03/24/25 20:20 Nucleated RBC % (auto) 0 % 03/24/25 20:20 Nucleated RBCs # 0.0 /100WBC 03/24/25 20:20 ESR 32 mm/hr (0-15) H 03/24/25 20:20 Sodium 126 mmol/L (136-145) L 03/24/25 20:20 Potassium 3.0 mmol/L (3.5-5.1) L 03/24/25 20:20 Chloride 85 mmol/L (98-107) L 03/24/25 20:20 Carbon Dioxide 26 mmol/L (22-29) 03/24/25 20:20 Anion Gap 18.0 (5-19) 03/24/25 20:20 BUN 14 mg/dL (8-23) 03/24/25 20:20 Creatinine 0.7 mg/dL (0.5-0.9) 03/24/25 20:20 GFR Calculation 85.4 mL/min (90-130) L 03/24/25 20:20 Glucose 106 mg/dL (65-115) 03/24/25 20:20 Calculated Osmolality 263 mOsm/kg (285-295) L 03/24/25 20:20 Lactic Acid 0.8 mmol/L (0.5-2.2) 03/24/25 20:20 Calcium 8.7 mg/dL (8.5-10.5) 03/24/25 20:20 Total Bilirubin 0.6 mg/dL (0.15-1.2) 03/24/25 20:20 AST 6 U/L (0-32) 03/24/25 20:20 ALT < 5 U/L (0-33) 03/24/25 20:20 Alkaline Phosphatase 45 U/L (35-105) 03/24/25 20:20 C-Reactive Protein 19.4 mg/L (0.0-4.9) H 03/24/25 20:20 Total Protein 6.3 g/dL (6.6-8.7) L 03/24/25 20:20 Albumin 3.5 g/dL (3.5-5.2) 03/24/25 20:20 Globulin 2.8 g/dL (1.3-4.6) 03/24/25 20:20 Procalcitonin 0.05 ng/mL (0-0.5) 03/24/25 20:20 Urine Color Yellow (Yellow) 03/24/25 20:23 Urine Appearance Clear (CLEAR) 03/24/25 20:23 Urine pH 5.5 (5-7) 03/24/25 20:23 Ur Specific [place] 1.025 (1.005-1.030) 03/24/25 20: Urine Protein 2+ (Negative) A 03/24/25 20:23 Urine Glucose (UA) Negative (Normal) 03/24/25 20: Urine Ketones 1+ (Negative) H 03/24/25 20:23 Urine Blood 3+ (Negative) A 03/24/25 20:23 Urine Nitrate Negative (Negative) 03/24/25 20:23 Urine Bilirubin Negative (Negative) 03/24/25 20:23 Urine Urobilinogen 1.0 mg/dL (Negative) 03/24/25 20:23 Ur Leukocyte Esterase Negative (Negative) 03/24/25 20:23 Urine RBC 11-20 /hpf (0-2) H 03/24/25 20:23 Urine WBC 0-5 /hpf (0-5) 03/24/25 20:23 Ur Squamous Epith Cells 6-10 /hpf (0-5) 03/24/25 20:23 Amorphous Sediment Not Reportable 03/24/25 20:23 Urine Bacteria None seen /hpf (NONE) 03/24/25 20:23 Hyaline Casts 8.26 /lpf 03/24/25 20:23 Influenza A (PCR) Negative (Negative) 03/24/25 20:10 Influenza Type B (PCR) Negative (Negative) 03/24/25 20:10 RSV (PCR) Negative (Negative) 03/24/25 20:10 SARS-CoV-2 (PCR) Negative (Negative) 03/24/25 20:10 All radiology interpretation(s) finalized by discharge Discharge Plan Discharge Patient Disposition: Admitted As Inpatient Admit Provider: Dimitrios Pfeiffer Clinical Impression: Adult failure to thrive, Hyponatremia, Hypokalemia Condition: Stable Coding Level of Care Code ED Reproductive Surgeon for Chg Fwd Documented by User: Jarrett Mauricio, DO 03/24/25 23:06 HPI - Weakness 2 General: Chief complaint: Weakness Stated complaint: WEAKNESS Related Data Home Medications ?Medication ?Instructions ?Recorded ?Confirmed oxygen-air delivery systems 12/09/23 03/20/25 albuterol sulfate 1.25 mg/3 mL 1.25 mg continuous nebu lization 02/20/25 03/20/25 solution for nebulization Q4H PRN Shortness Of Breath Or Wheezing albuterol sulfate 90 mcg/actuation 2 puff inhalation Q 6H PRN Wheezing 02/20/25 03/20/25 aerosol inhaler (Ventolin HFA) cholecalciferol (vitamin D3) 25 25 mcg PO DAILY 03/20/25 mcg (1,000 unit) tablet (Vitamin D3) fluticasone 250 mcg-salmeterol 50 2 inh inhalation BID 02/20/25 03/20/25 mcg/dose blistr powdr for inhalation (Advair Diskus) bupropion HCl 150 mg tablet,12 hr 150 mg PO BID 03/20/25 sustained-release cyanocobalamin (vitamin B-12) 1,000 mcg IM Q7D 5 03/20/25 1,000 mcg/mL injection solution cyclobenzaprine 10 mg tablet 10 mg PO TID PRN muscle s pasms 03/20/25 03/20/25 Previous Rx's ?Medication ?Instructions ?Recorded CPAP Mask small- Air Touch F-20 #1 ea 05/05/22 with tubing and supplies nebulizers (Compact Compressor #1 ea 09/18/22 Nebulizer) aspirin 81 mg tablet,delayed 81 mg PO DAILY circulatio n #100 03/21/24 release (Adult Low Dose Aspirin) tabs hydroxyzine HCl 25 mg tablet 25 mg PO BID PRN anxiety #60 tabs 08/03/24 atorvastatin 20 mg tablet 20 mg PO DAILY cholesterol # 90 tabs 08/29/24 metoprolol succinate 50 mg 25 mg (1/2 x 50 mg) PO ANA PAULA Y #90 10/19/24 tablet,extended release 24 hr tabs syringe with needle 3 mL 23 gauge #100 ea 12/19/24 x 1 1/2 (CareTouch Luer Lock Syringe with needle) estradiol 0.01% (0.1 mg/gram) 1 g vaginal .twice weekl y #42.5 12/26/24 vaginal cream (Estrace) grams ipratropium 0.5 mg-albuterol 3 mg 3 ml inhalation Q4H PRN wheezing 12/29/24 (2.5 mg base)/3 mL nebulization #180 mL soln ondansetron 4 mg disintegrating 4 mg PO TID PRN nausea and 03/15/25 tablet vomiting #30 tabs sertraline 100 mg tablet 100 mg PO DAILY #90 tabs promethazine 25 mg tablet 25 mg PO Q6H PRN nausea and 03/17/25 vomiting #14 tabs nicotine 21 mg/24 hr daily 1 patch transdermal DAILY # 14 ea 03/22/25 transdermal patch pantoprazole 40 mg tablet,delayed 40 mg PO BIDWM #60 t abs 03/22/25 release potassium chloride 20 mEq 40 meq (2 x 20 mEq) PO DAILY 14 03/22/25 tablet,extended release days #28 tabs sodium chloride 1,000 mg soluble 1,000 mg PO BID 10 da ys #20 tabs 03/22/25 tablet Allergies Allergy/AdvReac Type Severity Reaction Status Date / Time influenza virus vaccine tvs Allergy rash Verified 03/15/25 11:52 (65 yr and up) (From Fluad (65yr+)(PF)) Penicillins Allergy Rash Verified 03/15/25 11:52 vaccine adjuvant emulsion Allergy rash Verified 03/15/25 11:52 MF59C.1 (From Fluad (65yr+)(PF)) oxycodone AdvReac Dizziness, Verified 03/15/25 11:52 flushed sulfamethoxazole (From AdvReac Nausea Verified 03/15/25 11:52 Bactrim) trimethoprim (From Bactrim) AdvReac Nausea Verified 03/15/25 11:52 PFSH ED 2 PFSH: Medical History Cervical radiculopathy Vitamin D deficiency Anemia due to vitamin B12 deficiency, unspecified B12 deficiency type now on B12 injections Anemia, unspecified Dizziness Palpitations Vertigo, benign paroxysmal GERD without esophagitis Fasting hyperglycemia Screening for lung cancer started age 6; last LDCT 03.16.24; Nicotine dependence, cigarettes, uncomplicated last LDCT 03.16.24 Atherosclerosis of aorta Renal cyst Chronic neck pain 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 Aaron Ocular migraine Pulmonology Physician, Dr. Aaron Hearing loss of both ears Benign essential tremor Peripheral neuropathic pain Dyslipidemia (high LDL; low HDL) Osteoarthritis involving multiple joints on both sides of body Chronic back pain Reports having a herniated disc in her lower back and neck and just takes muscle relaxers for this. Used to follow up with the pain clinic in the past but not anymore and this is managed by her primary care provider Anxiety and depression COPD (chronic obstructive pulmonary disease) Diagnosed in 2016 and is controlled with medication managed by PMD at this time Chronic hypertension Surgical History H/O vaginal surgery 05/21/2021- Rectovaginal fistula repair performed by Dr. Cruz at [facility] Status post hysteroscopy 09/17/2020---hysteroscopy with D&C for postmenopausal bleeding performed by Dr. Ingram at [facility]. ---at time of hysteroscopy benign atrophic endometrium identified without any polyps. Pathology showed inactive endometrial glands on a background of mucin and debris, no atypia or hyperplasia polyps or malignancy identified. History of colonoscopy (09/17/20) 2016; 2.5.21 colitis--txed w/ abx, hyperplastic polyp; surgeon note says f/u colonoscopy 10 yrs S/P cholecystectomy Laparoscopic procedure performed by Dr. Hudson at [facility] in June 2020 S/P section At the age of 20 S/P tubal ligation At the age of 20 when she had her Family History Mother Diabetes Hypertension Thyroid disease Hyperlipidemia Sister Diabetes Hypertension Lung cancer Hyperlipidemia Father Diabetes Stroke Grandmother Breast cancer MGM Family/Other Prostate cancer PATERNAL UNCLE Denies family history of Ovarian cancer Myocardial infarction Uterine cancer Social History Smoking and tobacco/nicotine status: never used tobacco/nicotine Alcohol intake: never Substance/Drug Use: never Household members: other Details: lives with sister and her Marital status: / Number of children: 3 Highest education level completed: 10th Grade Current occupational status: disabled 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 She is experience progressive confusion over the past 3 weeks, poor oral intake, intermittent urinary and fecal incontinence, and refusal of medications at home, resulting in her inability to safely care for herself. On presentation she was febrile to 100 degrees but hemodynamically stable with labs notable for chronic hyponatremia and hypokalemia; the remainder of her labs, including CBC, UA, and viral panel, were unremarkable. Imaging, including recent head MRI that was reviewed, was also unremarkable and with today's visit including a normal head CT and normal chest x-ray. Plan for admission to medicine service for IV fluid electrolyte management, monitoring and supportive nutrition, and supervision of medication administration. Likely there will be coordination with social work and potential discharge to correction facility. Infectious causes will continue to monitor given her low-grade fever, but empiric antibiotics not initiated at present. Electrolytes will be closely monitored and corrected cautiously given the chronicity. Discussed with son who arrived plan for admission, he agreed and all other questions and concerns addressed. Dr. Mauricio to put in manage orders. Dr. Pfeiffer is the admitting hospitalist. Patient originally seen by Mr. Jessica PA-C. I agree with his history, evaluation, and management. Lab Data 03/24/25 20:20 03/24/25 20:20 Radiology Impressions Chest X-Ray 03/24/25 20:02 IMPRESSION: No acute findings. Head CT 03/24/25 20:27 IMPRESSION: No acute intracranial abnormality. Laboratory Results WBC 8.02 10^3/uL (3.29-11.43) 03/24/25 20:20 RBC 3.68 10^6/uL (3.85-5.65) L 03/24/25 20:20 Hgb 10.40 g/dL (11.27-16.99) L 03/24/25 20:20 Hct 29.4 % (36-47) L 03/24/25 20:20 MCV 79.9 fl (85-98) L 03/24/25 20:20 MCH 28.3 pg (27-33) 03/24/25 20:20 MCHC 35.4 g/dL (30-55) 03/24/25 20:20 RDW 13.1 % (12.1-15.1) 03/24/25 20:20 Plt Count 353 10^3/cmm (157-399) 03/24/25 20:20 MPV 8.5 fL (7.4-10.4) 03/24/25 20:20 Neut % (Auto) 75.9 % 03/24/25 20:20 Lymph % (Auto) 12.6 % 03/24/25 20:20 [place] % (Auto) 10.2 % 03/24/25 20:20 Eos % (Auto) 0.2 % 03/24/25 20:20 Baso % (Auto) 0.1 % 03/24/25 20:20 Neut # (Auto) 6.08 10^3/uL (1.8-7.7) 03/24/25 20:20 Lymph # (Auto) 1.0 10^3/uL (0.8-4.8) 03/24/25 20:20 [place] # (Auto) 0.8 10^3/uL (0.2-0.9) 03/24/25 20:20 Eos # (Auto) 0.0 10^3/uL (0.0-0.8) 03/24/25 20:20 Baso # (Auto) 0.0 10^3/uL (0.0-0.1) 03/24/25 20:20 Nucleated RBC % (auto) 0 % 03/24/25 20:20 Nucleated RBCs # 0.0 /100WBC 03/24/25 20:20 ESR 32 mm/hr (0-15) H 03/24/25 20:20 Sodium 126 mmol/L (136-145) L 03/24/25 20:20 Potassium 3.0 mmol/L (3.5-5.1) L 03/24/25 20:20 Chloride 85 mmol/L (98-107) L 03/24/25 20:20 Carbon Dioxide 26 mmol/L (22-29) 03/24/25 20:20 Anion Gap 18.0 (5-19) 03/24/25 20:20 BUN 14 mg/dL (8-23) 03/24/25 20:20 Creatinine 0.7 mg/dL (0.5-0.9) 03/24/25 20:20 GFR Calculation 85.4 mL/min (90-130) L 03/24/25 20:20 Glucose 106 mg/dL (65-115) 03/24/25 20:20 Calculated Osmolality 263 mOsm/kg (285-295) L 03/24/25 20:20 Lactic Acid 0.8 mmol/L (0.5-2.2) 03/24/25 20:20 Calcium 8.7 mg/dL (8.5-10.5) 03/24/25 20:20 Total Bilirubin 0.6 mg/dL (0.15-1.2) 03/24/25 20:20 AST 6 U/L (0-32) 03/24/25 20:20 ALT < 5 U/L (0-33) 03/24/25 20:20 Alkaline Phosphatase 45 U/L (35-105) 03/24/25 20:20 C-Reactive Protein 19.4 mg/L (0.0-4.9) H 03/24/25 20:20 Total Protein 6.3 g/dL (6.6-8.7) L 03/24/25 20: Albumin 3.5 g/dL (3.5-5.2) 03/24/25 20: Globulin 2.8 g/dL (1.3-4.6) 03/24/25 20:20 Procalcitonin 0.05 ng/mL (0-0.5) 03/24/25 20:20 Urine Color Yellow (Yellow) 03/24/25 20: Urine Appearance Clear (CLEAR) 03/24/25 20: Urine pH 5.5 (5-7) 03/24/25: Ur Specific [place] 1.025 (1.005-1.030) 03/24/25: Urine Protein 2+ (Negative) A 03/24/25: Urine Glucose (UA) Negative (Normal) 03/24/25 20: Urine Ketones 1+ (Negative) H 03/24/25 20: Urine Blood 3+ (Negative) A 03/24/25: Urine Nitrate Negative (Negative) 03/24/25: Urine Bilirubin Negative (Negative) 03/24/25 20: Urine Urobilinogen 1.0 mg/dL (Negative) 03/24/25 20: Ur Leukocyte Esterase Negative (Negative) 03/24/25 20:23 Urine RBC 11-20 /hpf (0-2) H 03/24/25 20:23 Urine WBC 0-5 /hpf (0-5) 03/24/25 20:23 Ur Squamous Epith Cells 6-10 /hpf (0-5) 03/24/25 20: Amorphous Sediment Not Reportable 03/24/25 20:23 Urine Bacteria None seen /hpf (NONE) 03/24/25 20:23 Hyaline Casts 8.26 /lpf 03/24/25 20:23 Influenza A (PCR) Negative (Negative) 03/24/25 20: Influenza Type B (PCR) Negative (Negative) 03/24/25 20:10 RSV (PCR) Negative (Negative) 03/24/25 20:10 SARS-CoV-2 (PCR) Negative (Negative) 03/24/25 20:10 Discharge Plan Discharge Patient Disposition: Admitted As Inpatient Admit Provider: Dimitrios Pfeiffer Clinical Impression: Adult failure to thrive, Hyponatremia, Hypokalemia Condition: Stable Coding Level of Care Code ED Reproductive Surgeon for Britta Zhu
[2025-03-24 20:43] LABS: Add Urine Microscopic? YES
[2025-03-24 20:57] LABS: Alanine Aminotransferase < 5 U/L (0-33); Albumin Level 3.5 g/dL (3.5-5.2); Alkaline Phosphatase 45 U/L (35-105); Anion Gap 18.0 (5-19); Aspartate Amino Transferase 6 U/L (0-32); Blood Urea Nitrogen 14 mg/dL (8-23); Calcium 8.7 mg/dL (8.5-10.5); Carbon Dioxide 26 mmol/L (22-29); Chloride 85 mmol/L (98-107); Creatinine Clr Calc Pharmacy 74.6624; Globulin 2.8 g/dL (1.3-4.6); Glucose 106 mg/dL (65-115); Lactic Sepsis W/Reflex 0.8 mmol/L (0.5-2.2); Osmolality Calculated 263 mOsm/kg (285-295); Potassium 3.0 mmol/L (3.5-5.1); Sodium 126 mmol/L (136-145); Total Protein 6.3 g/dL (6.6-8.7)
[2025-03-24 21:03] LABS: Respiratory Syncytial Virus Ce NEGATIVE (Negative); SARS-CoV-2 PCR NEGATIVE (Negative)
[2025-03-24 21:04] VITALS: BP 158/64; PULSE 77; RESP 16; O2SAT 94
--- NOTE | 2025-03-24 21:08 | PC.NURSE ---
This nurse called and spoke to pt's sister for pt's current status, per sister pt has been confused [id number] with dizziness, nausea, not eating, not drinking well, and that pt has not taken her medications d/t confusion for the past few weeks. Pt sister states that pt has been incontinent of bowel, and throwing soiled clothes in the floor. When asked if penitentiary placement would be appropriate sister agrees. Jessica notified.
[2025-03-24 21:10] LABS: UA Slide Review UA Slide Review Perf
[2025-03-24 22:34] LABS: Procalcitonin 0.05 ng/mL (0-0.5)
--- NOTE | 2025-03-24 22:50 | CTR_ITS ---
PROCEDURE INFORMATION: Exam: CT Chest Without Contrast; Diagnostic Exam date and time: 03/24/2025 11:01 PM Age: 59 years old Clinical indication: Other: Weight loss. Lethargy; Prior surgery; Surgery date: 6+ months; Surgery type: Gb; General maliase with weight loss; Additional info: Weight loss, fatigue TECHNIQUE: Imaging protocol: Diagnostic computed tomography of the chest without contrast. Radiation optimization: All CT scans at this facility use at least one of these dose optimization techniques: automated exposure control; mA and/or kV adjustment per patient size (includes targeted exams where dose is matched to clinical indication); or iterative reconstruction. COMPARISON: CT lung screening [id number] 03/16/2024 3:13 PM RADIATION DOSE METRICS: Total DLP (mGy-cm): 187.93 FINDINGS: Lungs: The lungs are mildly hyperinflated, but free of consolidation. Pleural spaces: Unremarkable. No pneumothorax. No pleural effusion. Heart: Unremarkable. No cardiomegaly. No pericardial effusion. Lymph nodes: Unremarkable. No enlarged lymph nodes. Vasculature: Calcific plaque involves the thoracic aorta and coronary arteries. Diaphragm: Small hiatal hernia. Bones/joints: No acute bony abnormality. Soft tissues: Unremarkable. CT/CT chest con [id number] IMPRESSION: No acute abnormality.
--- NOTE | 2025-03-24 23:02 | ECG_ITS ---
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 Measurements Intervals [place] Rate: 76 P: 61 HI: 171 QRS: 20 QRSD: 85 T: 31 QT: 400 QTc: 451 Interpretive Statements SINUS RHYTHM Compared to ECG 03/24/2025 20:11:24 T-wave abnormality no longer present Electronically Signed On 03-25-2025 18:50:13 CDT by Abraham García M.D. [email or web address] [id number]
--- NOTE | 2025-03-24 23:05 | PM.HP ---
Providers/Chief Complaint Admitting Physician: Dimitrios Pfeiffer MD Primary Care Provider: Haley Kinsey MD Chief Complaint: WEAKNESS History of Present Illness Sara López is a 59 year old female with past medical anxiety, depression, GERD, hypertension, who presents [facility] due to confusion, generalized weakness, poor appetite, weight loss over 30 pounds. 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, and that is all she does, son does tell me that Piper is dealing with her mother's recent fall and surgery, and her father is undergoing cancer treatment, denies any headache, blurry vision, no fevers, no chills, no neck pain, no neck stiffness Review of Systems Const: Denies: fever(s) or chills Card: Denies: chest pain Resp: Denies: dyspnea GI: Denies: abdominal pain Medications/Allergies Home Medications ?Medication ?Instructions ?Recorded ?Confirmed ?Last Taken ?Type CPAP Mask small- Air Touch F-20 #1 ea 05/05/22 03/20/25 Unknown Rx with tubing and supplies nebulizers (Compact Compressor #1 ea 09/18/22 03/20/25 Unknown Rx Nebulizer) oxygen-air delivery systems 12/09/23 03/20/25 Unknown History aspirin 81 mg tablet,delayed 81 mg PO DAILY circulation #100 03/21/24 03/20/25 03/20/25 Rx release (Adult Low Dose Aspirin) tabs hydroxyzine HCl 25 mg tablet 25 mg PO BID PRN anxiety #60 tabs 08/03/24 03/20/25 Unknown Rx atorvastatin 20 mg tablet 20 mg PO DAILY cholesterol #90 tabs 08/29/24 03/20/25 03/20/25 Rx metoprolol succinate 50 mg 25 mg (1/2 x 50 mg) PO DAILY #90 10/19/24 03/20/25 03/20/25 Rx tablet,extended release 24 hr tabs syringe with needle 3 mL 23 gauge #100 ea 12/19/24 03/20/25 Unknown Rx x 1 1/2 (CareTouch Luer Lock Syringe with needle) estradiol 0.01% (0.1 mg/gram) 1 g vaginal .twice weekly #42.5 12/26/24 03/20/25 02/19/25 Rx vaginal cream (Estrace) grams ipratropium 0.5 mg-albuterol 3 mg 3 ml inhalation Q4H PRN wheezing 12/29/24 03/20/25 Unknown Rx (2.5 mg base)/3 mL nebulization #180 mL soln albuterol sulfate 1.25 mg/3 mL 1.25 mg continuous nebulization 02/20/25 03/20/25 02/20/25 History solution for nebulization Q4H PRN Shortness Of Breath Or Wheezing albuterol sulfate 90 mcg/actuation 2 puff inhalation Q6H PRN Wheezing 02/20/25 03/20/25 02/19/25 History aerosol inhaler (Ventolin HFA) cholecalciferol (vitamin D3) 25 25 mcg PO DAILY 02/20/25 03/20/25 03/20/25 History mcg (1,000 unit) tablet (Vitamin D3) fluticasone 250 mcg-salmeterol 50 2 inh inhalation BID 02/20/25 03/20/25 03/20/25 History mcg/dose blistr powdr for inhalation (Advair Diskus) ondansetron 4 mg disintegrating 4 mg PO TID PRN nausea and 03/15/25 03/20/25 Unknown Rx tablet vomiting #30 tabs sertraline 100 mg tablet 100 mg PO DAILY #90 tabs 03/15/25 03/20/25 03/20/25 Rx promethazine 25 mg tablet 25 mg PO Q6H PRN nausea and 03/17/25 03/20/25 Unknown Rx vomiting #14 tabs bupropion HCl 150 mg tablet,12 hr 150 mg PO BID 03/20/25 03/20/25 03/20/25 History sustained-release cyanocobalamin (vitamin B-12) 1,000 mcg IM Q7D 03/20/25 03/20/25 03/20/25 History 1,000 mcg/mL injection solution cyclobenzaprine 10 mg tablet 10 mg PO TID PRN muscle spasms 03/20/25 03/20/25 Unknown History nicotine 21 mg/24 hr daily 1 patch transdermal DAILY #14 ea 03/22/25 Unknown Rx transdermal patch pantoprazole 40 mg tablet,delayed 40 mg PO BIDWM #60 tabs 03/22/25 03/20/25 03/20/25 Rx release potassium chloride 20 mEq 40 meq (2 x 20 mEq) PO DAILY 14 03/22/25 03/20/25 03/20/25 Rx tablet,extended release days #28 tabs sodium chloride 1,000 mg soluble 1,000 mg PO BID 10 days #20 tabs 03/22/25 Unknown Rx tablet Allergies Allergy/AdvReac Type Severity Reaction Status Date / Time influenza virus vaccine tvs Allergy rash Verified 03/15/25 11:52 (65 yr and up) (From Fluad (65yr+)(PF)) Penicillins Allergy Rash Verified 03/15/25 11:52 vaccine adjuvant emulsion Allergy rash Verified 03/15/25 11:52 MF59C.1 (From Fluad (65yr+)(PF)) oxycodone AdvReac Dizziness, Verified 03/15/25 11:52 flushed sulfamethoxazole (From AdvReac Nausea Verified 03/15/25 11:52 Bactrim) trimethoprim (From Bactrim) AdvReac Nausea Verified 03/15/25 11:52 PFSH Acute PFSH: Medical History Cervical radiculopathy Vitamin D deficiency Anemia due to vitamin B12 deficiency, unspecified B12 deficiency type now on B12 injections Anemia, unspecified Dizziness Palpitations Vertigo, benign paroxysmal GERD without esophagitis Fasting hyperglycemia Screening for lung cancer started age 6; last LDCT 03.16.24; Nicotine dependence, cigarettes, uncomplicated last LDCT 03.16.24 Atherosclerosis of aorta Renal cyst Chronic neck pain 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 Aaron Ocular migraine Assistant Professor Of Business, Dr. Aaron Hearing loss of both ears Benign essential tremor Peripheral neuropathic pain Dyslipidemia (high LDL; low HDL) Osteoarthritis involving multiple joints on both sides of body Chronic back pain Reports having a herniated disc in her lower back and neck and just takes muscle relaxers for this. Used to follow up with the pain clinic in the past but not anymore and this is managed by her primary care provider Anxiety and depression COPD (chronic obstructive pulmonary disease) Diagnosed in 2015 and is controlled with medication managed by PMD at this time Chronic hypertension Surgical History H/O vaginal surgery 05/21/2021- Rectovaginal fistula repair performed by Dr. Cruz at [facility] Status post hysteroscopy 09/17/2020---hysteroscopy with D&C for postmenopausal bleeding performed by Dr. Ingram at [facility]. ---at time of hysteroscopy benign atrophic endometrium identified without any polyps. Pathology showed inactive endometrial glands on a background of mucin and debris, no atypia or hyperplasia polyps or malignancy identified. History of colonoscopy (09/17/20) 2015; 2.5.21 colitis--txed w/ abx, hyperplastic polyp; surgeon note says f/u colonoscopy 10 yrs S/P cholecystectomy Laparoscopic procedure performed by Dr. Hudson at [facility] in June 2020 S/P section At the age of 20 S/P tubal ligation At the age of 20 when she had her Family History Mother Diabetes Hypertension Thyroid disease Hyperlipidemia Sister Diabetes Hypertension Lung cancer Hyperlipidemia Father Diabetes Stroke Grandmother Breast cancer MGM Family/Other Prostate cancer PATERNAL UNCLE Denies family history of Ovarian cancer Myocardial infarction Uterine cancer Social History Smoking and tobacco/nicotine status: never used tobacco/nicotine Alcohol intake: never Substance/Drug Use: never Household members: other Details: lives with sister and her Marital status: / Number of children: 3 Highest education level completed: 10th Grade Current occupational status: disabled 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; 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 Female Reproductive History: Spontaneous abortions: No Vitals/I&O/Wt Last Vital Signs Temp 100 F H 03/24/25 19:48 Pulse 77 03/24/25 21:04 Resp 16 03/24/25 21:04 BP 158/64 03/24/25 21:04 Pulse Ox 94 03/24/25 21:04 O2 Del Method Room Air 03/24/25 21:04 03/24/25 03/24/25 03/25/25 14:59 22:59 06:59 Intake Total 0 / 0 Balance 0 / 0 Weight last 48 hrs Weight 55.338 kg Physical Exam Const: COMMON NORMALS: no acute distress ORIENTATION/CONSCIOUSNESS: Yes awake, Yes oriented to person and Yes oriented to place; not oriented to time Eye: COMMON NORMALS: Equal, round and reactive pupils present and EOMs intact bilaterally Resp: COMMON NORMALS: normal respiratory effort, No retractions, No use of accessory muscles and clear to auscultation bilaterally AUSCULTATION: clear to auscultation bilaterally Cardio: COMMON NORMALS: no JVD, regular rate, regular rhythm, S1 normal heart sound present and S2 normal heart sound present RATE: regular rate RHYTHM: regular rhythm HEART SOUNDS: S1 normal heart sound present and S2 normal heart sound present GI: COMMON NORMALS: Normal to inspection, nondistended, normoactive bowel sounds present, Soft to palpation and non-tender Extremity: COMMON NORMALS: no calf tenderness and no pedal edema Neuro: COMMON NORMALS: patient oriented x3, CN's II-XII intact bilaterally and moves all extremities Psych: COMMON NORMALS: mental status grossly normal Data 03/24/25 20:20 03/24/25 20:20 Micro: Microbiology 03/24/25 21:52 Blood Culture - Preliminary Blood SPECIMEN COLLECTED 03/24/25 21:56 Blood Culture - Preliminary Blood SPECIMEN COLLECTED A&P Assessment and plan 1. AMS (altered mental status): 2. Hyponatremia: 3. Adult failure to thrive: Plan: Hyponatremia, 126 - Does not appear dehydrated - Hypervolemic hyponatremia - Restrict fluid - Continue salt tablets - Monitor serum sodium Altered mental status - Etiology unclear - Potentially hyponatremia playing a role - UA within normal limits - Chest x-ray no focal pneumonia - Order ammonia level, sed rate, CRP, Pro-Hao - Neurochecks - NIH stroke scale - Cardiac echo - Troponin series Adult failure to thrive - Reported weight loss - CT abdomen pelvis during last hospitalization no acute findings - Will order CT of the chest Full code Lovenox for DVT prophylaxis PDMP PDMP Reviewed: Not Reviewed Attestations Medical Necessity Statement*: Patient requires hospitalization for hyponatremia, altered mental status, failure to thrive, inpatient, greater than 2 midnights Diagnoses AMS (altered mental status) R41.82 Hyponatremia E87.1 Adult failure to thrive R62.7
[2025-03-24 23:35] VITALS: BP 170/80; PULSE 78; O2SAT 95
[2025-03-24 23:53] VITALS: BP 165/72; PULSE 82; RESP 17; TEMP 36.8; O2SAT 95
[2025-03-24 23:59] VITALS: BMI 25.8
[2025-03-25] VITALS (8 sets, daily range): BP systolic 154–184; BP diastolic 57–76; PULSE 73–80; RESP 16–17; TEMP 36.3–36.9; O2SAT 95–99
[2025-03-25] MEDS: lidocaine 1% 5 ML in potassium chloride premix 100 ML 52.5 ML IV (00:29)
[2025-03-25 01:20] LABS: Troponin(5th) Baseline 15 ng/L (0-10)
[2025-03-25 01:21] LABS: Ammonia 32 umol/L (11-51)
[2025-03-25 01:32] LABS: Rapid Plasma Reagin Syphilis Nonreactive (Nonreactive)
--- NOTE | 2025-03-25 01:41 | ECG_ITS ---
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 Measurements Intervals [place] Rate: 77 P: 63 WA: 169 QRS: 15 QRSD: 86 T: 37 QT: 392 QTc: 444 Interpretive Statements SINUS RHYTHM SEPTAL MYOCARDIAL INFARCTION , OF INDETERMINATE AGE [40+ ms Q WAVE IN V1/V2] Compared to ECG 03/24/2025 23:11:51 Myocardial infarct finding now present Electronically Signed On 03-25-2025 19:02:18 CDT by Abraham García M.D. [id number] [id number]
[2025-03-25 02:13] LABS: Troponin 5 2HR 10.94 ng/L (0-10)
[2025-03-25 02:17] LABS: Troponin 5 2HR Delta -4.06 ABS# (0-10)
[2025-03-25] MEDS: metoprolol succinate ER (24 HR) 25 mg Tablet PO (04:20)
--- NOTE | 2025-03-25 05:02 | ECG_ITS ---
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 Measurements Intervals [place] Rate: 81 P: -7 SC: 167 QRS: 45 QRSD: 81 T: 21 QT: 384 QTc: 446 Interpretive Statements SINUS RHYTHM SEPTAL MYOCARDIAL INFARCTION , OF INDETERMINATE AGE [40+ ms Q WAVE IN V1/V2] Compared to ECG 03/25/2025 01:41:20 No significant changes Electronically Signed On 03-25-2025 19:01:42 CDT by Abraham García M.D. [id number] [id number]
[2025-03-25 05:26] LABS: Hematocrit 27.7 % (36-47); Hemoglobin 9.50 g/dL (11.27-16.99); Mean Corpuscular HGB Conc 34.3 g/dL (30-55); Mean Corpuscular Hemoglobin 27.5 pg (27-33); Mean Corpuscular Volume 80.1 fl (85-98); Nucleated Red Blood Cells % 0 %; Platelet Count 337 10^3/cmm (157-399); Red Blood Count 3.46 10^6/uL (3.85-5.65); White Blood Count 6.73 10^3/uL (3.29-11.43)
[2025-03-25 05:44] LABS: Troponin 5 6HR 11.31 ng/L (0-10)
[2025-03-25 05:57] LABS: Troponin 5 6HR Delta -3.69 ng/L (0-12)
[2025-03-25 06:19] LABS: Alanine Aminotransferase < 5 U/L (0-33); Albumin Level 3.4 g/dL (3.5-5.2); Alkaline Phosphatase 44 U/L (35-105); Anion Gap 18.3 (5-19); Aspartate Amino Transferase 7 U/L (0-32); Blood Urea Nitrogen 12 mg/dL (8-23); Calcium 8.3 mg/dL (8.5-10.5); Carbon Dioxide 24 mmol/L (22-29); Chloride 87 mmol/L (98-107); Creatinine Clr Calc Pharmacy 94.8883; Globulin 2.1 g/dL (1.3-4.6); Glucose 97 mg/dL (65-115); Osmolality Calculated 262 mOsm/kg (285-295); Potassium 3.3 mmol/L (3.5-5.1); Sodium 126 mmol/L (136-145); Total Protein 5.5 g/dL (6.6-8.7)
--- OUTSIDE RECORDS SUMMARY | 2025-03-25 09:15 | XMS_ITS | Clinical Summary ---
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
--- OUTSIDE RECORDS SUMMARY | 2025-03-25 09:15 | XMS_ITS | Patient Health Record ---
Author Organization [facility] Address [address] [place], [place] [id number] Care Team Providers Care Insole And Heel Stiffener Name Role Phone Kaylynn Boyce APRN Primary Care Provider Kourtney Kendrick MD, William Unavailable [phone] Allergies Allergen (clinical drug ingredient) Drug/Non Drug [...] Risk Notes Problem Lumbosacral spondylosis without myelopathy (45706810) Lumbosacral spondylosis without myelopathy (721.3) Active confirmed Problem Displacement of lumbar intervertebral disc without myelopathy (28890508) Lumbar (w/out myelopathy) intervertebral disc disorder (722.10) Active confirmed Problem Hypersomnia (58188710) Hypersomnia (780.54) Active confirmed Problem Low back pain (412270819) Low back pain (724.2) Active confirmed Problem Long-term drug therapy (522790931) LONG-TERM USE MEDS NEC (V58.69) Active confirmed R/O substance abuse Problem Anxiety state (072881292) Anxiety State, other, specified: procedure related (300.09) Active confirmed Problem Sacroiliitis (03676550) Sacroiliitis (720.2) Active confirmed Plan Of Treatment No Information Insurance Providers Payer Name Payer Address Payer Phone Subscriber Number Group Number Insured Name Patient Relationship to Insured Coverage Start Date Coverage End Date [place] [address] [place] [address] [phone] [id number] Sara Wilcox Self - patient is the insured Medical (General) History Medical History History ICD Code Hypokalemia Sciatica Sacroiliitis Myalgia Bone spurs, lumbar Depression Panic attacks Back pain Hiatal hernia Gastroesophageal reflux disease
--- NOTE | 2025-03-25 10:25 | PC.PHAR ---
Addendum entered by Arcelia Servin 04/02/25 09:06: Pts' family brought in rx bottles for most of her medications. Pt has an old bottle of Baclofen 10mg tid prn muscle spasm from 03/17/24 (not added to current med list). Pt has rx bottle fo Cefdinir 300mg bid from 03/15/25-not finished yet. Original Note: Pt states she has not taken any medications at home since she discharged from hospital 03/22/25.
--- NOTE | 2025-03-25 15:20 | P.PN_ITS ---
Subjective 2 Subjective: Overnight labs and H&P reviewed. Overnight patient's family reports that she has been hallucinating. She has been seeing mice running across the floor, has been hearing kids scream down the hassan when there were none. Apparently she talked for 2 hours to the wall thinking it is a person. Her son who is at bedside reports that the hallucinations are new over the past 3 weeks. Medications: Reviewed: Yes Vitals/I&O/Wt Last Vital Signs Temp 97.7 F 03/25/25 12:46 Pulse 73 03/25/25 12:46 Resp 17 03/25/25 12:46 BP 167/60 03/25/25 12:46 Pulse Ox 96 03/25/25 12:46 O2 Del Method Room Air 03/25/25 06:39 03/25/25 03/25/25 03/25/25 06:59 14:59 22:59 Intake Total 605 / 605 600 / 600 Balance 605 / 605 600 / 600 Weight last 48 hrs Weight 60.282 kg Weight 58.06 kg Weight 55.338 kg Physical Exam 2 Narrative: General: No acute distress, AO x3 HEENT: PERRLA, pupils bilaterally equal and reactive, pallors not present Chest: Normal vesicular breath sounds, no added sounds, equal good air entry bilaterally CVS: S1-S2 regular, no murmurs, no tachycardia, no gallops, no rubs Abdomen: Soft, nontender, no organomegaly, bowel sounds present Neuro: No focal deficits, no facial deformity, AO x3, power 5/5 in all limbs Data 03/25/25 04:55 03/25/25 04:55 Micro: Microbiology 03/24/25 21:52 Blood Culture - Preliminary Blood SPECIMEN COLLECTED 03/24/25 21:56 Blood Culture - Preliminary Blood SPECIMEN COLLECTED A&P Assessment and plan 1. AMS (altered mental status): 2. Hyponatremia: 3. Adult failure to thrive: Plan: Hyponatremia, 126 - Does not appear dehydrated - Hypervolemic hyponatremia - Restrict fluid - Continue salt tablets - Monitor serum sodium Altered mental status - Etiology unclear - Potentially hyponatremia playing a role - UA within normal limits - Chest x-ray no focal pneumonia - Order ammonia level, sed rate, CRP, Pro-Hao - Neurochecks - NIH stroke scale - Cardiac echo - Troponin series Adult failure to thrive - Reported weight loss - CT abdomen pelvis during last hospitalization no acute findings - Will order CT of the chest Full code Lovenox for DVT prophylaxis March 25, 2025 Chart reviewed in detail. Patient is a 59-year-old lady with a past medical history of anxiety depression GERD, hypertension, who has developed increasing generalized weakness, 35 pound weight loss, inability to tolerate p.o. intake with recurrent episodes of nausea and vomiting for the last 3 weeks. Family reports that she has also been exhibiting some hallucinations since yesterday. She was recently discharged from the hospital from 03/22/2025 when no obvious cause was found for her intractable vomiting. She did have hyponatremia which was corrected with IV hydration. She was likely going through nicotine withdrawal. With addition of a nicotine patch patient felt symptomatically much better and was able to be discharged home on the . Her family reports that since returning home once again she stopped eating. It is unclear to me whether this is because of lack of appetite or because of excessive vomiting. Patient is unable to elaborate. She answers all orientation questions appropriately however is somewhat tangential in conversation. Family reports she was hallucinating overnight. She tells me she takes all her medications but is unable to tell me what exactly these are. She had a fever of 100 Fahrenheit last evening. She has had 2 episodes of diarrhea here this morning. C. difficile testing is pending. Labs are currently significant for hyponatremia at 126. Will start normal saline in view of dehydration and monitor for sodium improvement. She has recently completed a CT of the chest abdomen and pelvis which did not show any acute abnormalities. No mass was encountered. Currently UA is negative for a UTI. She had a temperature of 100 Fahrenheit overnight. Will check stool C. difficile PCR. Patient has had CT head and MRI of the brain recently which did not show any acute abnormalities. Patient does not drink alcohol anymore. She has been sober for over 3 months. No noted history of drug abuse. No history of marijuana use. Her son reports that she may be stressed as her boyfriend passed 3 years ago around this time. She quit smoking 1 month ago. Patient has dogs and several parakeets at home. Given fever, hallucinations, altered mentation, concerned about chronic meningitis such as cryptococcal meningitis especially given history of birds at home with patient being the one responsible for cleaning after the pets. Will obtain lumbar puncture tomorrow with cryptococcal antigen. Less likely to be viral encephalitis given course over 3 weeks which would have been expected to worsen without treatment by now. Will additionally also complete a gastric emptying study to evaluate for the cause of persisting nausea. If all above investigations remain negative and symptoms do not improve with correction of sodium, patient may benefit from psychiatry consult to evaluate for psychosis. PDMP PDMP Reviewed: Not Reviewed Attestations 2 Medical Necessity Statement*: planned LP and gastric empptying study Coding Level of Care Code Acute Code for Chg Fwd High MDM includes number and complexity of problems actively addressed during encounter, amount and/or complexity of data reviewed/ordered and described risk of complication, morbidity or mortality of management as documented Diagnoses AMS (altered mental status) R41.82 Hyponatremia E87.1 Adult failure to thrive R62.7
[2025-03-25] MEDS: ondansetron 2 mg/ML SDV 2 mL 4 MG IVP (23:23)
--- NOTE | 2025-03-25 23:43 | USR_ITS ---
PROCEDURE INFORMATION: Exam: US Duplex Bilateral Extracranial Arteries; Complete; Carotid Arteries Exam date and time: 03/25/2025 8:41 AM Age: 59 years old Clinical indication: Altered mental status/memory loss; Additional info: AMS TECHNIQUE: Imaging protocol: Real-time duplex ultrasound scan of the bilateral extracranial arteries combining chaparro scale, color Doppler and spectral waveform analysis with image documentation. Complete exam. Exam focused on the carotid arteries. COMPARISON: CT head wo con* [id number] 03/24/2025 8:37 PM FINDINGS: Right common carotid artery: Unremarkable. No occlusion or stenosis. Waveforms are normal. Right internal carotid artery: Unremarkable. No occlusion or stenosis. Waveforms are normal. Right ICA/CCA ratio: Within normal limits. Right external carotid artery: No stenosis in the origin. Right vertebral artery: Unremarkable. Antegrade flow. Left common carotid artery: Unremarkable. No occlusion or stenosis. Waveforms are normal. Left internal carotid artery: Unremarkable. No occlusion or stenosis. Waveforms are normal. Left ICA/CCA ratio: Within normal limits. Left external carotid artery: No stenosis in the origin. Left vertebral artery: Unremarkable. Antegrade flow. US/CV carotid duplex BI* [id number] IMPRESSION: No carotid arterial stenosis. REFERENCES: SRU CRITERIA. The degree of internal carotid artery stenosis is based on criteria defined by the Society of Radiologists in Ultrasound (SRU). Normal is no stenosis. Mild is less than 50% stenosis. Moderate is 50-69% stenosis. Severe is greater than 69% stenosis to near occlusion. Near occlusion is a markedly narrowed lumen. Total occlusion is no detectable patent lumen. Maicol Garcia, et al. Carotid Artery Stenosis: Chaparro-Scale and Doppler US Diagnosis-Society of Radiologists in Ultrasound Consensus Conference. Radiology 2003; 229:340-346.
--- NOTE | 2025-03-25 23:43 | USCV_ITS ---
Sara López Age: 59 Gender: F : 1965 Exam Date: 03/25/2025 09:02 Ordering Phys: Dimitrios Pfeiffer MD Technologist: MICHELE Exam Location: [facility] [place] Indication: ams BP: 157 / 75 HR: 76 Rhythm: Sinus Technical Quality: Adequate MEASUREMENTS (Male / Female) Normal Values 2D ECHO LV Diastolic Diameter PLAX 4.0 cm 4.2 - 5.9 / 3.9 - 5.3 cm IVS Diastolic Thickness 1.1 cm 0.6 - 1.0 / 0.6 - 0.9 cm IVS Systolic Thickness 1.2 cm LVPW Diastolic Thickness 1.0 cm 0.6 - 1.0 / 0.6 - 0.9 cm LVPW Systolic Thickness 1.6 cm LVOT Diameter 2.0 cm LV Ejection Fraction 2D Teich 68.0 % LV Ejection Fraction MOD 4C 66.4 % LV Ejection Fraction MOD 2C 64.9 % LV Ejection Fraction 2C AL 65.6 % LA Diameter 3.0 cm RA Systolic Volume 4C AL 19.0 ml RA Systolic Volume 4C MOD 18.8 ml LA Sys Volume AL 20.8 cm cubed LA Sys Volume Index AL 13.0 cm cubed/m squared Aorta at Sinotubular Diameter 1.7 cm IVC Diameter 1.5 cm M-MODE LA Ao Ratio MM 1.5 AV Cusp Separation MM 1.3 cm DOPPLER AV Peak Velocity 170.0 cm/s LVOT Peak Velocity 115.0 cm/s AV Area Cont Eq vti 2.5 cm squared AV Area Cont Eq pk 2.0 cm squared MV Peak Velocity 117.0 cm/s MV Area PHT 4.7 cm squared Mitral E to A Ratio 0.9 TV Peak Velocity 296.5 cm/s TR Peak Velocity 315.0 cm/s TR Peak Gradient 39.7 mmHg TR Mean Velocity 234.0 cm/s TR Mean Gradient 24.8 mmHg TR Velocity Time Integral 76.2 cm PV Peak Velocity 115.0 cm/s RV Ejection Time 0.3 s FINDINGS Left Ventricle Normal left ventricular size and systolic function, EF 68%. Mild left ventricular hypertrophy. No regional wall motion abnormalities. Right Ventricle Normal right ventricular size and systolic function. Right Atrium The right atrium is normal in size. Left Atrium The left atrium is normal in size. Mitral Valve Trace mitral valve regurgitation. Aortic Valve Aortic valve sclerosis. Tricuspid Valve Trace tricuspid valve regurgitation. Estimated pulmonary artery peak systolic pressure is 33 mm ofg with a mean PA pressure of 28 mmHg Pulmonic Valve Trace pulmonary valve regurgitation. Pericardium No pericardial effusion. Aorta Plaque seen in the ascending aorta. IVC Normal inferior vena cava. CONCLUSIONS Normal left ventricular size and systolic function, EF 68%. Mild left ventricular hypertrophy. No regional wall motion abnormalities. Aortic valve sclerosis. Trace mitral valve regurgitation. Plaque seen in the ascending aorta. Trace tricuspid valve regurgitation. Estimated pulmonary artery peak systolic pressure is 33 mm ofg with a mean PA pressure of 28 mmHg-suggesting mild pulmonary hypertension Trace pulmonary valve regurgitation. There is no pericardial effusion. There are no intracardiac masses. No similar previous studies are available for comparison Dr Abraham García MD FACC (Electronically Signed) Final Date: 25 March 2025 14:11 S
[2025-03-26] VITALS (8 sets, daily range): BP systolic 150–189; BP diastolic 64–75; PULSE 72–90; RESP 16–17; TEMP 36.6–36.8; O2SAT 94–96
[2025-03-26] MEDS: pantoprazole 40 mg SDV IVP ×2 (00:45→13:01)
[2025-03-26 06:27] LABS: Hematocrit 27.5 % (36-47); Hemoglobin 9.60 g/dL (11.27-16.99); Mean Corpuscular HGB Conc 34.9 g/dL (30-55); Mean Corpuscular Hemoglobin 28.5 pg (27-33); Mean Corpuscular Volume 81.6 fl (85-98); Nucleated Red Blood Cells % 0 %; Platelet Count 344 10^3/cmm (157-399); Red Blood Count 3.37 10^6/uL (3.85-5.65); White Blood Count 7.37 10^3/uL (3.29-11.43)
[2025-03-26 06:44] LABS: Alanine Aminotransferase < 5 U/L (0-33); Albumin Level 3.1 g/dL (3.5-5.2); Alkaline Phosphatase 40 U/L (35-105); Anion Gap 17.5 (5-19); Aspartate Amino Transferase 8 U/L (0-32); Blood Urea Nitrogen 9 mg/dL (8-23); Calcium 8.3 mg/dL (8.5-10.5); Carbon Dioxide 24 mmol/L (22-29); Chloride 86 mmol/L (98-107); Creatinine Clr Calc Pharmacy 79.2524; Globulin 2.4 g/dL (1.3-4.6); Glucose 107 mg/dL (65-115); Osmolality Calculated 259 mOsm/kg (285-295); Sodium 125 mmol/L (136-145); Total Protein 5.5 g/dL (6.6-8.7)
[2025-03-26 08:25] LABS: HIV 1 & 2 Antigen Non-Reactive (Non-Reactiv)
[2025-03-26 08:45] LABS: Potassium 2.5 mmol/L (3.5-5.1)
[2025-03-26] MEDS: ondansetron hcl ODT 4 mg Tab PO (09:20)
[2025-03-26] MEDS: potassium chloride premix 100 ML 50 MEQ IV (09:21)
--- NOTE | 2025-03-26 09:50 | PC.CHAP ---
Pastoral Care Encounter/Spiritual Assessment Type of Contact [] Declined cathode maker visit [] Patient/Family/Request visit [] Outpatient visit [] Follow-up visit [] Physician referral [] Code/Alert [x] Routine visit [] Staff referral [] Actively dying [x] Patient sleeping [x] Family support [] [] Out of room [] Palliative care [] [] Receiving care in room [] Pre-surgical visit [] Trauma [] Long length of stay [] ICU visit [] Other: Relational/Emotional Strength [] Patient feels connected with others/family/visitors/staff [] Distress [] Loneliness/isolation [] Abandonment Spirituality of Patient [x] Person of Cindy [] Attends Roman Catholic of their Cindy [x] Believes in Prayer [] Reads Bible or Tenriism materials [] There are Spiritual issues to be addressed Civil Rights Attorney Interventions [x] Prayer [] Active listening [] Non-anxious presence [] Spiritual/emotional support [] Crisis/trauma care [] Spiritual counseling [] Bereavement support [] Provided bereavement packet [x] Provided Bible/devotional materials [] Provided toy/stuffed animal, coloring book to patient or family member [] Provided Communion [] Anointing/[place] [] Salvation [x] Completed spiritual assessment [] Other: Impact on Illness or Injury [] Angry [] Fearful [] Anxious [] Often cries [] Exhaustion [] Unable to work [] Unable to attend evangelical [] Unable to walk/stand [] Unable to read [] Unable to drive [] Unable to eat/drink [] Unable to sleep [] Unable to be with family [] Patient intubated [] Other: Summary visited with Time spent with patient 10 min
[2025-03-26] MEDS: metoprolol succinate ER (24 HR) 50 mg Tablet 25 MG PO (10:52)
--- NOTE | 2025-03-26 10:59 | CTR_ITS ---
PROCEDURE INFORMATION: Exam: CT Abdomen And Pelvis With Contrast Exam date and time: 03/26/2025 6:16 PM Age: 59 years old Clinical indication: Abdominal pain; Acute; Prior surgery; Surgery date: 6+ months; Surgery type: Gb tubal c section; Additional info: R/O TECHNIQUE: Imaging protocol: Computed tomography of the abdomen and pelvis with contrast. Radiation optimization: All CT scans at this facility use at least one of these dose optimization techniques: automated exposure control; mA and/or kV adjustment per patient size (includes targeted exams where dose is matched to clinical indication); or iterative reconstruction. Contrast material: OMNI 350; Contrast volume: 100 ml; Contrast route: INTRAVENOUS (IV); COMPARISON: CT abdomen pelvis w con* [id number] 03/17/2025 9:06 PM RADIATION DOSE METRICS: Total DLP (mGy-cm): 367.73 FINDINGS: Lungs: Few nonspecific strands of the lung bases. Liver: Query mild fatty liver. Nonspecific although commonly benign hepatic cysts. Gallbladder and biliary ducts: Cholecystectomy clips. Pancreas: Normal. No ductal dilation. Spleen: Normal. No splenomegaly. Adrenal glands: Normal. No mass. Kidneys and ureters: Nonspecific although commonly benign renal cysts. Stomach and bowel: Unremarkable. No obstruction. No mucosal thickening. Appendix: No evidence of appendicitis. Intraperitoneal space: Minimal free fluid in the pelvis, doubtful clinical significance. Otherwise Unremarkable. No free air. No significant fluid collection. Vasculature: Aortic atherosclerosis. Retroaortic left renal vein. Lymph nodes: Unremarkable. No enlarged lymph nodes. Urinary bladder: Unremarkable as visualized. Reproductive: Unremarkable as visualized. Bones/joints: Mild degenerative changes of vertebral bodies. Soft tissues: Possible injection granuloma over the right lower subcutaneous tissues. Otherwise Unremarkable. CT/CT abdomen pelvis w con* [id number] IMPRESSION: No definite acute findings. Aortic atherosclerosis. COMMENTS: Consistent with the [place] [employer]'s Incidental Findings Committee white paper (J Am Eric Radiol 2018): Any incidental renal lesion less than 1 cm or classified as too small to characterize, or any incidental cystic renal lesion characterized as simple-appearing, is likely benign. No follow-up imaging is recommended for these lesions per consensus recommendations based on imaging criteria.
--- NOTE | 2025-03-26 13:19 | P.PN_ITS ---
Subjective 2 Subjective: 59 year old female with past medical anx iety, depression, GERD, hypertension, who presents [facility] due to confusion, generalized weakness, poor appetite, weight loss over 30 pounds. seen with family at bedside some nausea afebrile K noted to be low Vitals/I&O/Wt Last Vital Signs Temp 98.2 F 03/26/25 11:47 Pulse 81 03/26/25 11:47 Resp 16 03/26/25 11:47 BP 180/74 03/26/25 11:47 Pulse Ox 96 03/26/25 11:47 O2 Del Method Room Air 03/26/25 11:47 03/25/25 03/26/25 03/26/25 22:59 06:59 14:59 Intake Total 975 / 1575 100 / 100 Output Total 400 / 400 150 / 550 Balance -400 / 200 825 / 1025 100 / 100 Weight last 48 hrs Weight 129 lb 8 oz Weight 132 lb 14.4 oz Weight 128 lb Weight 122 lb Physical Exam 2 Narrative: General: No acute distress, HEENT: PERRLA, pupils bilaterally equal and reactive, pallors not present Chest: Normal vesicular breath sounds, no added sounds, equal good air entry bilaterally CVS: S1-S2 regular, no murmurs, no tachycardia, no gallops, no rubs Abdomen: Soft, nontender, no organomegaly, bowel sounds present Neuro: No focal deficits, no facial deformity, Data 03/26/25 05:26 03/26/25 05:26 Micro: Microbiology 03/24/25 21:52 Blood Culture - Preliminary Blood NEGATIVE TO DATE 03/24/25 21:56 Blood Culture - Preliminary Blood NEGATIVE TO DATE A&P Assessment and plan 1. Hyponatremia: 2. Weakness: Plan: 1. AMS (altered mental status): 2. Hyponatremia: 3. Adult failure to thrive: 4. hypokalemia Plan: Hyponatremia, 126 - Does not appear dehydrated - Hypervolemic hyponatremia - Restrict fluid - Continue salt tablets - Monitor serum sodium - check serum cortisol and acth Altered mental status - Etiology unclear - Potentially hyponatremia playing a role - UA within normal limits - Chest x-ray no focal pneumonia - Adult failure to thrive - Reported weight loss - CT abdomen pelvis during last hospitalization no acute findings -consider repeat CT scans Full code Lovenox for DVT prophylaxis PDMP PDMP Reviewed: Not Reviewed Attestations 2 Medical Necessity Statement*: treating electrolyte distubances Coding Level of Care Code Acute Code for Chg Fwd Diagnoses Hyponatremia E87.1 Weakness R53.1
--- NOTE | 2025-03-26 15:28 | FL_ITS ---
WS: [id number] LUMBAR PUNCTURE UNDER FLUOROSCOPY: OBTAIN CSF FOR ANALYSIS HISTORY: meningitis COMPARISON: None available. FLUOROSCOPY TIME: 1min [id number] # of spot films: 0 Procedure, complications, and risk and benefits explained to the patient. Consent was obtained. Recent laboratory work and medication are reviewed prior to procedure. Skin over the lumbar is cleansed with ChloraPrep and anesthetized with 1% buffered lidocaine. Access into the thecal sac is achieved. CSF is removed in a sterile manner and placed in the sterile tubes. Approximately 12 ml is removed without difficulty. CSF is clear. LP opening pressure: 14 cm H20. No complications are encountered. CSF this into the laboratory for analysis as requested. FL/FL guided lumbarpunc dx* [id number] IMPRESSION: Uncomplicated lumbar puncture for CSF.
[2025-03-26 15:32] LABS: CSF Mononuclear # 0.227 10^3/uL (50-90); Mononuclear WBC CSF % 85 % (50-90); Polynuclear Cells ,CSF # 0.040 10^3/uL (0-10); Polynuclear WBC CSF % 15 % (0-10); Red Blood Cell CSF 0 10^3/uL (0-0); White Blood Cell CSF 267 /uL (0-5)
[2025-03-26 15:33] LABS: Cyto Order Verification No Order
[2025-03-26] MEDS: iohexol 350 mg/mL 500 mL Btl (per mL) IV (18:27)
[2025-03-26] MEDS: ondansetron 2 mg/ML SDV 2 mL 4 MG IVP (22:17)
--- NOTE | 2025-03-26 23:13 | PC.NURSE ---
Patient's blood pressure was 189/[address] Trejo and said to give zofran for nausea and recheck blood pressure. Blood pressure rechecked after zofran given. Blood pressure was 156/64. stated because the blood pressure is going down, we are not going to do anything for it at this time.
[2025-03-27] VITALS (7 sets, daily range): BP systolic 137–191; BP diastolic 62–80; PULSE 75–90; RESP 15–17; TEMP 36.6–37.1; O2SAT 93–97
[2025-03-27] MEDS: pantoprazole 40 mg SDV IVP ×2 (00:27→12:29)
[2025-03-27] MEDS: metoprolol succinate ER (24 HR) 50 mg Tablet 25 MG PO (07:56)
[2025-03-27 10:02] LABS: Hematocrit 29.5 % (36-47); Hemoglobin 10.30 g/dL (11.27-16.99); Mean Corpuscular HGB Conc 34.9 g/dL (30-55); Mean Corpuscular Hemoglobin 28.2 pg (27-33); Mean Corpuscular Volume 80.8 fl (85-98); Nucleated Red Blood Cells % 0 %; Platelet Count 360 10^3/cmm (157-399); Red Blood Count 3.65 10^6/uL (3.85-5.65); White Blood Count 10.33 10^3/uL (3.29-11.43)
[2025-03-27 10:31] LABS: Procalcitonin 0.04 ng/mL (0-0.5)
[2025-03-27 11:27] LABS: Coronavirus 229E,HKU1,NL63,OC4 Not Detected (NOT DETECT); Parainfluenza Virus Type 1 Not Detected (NOT DETECT); Parainfluenza Virus Type 2 Not Detected (NOT DETECT); Parainfluenza Virus Type 3 Not Detected (NOT DETECT); Parainfluenza Virus Type 4 Not Detected (NOT DETECT); SARS-COV-2 Not Detected (NOT DETECT)
--- NOTE | 2025-03-27 13:41 | P.PN_ITS ---
Subjective 2 Subjective: 59-year-old female admitted with altered mental status. Also noted to have low sodium. As well as low potassium. She underwent imaging as well as lumbar puncture. CSF studies were reviewed. Afebrile. Family discussing disposition pending her clinical course. Vitals/I&O/Wt Last Vital Signs Temp 98.2 F 03/27/25 11:21 Pulse 78 03/27/25 11:21 Resp 17 03/27/25 11:21 BP 164/71 03/27/25 11:21 Pulse Ox 94 03/27/25 11:21 O2 Del Method Room Air 03/27/25 11:21 03/26/25 03/27/25 03/27/25 22:59 06:59 14:59 Intake Total 1000 / 1100 938.75 / 938.75 Output Total Balance 1000 / 1100 -3 / 1097 938.75 / 938.75 Weight last 48 hrs Weight 161 lb 6 oz Weight 129 lb 8 oz Physical Exam 2 Narrative: General: No acute distress, HEENT: PERRLA, pupils bilaterally equal and reactive, pallors not present Chest: Normal vesicular breath sounds, no added sounds, equal good air entry bilaterally CVS: S1-S2 regular, no murmurs, no tachycardia, no gallops, no rubs Abdomen: Soft, nontender, no organomegaly, bowel sounds present Neuro: No focal deficits, no facial deformity, Data 03/27/25 09:48 03/26/25 05:26 Micro: Microbiology 03/26/25 14:41 Gram Stain - Final Cerebrospinal Fluid CSF Culture - Preliminary Bacterial Antigens - Final Cryptococcal Antigen (CSF) - Final A&P Assessment and plan 1. Hyponatremia: 2. Weakness: Plan: 1. AMS (altered mental status): 2. Hyponatremia: 3. Adult failure to thrive: 4. hypokalemia 5. abnormal csf Plan: Hyponatremia, - Does not appear dehydrated - Hypervolemic hyponatremia - Restrict fluid - Continue salt tablets - Monitor serum sodium - serum tsh, cortisol wnl Abnormal CSF - check viral panel - requested droplet precaution - start vanc, ceftriaxone. pcn allergy Altered mental status - Etiology unclear - Potentially hyponatremia playing a role - UA within normal limits - Adult failure to thrive - Reported weight loss - CT abdomen pelvis during last hospitalization no acute findings -consider repeat CT scans Full code Lovenox for DVT prophylaxis PDMP PDMP Reviewed: Not Reviewed Attestations 2 Medical Necessity Statement*: lab monitoring, abx Coding Level of Care Code 77494 Diagnoses Hyponatremia E87.1 Weakness R53.1
[2025-03-27 14:06] LABS: Anion Gap 16.2 (5-19); Blood Urea Nitrogen 9 mg/dL (8-23); Calcium 8.6 mg/dL (8.5-10.5); Carbon Dioxide 24 mmol/L (22-29); Chloride 84 mmol/L (98-107); Creatinine Clr Calc Pharmacy 138.2629; Glucose 106 mg/dL (65-115); Osmolality Calculated 251 mOsm/kg (285-295); Potassium 3.2 mmol/L (3.5-5.1); Sodium 121 mmol/L (136-145)
[2025-03-27] MEDS: cefTRIAXone 2,000 mg SDV 2000 MG IVP (14:48)
[2025-03-28] VITALS (7 sets, daily range): BP systolic 152–180; BP diastolic 63–81; PULSE 78–83; RESP 15–18; TEMP 36.6–36.9; O2SAT 90–97
[2025-03-28] MEDS: cefTRIAXone 2,000 mg SDV 2000 MG IVP ×2 (01:03→13:20)
[2025-03-28] MEDS: pantoprazole 40 mg SDV IVP ×2 (01:04→13:21)
[2025-03-28] MEDS: ondansetron hcl ODT 4 mg Tab PO (08:32)
[2025-03-28] MEDS: metoprolol succinate ER (24 HR) 50 mg Tablet 25 MG PO (09:48)
[2025-03-28 11:53] LABS: Hematocrit 25.2 % (36-47); Hemoglobin 8.80 g/dL (11.27-16.99); Mean Corpuscular HGB Conc 34.9 g/dL (30-55); Mean Corpuscular Hemoglobin 28.2 pg (27-33); Mean Corpuscular Volume 80.8 fl (85-98); Nucleated Red Blood Cells % 0 %; Platelet Count 287 10^3/cmm (157-399); Red Blood Count 3.12 10^6/uL (3.85-5.65); White Blood Count 6.87 10^3/uL (3.29-11.43)
[2025-03-28 12:16] LABS: Alanine Aminotransferase < 5 U/L (0-33); Albumin Level 2.8 g/dL (3.5-5.2); Alkaline Phosphatase 34 U/L (35-105); Anion Gap 11.4 (5-19); Aspartate Amino Transferase 7 U/L (0-32); Blood Urea Nitrogen 8 mg/dL (8-23); Calcium 7.7 mg/dL (8.5-10.5); Carbon Dioxide 27 mmol/L (22-29); Chloride 84 mmol/L (98-107); Creatinine Clr Calc Pharmacy 112.2397; Globulin 2.3 g/dL (1.3-4.6); Glucose 157 mg/dL (65-115); Magnesium 1.5 mg/dL (1.7-2.3); Osmolality Calculated 252 mOsm/kg (285-295); Sodium 120 mmol/L (136-145); Total Protein 5.1 g/dL (6.6-8.7)
[2025-03-28 12:31] LABS: Vitamin B12 993 pg/mL (232-1245)
[2025-03-28 12:42] LABS: Potassium 2.4 mmol/L (3.5-5.1)
--- NOTE | 2025-03-28 12:53 | P.PN_ITS ---
Subjective 2 Subjective: 59-year-old female admitted with altered mental status. Also noted to have low sodium. As well as low potassium. She underwent imaging as well as lumbar puncture. CSF studies sent afebrile mental status better Vitals/I&O/Wt Last Vital Signs Temp 98.0 F 03/28/25 11:27 Pulse 78 03/28/25 11:27 Resp 16 03/28/25 11:27 BP 152/81 03/28/25 11:27 Pulse Ox 95 03/28/25 11:27 O2 Del Method Room Air 03/28/25 11:27 03/27/25 03/28/25 03/28/25 22:59 06:59 14:59 Intake Total 100 / 1038.75 1000 / 2038.75 250 / 250 Output Total 1950 / 1950 600 / 600 Balance -1850 / -911.25 1000 / 88.75 -350 / -350 Weight last 48 hrs Weight 131 lb Weight 161 lb 6 oz Physical Exam 2 Narrative: General: No acute distress, HEENT: PERRLA, pupils bilaterally equal and reactive, pallors not present Chest: Normal vesicular breath sounds, no added sounds, equal good air entry bilaterally CVS: S1-S2 regular, no murmurs, no tachycardia, no gallops, no rubs Abdomen: Soft, nontender, no organomegaly, bowel sounds present Neuro: No focal deficits, no facial deformity, Data 03/28/25 11:38 03/28/25 11:38 Micro: Microbiology 03/26/25 14:41 Gram Stain - Final Cerebrospinal Fluid CSF Culture - Preliminary Bacterial Antigens - Final Cryptococcal Antigen (CSF) - Final A&P Assessment and plan 1. Hyponatremia: 2. Weakness: Plan: 1. AMS (altered mental status): 2. Hyponatremia: 3. Adult failure to thrive: 4. hypokalemia 5. abnormal csf Plan: Hyponatremia, - Does not appear dehydrated - Hypervolemic hyponatremia - Restrict fluid - Continue salt tablets - Monitor serum sodium - serum tsh, cortisol wnl Hypokalemia --replace and recheck Abnormal CSF - check viral panel, meningitis panel requested - requested droplet precaution - vanc, ceftriaxone. pcn allergy Altered mental status - Etiology unclear, improving mental status - Potentially hyponatremia playing a role vs infection - UA within normal limits - Adult failure to thrive - Reported weight loss - CT abdomen pelvis during last hospitalization no acute findings -consider repeat CT scans Full code Lovenox for DVT prophylaxis PDMP PDMP Reviewed: Not Reviewed Attestations 2 Medical Necessity Statement*: await lab tests, PT, replace potassium Coding Level of Care Code 65583 Diagnoses Hyponatremia E87.1 Weakness R53.1
[2025-03-28] MEDS: ondansetron 2 mg/ML SDV 2 mL 4 MG IVP (13:30)
[2025-03-28] MEDS: potassium phosphate (mEq K) 40 MEQ in sodium chloride 0.9% (100 ml) 100 ML 27.25 MEQ IV (13:48)
[2025-03-29] MEDS: pantoprazole 40 mg SDV IVP ×2 (01:02→12:06)
[2025-03-29] MEDS: ondansetron 2 mg/ML SDV 2 mL 4 MG IVP ×2 (01:02→17:44)
[2025-03-29] MEDS: cefTRIAXone 2,000 mg SDV 2000 MG IVP ×2 (02:07→15:21)
[2025-03-29 04:00] VITALS: BP 140/68; PULSE 76; RESP 16; TEMP 36.7; O2SAT 94
[2025-03-29 07:17] VITALS: BP 175/74; PULSE 92; RESP 18; TEMP 36.6; O2SAT 96
[2025-03-29] MEDS: metoprolol succinate ER (24 HR) 50 mg Tablet 25 MG PO (08:27)
[2025-03-29] MEDS: ondansetron hcl ODT 4 mg Tab PO (08:39)
[2025-03-29 10:49] LABS: Anion Gap 12.8 (5-19); Blood Urea Nitrogen 4 mg/dL (8-23); Calcium 7.9 mg/dL (8.5-10.5); Carbon Dioxide 27 mmol/L (22-29); Chloride 82 mmol/L (98-107); Creatinine Clr Calc Pharmacy 107.9557; Glucose 95 mg/dL (65-115); Magnesium 1.5 mg/dL (1.7-2.3); Osmolality Calculated 245 mOsm/kg (285-295)
[2025-03-29 11:06] LABS: Potassium 2.8 mmol/L (3.5-5.1); Sodium 119 mmol/L (136-145)
[2025-03-29 11:35] VITALS: BP 174/69; PULSE 73; RESP 19; TEMP 36.5; O2SAT 95
[2025-03-29] MEDS: lidocaine 1% 5 ML in potassium chloride premix 100 ML 26.25 ML IV (12:04)
[2025-03-29] MEDS: magnesium sulfate premix 4 GM/100 ML PREMIX IV (12:06)
--- NOTE | 2025-03-29 14:24 | P.PN_ITS ---
Subjective 2 Subjective: Patient was sound asleep upon entering the room. Her son was present. Patient awoke fairly easily and was alert and oriented. She is unable to to give much in the way of history. It sounds like she has been ill for about a month now I also met the patient's sister with whom she lives. They reported today that they noticed 2 white pills in her stool. Vitals/I&O/Wt Last Vital Signs Temp 97.7 F 03/29/25 11:35 Pulse 73 03/29/25 11:35 Resp 19 H 03/29/25 11:35 BP 174/69 03/29/25 11:35 Pulse Ox 95 03/29/25 11:35 O2 Del Method Room Air 03/29/25 11:35 03/28/25 03/29/25 03/29/25 22:59 06:59 14:59 Intake Total 109.0909 / 1549.0909 925 / 2474.0909 1350 / 1350 Output Total 300 / 900 500 / 1400 400 / 400 Balance -190.9091 / 649.0909 425 / 1074.0909 950 / 950 Weight last 48 hrs Weight 57.153 kg Weight 59.421 kg Physical Exam 2 Narrative: Patient appears about 10 years older than her stated age. She is in no acute distress. She is slow to talk. Neuro she is alert and oriented to place and person time and situation she is nonfocal on exam Heart is regular normal S1-S2 without murmurs clicks gallops or rubs lungs are clear to auscultation without wheezes rales or rhonchi abdomen soft nontender nondistended positive bowel sounds no hepatosplenomegaly extremities no clubbing cyanosis or edema Data 03/28/25 11:38 03/29/25 10:11 Micro: Microbiology 03/26/25 14:41 Gram Stain - Final Cerebrospinal Fluid CSF Culture - Preliminary Bacterial Antigens - Final Cryptococcal Antigen (CSF) - Final A&P Assessment and plan 1. Somnolence: 2. Abnormal cerebrospinal fluid: 3. Hypokalemia: 4. Hyponatremia: 5. Hypomagnesemia: 6. Weakness: Plan: 1. AMS (altered mental status): Suspected meningitis. Her CHF cell count is most consistent with a viral etiology although the glucose is low. She has been on ceftriaxone 2 g IV every 12 hours which is appropriate treatment for bacterial meningitis. She has not been on acyclovir for viral nor an antifungal. I called and spoke to the micro department and her workup has been negative cryptococcal antigen is negative in the CSF. I did consult neuro for assistance with this abnormal CSF cell count. Her recommendation was to treat for bacterial meningitis and the patient has been for at least 24 hours now. Will await any further recommendations from neurology. 2. 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 I reviewed the patient's home medications and also spoke with the pharmacist regarding these medications the most typical medications on her list to cause hyponatremia is an SSRI and a PPI. However she has been taking this on record at [facility] for 1 year. Then I found a note with her primary care physician from a month ago where they discussed smoking cessation. At that time the patient was started on bupropion. Postmarketing testing reports that the patient can have a side effect of hyponatremia/SIADH. Also there has been a concern with auditory hallucinations which are reported with this drug. And lastly anorexia is also a side effect. I will wean bupropion cut in half for 1 week and then discontinue. 4. hypokalemia -patient still requires considerable replacement. I have increased her potassium from 40 mill equivalents twice a day to twice daily and added a third dose IV for a total of 120 mill equivalents today which I believe is what she also got yesterday. Replacing her magnesium will also help her potassium level 5. Hypomagnesia. Her level was 1.5 again today will replace with 4 g IV. Plan: Treatment for SIADH is fluid restriction. The patient was receiving normal saline at 75 cc an hour. This has been discontinued. Continue salt tabs and monitor. Wean bupropion Hypokalemia as above will replace Hypomagnesia him as above will replace Continue antibiotic treatment for bacterial meningitis Will likely need at least short-term senior care placement for rehab. Full code Lovenox for DVT prophylaxis PDMP PDMP Reviewed: Not Reviewed Attestations 2 Medical Necessity Statement*: Patient with remarkable derangements and multiple electrolyte. Close monitoring and replacement necessary. Patient also has a positive C SF. Await neuro consult. Coding Level of Care Code 22433 Diagnoses Somnolence R40.0 Altered mental status type: somnolence Abnormal cerebrospinal fluid R83.9 Hypokalemia E87.6 Hyponatremia E87.1 Hypomagnesemia E83.42 Weakness R53.1
--- NOTE | 2025-03-29 15:39 | PM.CONSULT ---
Providers/Reason For Consult Consulting Physician/Specialty*: Kanchan Taylor Neurology Reason for Consult*: abnormal spinal fluid Attending Physician: Krish Guajardo DO Primary Care Provider: Haley Kinsey MD History of Present Illness History of Present Illness I am asked to see this 59-year-old woman because her spinal fluid was abnormal. She has been seen in the clinic by Haley Navarro for COPD caused by persistent smoking and mild atherosclerosis. She is actually oxygen dependent for her COPD. She suffers from hypertension and anxiety disorder. She was here with left arm paresthesias 02/20/2025 thought to be due to cervical radiculopathy and she saw Dr. Cerda. She had an MRI that showed some osteophytes at C5-6 and left C5-6 foraminal narrowing. At that time her MRI of the brain was normal. She came back to the emergency department complaining of numb left arm on 03/05/2025. She was back in our emergency department with nausea, vomiting and diarrhea on 03/15/2025. Her laboratory studies were unremarkable including a normal white count but she had a UTI and was started on cefdinir 300 mg twice daily for 7 days. She returned 2 days later on 03/17 with vertigo, persistent diarrhea and vomiting. CT of the abdomen and pelvis showed gastroenteritis. Her white count was still normal. Her lactic acid was normal. She was given promethazine. She was back 3 days later complaining of nausea and vomiting. She was slightly anemic with hemoglobin of 10.4 but her sodium had dropped to 125 and she was admitted. She was discharged after 2 days of IV fluids and oral fluid restriction. She was placed on a nicotine patch. She returned 2 days later on 03/24 complaining of weakness. She said she was not able to take anything orally and she had become incontinent of urine and stool. Her sister said she was confused. She had a low-grade temperature of 100. She was admitted to Dr. Pfeiffer. He commented on a 30 pound weight loss. He ordered CT of the chest and echocardiogram. The patient was noted to be hallucinating by the time she was seen by Dr. Henry on 03/25, seeing creatures running around in the room and her son said that she had been hallucinating for [address] Henry ordered lumbar puncture to include cryptococcal antigen but apparently the cryptococcal antigen order did not go through. Dr. Trevor muse was off service and Dr. Ariza managed her care for several days. Dr. Ariza indicated that bacterial antigens and cryptococcal antigen were negative and CSF culture was negative and he thought the problem was viral. He started her on vancomycin and ceftriaxone in case her problem was bacterial, as her glucose was low and white count was significantly elevated with polymorphonuclear leukocytes. Her sodium remained low at 120. Influenza A and parainfluenza were negative. HIV nonreactive. Adenovirus, pneumonia DNA not detected. HSV 1 and 2 pending. TB test negative. VDRL was negative. I cannot find the cryptococcal antigen. CT head 03/24/2025 without contrast shows no sign of frontal or temporal lobe edema. Brain MRI images reviewed from 02/20/2025, normal. Her CT chest was negative. I talked with her son. He indicates that she lives with her aunt and that her aunt is disabled so it is not a good situation. Patient continues to vomit and he estimates that since she is been with him for the last 4 days as he is visiting, he has seen her throw up at least 15 font times. She was vomiting while I was in the room. B12 993. Liver enzymes normal. Sodium today is 119. Medications/Allergies Home Medications ?Medication ?Instructions ?Recorded ?Confirmed ?Last Taken ?Type CPAP Mask small- Air Touch F-20 #1 ea 05/05/22 03/25/25 Unknown Rx with tubing and supplies nebulizers (Compact Compressor #1 ea 09/18/22 03/25/25 Unknown Rx Nebulizer) oxygen-air delivery systems 12/09/23 03/25/25 Unknown History aspirin 81 mg tablet,delayed 81 mg PO DAILY circulation #100 03/21/24 03/25/25 03/20/25 Rx release (Adult Low Dose Aspirin) tabs hydroxyzine HCl 25 mg tablet 25 mg PO BID PRN anxiety #60 tabs 08/03/24 03/25/25 Unknown Rx atorvastatin 20 mg tablet 20 mg PO DAILY cholesterol #90 tabs 08/29/24 03/25/25 03/20/25 Rx metoprolol succinate 50 mg 25 mg (1/2 x 50 mg) PO DAILY #90 10/19/24 03/25/25 03/20/25 Rx tablet,extended release 24 hr tabs syringe with needle 3 mL 23 gauge #100 ea 12/19/24 03/25/25 Unknown Rx x 1 1/2 (CareTouch Luer Lock Syringe with needle) estradiol 0.01% (0.1 mg/gram) 1 g vaginal .twice weekly #42.5 12/26/24 03/25/25 02/19/25 Rx vaginal cream (Estrace) grams ipratropium 0.5 mg-albuterol 3 mg 3 ml inhalation Q4H PRN wheezing 12/29/24 03/25/25 Unknown Rx (2.5 mg base)/3 mL nebulization #180 mL soln albuterol sulfate 1.25 mg/3 mL 1.25 mg continuous nebulization 02/20/25 03/25/25 03/20/25 History solution for nebulization Q4H PRN Shortness Of Breath Or Wheezing albuterol sulfate 90 mcg/actuation 2 puff inhalation Q6H PRN Wheezing 02/20/25 03/25/25 02/19/25 History aerosol inhaler (Ventolin HFA) cholecalciferol (vitamin D3) 25 25 mcg PO DAILY 02/20/25 03/25/25 03/20/25 History mcg (1,000 unit) tablet (Vitamin D3) fluticasone 250 mcg-salmeterol 50 2 inh inhalation BID 02/20/25 03/25/25 03/20/25 History mcg/dose blistr powdr for inhalation (Advair Diskus) ondansetron 4 mg disintegrating 4 mg PO TID PRN nausea and 03/15/25 03/25/25 Unknown Rx tablet vomiting #30 tabs sertraline 100 mg tablet 100 mg PO DAILY #90 tabs 03/15/25 03/25/25 03/20/25 Rx promethazine 25 mg tablet 25 mg PO Q6H PRN nausea and 03/17/25 03/25/25 Unknown Rx vomiting #14 tabs bupropion HCl 150 mg tablet,12 hr 150 mg PO BID 03/20/25 03/25/25 03/20/25 History sustained-release cyanocobalamin (vitamin B-12) 1,000 mcg IM Q7D 03/20/25 03/25/25 03/20/25 History 1,000 mcg/mL injection solution cyclobenzaprine 10 mg tablet 10 mg PO TID PRN muscle spasms 03/20/25 03/25/25 Unknown History nicotine 21 mg/24 hr daily 1 patch transdermal DAILY #14 ea 03/22/25 03/25/25 Unknown Rx transdermal patch pantoprazole 40 mg tablet,delayed 40 mg PO BIDWM #60 tabs 03/22/25 03/25/25 03/20/25 Rx release potassium chloride 20 mEq 40 meq (2 x 20 mEq) PO DAILY 14 03/22/25 03/25/25 03/20/25 Rx tablet,extended release days #28 tabs sodium chloride 1,000 mg soluble 1,000 mg PO BID 10 days #20 tabs 03/22/25 03/25/25 Unknown Rx tablet Allergies Allergy/AdvReac Type Severity Reaction Status Date / Time influenza virus vaccine tvs Allergy rash Verified 03/15/25 11:52 (65 yr and up) (From Fluad (65yr+)(PF)) Penicillins Allergy Rash Verified 03/15/25 11:52 vaccine adjuvant emulsion Allergy rash Verified 03/15/25 11:52 [id number] (From Fluad (65yr+)(PF)) oxycodone AdvReac Dizziness, Verified 03/15/25 11:52 flushed sulfamethoxazole (From AdvReac Nausea Verified 03/15/25 11:52 Bactrim) trimethoprim (From Bactrim) AdvReac Nausea Verified 03/15/25 11:52 Current Medications Generic Name Dose Route Start Last Admin Trade Name Freq PRN Reason Stop Dose Admin Aspirin 81 mg 03/25/25 09:00 03/29/25 08:27 Aspirin 81 Mg Ec Tablet PO 81 mg DAILY CHRIST Administration Ceftriaxone Sodium 2,000 mg 03/27/25 14:00 03/29/25 15:21 Ceftriaxone 2,000 Mg Sdv IVP 2,000 mg Q12H CHRIST Administration Protocol Hydroxyzine Pamoate 25 mg 03/24/25 23:50 03/27/25 20:48 Hydroxyzine 25 Mg Capsule PO 25 mg BID PRN Administration anxiety Vancomycin HCl 1,000 mg/ 250 mls @ 250 mls/hr 03/28/25 09:00 03/29/25 09:59 Sodium Chloride IV Infused DAILY CHRIST Infusion Protocol Lidocaine HCl 5 ml/ Potassium 105 mls @ 26.25 mls/hr 03/29/25 11:45 03/29/25 12:04 Chloride IV 03/29/25 15:44 26.25 mls/hr ONCE ONE Administration Lisinopril 40 mg 03/29/25 09:00 03/29/25 08:28 Lisinopril 20 Mg Tablet PO 40 mg DAILY CHRIST Administration Metoprolol Succinate 25 mg 03/25/25 09:00 03/29/25 08:27 Metoprolol Succinate Er (24 Hr) 50 Mg Tablet PO 25 mg DAILY CHRIST Administration Ondansetron HCl 4 mg 03/24/25 23:43 03/29/25 08:39 Ondansetron Hcl Odt 4 Mg Tab PO 4 mg TID PRN Administration NAUSEA AND VOMITING Ondansetron HCl 4 mg 03/26/25 00:18 03/29/25 01:02 Ondansetron 2 Mg/Ml Sdv 2 Ml IVP 4 mg Q4H PRN Administration vomiting, or N/V if npo Prochlorperazine Edisylate 10 mg 03/26/25 00:18 03/26/25 00:45 Prochlorperazine 10 Mg/2 Ml Inj IVP 10 mg Q6H PRN Administration NAUSEA Sertraline HCl 100 mg 03/25/25 09:00 03/29/25 08:27 Sertraline 100 Mg Tablet PO 100 mg DAILY CHRIST Administration Sodium Chloride 1 gm 03/25/25 09:00 03/29/25 08:27 Sodium Chloride 1 Gm Tablet PO 1 gm BID CHRIST Administration PFSH Acute PFSH: Medical History Hypokalemia Cervical radiculopathy Vitamin D deficiency Anemia due to vitamin B12 deficiency, unspecified B12 deficiency type now on B12 injections Anemia, unspecified Dizziness Palpitations Vertigo, benign paroxysmal GERD without esophagitis Fasting hyperglycemia Screening for lung cancer started age 6; last LDCT 03.16.24; Nicotine dependence, cigarettes, uncomplicated last LDCT 03.16.24 Atherosclerosis of aorta Renal cyst Chronic neck pain 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 Aaron Hearing loss of both ears Benign essential tremor Peripheral neuropathic pain Dyslipidemia (high LDL; low HDL) Osteoarthritis involving multiple joints on both sides of body Chronic back pain Reports having a herniated disc in her lower back and neck and just takes muscle relaxers for this. Used to follow up with the pain clinic in the past but not anymore and this is managed by her primary care provider Anxiety and depression COPD (chronic obstructive pulmonary disease) Diagnosed in 2015 and is controlled with medication managed by PMD at this time Chronic hypertension Surgical History H/O vaginal surgery 05/21/2021- Rectovaginal fistula repair performed by Dr. Cruz at [facility] Status post hysteroscopy 09/17/2020---hysteroscopy with D&C for postmenopausal bleeding performed by Dr. Ingram at [facility]. ---at time of hysteroscopy benign atrophic endometrium identified without any polyps. Pathology showed inactive endometrial glands on a background of mucin and debris, no atypia or hyperplasia polyps or malignancy identified. History of colonoscopy (09/17/20) 2015; 2.5.21 colitis--txed w/ abx, hyperplastic polyp; surgeon note says f/u colonoscopy 10 yrs S/P cholecystectomy Laparoscopic procedure performed by Dr. Hudson at [facility] in June 2020 S/P section At the age of 20 S/P tubal ligation At the age of 20 when she had her Family History Mother Diabetes Hypertension Thyroid disease Hyperlipidemia Sister Diabetes Hypertension Lung cancer Hyperlipidemia Father Diabetes Stroke Grandmother Breast cancer MGM Family/Other Prostate cancer PATERNAL UNCLE Denies family history of Ovarian cancer Myocardial infarction Uterine cancer Social History Smoking and tobacco/nicotine status: never used tobacco/nicotine Alcohol intake: never Substance/Drug Use: never Household members: other Details: lives with sister and her Marital status: / Number of children: 3 Highest education level completed: 10th Grade Current occupational status: disabled 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 MENTAL STATUS: She knows it is March but that is about it. Grossly she appears to be moderately demented CRANIAL NERVES: Visual moon were full to confrontatio (she could count fingers OU). Extraocular movements were full. She has visual motor perseveration.. Face was symmetric at rest and with grimace. MOTOR: She has a high amplitude myoclonic tremor that her son says she has had all of her life. She has paratonic rigidity. No focal weakness. SENSATION: She does not perceive vibration in her legs COORDINATION: High amplitude tremor DEEP TENDON REFLEXES: Toes are upgoing GAIT: Not tested. The physical therapist said she can put her feet down and that is about it. HEENT: Normocephalic without dysmorphic features. Conjunctivae were not injected and sclerae were nonicteric. NECK: Supple and she can touch her chin to her chest CHEST: Clear to auscultation. CARDIOVASCULAR: The heart sounds were normal without murmur or gallop. Regular rate and rhythm. EXTREMITIES: No deformities. No rash. Data 03/28/25 11:38 03/29/25 10:11 Micro: Microbiology 03/26/25 14:41 Gram Stain - Final Cerebrospinal Fluid CSF Culture - Final Bacterial Antigens - Final Cryptococcal Antigen (CSF) - Final A&P Assessment and plan 1. SIADH (syndrome of inappropriate ADH production): Patient with persistent SIADH presumably due to partially treated G[employer] infection. She has a history of B12 deficiency and presents with vibratory loss in the feet and upgoing toes. She looks demented and it is hard to know whether that is acute or chronic. Her son lives in [place] and she is normally managed by her aunt who is not in good shape and that will probably not be an ongoing possibility. Need to check thyroid. Continue treatment of her possible partially treated bacterial meningitis based upon the CSF profile of moderately high white count and depressed glucose. Fungal studies should be done but her cryptococcal antigen was negative. It may be necessary to tap her again after broad-spectrum antibiotics for a week just to make sure that her CSF is clearing, particularly if her sodium remains obstreperously low. 2. Meningitis: PDMP PDMP Reviewed: Not Reviewed Consult Attestations Medical Necessity Statement: She is profoundly ill and has required multiple ER visits and now has abnormal spinal fluid that suggest GAS [employer]ER ENGINEER infection. Coding Level of Care Code Acute Code for [facility] Diagnoses SIADH (syndrome of inappropriate ADH production) E22.2 Meningitis G03.9
[2025-03-29 15:55] VITALS: BP 151/67; PULSE 77; RESP 18; TEMP 36.4; O2SAT 96
[2025-03-29 20:00] VITALS: BP 165/81; PULSE 83; RESP 16; TEMP 36.8; O2SAT 95
[2025-03-29 23:42] VITALS: BP 175/84; PULSE 81; RESP 16; TEMP 36.7; O2SAT 94
[2025-03-30] VITALS (62 sets, daily range): BP systolic 150–193; BP diastolic 64–109; PULSE 71–91; RESP 14–25; TEMP 36.4–37.1; O2SAT 95–99
[2025-03-30 00:44] LABS: VDRL on CSF NON-REACTIVE
[2025-03-30] MEDS: cefTRIAXone 2,000 mg SDV 2000 MG IVP ×2 (02:12→15:15)
[2025-03-30] MEDS: metoprolol succinate ER (24 HR) 50 mg Tablet 25 MG PO (08:44)
[2025-03-30 09:13] LABS: Anion Gap 15.0 (5-19); Blood Urea Nitrogen 6 mg/dL (8-23); Calcium 7.8 mg/dL (8.5-10.5); Carbon Dioxide 25 mmol/L (22-29); Chloride 82 mmol/L (98-107); Creatinine Clr Calc Pharmacy 130.6592; Glucose 85 mg/dL (65-115); Magnesium 1.9 mg/dL (1.7-2.3); Osmolality Calculated 245 mOsm/kg (285-295); Potassium 3.0 mmol/L (3.5-5.1)
[2025-03-30 09:16] LABS: Sodium 119 mmol/L (136-145)
[2025-03-30] MEDS: lidocaine 1% 5 ML in potassium chloride premix 100 ML 26.25 ML IV (11:15)
[2025-03-30] MEDS: magnesium sulfate premix 2 GM/50 ML PIGGYBACK IV (11:34)
--- NOTE | 2025-03-30 11:58 | PM.CONSULT ---
Providers/Reason For Consult Consulting Physician/Specialty*: kommana/Nephrology Reason for Consult*: Hyponatremia Attending Physician: Krish Guajardo DO Primary Care Provider: Haley Kinsey MD History of Present Illness History of Present Illness Sara López is a 59 year old female Patient is a 59-year-old female with past medical history of depression anxiety, gastroesophageal reflux disease, hypertension presented to the hospital on 03/24/2025 due to altered mental status, generalized weakness poor appetite and weight loss. Also family has reported had hallucinations. Patient had multiple recent admissions for the last couple of months. She was initially seen on 02/20/2025 for left arm paresthesias. She was back in the ER on 03/15/2025 for UTI. He was again seen in the ER on 03/17/2025 due to nausea vomiting diarrhea and vertigo and was found to have gastroenteritis. LP was done and received few doses of vancomycin and ceftriaxone. Sodium on presentation was 129 that has drifted down to 123 but again improved to 126 and started drifting again down to 119 this morning. During this time patient was receiving IV fluids-normal saline was placed on fluid restriction and added salt tablets. Urine sodium was 40 and urine osmolality is pending. Review of Systems Narrative: other ROS negative Medications/Allergies Home Medications ?Medication ?Instructions ?Recorded ?Confirmed ?Last Taken ?Type CPAP Mask small- Air Touch F-20 #1 ea 05/05/22 03/25/25 Unknown Rx with tubing and supplies nebulizers (Compact Compressor #1 ea 09/18/22 03/25/25 Unknown Rx Nebulizer) oxygen-air delivery systems 12/09/23 03/25/25 Unknown History aspirin 81 mg tablet,delayed 81 mg PO DAILY circulation #100 03/21/24 03/25/25 03/20/25 Rx release (Adult Low Dose Aspirin) tabs hydroxyzine HCl 25 mg tablet 25 mg PO BID PRN anxiety #60 tabs 08/03/24 03/25/25 Unknown Rx atorvastatin 20 mg tablet 20 mg PO DAILY cholesterol #90 tabs 08/29/24 03/25/25 03/20/25 Rx metoprolol succinate 50 mg 25 mg (1/2 x 50 mg) PO DAILY #90 10/19/24 03/25/25 03/20/25 Rx tablet,extended release 24 hr tabs syringe with needle 3 mL 23 gauge #100 ea 12/19/24 03/25/25 Unknown Rx x 1 1/2 (CareTouch Luer Lock Syringe with needle) estradiol 0.01% (0.1 mg/gram) 1 g vaginal .twice weekly #42.5 12/26/24 03/25/25 02/19/25 Rx vaginal cream (Estrace) grams ipratropium 0.5 mg-albuterol 3 mg 3 ml inhalation Q4H PRN wheezing 12/29/24 03/25/25 Unknown Rx (2.5 mg base)/3 mL nebulization #180 mL soln albuterol sulfate 1.25 mg/3 mL 1.25 mg continuous nebulization 02/20/25 03/25/25 03/20/25 History solution for nebulization Q4H PRN Shortness Of Breath Or Wheezing albuterol sulfate 90 mcg/actuation 2 puff inhalation Q6H PRN Wheezing 02/20/25 03/25/25 02/19/25 History aerosol inhaler (Ventolin HFA) cholecalciferol (vitamin D3) 25 25 mcg PO DAILY 02/20/25 03/25/25 03/20/25 History mcg (1,000 unit) tablet (Vitamin D3) fluticasone 250 mcg-salmeterol 50 2 inh inhalation BID 02/20/25 03/25/25 03/20/25 History mcg/dose blistr powdr for inhalation (Advair Diskus) ondansetron 4 mg disintegrating 4 mg PO TID PRN nausea and 03/15/25 03/25/25 Unknown Rx tablet vomiting #30 tabs sertraline 100 mg tablet 100 mg PO DAILY #90 tabs 03/15/25 03/25/25 03/20/25 Rx promethazine 25 mg tablet 25 mg PO Q6H PRN nausea and 03/17/25 03/25/25 Unknown Rx vomiting #14 tabs bupropion HCl 150 mg tablet,12 hr 150 mg PO BID 03/20/25 03/25/25 03/20/25 History sustained-release cyanocobalamin (vitamin B-12) 1,000 mcg IM Q7D 03/20/25 03/25/25 03/20/25 History 1,000 mcg/mL injection solution cyclobenzaprine 10 mg tablet 10 mg PO TID PRN muscle spasms 03/20/25 03/25/25 Unknown History nicotine 21 mg/24 hr daily 1 patch transdermal DAILY #14 ea 03/22/25 03/25/25 Unknown Rx transdermal patch pantoprazole 40 mg tablet,delayed 40 mg PO BIDWM #60 tabs 03/22/25 03/25/25 03/20/25 Rx release potassium chloride 20 mEq 40 meq (2 x 20 mEq) PO DAILY 14 03/22/25 03/25/25 03/20/25 Rx tablet,extended release days #28 tabs sodium chloride 1,000 mg soluble 1,000 mg PO BID 10 days #20 tabs 03/22/25 03/25/25 Unknown Rx tablet Allergies Allergy/AdvReac Type Severity Reaction Status Date / Time influenza virus vaccine tvs Allergy rash Verified 03/15/25 11:52 (65 yr and up) (From Fluad (65yr+)(PF)) Penicillins Allergy Rash Verified 03/15/25 11:52 vaccine adjuvant emulsion Allergy rash Verified 03/15/25 11:52 [id number] (From Fluad (65yr+)(PF)) oxycodone AdvReac Dizziness, Verified 03/15/25 11:52 flushed sulfamethoxazole (From AdvReac Nausea Verified 03/15/25 11:52 Bactrim) trimethoprim (From Bactrim) AdvReac Nausea Verified 03/15/25 11:52 Current Medications Generic Name Dose Route Start Last Admin Trade Name Freq PRN Reason Stop Dose Admin Aspirin 81 mg 03/25/25 09:00 03/30/25 08:44 Aspirin 81 Mg Ec Tablet PO 81 mg DAILY CHRIST Administration Bupropion HCl 150 mg 03/30/25 09:00 03/30/25 08:47 Bupropion Sr (12 Hr) 150 Mg Tablet PO 04/05/25 09:01 150 mg DAILY CHRIST Administration Ceftriaxone Sodium 2,000 mg 03/27/25 14:00 03/30/25 02:12 Ceftriaxone 2,000 Mg Sdv IVP 2,000 mg Q12H CHRIST Administration Protocol Hydroxyzine Pamoate 25 mg 03/24/25 23:50 03/27/25 20:48 Hydroxyzine 25 Mg Capsule PO 25 mg BID PRN Administration anxiety Lidocaine HCl 5 ml/ Potassium 105 mls @ 26.25 mls/hr 03/30/25 10:45 03/30/25 11:15 Chloride IV 03/30/25 14:44 26.25 mls/hr ONCE ONE Administration Magnesium Sulfate 2 gm in 50 mls @ 50 mls/hr 03/30/25 11:15 03/30/25 11:34 Magnesium Sulfate Premix IV 03/30/25 12:14 50 mls/hr ONCE ONE Administration Metoprolol Succinate 25 mg 03/25/25 09:00 03/30/25 08:44 Metoprolol Succinate Er (24 Hr) 50 Mg Tablet PO 25 mg DAILY CHRIST Administration Ondansetron HCl 4 mg 03/24/25 23:43 03/29/25 08:39 Ondansetron Hcl Odt 4 Mg Tab PO 4 mg TID PRN Administration NAUSEA AND VOMITING Ondansetron HCl 4 mg 03/26/25 00:18 03/29/25 17:44 Ondansetron 2 Mg/Ml Sdv 2 Ml IVP 4 mg Q4H PRN Administration vomiting, or N/V if npo Potassium Chloride 40 meq 03/29/25 18:00 03/30/25 08:43 Potassium Chloride Er 10 Meq Tablet PO 40 meq BIDWM CHRIST Administration Prochlorperazine Edisylate 10 mg 03/26/25 00:18 03/26/25 00:45 Prochlorperazine 10 Mg/2 Ml Inj IVP 10 mg Q6H PRN Administration NAUSEA Sertraline HCl 100 mg 03/25/25 09:00 03/30/25 08:44 Sertraline 100 Mg Tablet PO 100 mg DAILY CHRIST Administration Sodium Chloride 1 gm 03/25/25 09:00 03/30/25 08:44 Sodium Chloride 1 Gm Tablet PO 1 gm BID CHRIST Administration PFSH Acute PFSH: Medical History (Updated 03/29/25 @ 16:27 by Kanchan Taylor MD) Hypokalemia Cervical radiculopathy Vitamin D deficiency Anemia due to vitamin B12 deficiency, unspecified B12 deficiency type now on B12 injections Anemia, unspecified Dizziness Palpitations Vertigo, benign paroxysmal GERD without esophagitis Fasting hyperglycemia Screening for lung cancer started age 6; last LDCT 03.16.24; Nicotine dependence, cigarettes, uncomplicated last LDCT 03.16.24 Atherosclerosis of aorta Renal cyst Chronic neck pain 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 Aaron Ocular migraine Hospital Admissions Clerk, Dr. Aaron Hearing loss of both ears Benign essential tremor Peripheral neuropathic pain Dyslipidemia (high LDL; low HDL) Osteoarthritis involving multiple joints on both sides of body Chronic back pain Reports having a herniated disc in her lower back and neck and just takes muscle relaxers for this. Used to follow up with the pain clinic in the past but not anymore and this is managed by her primary care provider Anxiety and depression COPD (chronic obstructive pulmonary disease) Diagnosed in 2015 and is controlled with medication managed by PMD at this time Chronic hypertension Surgical History H/O vaginal surgery 05/21/2021- Rectovaginal fistula repair performed by Dr. Cruz at [facility] Status post hysteroscopy 09/17/2020---[place]oscopy with D&C for postmenopausal bleeding [place] [facility] [place]at time of hysteroscopy benign atrophic endometrium identified without any polyps. Pathology showed inactive endometrial glands on a background of mucin and debris, no atypia or hyperplasia polyps or malignancy identified. History of colonoscopy (09/17/20) 2015; 2.5.21 colitis--txed w/ abx, hyperplastic polyp; surgeon note says f/u colonoscopy 10 yrs S/P cholecystectomy Laparoscopic [place] Hudson [place] [facility] [place] S/P section At the age of 20 S/P tubal ligation At the age of 20 when she had her Family History Mother Diabetes Hypertension Thyroid disease Hyperlipidemia Sister Diabetes Hypertension Lung cancer Hyperlipidemia Father Diabetes Stroke Grandmother Breast cancer MGM Family/Other Prostate cancer PATERNAL UNCLE Denies family history of Ovarian cancer Myocardial infarction Uterine cancer Social History Smoking and tobacco/nicotine status: never used tobacco/nicotine Alcohol intake: never Substance/Drug Use: never Household members: other Details: lives with sister and her Marital status: / Number of children: 3 Highest education level completed: 10th Grade Current occupational status: disabled 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; 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 Female Reproductive History: Spontaneous abortions: No Vitals/I&O/Wt Last Vital Signs Temp 98.0 F 03/30/25 07:44 Pulse 80 03/30/25 11:23 Resp 17 03/30/25 07:44 BP 184/70 03/30/25 11:23 Pulse Ox 96 03/30/25 11:23 O2 Del Method Room Air 03/30/25 11:23 03/29/25 03/30/25 03/30/25 22:59 06:59 14:59 Intake Total 225 / 1675 250 / 250 Output Total 200 / 600 Balance 225 / 1275 -200 / 1075 250 / 250 Weight last 48 hrs Weight 55.338 kg Weight 57.153 kg Physical Exam Narrative: Patient is awake alert, no distress No JVD PERRLA S1-S2 regular rate and rhythm per report Lungs with decreased breath sounds bilaterally Abdomen soft nontender Extremities no pedal edema Data 03/28/25 11:38 03/30/25 13:08 Micro: Microbiology 03/24/25 21:52 Blood Culture - Final Blood NO GROWTH AFTER 5 DAYS 03/24/25 21:56 Blood Culture - Final Blood NO GROWTH AFTER 5 DAYS 03/26/25 14:41 Gram Stain - Final Cerebrospinal Fluid CSF Culture - Final Bacterial Antigens - Final Cryptococcal Antigen (CSF) - Final A&P Assessment and plan 1. Hyponatremia: 1. Hyponatremia: Hypoosmolar, appears euvolemic currently. 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 awaiting urine osmolality. Agree with holding Wellbutrin, which was recently added but can contribute to hyponatremia. Also patient on Zoloft but had been taking it for a year, will continue for now. - Continue fluid restriction and salt tablets, avoid rapid correction and goal correction is up to 6 to 8 mEq in 24 hours.. - Check BMP every 4 hours for the next 24 hours - Will consider adding urea tabs given her low solute intake (evidenced by low BUN and creatinine) May require 3% saline if no improvement - Also giving IV albumin 2. Hypokalemia: Repleted 3. Hypomagnesemia, repleted 4. Altered mental status and suspected meningitis, neurology following and is being treated with IV Rocephin. 5. Hypertension: Discontinued lisinopril (can cause hyponatremia rarely) and added amlodipine and hydralazine., Blood pressures elevated PDMP PDMP Reviewed: Not Reviewed Consult Attestations Medical Necessity Statement: per juan Coding Level of Care Code Acute Code for g Fwd Diagnoses Hyponatremia E87.1
[2025-03-30] MEDS: ondansetron 2 mg/ML SDV 2 mL 8 MG IVP ×2 (12:28→17:33)
[2025-03-30 12:34] LABS: Potassium, Radom Urine 45 mmol/L; Urine Random Chloride 155 mmol/L; Urine Random Sodium 126 mmol/L
[2025-03-30] MEDS: albumin 25 G/100 ML BAG 60 G IV (12:48)
[2025-03-30 13:36] LABS: Anion Gap 16.7 (5-19); Blood Urea Nitrogen 6 mg/dL (8-23); Calcium 7.9 mg/dL (8.5-10.5); Carbon Dioxide 23 mmol/L (22-29); Chloride 84 mmol/L (98-107); Creatinine Clr Calc Pharmacy 130.6592; Glucose 85 mg/dL (65-115); Osmolality Calculated 247 mOsm/kg (285-295); Potassium 3.7 mmol/L (3.5-5.1); Sodium 120 mmol/L (136-145)
--- NOTE | 2025-03-30 14:05 | P.PN_ITS ---
Subjective 2 Subjective: Patient unchanged today. In emesis lou is laying at her side as she lays in the lateral decubitus position. More awake today answering questions but still sluggish Vitals/I&O/Wt Last Vital Signs Temp 98.0 F 03/30/25 07:44 Pulse 80 03/30/25 11:23 Resp 17 03/30/25 07:44 BP 184/70 03/30/25 11:23 Pulse Ox 96 03/30/25 11:23 O2 Del Method Room Air 03/30/25 11:23 03/29/25 03/30/25 03/30/25 22:59 06:59 14:59 Intake Total 225 / 1675 315 / 315 Output Total 200 / 600 Balance 225 / 1275 -200 / 1075 315 / 315 Weight last 48 hrs Weight 55.338 kg Weight 57.153 kg Physical Exam 2 Narrative: Remains slow but looks a little brighter today Neuro she is alert and oriented to place and person time and situation she is nonfocal on exam Heart is regular normal S1-S2 without murmurs clicks gallops or rubs lungs are clear to auscultation without wheezes rales or rhonchi abdomen soft nontender nondistended positive bowel sounds no hepatosplenomegaly extremities no clubbing cyanosis or edema Data 03/28/25 11:38 03/30/25 13:08 Micro: Microbiology 03/24/25 21:52 Blood Culture - Final Blood NO GROWTH AFTER 5 DAYS 03/24/25 21:56 Blood Culture - Final Blood NO GROWTH AFTER 5 DAYS 03/26/25 14:41 Gram Stain - Final Cerebrospinal Fluid CSF Culture - Final Bacterial Antigens - Final Cryptococcal Antigen (CSF) - Final A&P Assessment and plan 1. Somnolence: 2. Abnormal cerebrospinal fluid: 3. Hypokalemia: 4. Hyponatremia: 5. Hypomagnesemia: 6. Weakness: Plan: 1. AMS (altered mental status): Suspected meningitis. After discussion with Dr. Taylor from neurology we are suspecting bacterial meningitis that is partially treated due to to her being on a few different antibiotics over the course of the last 4 weeks. No pathogens identified. Continues ceftriaxone 2 g IV every 12 hours. Appreciate neurology assistance 2. Hyponatremia: SIADH. SIADH could be from the meningitis or medication induced. Since the sodium remained at 119 today after stopping the fluids I consulted nephrology. 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 And continue current salt tabs. Nephrology has added albumin. We discussed a second dose later today. Patient will wean off of bupropion over the next week. I have stopped her Protonix. Will replace Protonix with Pepcid. Also due to her reported nausea and vomiting from her family I have increased the dose to Zofran and asked nursing to order her specific meals that she requests. 4. hypokalemia -again today requires considerable replacement of the 120 mcg. Her second BMP showed improvement to 3.7. Hopefully tomorrow it will reach 4. Continue potassium 40 twice daily and monitor daily Magnesium has normalized today 5. Hypomagnesia. Her level is normal today Full code Lovenox for DVT prophylaxis PDMP PDMP Reviewed: Not Reviewed Attestations 2 Medical Necessity Statement*: Patient with remarkable derangements and multiple electrolyte. Close monitoring and replacement necessary. Patient also has a positive C SF. Await neuro consult. Coding Level of Care Code Acute Code for [facility] Fw Diagnoses Somnolence R40.0 Altered mental status type: somnolence Abnormal cerebrospinal fluid R83.9 Hypokalemia E87.6 Hyponatremia E87.1 Hypomagnesemia E83.42 Weakness R53.1
--- NOTE | 2025-03-30 14:26 | PC.OT ---
OT TREATMENT HELD PATIENT IS TRANSFERRED TO ICU.
--- NOTE | 2025-03-30 17:23 | PC.NURSE ---
Potassium...... Nurse assisted patient up to a bedside commode where she voided and had a liquid bowel movement. In the bowel movement there was a pill. Nurse removed pill and saw that it was completely undigested, it was potassium form earlier, coating and writing on pill was clearly visbile. Nurse alerted Dr Guajardo and order was changed from potassium pill to liquid,
--- NOTE | 2025-03-30 17:50 | PC.NURSE ---
Addendum entered by Brenton Waller RN 03/30/25 19:00: NUrse attempted to call family in thinking their presence may help the patient, but there was no answer. IVP hydralazine prders received form Dr Guajardo. RIght after new orders put in, patient accepted the potassium, PO hydralazine, and salt tablet. Original Note: medication refusal..... patient has refused meds due at 1800. MIssed the one time dose of hydralazine due to HTN, missed 1 gram salt supplement, PO potassium, and urea. Patient gets agitated and agressive with staff if we attempt to give meds. Nurse alerted Dr Guajardo, waiting on updated orders with alternative routes.
[2025-03-30 18:32] LABS: Anion Gap 16.4 (5-19); Blood Urea Nitrogen 7 mg/dL (8-23); Calcium 8.0 mg/dL (8.5-10.5); Carbon Dioxide 24 mmol/L (22-29); Chloride 82 mmol/L (98-107); Creatinine Clr Calc Pharmacy 130.6592; Glucose 85 mg/dL (65-115); Osmolality Calculated 243 mOsm/kg (285-295); Potassium 4.4 mmol/L (3.5-5.1)
[2025-03-30] MEDS: potassium chloride oral liq 20 mEq/15 mL UDC 40 MEQ PO (18:32)
[2025-03-30 18:35] LABS: Sodium 118 mmol/L (136-145)
--- NOTE | 2025-03-30 19:02 | PC.NURSE ---
Critical lab.... Reported Critical lab of sodium [address] Dorado. Received 3% saline orders. 100ML to run over 4 hours then BMP. Serial BMP is already ordered for this time.
--- NOTE | 2025-03-30 19:03 | PC.NURSE ---
Addendum entered by Brenton Waller RN 03/30/25 19:05: Frequently hypertensive. PRN Hydralazine added. Original Note: SHift SUmmary: Patient's SOidum level has decreased form 120 down to 118. THe patient has become more agitated as the day has gone on, not sure if due to lower potassium or the family having left part way through the day. Patient has become uncooperative, and slightly agressive. BUt behaviors have been manageable with redirection. Undigested Pill was found in patient's stool. See Previous nurses note.
[2025-03-30] MEDS: sodium chloride 3% 100 ML in empty flexible container 1 EACH 25 ML IV (19:55)
[2025-03-30 21:48] LABS: Anion Gap 16.7 (5-19); Blood Urea Nitrogen 7 mg/dL (8-23); Calcium 8.3 mg/dL (8.5-10.5); Carbon Dioxide 24 mmol/L (22-29); Chloride 85 mmol/L (98-107); Creatinine Clr Calc Pharmacy 104.5273; Glucose 86 mg/dL (65-115); Osmolality Calculated 251 mOsm/kg (285-295); Potassium 3.7 mmol/L (3.5-5.1); Sodium 122 mmol/L (136-145)
[2025-03-30 23:45] LABS: Anion Gap 18.5 (5-19); Blood Urea Nitrogen 8 mg/dL (8-23); Calcium 8.2 mg/dL (8.5-10.5); Carbon Dioxide 22 mmol/L (22-29); Chloride 86 mmol/L (98-107); Creatinine Clr Calc Pharmacy 130.6592; Glucose 86 mg/dL (65-115); Osmolality Calculated 254 mOsm/kg (285-295); Potassium 3.5 mmol/L (3.5-5.1); Sodium 123 mmol/L (136-145)
--- NOTE | 2025-03-30 23:58 | PC.NURSE ---
3% Infusion: Dr. Dorado ordered 100mL of 3% saline to run over 4 hours, gave telephone orders approving to run in peripheral IV.
[2025-03-31] VITALS (40 sets, daily range): BP systolic 122–176; BP diastolic 61–117; PULSE 76–104; RESP 6–26; TEMP 36.6–36.7; O2SAT 94–99; BMI 22.7
--- NOTE | 2025-03-31 | PC.NURSE ---
Addendum entered by Zohreh Madrigal RN 03/31/25 00:24: Dr. Dorado requested D5w be started at 50mL/hr for 2 hours, then redraw a Na level. Original Note: Na level: Patient's Na level was 123 after infusion of 3% saline. Dr. Dorado was contacted and gave telephone orders for Q4h BMPs and to notify her if Na level increases at next blood draw.
[2025-03-31] MEDS: cefTRIAXone 2,000 mg SDV 2000 MG IVP ×2 (02:08→13:19)
[2025-03-31] MEDS: hyDRALAzine 20 mg/mL INJ 1 mL 10 MG IVP (02:08)
[2025-03-31 03:10] LABS: Anion Gap 18.3 (5-19); Blood Urea Nitrogen 8 mg/dL (8-23); Calcium 8.2 mg/dL (8.5-10.5); Carbon Dioxide 23 mmol/L (22-29); Chloride 86 mmol/L (98-107); Creatinine Clr Calc Pharmacy 104.5273; Glucose 102 mg/dL (65-115); Osmolality Calculated 257 mOsm/kg (285-295); Potassium 3.3 mmol/L (3.5-5.1); Sodium 124 mmol/L (136-145)
[2025-03-31] MEDS: potassium chloride oral liq 20 mEq/15 mL UDC PO (03:38)
--- NOTE | 2025-03-31 03:47 | PC.NURSE ---
2AM lab draw: Patient's Na level was 124 and K was 3.3. Dr. Dorado gave telephone orders to continue d5w at 50mL/hr and give 20meq K PO ONCE.
[2025-03-31 05:15] LABS: Anion Gap 18.2 (5-19); Blood Urea Nitrogen 8 mg/dL (8-23); Calcium 8.1 mg/dL (8.5-10.5); Carbon Dioxide 22 mmol/L (22-29); Chloride 85 mmol/L (98-107); Creatinine Clr Calc Pharmacy 104.5273; Glucose 117 mg/dL (65-115); Osmolality Calculated 253 mOsm/kg (285-295); Potassium 3.2 mmol/L (3.5-5.1); Sodium 122 mmol/L (136-145)
[2025-03-31] MEDS: potassium chloride oral liq 20 mEq/15 mL UDC 40 MEQ PO ×3 (06:20→17:37)
--- NOTE | 2025-03-31 06:23 | PC.NURSE ---
K: Dr. Dorado gave orders for 40meq K PO ONCE.
[2025-03-31 08:43] LABS: Blood Urea Nitrogen 8 mg/dL (8-23); Calcium 8.3 mg/dL (8.5-10.5); Carbon Dioxide 22 mmol/L (22-29); Chloride 86 mmol/L (98-107); Creatinine Clr Calc Pharmacy 96.3881; Glucose 125 mg/dL (65-115); Osmolality Calculated 250 mOsm/kg (285-295); Sodium 120 mmol/L (136-145)
[2025-03-31 08:44] LABS: Anion Gap 16.4 (5-19); Potassium 4.4 mmol/L (3.5-5.1)
--- NOTE | 2025-03-31 09:03 | PM.PN ---
Subjective Subjective: Patient is more confused today. I do not know if this is due to the moved to the ICU. Her family was not around much yesterday. Her sister is here today and feeding her. She had about a half a banana and a few sips of her milk Per RN and my eval there is been no recent nausea or vomiting. Vitals/I&O/Wt Last Vital Signs Temp 98.1 F 03/31/25 03:45 Pulse 78 03/31/25 08:00 Resp 6 L 03/31/25 08:00 BP 161/73 03/31/25 08:00 Pulse Ox 97 03/31/25 06:00 O2 Del Method Room Air 03/31/25 04:15 03/30/25 03/31/25 03/31/25 22:59 06:59 14:59 Intake Total 626.667 / 941.667 Output Total 1000 / 1000 Balance -1000 / -685 626.667 / -58.333 Weight last 48 hrs Weight 51.029 kg Weight 55.338 kg Physical Exam Narrative: Patient is alert but not oriented. She knows her her name and her sister but she does not know where she is or the date. Heart regular normal S1-S2 without murmurs clicks gallops rubs Lungs clear to auscultation without wheezes rales or rhonchi Abdomen soft nontender nondistended positive bowel sounds Extremities no clubbing cyanosis or edema Data 03/28/25 11:38 03/31/25 08:19 A&P Assessment and plan 1. Somnolence: 2. Abnormal cerebrospinal fluid: 3. Hypokalemia: 4. Hyponatremia: 5. Hypomagnesemia: 6. Weakness: Plan: 1. AMS (altered mental status): Suspected bacterial meningitis that may have been partially treated due to being on a couple different courses of antibiotics over the last 4 weeks. -No pathogens identified. Continues ceftriaxone 2 g IV every 12 hours. - Appreciate neurology assistance 2. Hyponatremia: SIADH. SIADH could be from the meningitis or medication induced. Yesterday nephrology asked for the patient to be moved to the ICU. She did dip to 119 and even 118 overnight. However now her sodium is 122. Last lab was drawn at 8: 20 a.m. -Medication. Bupropion is weaning. Protonix has been stopped. However we have continued her SSRI since she has been on that for 1 year and no documented hyponatremia until recently 4. hypokalemia -a it was noted yesterday that she had a stool with the potassium completely intact. Her potassium today is 4.4 up markedly from yesterday at 3.5. Will stop potassium replacement at this time. Yesterday she had been changed to liquid for better absorption Will follow expectantly 5. Hypomagnesia. Her level was normal yesterday will follow every other day I did speak to the patient's sister and son that is local. I explained my thought process to consider transfer to [facility] and more availability of more frequent test. She is not improving mentally although again it may be delayed due to this long duration of hyponatremia. Son is open to transfer. I will await speaking with interactive digital media specialist. Full code Lovenox for DVT prophylaxis PDMP PDMP Reviewed: Not Reviewed Attestations Medical Necessity Statement*: Patient with remarkable derangements and multiple electrolyte. Close monitoring and replacement necessary. Patient also has a positive C SF. Await neuro consult. Coding Level of Care Code Acute Code for [facility] Fwd Diagnoses Somnolence R40.0 Altered mental status type: somnolence Abnormal cerebrospinal fluid R83.9 Hypokalemia E87.6 Hyponatremia E87.1 Hypomagnesemia E83.42 Weakness R53.1
[2025-03-31] MEDS: metoprolol succinate ER (24 HR) 50 mg Tablet 25 MG PO (09:24)
[2025-03-31] MEDS: albumin 25 G/100 ML BAG 60 G IV ×2 (09:25→13:18)
[2025-03-31 12:04] LABS: Anion Gap 13.9 (5-19); Blood Urea Nitrogen 14 mg/dL (8-23); Calcium 8.8 mg/dL (8.5-10.5); Carbon Dioxide 24 mmol/L (22-29); Chloride 87 mmol/L (98-107); Creatinine Clr Calc Pharmacy 96.3881; Glucose 142 mg/dL (65-115); Osmolality Calculated 255 mOsm/kg (285-295); Potassium 3.9 mmol/L (3.5-5.1); Sodium 121 mmol/L (136-145)
--- NOTE | 2025-03-31 12:48 | P.PN_ITS ---
Subjective 2 Subjective: recieved 3% saline overnight Medications: Reviewed: Yes Vitals/I&O/Wt Last Vital Signs Temp 98.1 F 03/31/25 03:45 Pulse 78 03/31/25 12:00 Resp 6 L 03/31/25 12:00 BP 138/67 03/31/25 12:00 Pulse Ox 94 03/31/25 12:00 O2 Del Method Room Air 03/31/25 04:15 03/30/25 03/31/25 03/31/25 22:59 06:59 14:59 Intake Total 626.667 / 941.667 335 / 335 Output Total 1000 / 1000 Balance -1000 / -685 626.667 / -58.333 335 / 335 Weight last 48 hrs Weight 51.029 kg Weight 55.338 kg Physical Exam 2 Narrative: Patient is awake alert, no distress, confused No JVD PERRLA S1-S2 regular rate and rhythm per report Lungs with decreased breath sounds bilaterally Abdomen soft nontender Extremities no pedal edema Data 03/28/25 11:38 03/31/25 11:32 A&P Assessment and plan 1. Hyponatremia: 1. Hyponatremia: Hypoosmolar, appears euvolemic currently. 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 awaiting urine osmolality. Agree with holding Wellbutrin, which was recently added but can contribute to hyponatremia. Also patient on Zoloft but had been taking it for a year, will continue for now. - Continue fluid restriction and salt tablets, avoid rapid correction and goal correction is up to 6 to 8 mEq in 24 hours.. - Check BMP every 4 hours for the next 24 hours - added urea tabs -Na remins low @ 121 this Am , restart 3% saline @ 15 cc/hr 2. Hypokalemia: Repleted 3. Hypomagnesemia, repleted 4. Altered mental status and suspected meningitis, neurology following and is being treated with IV Rocephin. 5. Hypertension: Discontinued lisinopril (can cause hyponatremia rarely) and added amlodipine and hydralazine., Blood pressures elevated PDMP PDMP Reviewed: Not Reviewed Attestations 2 Medical Necessity Statement*: per juan Coding Level of Care Code Acute Code for [facility] Fwd Diagnoses Hyponatremia E87.1
[2025-03-31] MEDS: water for injection-sterile 10 ML 1000 ML (13:43)
--- NOTE | 2025-03-31 15:39 | PC.NURSE ---
this shift has been mostly confused restless pulling at lines and takine monitor off , no nausea or vomiting noted today small amt po intake food and liquid , sister here visit in afternoon assisted up bsc was able to tell me her name and her sisters name but was incontinent of greenish colored stool linen change done and bath done back to bed
[2025-03-31 16:40] LABS: Anion Gap 13.2 (5-19); Blood Urea Nitrogen 12 mg/dL (8-23); Calcium 8.6 mg/dL (8.5-10.5); Carbon Dioxide 26 mmol/L (22-29); Chloride 87 mmol/L (98-107); Creatinine Clr Calc Pharmacy 96.3881; Glucose 111 mg/dL (65-115); Osmolality Calculated 256 mOsm/kg (285-295); Potassium 3.2 mmol/L (3.5-5.1); Sodium 123 mmol/L (136-145)
--- NOTE | 2025-03-31 17:20 | PC.NURSE ---
lab callled to dr sonia bowie for kcl
[2025-03-31] MEDS: lidocaine 1% 5 ML in potassium chloride premix 100 ML 26.25 ML IV (17:38)
[2025-03-31 20:54] LABS: Anion Gap 17.9 (5-19); Blood Urea Nitrogen 10 mg/dL (8-23); Calcium 8.6 mg/dL (8.5-10.5); Carbon Dioxide 22 mmol/L (22-29); Chloride 89 mmol/L (98-107); Creatinine Clr Calc Pharmacy 96.3881; Glucose 99 mg/dL (65-115); Osmolality Calculated 259 mOsm/kg (285-295); Potassium 3.9 mmol/L (3.5-5.1); Sodium 125 mmol/L (136-145)
--- NOTE | 2025-03-31 22:49 | PC.NURSE ---
BMP results from [address] Montague as per her instructions. Ordered to leave 3% saline at 15 ml/hr and recheck BMP in 4 hours. Stop fluids if next sodium 127 or greater.
[2025-03-31 22:59] LABS: HSV 2 IgG Inhibition IA POSITIVE
[2025-04-01] VITALS (22 sets, daily range): BP systolic 160–192; BP diastolic 73–130; PULSE 66–105; RESP 18–34; TEMP 36.6–36.8; O2SAT 93–97
[2025-04-01] MEDS: cefTRIAXone 2,000 mg SDV 2000 MG IVP ×2 (02:14→14:39)
[2025-04-01 03:07] LABS: Magnesium 1.8 mg/dL (1.7-2.3)
[2025-04-01 03:48] LABS: Alanine Aminotransferase < 5 U/L (0-33); Albumin Level 4.1 g/dL (3.5-5.2); Alkaline Phosphatase 30 U/L (35-105); Anion Gap 15.8 (5-19); Aspartate Amino Transferase 5 U/L (0-32); Blood Urea Nitrogen 9 mg/dL (8-23); Calcium 8.6 mg/dL (8.5-10.5); Carbon Dioxide 24 mmol/L (22-29); Chloride 91 mmol/L (98-107); Creatinine Clr Calc Pharmacy 96.3881; Globulin 1.8 g/dL (1.3-4.6); Glucose 96 mg/dL (65-115); Osmolality Calculated 263 mOsm/kg (285-295); Potassium 3.8 mmol/L (3.5-5.1); Sodium 127 mmol/L (136-145); Total Protein 5.9 g/dL (6.6-8.7)
--- NOTE | 2025-04-01 04:09 | PC.NURSE ---
Current sodium 127, IV fluids paused per Dr. Cobos instruction.
--- NOTE | 2025-04-01 08:06 | PM.PN ---
Subjective Subjective: 3% saline on hold plan for MRI today Medications: Reviewed: Yes Vitals/I&O/Wt Last Vital Signs Temp 98.2 F 04/01/25 02:00 Pulse 89 04/01/25 06:00 Resp 26 H 04/01/25 04:00 BP 177/85 04/01/25 03:00 Pulse Ox 95 04/01/25 04:00 O2 Del Method Room Air 03/31/25 04:15 03/31/25 04/01/25 04/01/25 22:59 06:59 14:59 Intake Total 340 / 685 252 / 937 105 / 105 Output Total 300 / 300 Balance 40 / 385 252 / 637 105 / 105 Weight last 48 hrs Weight 50.576 kg Weight 51.029 kg Physical Exam Narrative: Patient is awake alert, no distress, confused No JVD PERRLA S1-S2 regular rate and rhythm per report Lungs with decreased breath sounds bilaterally Abdomen soft nontender Extremities no pedal edema Data 03/28/25 11:38 04/01/25 02:27 A&P Assessment and plan 1. Hyponatremia: 1. Hyponatremia: Hypoosmolar, appears euvolemic currently. 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 awaiting urine osmolality. Agree with holding Wellbutrin, which was recently added but can contribute to hyponatremia. Also patient on Zoloft but had been taking it for a year, will continue for now. - Continue fluid restriction and salt tablets, avoid rapid correction and goal correction is up to 6 to 8 mEq in 24 hours.. - Check BMP every 4 hours - added urea tabs - s/p 3% saline - off now , Na 127 2. Hypokalemia: Repleted 3. Hypomagnesemia, repleted 4. Altered mental status and suspected meningitis, neurology following and is being treated with IV Rocephin. 5. Hypertension: Discontinued lisinopril (can cause hyponatremia rarely) and added amlodipine and hydralazine., Blood pressures elevated PDMP PDMP Reviewed: Not Reviewed Attestations Medical Necessity Statement*: per medicine Coding Level of Care Code Acute Code for [facility] Fwd Diagnoses Hyponatremia E87.1
[2025-04-01 08:11] LABS: Anion Gap 19.5 (5-19); Blood Urea Nitrogen 8 mg/dL (8-23); Calcium 8.8 mg/dL (8.5-10.5); Carbon Dioxide 22 mmol/L (22-29); Chloride 88 mmol/L (98-107); Creatinine Clr Calc Pharmacy 119.4156; Glucose 102 mg/dL (65-115); Osmolality Calculated 261 mOsm/kg (285-295); Potassium 3.5 mmol/L (3.5-5.1); Sodium 126 mmol/L (136-145)
--- NOTE | 2025-04-01 08:32 | P.PN_ITS ---
Subjective 2 Subjective: Patient remains in bed however she is supine in send in the left lateral. She knows that she is in [place] today. However she does not understand why. She denies any pain or other symptoms Vitals/I&O/Wt Last Vital Signs Temp 98.2 F 04/01/25 02:00 Pulse 89 04/01/25 06:00 Resp 26 H 04/01/25 04:00 BP 177/85 04/01/25 03:00 Pulse Ox 95 04/01/25 04:00 O2 Del Method Room Air 03/31/25 04:15 03/31/25 04/01/25 04/01/25 22:59 06:59 14:59 Intake Total 340 / 685 252 / 937 105 / 105 Output Total 300 / 300 Balance 40 / 385 252 / 637 105 / 105 Weight last 48 hrs Weight 50.576 kg Weight 51.029 kg Physical Exam 2 Narrative: Patient is alert oriented to self and place not time or situation. Heart regular normal S1-S2 without murmurs clicks gallops rubs Lungs clear to auscultation without wheezes rales or rhonchi Abdomen soft nontender nondistended sluggish bowel sounds Extremities no clubbing cyanosis or edema Data 03/28/25 11:38 04/01/25 07:43 A&P Assessment and plan 1. Somnolence: 2. Abnormal cerebrospinal fluid: 3. Hypokalemia: 4. Hyponatremia: 5. Hypomagnesemia: 6. Weakness: Plan: 1. AMS (altered mental status): Suspected bacterial meningitis that may have been partially treated due to being on a couple different courses of antibiotics over the last 4 weeks. -No pathogens identified. Continues ceftriaxone 2 g IV every 12 hours. *Yesterday I personally reviewed her CAT scan of her head. It appeared that her white matter was not consistent. Given her altered mental status and abnormal CSF I spoke with Tiffany fermin. The second radiologist to read the film agreed with and abnormal brain on CT. He recommended a repeat MRI -Currently the patient is down in MRI and not tolerating it. Initially ordered Ativan 1 mg IV push x 1 to complete study however she states that medication makes me crazy . I will order Valium 10 mg and will perform the study later today 2. Hyponatremia: SIADH. SIADH could be from the meningitis or medication induced. -I spoke with nephrology yesterday. She was in agreement to give 3% normal saline to push the sodium a little higher within the goals of no more than 8 mEq per 24 hours. -Finally where up to 125 and most recently 126. -Continue fluid restriction and salt tabs urea and avoiding rapid correction. -Medication. Bupropion is weaning. Protonix has been stopped. However we have continued her SSRI since she has been on that for 1 year and no documented hyponatremia until recently 4. hypokalemia -a it was noted yesterday that she had a stool with the potassium completely intact. Patient's potassium is down to 3.5. We are giving her bananas that she eats about half of. She is not digesting the potassium tablets. We are trying liquid Will follow expectantly 5. Hypomagnesia. Magnesium stable at 1.8-1.9 6. RN just found a scopolamine patch behind her ear during MRI. This could be contributing to altered mental status. Await MRI findings for decision about any transfer. Of course her mental status will be limited today due to that high Ativan dose Full code Lovenox for DVT prophylaxis PDMP PDMP Reviewed: Not Reviewed Attestations 2 Medical Necessity Statement*: Patient remains altered somnolent with limited orientation. She is also remains with hyponatremia and other electrolyte derangements. Patient requiring repeat MRI to assist with diagnostic purposes for her altered mental status. She continues to need over 2 midnight stay Coding Level of Care Code Acute Code for [facility] Fwd Diagnoses Somnolence R40.0 Altered mental status type: somnolence Abnormal cerebrospinal fluid R83.9 Hypokalemia E87.6 Hyponatremia E87.1 Hypomagnesemia E83.42 Weakness R53.1
[2025-04-01] MEDS: metoprolol succinate ER (24 HR) 50 mg Tablet 25 MG PO (08:56)
[2025-04-01] MEDS: potassium chloride oral liq 20 mEq/15 mL UDC 40 MEQ PO (08:56)
--- NOTE | 2025-04-01 09:51 | PC.NURSE ---
Addendum entered by Dominick Delatorre RN 04/01/25 10:09: waste witnessed by this nurse Original Note: ativan iv wasted pt refused related that it makes her crazy witness dominick Cardozo rn
--- NOTE | 2025-04-01 12:55 | PC.NURSE ---
more awake and oriented this am. aware person and place not sure why she l in the hospital but aware and sson and daughter at bedside attempt to go for mri this am pt agree up in [place] and taken with staff placed in mri pt became restless agitatated stated unable to tolerate, doctor called and orders noted stated not able to take lorazepam as it makes her crasy while place pt in room noted patch behind ear, removed apperared to be scopaline patch . back to room and po valium given sedated back to bed and taken back to mri later remained unable to tolerate . pt refusing back to room family and doctor aware
--- NOTE | 2025-04-01 14:26 | PC.NURSE ---
While patient was alert and oriented I was able to go in the room with patient's son and filled out a DPOA with them. I signed it as a notary and placed it in the patient's chart. At this time patient wishes to be a full code. See DPOA in chart.
[2025-04-01 14:35] LABS: Alanine Aminotransferase < 5 U/L (0-33); Albumin Level 3.9 g/dL (3.5-5.2); Alkaline Phosphatase 33 U/L (35-105); Anion Gap 17.5 (5-19); Aspartate Amino Transferase 6 U/L (0-32); Blood Urea Nitrogen 14 mg/dL (8-23); Calcium 9.1 mg/dL (8.5-10.5); Carbon Dioxide 24 mmol/L (22-29); Chloride 91 mmol/L (98-107); Creatinine Clr Calc Pharmacy 119.4156; Globulin 2.4 g/dL (1.3-4.6); Glucose 98 mg/dL (65-115); Osmolality Calculated 268 mOsm/kg (285-295); Potassium 3.5 mmol/L (3.5-5.1); Sodium 129 mmol/L (136-145); Total Protein 6.3 g/dL (6.6-8.7)
[2025-04-01] MEDS: water for injection-sterile 10 ML 10000 ML (15:34)
--- NOTE | 2025-04-01 17:26 | P.DS_ITS ---
Discharge Providers Date of Admission: 03/24/25 22:31 Date of Discharge: April 01, 2025 Attending Provider at Admission: Dimitrios Pfeiffer MD Attending Provider at Discharge: Krish Guajardo DO Primary Care Provider: Haley Kinsey MD Diagnoses at Discharge Discharge Diagnosis 1. Somnolence: 2. Abnormal cerebrospinal fluid: 3. Hypokalemia: 4. Hyponatremia: 5. Hypomagnesemia: 6. Weakness: Reason for Visit Reason for Visit: WEAKNESS Brief History: Sara López is a 59 year old female with past medical anxiety, depression, GERD, hypertension, who presents [facility] due to confusion, generalized weakness, poor appetite, weight loss over 30 pounds. 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 IV normal saline was initiated and simultaneously fluid restrict restricted salt tabs were started. Initial workup of altered mental status included a UA with normal limits no focal pneumonia on chest x-ray. Patient underwent a CT of the chest for the reported weight loss. CT of chest showed mild hyperinflation free of consolidation no acute abnormality. CT of abdomen and pelvis showed no acute disease no masses. On 03/26/2025 a lumbar puncture was done that was found to be abnormal. WBC count was 267 with 85% mononuclear cells and 15% polynuclear cells. RBCs was 0 glucose 4 and total protein 175. The CSF was negative for strep group B H influenza strep pneumonia and and meningitis. It was also negative for cryptococcal antigen. A neurology consult ensued and given that the patient had been on antibiotics in the previous few weeks it was decided to treat her for bacterial meningitis with ceftriaxone 2 g IV every 12 hours. Throughout the hospitalization her hyponatremia actually worsened. When I got on service on 03/28/2025 she had dipped to 118. At that time I stopped the IV fluids and she was maintained on fluid restriction. Nephrology consultation ensued. I also investigated her home medications. She has been on Protonix and SSRI for over a year with normal sodiums. She was started on bupropion a month ago I have started the to taper that. I did stop the Protonix. We were in agreement that the SSRI could probably be maintained. The sodium started to come up slowly and eventually on 03/31/2025 she received small dose of hypertonic saline. This improved her sodium to 126. Also during this hospitalization she had derangements in potassium magnesium and phosphorus requiring replacement. It was noted that she had a full potassium pill in her stool. Question whether she was absorbing. Yesterday after I personally reviewed her initial CAT scan I questioned white matter changes. The on-call radiologist concurred that it did look abnormal even though it was read as normal. He suggested I perform a MRI. We attempted an MRI today however she became claustrophobic and agitated moving constantly. This was despite Valium 10 mg. At this point today I do not have a definitive diagnosis she is not improving significantly and our resources are limited at a small [facility] [place]. Both myself and family wish to transfer the patient to [facility]. They have excepted her and placed her on high-priority. We are awaiting a bed Physical Exam Narrative: Patient is alert oriented to self and place not time or situation. Heart regular normal S1-S2 without murmurs clicks gallops rubs Lungs clear to auscultation without wheezes rales or rhonchi Abdomen soft nontender nondistended sluggish bowel sounds Extremities no clubbing cyanosis or edema Discharge Data Studies Completed and Pending Completed Studies During Hospitalization Category Date Time Status CT abdomen pelvis w con* [id number] Routine Cat Scan 03/26/25 10:[address] chest wo con [id number] Stat Cat Scan 03/24/25 22:[address] head wo con* [id number] Urgent Cat Scan 03/24/25 20:27 Completed FL guided lumbarpunc dx* [id number] Routine Exams 03/26/25 15:28 Completed XR chest 1V portable [id number] Stat Exams 03/24/25 20:02 Completed CV carotid duplex BI* [id number] Routine Ultrasound 03/25/25 23:43 Completed CV. echo complete* [id number] Routine Ultrasound 03/25/25 23:43 Completed Pending at discharge Category Date Time Status C.Diff PCR (Lab) Routine Lab 03/24/25 20:23 Uncollected Miscellaneous Test Routine Lab 03/28/25 12:23 Received Osmolality Serum Stat Lab 03/29/25 10:11 Received Osmolality Urine Stat Lab 03/30/25 11:18 Received Varicella Zoster IGG&IGM Routine Lab 03/28/25 11:38 Results Radiology Impressions Chest X-Ray 03/24/25 20:02 IMPRESSION: No acute findings. Head CT 03/24/25 20:27 IMPRESSION: No acute intracranial abnormality. ADDENDUM: 03/31/25 [id number] I have been asked to review this examination at the request of the referring physician because the reading radiologist is unavailable. Case was discussed with Dr. Guajardo by telephone today at approximately 6:40 p.m. central time. On further evaluation there appear to be some subtle areas of decreased attenuation in the juxtacortical white matter best seen when window width is narrowed. The previous MR showed some mild white matter changes as well. While this may indicate chronic microangiopathic white matter disease, it would be useful to see if there have been any changes since the MR exam on 02/20/2025. Therefore recommend repeat MRI brain without and with contrast. Chest CT 03/24/25 22:50 IMPRESSION: No acute abnormality. Carotid Doppler Study 03/25/25 23:43 IMPRESSION: No carotid arterial stenosis. REFERENCES: SRU CRITERIA. The degree of internal carotid artery stenosis is based on criteria defined by the Society of Radiologists in Ultrasound (SRU). Normal is no stenosis. Mild is less than 50% stenosis. Moderate is 50-69% stenosis. Severe is greater than 69% stenosis to near occlusion. Near occlusion is a markedly narrowed lumen. Total occlusion is no detectable patent lumen. Maicol Garcia, et al. Carotid Artery Stenosis: Chaparro-Scale and Doppler US Diagnosis-Society of Radiologists in Ultrasound Consensus Conference. Radiology 2003; [id number]:340-346. Abdomen/Pelvis CT 03/26/25 10:59 IMPRESSION: No definite acute findings. Aortic atherosclerosis. COMMENTS: Consistent with the [employer]'s Incidental Findings Committee white paper (J Am Eric Radiol 2018): Any incidental renal lesion less than 1 cm or classified as too small to characterize, or any incidental cystic renal lesion characterized as simple-appearing, is likely benign. No follow-up imaging is recommended for these lesions per consensus recommendations based on imaging criteria. Lumbar Puncture Fluoroscopy 03/26/25 15:28 IMPRESSION: Uncomplicated lumbar puncture for CSF. Laboratory Results WBC 6.87 10^3/uL (3.29-11.43) 03/28/25 11:38 RBC 3.12 10^6/uL (3.85-5.65) L 03/28/25 11:38 Hgb 8.80 g/dL (11.27-16.99) L 03/28/25 11:38 Hct 25.2 % (36-47) L 03/28/25 11:38 MCV 80.8 fl (85-98) L 03/28/25 11:38 MCH 28.2 pg (27-33) 03/28/25 11:38 MCHC 34.9 g/dL (30-55) 03/28/25 11:38 RDW 13.0 % (12.1-15.1) 03/28/25 11:38 Plt Count 287 10^3/cmm (157-399) 03/28/25 11:38 MPV 8.4 fL (7.4-10.4) 03/28/25 11:38 Neut % (Auto) 80.8 % 03/28/25 11:38 Lymph % (Auto) 10.5 % 03/28/25 11:38 Ashley % (Auto) 7.0 % 03/28/25 11:38 Eos % (Auto) 0.1 % 03/28/25 11:38 Baso % (Auto) 0.1 % 03/28/25 11:38 Neut # (Auto) 5.55 10^3/uL (1.8-7.7) 03/28/25 11:38 Lymph # (Auto) 0.7 10^3/uL (0.8-4.8) L 03/28/25 11:38 Ashley # (Auto) 0.5 10^3/uL (0.2-0.9) 03/28/25 11:38 Eos # (Auto) 0.0 10^3/uL (0.0-0.8) 03/28/25 11:38 Baso # (Auto) 0.0 10^3/uL (0.0-0.1) 03/28/25 11:38 Nucleated RBC % (auto) 0 % 03/28/25 11:38 Nucleated RBCs # 0.0 /100WBC 03/28/25 11:38 ESR 32 mm/hr (0-15) H 03/24/25 20:20 Sodium 129 mmol/L (136-145) L 04/01/25 13:32 Potassium 3.5 mmol/L (3.5-5.1) 04/01/25 13:32 Chloride 91 mmol/L (98-107) L 04/01/25 13:32 Carbon Dioxide 24 mmol/L (22-29) 04/01/25 13:32 Anion Gap 17.5 (5-19) 04/01/25 13:32 BUN 14 mg/dL (8-23) 04/01/25 13:32 Creatinine 0.4 mg/dL (0.5-0.9) L 04/01/25 13:32 GFR Calculation 162.8 mL/min (90-130) H 04/01/25 13:32 Glucose 98 mg/dL (65-115) 04/01/25 13:32 POC Glucose 89 mg/dL (70-110) 03/30/25 14:42 Calculated Osmolality 268 mOsm/kg (285-295) L 04/01/25 13:32 Lactic Acid 0.8 mmol/L (0.5-2.2) 03/24/25 20:20 Calcium 9.1 mg/dL (8.5-10.5) 04/01/25 13:32 Phosphorus 2.5 mg/dL (2.5-4.5) 04/01/25 02:27 Magnesium 1.8 mg/dL (1.7-2.3) 04/01/25 02:27 Total Bilirubin 0.5 mg/dL (0.15-1.2) 04/01/25 13:32 AST 6 U/L (0-32) 04/01/25 13:32 ALT < 5 U/L (0-33) 04/01/25 13:32 Alkaline Phosphatase 33 U/L (35-105) L 04/01/25 13:32 Ammonia 32 umol/L (11-51) 03/24/25 00:48 Troponin T Baseline 15 ng/L (0-10) H 03/24/25 00:48 Troponin T 120 Minute 10.94 ng/L (0-10) H 03/25/25 01:19 Delta Troponin T -4.06 ABS# (0-10) L 03/25/25 01:19 Troponin T Hi Sens 6Hr 11.31 ng/L (0-10) H 03/25/25 04:55 Troponin T Hi Sens 6Hr Delta -3.69 ng/L (0-12) L 03/25/25 04:55 C-Reactive Protein 12.9 mg/L (0.0-4.9) H 03/27/25 09:48 Total Protein 6.3 g/dL (6.6-8.7) L 04/01/25 13:32 Albumin 3.9 g/dL (3.5-5.2) 04/01/25 13:32 Globulin 2.4 g/dL (1.3-4.6) 04/01/25 13:32 Vitamin B12 993 pg/mL (232-1245) 03/28/25 11:38 Procalcitonin 0.04 ng/mL (0-0.5) 03/27/25 09:48 Random Cortisol 38.86 ug/dL (2.47-19.5) H 03/26/25 05:26 ACTH 78 pg/mL (6-50) H 03/26/25 13:44 Urine Color Yellow (Yellow) 03/24/25 20:23 Urine Appearance Clear (CLEAR) 03/24/25 20: Urine pH 5.5 (5-7) 03/24/25 20:23 Ur Specific [place] 1.025 (1.005-1.030) 03/24/25 20:23 Urine Protein 2+ (Negative) A 03/24/25 20: Urine Glucose (UA) Negative (Normal) 03/24/25 20: Urine Ketones 1+ (Negative) H 03/24/25 20:23 Urine Blood 3+ (Negative) A 03/24/25 20:23 Urine Nitrate Negative (Negative) 03/24/25 20: Urine Bilirubin Negative (Negative) 03/24/25 20:23 Urine Urobilinogen 1.0 mg/dL (Negative) 03/24/25 20:23 Ur Leukocyte Esterase Negative (Negative) 03/24/25 20:23 Urine RBC 11-20 /hpf (0-2) H 03/24/25 20:23 Urine WBC 0-5 /hpf (0-5) 03/24/25 20:23 Ur Squamous Epith Cells 6-10 /hpf (0-5) 03/24/25 20:23 Amorphous Sediment Not Reportable 03/24/25 20:23 Urine Bacteria None seen /hpf (NONE) 03/24/25 20:23 Hyaline Casts 8.26 /lpf 03/24/25 20:23 Ur Random Sodium 126 mmol/L 03/30/25 11:18 Ur Random Potassium 45 mmol/L 03/30/25 11:18 Ur Random Chloride 155 mmol/L 03/30/25 11:18 CSF Appearance Clear (CLEAR) 03/26/25 14:41 CSF Color Colorless (COLORLESS) 03/26/25 14:41 CSF WBC 267 /uL (0-5) H 03/26/25 14:41 CSF RBC 0 10^3/uL (0-0) 03/26/25 14:41 CSF Mononuclear # Auto 0.227 10^3/uL (50-90) L 03/26/25 14:41 CSF Mononuclear WBCs % 85 % (50-90) 03/26/25 14:41 CSF Polynuclear WBCs # 0.040 10^3/uL (0-10) 03/26/25 14:41 CSF Polynuclear WBCs % 15 % (0-10) H 03/26/25 14:41 CSF Glucose 4 mg/dL (40-70) L 03/26/25 14:41 CSF Total Protein 175 mg/dL (15-45) H 03/26/25 14:41 CSF VDRL Non-reactive 03/26/25 14:41 RPR Nonreactive (Nonreactive) 03/24/25 00:48 Adenovirus (PCR) Not detected (NOT DETECT) 03/27/25 09:21 C. pneumoniae DNA (PCR) Not detected (NOT DETECT) 03/27/25 09:21 Coronavirus 229E (PCR) Not detected (NOT DETECT) 03/27/25 09:21 HSV I IgG Ab 27.40 index H 03/28/25 11:38 HSV I IgG Ab 28.30 INDEX H 03/28/25 11:38 HSV II IgG >23.00 INDEX H 03/28/25 11:38 HSV II IgG >23.00 index H 03/28/25 11:38 HSV II Inhibition IgG Positive A 03/28/25 11:38 HIV 1&2 Ab & HIV 1 Ag Non-reactive (Non-Reactiv) 03/26/25 05:26 HIV 1&2 Antibody Non-reactive (Non-Reactiv) 03/26/25 05:26 Human Metapneumovir PCR Not detected (NOT DETECT) 03/27/25 09:21 Influenza A (H1) PCR Not detected (NOT DETECT) 03/27/25 09:21 Influenza A (PCR) Negative (Negative) 03/24/25 20:10 Influ A (H1/09) PCR Not detected (NOT DETECT) 03/27/25 09:21 Influenza A (H3) PCR Not detected (NOT DETECT) 03/27/25 09:21 Influenza Type A (PCR) Not detected (NOT DETECT) 03/27/25 09:21 Influenza Type B (PCR) Not detected (NOT DETECT) 03/27/25 09:21 M. pneumoniae (PCR) Not detected (NOT DETECT) 03/27/25 09:21 Parainfluenza 1 (PCR) Not detected (NOT DETECT) 03/27/25 09:21 Parainfluenza 2 (PCR) Not detected (NOT DETECT) 03/27/25 09:21 Parainfluenza 3 (PCR) Not detected (NOT DETECT) 03/27/25 09:21 Parainfluenza 4 (PCR) Not detected (NOT DETECT) 03/27/25 09:21 RSV (PCR) Negative (Negative) 03/24/25 20:10 RSV Type A (PCR) Not detected (NOT DETECT) 03/27/25 09:21 RSV Type B (PCR) Not detected (NOT DETECT) 03/27/25 09:21 Entero/Rhino (PCR) Not detected (NOT DETECT) 03/27/25 09:21 SARS-CoV-2 (PCR) Not detected (NOT DETECT) 03/27/25 09:21 TB (QFT) Gold In Tube Negative (NEGATIVE) 03/27/25 09:48 TB Test (QFT) Nil 0.03 IU/mL 03/27/25 09:48 TB Test (QFT) Mitogen 3.48 IU/mL 03/27/25 09:48 TB Test Mitogen - Nil 0.01 IU/mL 03/27/25 09:48 TB Test TB -Nil 0.01 IU/mL 03/27/25 09:48 VZV IgM Antibody 0.50 03/28/25 11:38 Vitals Last Vital Signs Temp 98 F 04/01/25 12:00 Pulse 87 04/01/25 16:00 Resp 28 H 04/01/25 16:00 BP 172/86 04/01/25 16:00 Pulse Ox 97 04/01/25 16:00 O2 Del Method Room Air 03/31/25 04:15 Discharge Plan Discharge Patient Disposition: Home Condition: Stable Prescriptions: No Action estradiol [Estrace] 0.01 % (0.1 mg/gram) cream 1 g vaginal .twice weekly Qty: 42.5 3RF Rx Instructions: space out doses atorvastatin 20 mg tablet 20 mg PO DAILY Qty: 90 3RF (DME) CPAP Mask small- Air Touch F-20 with tubing and supplies See Rx Instructions .Route .MEDSUPPLY Qty: 1 0RF Rx Instructions: As directed (DME) oxygen-air delivery systems Device See Rx Instructions .Route Rx Instructions: As directed (DME) Compact Compressor Nebulizer Misc See Rx Instructions .Route Qty: 1 0RF Rx Instructions: As directed, tubing and supplies included. aspirin [Adult Low Dose Aspirin] 81 mg tablet,delayed release (DR/EC) 81 mg PO DAILY Qty: 100 3RF hydroxyzine HCl 25 mg tablet 25 mg PO BID PRN (Reason: anxiety) Qty: 60 1RF metoprolol succinate 50 mg tablet extended release 24 hr 25 mg PO DAILY Qty: 90 0RF (DME) syringe with needle [CareTouch Luer Lock Syr-needle] 3 mL 23 gauge x 1 1/2 syringe See Rx Instructions .Route Qty: 100 1RF Rx Instructions: As directed for B12 injections ipratropium-albuterol 0.5 mg-3 mg(2.5 mg base)/3 mL solution for nebulization 3 ml inhalation Q4H PRN (Reason: wheezing) Qty: 180 3RF sertraline 100 mg tablet 100 mg PO DAILY Qty: 90 0RF ondansetron 4 mg tablet,disintegrating 4 mg PO TID PRN (Reason: nausea and vomiting) Qty: 30 0RF fluticasone propion-salmeterol [Advair Diskus] 250-50 mcg/dose blister with device 2 inh inhalation BID albuterol sulfate 1.25 mg/3 mL solution for nebulization 1.25 mg continuous nebulization Q4H PRN (Reason: Shortness Of Breath Or Wheezing) albuterol sulfate [Ventolin HFA] 90 mcg/actuation HFA aerosol inhaler 2 puff inhalation Q6H PRN (Reason: Wheezing) cholecalciferol (vitamin D3) [Vitamin D3] 25 mcg (1,000 unit) Tablet 25 mcg PO DAILY promethazine 25 mg tablet 25 mg PO Q6H PRN (Reason: nausea and vomiting) Qty: 14 0RF bupropion HCl 150 mg tablet sustained-release 12 hr 150 mg PO BID cyclobenzaprine 10 mg tablet 10 mg PO TID PRN (Reason: muscle spasms) cyanocobalamin (vitamin B-12) 1,000 mcg/mL solution 1,000 mcg IM Q7D Rx Instructions: Tuesdays nicotine 21 mg/24 hr Patch 24 Hour 1 patch transdermal DAILY Qty: 14 0RF pantoprazole 40 mg tablet,delayed release (DR/EC) 40 mg PO BIDWM Qty: 60 0RF potassium chloride 20 mEq tablet extended release 40 meq PO DAILY 14 Days Qty: 28 0RF sodium chloride 1,000 mg Tablet,Soluble 1,000 mg PO BID 10 Days Qty: 20 0RF Automobile Mechanic Motor OK for DC: Hospitalist Other Ambulatory Orders: DME: [facility] (Order) Location: None Selected Ordered By: Luís Ariza Referrals: Haley Kinsey MD [Primary Care Provider, Family Practice] Discharge Attestations Time Spent in Discharge Care*: less than 30 min Status at Discharge: Cognitive status at discharge: cognitively intact , Behavioral status at discharge: cooperative , Quality Metrics Clinical Quality Measures [ No reported AMI, CVA or VTE this stay] Coding Level of Care Code Acute Code for Chg Fwd Diagnoses Somnolence R40.0 Altered mental status type: somnolence Abnormal cerebrospinal fluid R83.9 Hypokalemia E87.6 Hyponatremia E87.1 Hypomagnesemia E83.42 Weakness R53.1
--- NOTE | 2025-04-01 22:53 | PC.NURSE ---
Pt incontinent of bowel. Had liquid orange stool with an easily identified whole cheerio in brief.
[2025-04-02] VITALS (24 sets, daily range): BP systolic 124–188; BP diastolic 63–133; PULSE 86–101; RESP 18–48; TEMP 36.6–37.2; O2SAT 93–96
[2025-04-02] MEDS: cefTRIAXone 2,000 mg SDV 2000 MG IVP ×2 (02:09→14:17)
[2025-04-02] MEDS: metoprolol succinate ER (24 HR) 50 mg Tablet 25 MG PO (09:37)
--- NOTE | 2025-04-02 09:58 | P.PN_ITS ---
Subjective 2 Subjective: no new c/o Medications: Reviewed: Yes Vitals/I&O/Wt Last Vital Signs Temp 99.0 F 04/02/25 06:00 Pulse 89 04/02/25 06:00 Resp 28 H 04/02/25 06:00 BP 173/84 04/02/25 06:00 Pulse Ox 93 04/02/25 06:00 O2 Del Method Room Air 03/31/25 04:15 04/01/25 04/02/25 04/02/25 22:59 06:59 14:59 Intake Total 500 / 825 60 / 885 Balance 500 / 825 60 / 885 Weight last 48 hrs Weight 51.029 kg Weight 50.576 kg Physical Exam 2 Narrative: Patient is awake alert, no distress, confused No JVD PERRLA S1-S2 regular rate and rhythm per report Lungs with decreased breath sounds bilaterally Abdomen soft nontender Extremities no pedal edema Data 03/28/25 11:38 04/01/25 13:32 A&P Assessment and plan 1. Hyponatremia: 1. Hyponatremia: Hypoosmolar, appears euvolemic currently. 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 awaiting urine osmolality. Agree with holding Wellbutrin, which was recently added but can contribute to hyponatremia. Also patient on Zoloft but had been taking it for a year, will continue for now. - Continue fluid restriction and salt tablets, avoid rapid correction and goal correction is up to 6 to 8 mEq in 24 hours.. - Check BMP every 8 hours - added urea tabs - s/p 3% saline - off now , last Na 129 , BMP pending today 2. Hypokalemia: Repleted 3. Hypomagnesemia, repleted 4. Altered mental status and suspected meningitis, neurology following and is being treated with IV Rocephin. 5. Hypertension: Discontinued lisinopril (can cause hyponatremia rarely) and added amlodipine and hydralazine., Blood pressures elevated PDMP PDMP Reviewed: Not Reviewed Attestations 2 Medical Necessity Statement*: per juan Coding Level of Care Code Acute Code for [facility] Diagnoses Hyponatremia E87.1
[2025-04-02 10:00] LABS: Anion Gap 16.0 (5-19); Blood Urea Nitrogen 14 mg/dL (8-23); Calcium 9.1 mg/dL (8.5-10.5); Carbon Dioxide 26 mmol/L (22-29); Chloride 88 mmol/L (98-107); Creatinine Clr Calc Pharmacy 96.3881; Glucose 101 mg/dL (65-115); Osmolality Calculated 265 mOsm/kg (285-295); Potassium 3.0 mmol/L (3.5-5.1); Sodium 127 mmol/L (136-145)
[2025-04-02] MEDS: ondansetron 2 mg/ML SDV 2 mL 8 MG IVP (10:15)
--- NOTE | 2025-04-02 12:40 | P.PN_ITS ---
Subjective 2 Subjective: Patient that she was in [place] or [place] today. Could not name the correct state or [place] She was found to have full pills in in her pill cup that was lying in her bed. The nurse had thought she had taken home and that was incorrect. Nursing educated on the fact that patient needs pills crushed and needs to be watched. Vitals/I&O/Wt Last Vital Signs Temp 99.0 F 04/02/25 06:00 Pulse 92 04/02/25 10:00 Resp 21 H 04/02/25 10:00 BP 173/99 04/02/25 10:00 Pulse Ox 96 04/02/25 10:00 O2 Del Method Room Air 03/31/25 04:15 04/01/25 04/02/25 04/02/25 22:59 06:59 14:59 Intake Total 500 / 825 60 / 885 300 / 300 Balance 500 / 825 60 / 885 300 / 300 Weight last 48 hrs Weight 51.029 kg Weight 50.576 kg Physical Exam 2 Narrative: Patient is alert oriented to self only today Heart regular normal S1-S2 without murmurs clicks gallops rubs Lungs clear to auscultation without wheezes rales or rhonchi Abdomen soft nontender nondistended sluggish bowel sounds Extremities no clubbing cyanosis or edema Data 03/28/25 11:38 04/02/25 09:32 A&P Assessment and plan 1. Somnolence: 2. Abnormal cerebrospinal fluid: 3. Hypokalemia: 4. Hyponatremia: 5. Hypomagnesemia: 6. Weakness: Plan: 1. AMS (altered mental status): Initially suspected bacterial meningitis that may have been partially treated due to being on a couple different courses of antibiotics over the last 4 weeks. -No pathogens identified. Continues ceftriaxone 2 g IV every 12 hours. When I called and spoke with the medicine physician at [facility] he said he is not allowed to give advice over the phone but his thoughts were possible EBV or lymphoma. Based on the patient's history of weight loss I do wonder if it is lymphoma. Unfortunately there is no recommended treatment for EBV, and up-to-date they do not recommend acyclovir although he asked me if we started it. Since the patient is not exactly any worse I want to hold off on any further treatment in case they plan to repeat a CSF study. And regarding lymphoma we are unable to treat that here at our hospital 2. Hyponatremia: SIADH. SIADH could be from the [employer] abnormality or medication induced or combination thereof. - See nephrology note for current recommendations -Medication. Bupropion is weaning. Protonix has been stopped. However we have continued her SSRI since she has been on that for 1 year and no documented hyponatremia until recently 4. hypokalemia -patient may not be absorbing this medication which is why it has been crushed. Nurse educated on crushing all pills 5. Hypomagnesia. Magnesium stable at 1.8-1.9 6. RN just found a scopolamine patch behind her ear yesterday 04/01/2025 Yesterday (04/01/2025) I called [facility] and spoke to a triage medicine physician for regarding Ms. Saldaña. I reviewed her labs extensively even back until January. We reviewed her imaging studies MRI and CAT scan. And we also reviewed her last hospitalization. After extensive discussion and reporting Dr. Pereira agreed to accept this patient on high priority. Unfortunately they have not called back with a bed yet. Patient's son Jose Eduardo has been updated daily. Patient's sister Maki visits most days Full code Lovenox for DVT prophylaxis PDMP PDMP Reviewed: Not Reviewed Attestations 2 Medical Necessity Statement*: Patient remains altered somnolent with limited orientation. She is also remains with hyponatremia and other electrolyte derangements. Patient requiring repeat MRI to assist with diagnostic purposes for her altered mental status. She continues to need over 2 midnight stay Coding Level of Care Code Acute Code for [facility] Fwd Diagnoses Somnolence R40.0 Altered mental status type: somnolence Abnormal cerebrospinal fluid R83.9 Hypokalemia E87.6 Hyponatremia E87.1 Hypomagnesemia E83.42 Weakness R53.1
[2025-04-03] VITALS (25 sets, daily range): BP systolic 137–181; BP diastolic 71–106; PULSE 91–113; RESP 15–42; TEMP 36.6–36.7; O2SAT 92–100
[2025-04-03] MEDS: cefTRIAXone 2,000 mg SDV 2000 MG IVP (01:33)
--- NOTE | 2025-04-03 07:53 | P.PN_ITS ---
Subjective 2 Subjective: no new c/o Medications: Reviewed: Yes Vitals/I&O/Wt Last Vital Signs Temp 98.1 F 04/03/25 05:00 Pulse 91 04/03/25 05:14 Resp 22 H 04/03/25 05:00 BP 165/88 04/03/25 05:00 Pulse Ox 95 04/02/25 16:00 O2 Del Method Room Air 03/31/25 04:15 04/02/25 04/03/25 04/03/25 22:59 06:59 14:59 Intake Total 410 / 910 60 / 970 Output Total 150 / 150 Balance 260 / 760 60 / 820 Weight last 48 hrs Weight 50.349 kg Weight 51.029 kg Physical Exam 2 Narrative: Patient is awake alert, no distress, confused No JVD PERRLA S1-S2 regular rate and rhythm per report Lungs with decreased breath sounds bilaterally Abdomen soft nontender Extremities no pedal edema Data 03/28/25 11:38 04/02/25 09:32 A&P Assessment and plan 1. Hyponatremia: 1. Hyponatremia: Hypoosmolar, appears euvolemic currently. 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 awaiting urine osmolality. Agree with holding Wellbutrin, which was recently added but can contribute to hyponatremia. Also patient on Zoloft but had been taking it for a year, will continue for now. s/p 3% saline - Continue fluid restriction and salt tablets- increased salt tabs to 2 gm tid - added urea tabs 2. Hypokalemia: Repleted 3. Hypomagnesemia, repleted 4. Altered mental status and suspected meningitis, neurology following and is being treated with IV Rocephin.repeat LP today 5. Hypertension: Discontinued lisinopril (can cause hyponatremia rarely) and added amlodipine and hydralazine., Blood pressures elevated PDMP PDMP Reviewed: Not Reviewed Attestations 2 Medical Necessity Statement*: per medicine Coding Level of Care Code Acute Code for [facility] Diagnoses Hyponatremia E87.1
[2025-04-03] MEDS: metoprolol succinate ER (24 HR) 50 mg Tablet 25 MG PO (08:40)
--- NOTE | 2025-04-03 09:49 | FL_ITS ---
WS: [id number] LUMBAR PUNCTURE CLINICAL INFORMATION: persistent AMS TECHNIQUE: Informed consent: Verbal consent was obtained from patient's son via ordering physician Timeout: A timeout was performed to confirm correct patient, procedure, and site. Patient was prepped and draped in the usual sterile fashion. Lidocaine 1% was used for local anesthesia. Utilizing fluoroscopic guidance, a 3.5 inch 22-gauge spinal needle was advanced into the subarachnoid space at L3-L4 via right oblique sublaminar approach. Free flow of clear CSF was obtained. 15 cc of clear CSF was collected and sent the lab for further analysis. FLUOROSCOPIC TIME: 1min [id number] # of spot films: 2 Opening pressure 18 cmH2O FL/FL guided lumbarpunc dx* [id number] IMPRESSION: Fluoroscopically guided lumbar puncture. No immediate complications
--- NOTE | 2025-04-03 11:30 | P.CONIM_ITS ---
Providers/Reason For Consult 2 Consulting Physician/Specialty*: Deepali Henry MD/ Infectious Disease Reason for Consult*: meningitis Requesting Physician: Yeny Ornelas MD Attending Physician: Yeny Ornelas MD Primary Care Provider: Haley Kinsey MD History of Present Illness History of Present Illness Sara López is a 59 year old female with a past medical history of anxiety depression GERD, hypertension, who has developed increasing generalized weakness, 35 pound weight loss, inability to tolerate p.o. intake with recurrent episodes of nausea and vomiting for the last 3-4 weeks. 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 She was recently discharged from the hospital from 03/22/2025 for intractable nausea and vomiting when no obvious cause was found for symptoms. She did have hyponatremia which was corrected with IV hydration. She was suspected to be going through nicotine withdrawal. With addition of a nicotine patch patient felt symptomatically much better and was able to be discharged home on the . Her family reported that since returning home she stopped eating. On this current admission she was found to be intermittently confused. Today she is able to answer questions about her name, age and . She knows she is in the hospital however states the year to be 1984 instead of 2024. She reports she has only one son but then goes on to name 2 sons corretly. She knows she is in a hospital but does not know the city. She had a fever of 100 Fahrenheit upon admission. ROS + diarrhea at home, now resolved. Hospital course has been complicated by hyponatremia for which she was in the ICU receiving 3% saline previously. She has recently completed a CT of the chest abdomen and pelvis which did not show any acute abnormalities. No mass was encountered. Currently UA is negative for a UTI. Patient has had CT head and MRI of the brain recently which did not show any acute abnormalities. Given fever, hallucinations, altered mentation, there was concern about chronic meningitis such as cryptococcal meningitis given history of several parakeets at home. LP was performed on 03/26/25 which showed a WBC count of 267, 85% mononuclear, CSF glucose at 4, TP at 175 raising concern for bacterial vs chronic fungal meningitis. CSF CX remained negative. CSF VDRL NR. HIV 1/2 AG/AB negative. negative cryptococcal antigen. No known history of tuberculosis. Cytology showed chronic inflammatory cells with a subpopulation of neutrophils without any dysplastic or neoplastic cells identified. Neurology service was consulted. She had been started on treatment for presumed bacterial meningitis given her abnormal lumbar puncture and has been receiving ceftriaxone 2 g IV every 12 hours. She previously also received vancomycin, however with negative CSF cultures this was eventually discontinued. It was planned to repeat lumbar puncture after treating with presumptive course of ceftriaxone to assess for any interval improvement, however patient's mental status has not changed in any meaningful way. Per the son, she is still intermittently confused and hallucinating. There is no h/o travel. Review of Systems 2 General: Reports: ROS unobtainable due to mental status Medications/Allergies Home Medications ?Medication ?Instructions ?Recorded ?Confirmed ?Last Taken ?Type CPAP Mask small- Air Touch F-20 #1 ea 05/05/22 5 Unknown Rx with tubing and supplies nebulizers (Compact Compressor #1 ea 09/18/22 03/25/25 Unknown Rx Nebulizer) oxygen-air delivery systems 12/09/23 03/25/25 Unknown History aspirin 81 mg tablet,delayed 81 mg PO DAILY circulatio n #100 03/21/24 03/25/25 03/20/25 Rx release (Adult Low Dose Aspirin) tabs hydroxyzine HCl 25 mg tablet 25 mg PO BID PRN anxiety #60 tabs 08/03/24 03/25/25 Unknown Rx atorvastatin 20 mg tablet 20 mg PO DAILY cholesterol # 90 tabs 08/29/24 03/25/25 03/20/25 Rx metoprolol succinate 50 mg 25 mg (1/2 x 50 mg) PO ANA PAULA Y #90 10/19/24 03/25/25 03/20/25 Rx tablet,extended release 24 hr tabs syringe with needle 3 mL 23 gauge #100 ea 12/19/24 Unknown Rx x 1 1/2 (CareTouch Luer Lock Syringe with needle) estradiol 0.01% (0.1 mg/gram) 1 g vaginal .twice weekl y #42.5 12/26/24 03/25/25 02/19/25 Rx vaginal cream (Estrace) grams ipratropium 0.5 mg-albuterol 3 mg 3 ml inhalation Q4H PRN wheezing 12/29/24 03/25/25 Unknown Rx (2.5 mg base)/3 mL nebulization #180 mL soln albuterol sulfate 1.25 mg/3 mL 1.25 mg continuous nebu lization 02/20/25 03/25/25 03/20/25 History solution for nebulization Q4H PRN Shortness Of Breath Or Wheezing albuterol sulfate 90 mcg/actuation 2 puff inhalation Q 6H PRN Wheezing 02/20/25 03/25/25 02/19/25 History aerosol inhaler (Ventolin HFA) cholecalciferol (vitamin D3) 25 25 mcg PO DAILY 03/25/25 03/20/25 History mcg (1,000 unit) tablet (Vitamin D3) fluticasone 250 mcg-salmeterol 50 2 inh inhalation BID 02/20/25 03/25/25 03/20/25 History mcg/dose blistr powdr for inhalation (Advair Diskus) ondansetron 4 mg disintegrating 4 mg PO TID PRN nausea and 03/15/25 03/25/25 Unknown Rx tablet vomiting #30 tabs sertraline 100 mg tablet 100 mg PO DAILY #90 tabs 03/25/25 03/20/25 Rx promethazine 25 mg tablet 25 mg PO Q6H PRN nausea and 03/17/25 03/25/25 Unknown Rx vomiting #14 tabs bupropion HCl 150 mg tablet,12 hr 150 mg PO BID 03/25/25 03/20/25 History sustained-release cyanocobalamin (vitamin B-12) 1,000 mcg IM Q7D 5 03/25/25 03/20/25 History 1,000 mcg/mL injection solution cyclobenzaprine 10 mg tablet 10 mg PO TID PRN muscle s pasms 03/20/25 03/25/25 Unknown History nicotine 21 mg/24 hr daily 1 patch transdermal DAILY # 14 ea 03/22/25 03/25/25 Unknown Rx transdermal patch pantoprazole 40 mg tablet,delayed 40 mg PO BIDWM #60 t abs 03/22/25 03/25/25 03/20/25 Rx release potassium chloride 20 mEq 40 meq (2 x 20 mEq) PO DAILY 14 03/22/25 03/25/25 03/20/25 Rx tablet,extended release days #28 tabs sodium chloride 1,000 mg soluble 1,000 mg PO BID 10 da ys #20 tabs 03/22/25 03/25/25 Unknown Rx tablet Allergies Allergy/AdvReac Type Severity Reaction Status Date / Time influenza virus vaccine tvs Allergy rash Verified 03/15/25 11:52 (65 yr and up) (From Fluad (65yr+)(PF)) Penicillins Allergy Rash Verified 03/15/25 11:52 vaccine adjuvant emulsion Allergy rash Verified 03/15/25 11:52 [id number] (From Fluad (65yr+)(PF)) oxycodone AdvReac Dizziness, Verified 03/15/25 11:52 flushed sulfamethoxazole (From AdvReac Nausea Verified 03/15/25 11:52 Bactrim) trimethoprim (From Bactrim) AdvReac Nausea Verified 03/15/25 11:52 Current Medications Generic Name Dose Route Start Last Admin Trade Name Freq PRN Reason Stop Dose Admin Amlodipine Besylate 10 mg 04/01/25 09:00 04/03/25 08:40 Amlodipine 5 Mg Tablet PO 10 mg DAILY CHRIST Administration Aspirin 81 mg 03/25/25 09:00 04/03/25 08:40 Aspirin 81 Mg Ec Tablet PO 81 mg DAILY CHRIST Administration Bupropion HCl 150 mg 03/30/25 09:00 04/03/25 08:40 Bupropion Sr (12 Hr) 150 Mg Tablet PO 04/05/25 09:01 150 mg DAILY CHRIST Administration Hydralazine HCl 25 mg 03/30/25 15:00 04/03/25 08:40 Hydralazine 25 Mg Tablet PO 25 mg TID CHRIST Administration Hydralazine HCl 10 mg 03/30/25 18:29 03/31/25 02:08 Hydralazine 20 Mg/Ml Inj 1 Ml IVP 10 mg Q6H PRN Administration HYPERTENSION Metoprolol Succinate 25 mg 03/25/25 09:00 04/03/25 08:40 Metoprolol Succinate Er (24 Hr) 50 Mg Tablet PO 25 mg DAILY CHRIST Administration Ondansetron HCl 8 mg 03/30/25 12:20 04/02/25 10:15 Ondansetron 2 Mg/Ml Sdv 2 Ml IVP 8 mg Q6H PRN Administration vomiting, or N/V if npo Potassium Chloride 40 meq 04/03/25 09:00 04/03/25 08:51 Potassium Chloride Er 20 Meq Tablet PO 40 meq BID CHRIST Administration Sertraline HCl 100 mg 03/25/25 09:00 04/03/25 08:41 Sertraline 100 Mg Tablet PO 100 mg DAILY CHRIST Administration Sodium Chloride 2 gm 04/03/25 09:00 04/03/25 08:41 Sodium Chloride 1 Gm Tablet PO 2 gm TID CHRIST Administration Urea 15 gm 03/30/25 18:00 04/02/25 17:17 Urea 15 Gm Powder PO 15 gm BID CHRIST Administration PFSH Acute 2 PFSH: Medical History Hypokalemia Cervical radiculopathy Vitamin D deficiency Anemia due to vitamin B12 deficiency, unspecified B12 deficiency type now on B12 injections Anemia, unspecified Dizziness Palpitations Vertigo, benign paroxysmal GERD without esophagitis Fasting hyperglycemia Screening for lung cancer started age 6; last LDCT 03.16.24; Nicotine dependence, cigarettes, uncomplicated last LDCT 03.16.24 Atherosclerosis of aorta Renal cyst Chronic neck pain 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 Used to follow up with the pain clinic in the past but not anymore and this is managed by her primary care provider Anxiety and depression COPD (chronic obstructive pulmonary disease) Diagnosed in 2016 and is controlled with medication managed by PMD at this time Chronic hypertension Surgical History H/O vaginal surgery 05/21/2021- Rectovaginal fistula repair performed by Dr. Cruz at [facility] Status post hysteroscopy 09/17/2020---hysteroscopy with D&C for postmenopausal bleeding performed by Dr. Ingram at [facility]. ---at time of hysteroscopy benign atrophic endometrium identified without any polyps. Pathology showed inactive endometrial glands on a background of mucin and debris, no atypia or hyperplasia polyps or malignancy identified. History of colonoscopy (09/17/20) 2016; 2.5.21 colitis--txed w/ abx, hyperplastic polyp; surgeon note says f/u colonoscopy 10 yrs S/P cholecystectomy Laparoscopic procedure performed by Dr. Hudson at [facility] in June 2020 S/P section At the age of 20 S/P tubal ligation At the age of 20 when she had her Family History Mother Diabetes Hypertension Thyroid disease Hyperlipidemia Sister Diabetes Hypertension Lung cancer Hyperlipidemia Father Diabetes Stroke Grandmother Breast cancer MGM Family/Other Prostate cancer PATERNAL UNCLE Denies family history of Ovarian cancer Myocardial infarction Uterine cancer Social History Smoking and tobacco/nicotine status: never used tobacco/nicotine Alcohol intake: never Substance/Drug Use: never Household members: other Details: lives with sister and her Marital status: / Number of children: 3 Highest education level completed: 10th Grade Current occupational status: disabled 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; 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 Female Reproductive History: Spontaneous abortions: No Vitals/I&O/Wt Last Vital Signs Temp 98.1 F 04/03/25 05:00 Pulse 113 H 04/03/25 09:00 Resp 19 H 04/03/25 09:00 BP 148/97 04/03/25 09:00 Pulse Ox 99 04/03/25 09:00 O2 Del Method Room Air 03/31/25 04:15 04/02/25 04/03/25 04/03/25 22:59 06:59 14:59 Intake Total 410 / 910 60 / 970 100 / 100 Output Total 150 / 150 Balance 260 / 760 60 / 820 100 / 100 Weight last 48 hrs Weight 50.349 kg Weight 51.029 kg Physical Exam 2 Narrative: General: No acute distress, AO x3 HEENT: PERRLA, pupils bilaterally equal and reactive, pallors not present Chest: Normal vesicular breath sounds, no added sounds, equal good air entry bilaterally CVS: S1-S2 regular, no murmurs, no tachycardia, no gallops, no rubs Abdomen: Soft, nontender, no organomegaly, bowel sounds present Neuro: No focal deficits, no facial deformity, AO x3, power 5/5 in all limbs Data 04/04/25 05:35 04/04/25 05:35 Other Labs: Radiology Impressions Chest X-Ray 03/24/25 20:02 IMPRESSION: No acute findings. Chest CT 03/24/25 22:50 IMPRESSION: No acute abnormality. Carotid Doppler Study 03/25/25 23:43 IMPRESSION: No carotid arterial stenosis. REFERENCES: SRU CRITERIA. The degree of internal carotid artery stenosis is based on criteria defined by the Society of Radiologists in Ultrasound (SRU). Normal is no stenosis. Mild is less than 50% stenosis. Moderate is 50-69% stenosis. Severe is greater than 69% stenosis to near occlusion. Near occlusion is a markedly narrowed lumen. Total occlusion is no detectable patent lumen. Maicol Garcia, et al. Carotid Artery Stenosis: Chaparro-Scale and Doppler US Diagnosis-Society of Radiologists in Ultrasound Consensus Conference. Radiology 2003; [id number]. Abdomen/Pelvis CT 03/26/25 10:59 IMPRESSION: No definite acute findings. Aortic atherosclerosis. COMMENTS: Consistent with the [place] College of [employer]'s Incidental Findings Committee white paper (J Am Eric Radiol 2018): Any incidental renal lesion less than 1 cm or classified as too small to characterize, or any incidental cystic renal lesion characterized as simple-appearing, is likely benign. No follow-up imaging is recommended for these lesions per consensus recommendations based on imaging criteria. Lumbar Puncture Fluoroscopy 04/03/25 09:49 IMPRESSION: Fluoroscopically guided lumbar puncture. No immediate complications Head CT 04/03/25 11:53 IMPRESSION: Some images degraded by motion artifact. 1. No evidence of intracranial hemorrhage or mass effect. 2. Small lacunar infarcts are small vessel changes in the periventricular white matter/ontiveros radiata. Some appear more prominent compared to previous. This could be followed up with MRI to assess for small infarcts if clinically indicated. 3. No other suspicious findings Laboratory Results WBC 5.17 10^3/uL (3.29-11.43) 04/04/25 05:35 RBC 3.50 10^6/uL (3.85-5.65) L 04/04/25 05:35 Hgb 9.70 g/dL (11.27-16.99) L 04/04/25 05:35 Hct 29.6 % (36-47) L 04/04/25 05:35 MCV 84.6 fl (85-98) L 04/04/25 05:35 MCH 27.7 pg (27-33) 04/04/25 05:35 MCHC 32.8 g/dL (30-55) 04/04/25 05:35 RDW 14.7 % (12.1-15.1) 04/04/25 05:35 Plt Count 174 10^3/cmm (157-399) 04/04/25 05:35 MPV 8.0 fL (7.4-10.4) 04/04/25 05:35 Neut % (Auto) 75.6 % 04/04/25 05:35 Lymph % (Auto) 11.2 % 04/04/25 05:35 [place] % (Auto) 10.1 % 04/04/25 05:35 Eos % (Auto) 0.6 % 04/04/25 05:35 Baso % (Auto) 0.2 % 04/04/25 05:35 Neut # (Auto) 3.91 10^3/uL (1.8-7.7) 04/04/25 05:35 Lymph # (Auto) 0.6 10^3/uL (0.8-4.8) L 04/04/25 05:35 [place] # (Auto) 0.5 10^3/uL (0.2-0.9) 04/04/25 05:35 Eos # (Auto) 0.0 10^3/uL (0.0-0.8) 04/04/25 05:35 Baso # (Auto) 0.0 10^3/uL (0.0-0.1) 04/04/25 05:35 Nucleated RBC % (auto) 0 % 04/04/25 05:35 Nucleated RBCs # 0.0 /100WBC 04/04/25 05:35 ESR 32 mm/hr (0-15) H 03/24/25 20:20 Sodium 137 mmol/L (136-145) 04/04/25 05:35 Potassium 3.2 mmol/L (3.5-5.1) L 04/04/25 05:35 Chloride 97 mmol/L (98-107) L 04/04/25 05:35 Carbon Dioxide 25 mmol/L (22-29) 04/04/25 05:35 Anion Gap 18.2 (5-19) 04/04/25 05:35 BUN 11 mg/dL (8-23) 04/04/25 05:35 Creatinine 0.5 mg/dL (0.5-0.9) 04/04/25 05:35 GFR Calculation 125.9 mL/min (90-130) 04/04/25 05:35 Glucose 109 mg/dL (65-115) 04/04/25 05:35 POC Glucose 89 mg/dL (70-110) 03/30/25 14:42 Serum Osmolality 245 mOsm/kg (278-305) L 03/29/25 10:11 Calculated Osmolality 284 mOsm/kg (285-295) L 04/04/25 05:35 Lactic Acid 0.8 mmol/L (0.5-2.2) 03/24/25 20:20 Calcium 9.1 mg/dL (8.5-10.5) 04/04/25 05:35 Phosphorus 2.5 mg/dL (2.5-4.5) 04/01/25 02:27 Magnesium 1.8 mg/dL (1.7-2.3) 04/04/25 05:35 Total Bilirubin 0.7 mg/dL (0.15-1.2) 04/04/25 05:35 AST 6 U/L (0-32) 04/04/25 05:35 ALT 7 U/L (0-33) 04/04/25 05:35 Alkaline Phosphatase 35 U/L (35-105) 04/04/25 05:35 Ammonia 32 umol/L (11-51) 03/24/25 00:48 Troponin T Baseline 15 ng/L (0-10) H 03/24/25 00:48 Troponin T 120 Minute 10.94 ng/L (0-10) H 03/25/25 01:19 Delta Troponin T -4.06 ABS# (0-10) L 03/25/25 01:19 Troponin T Hi Sens 6Hr 11.31 ng/L (0-10) H 03/25/25 04:55 Troponin T Hi Sens 6Hr Delta -3.69 ng/L (0-12) L 03/25/25 04:55 C-Reactive Protein 12.9 mg/L (0.0-4.9) H 03/27/25 09:48 Total Protein 6.3 g/dL (6.6-8.7) L 04/04/25 05:35 Albumin 3.7 g/dL (3.5-5.2) 04/04/25 05:35 Globulin 2.6 g/dL (1.3-4.6) 04/04/25 05:35 Vitamin B12 993 pg/mL (232-1245) 03/28/25 11:38 Procalcitonin 0.04 ng/mL (0-0.5) 03/27/25 09:48 Random Cortisol 38.86 ug/dL (2.47-19.5) H 03/26/25 05:26 ACTH 78 pg/mL (6-50) H 03/26/25 13:44 Urine Color Yellow (Yellow) 03/24/25 20: Urine Appearance Clear (CLEAR) 03/24/25 20:23 Urine pH 5.5 (5-7) 03/24/25 20:23 Ur Specific [place] 1.025 (1.005-1.030) 03/24/25 20:23 Urine Protein 2+ (Negative) A 03/24/25 20: Urine Glucose (UA) Negative (Normal) 03/24/25 20:23 Urine Ketones 1+ (Negative) H 03/24/25 20:23 Urine Blood 3+ (Negative) A 03/24/25 20: Urine Nitrate Negative (Negative) 03/24/25 20: Urine Bilirubin Negative (Negative) 03/24/25 20: Urine Urobilinogen 1.0 mg/dL (Negative) 03/24/25 20:23 Ur Leukocyte Esterase Negative (Negative) 03/24/25 20:23 Urine RBC 11-20 /hpf (0-2) H 03/24/25 20:23 Urine WBC 0-5 /hpf (0-5) 03/24/25 20:23 Ur Squamous Epith Cells 6-10 /hpf (0-5) 03/24/25 20:23 Amorphous Sediment Not Reportable 03/24/25 20:23 Urine Bacteria None seen /hpf (NONE) 03/24/25 20:23 Hyaline Casts 8.26 /lpf 03/24/25 20:23 Urine Osmolality 435 mOsm/kg (50-1200) 03/30/25 11:18 Ur Random Sodium 126 mmol/L 03/30/25 11:18 Ur Random Potassium 45 mmol/L 03/30/25 11:18 Ur Random Chloride 155 mmol/L 03/30/25 11:18 CSF VDRL Non-reactive 03/26/25 14:41 RPR Nonreactive (Nonreactive) 03/24/25 00:48 Adenovirus (PCR) Not detected (NOT DETECT) 03/27/25 09:21 C. pneumoniae DNA (PCR) Not detected (NOT DETECT) 03/27/25 09:21 Coronavirus 229E (PCR) Not detected (NOT DETECT) 03/27/25 09:21 HSV I IgG Ab 27.40 index H 03/28/25 11:38 HSV I IgG Ab 28.30 INDEX H 03/28/25 11:38 HSV II IgG >23.00 INDEX H 03/28/25 11:38 HSV II IgG >23.00 index H 03/28/25 11:38 HSV II Inhibition IgG Positive A 03/28/25 11:38 HIV 1&2 Ab & HIV 1 Ag Non-reactive (Non-Reactiv) 03/26/25 05:26 HIV 1&2 Antibody Non-reactive (Non-Reactiv) 03/26/25 05:26 Human Metapneumovir PCR Not detected (NOT DETECT) 03/27/25 09:21 Influenza A (H1) PCR Not detected (NOT DETECT) 03/27/25 09:21 Influenza A (PCR) Negative (Negative) 03/24/25 20:10 Influ A (H1/09) PCR Not detected (NOT DETECT) 03/27/25 09:21 Influenza A (H3) PCR Not detected (NOT DETECT) 03/27/25 09:21 Influenza Type A (PCR) Not detected (NOT DETECT) 03/27/25 09:21 Influenza Type B (PCR) Not detected (NOT DETECT) 03/27/25 09:21 M. pneumoniae (PCR) Not detected (NOT DETECT) 03/27/25 09:21 Parainfluenza 1 (PCR) Not detected (NOT DETECT) 03/27/25 09:21 Parainfluenza 2 (PCR) Not detected (NOT DETECT) 03/27/25 09:21 Parainfluenza 3 (PCR) Not detected (NOT DETECT) 03/27/25 09:21 Parainfluenza 4 (PCR) Not detected (NOT DETECT) 03/27/25 09:21 RSV (PCR) Negative (Negative) 03/24/25 20:10 RSV Type A (PCR) Not detected (NOT DETECT) 03/27/25 09:21 RSV Type B (PCR) Not detected (NOT DETECT) 03/27/25 09:21 Entero/Rhino (PCR) Not detected (NOT DETECT) 03/27/25 09:21 SARS-CoV-2 (PCR) Not detected (NOT DETECT) 03/27/25 09:21 TB (QFT) Gold In Tube Negative (NEGATIVE) 03/27/25 09:48 TB Test (QFT) Nil 0.03 IU/mL 03/27/25 09:48 TB Test (QFT) Mitogen 3.48 IU/mL 03/27/25 09:48 TB Test Mitogen - Nil 0.01 IU/mL 03/27/25 09:48 TB Test TB -Nil 0.01 IU/mL 03/27/25 09:48 VZV IgG Antibody 10.10 S/CO 03/28/25 11:38 VZV IgM Antibody 0.50 03/28/25 11:38 A&P Assessment and plan 1. Meningitis: 2. Altered mental status: Plan: 59-year-old female with a past medical history as noted above, no overt immunocompromising conditions, currently admitted to the hospital in view of altered mental status over the past few weeks, this current admission also preceded by development of hallucinations. Hospital course complicated additionally by hyponatremia which is now resolved. Cause of patient's altered mentation is not entirely clear. CT and MRI of the head on a recent admission were without any acute intracranial abnormalities. Significantly she has an abnormal lumbar puncture. On 03/26, lumbar puncture was performed which showed an opening pressure of 14 cm water. WBC count of 267, predominant mononuclear infiltrate of 85%, CSF glucose of 4, CSF total protein of 175. Negative serum cryptococcal antigen. CSF Gram stain and culture without any growth Negative CSF VDRL Negative serum HIV 1/2 antibody and antigen screen Negative bacterial antigen panel for group A strep, Hib, strep pneumo, and meningitis. Negative serum QuantiFERON. No known history of tuberculosis. Negative respiratory viral panel upon admission. CSF cytology showing a significant increase in chronic inflammatory cells with subpopulation of neutrophils. No dysplastic or neoplastic cells were identified. She has been on a presumptive course for meningitis with ceftriaxone 2 g IV every 12 hours. She received IV vancomycin however this was discontinued with a negative CSF culture. Pending encephalitis antibody panel to evaluate for limbic encephalitis. Currently patient has not had any significant clinical improvement in her mental status in spite of presumptive treatment with ceftriaxone. Recommend to repeat lumbar puncture. 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 Obtain another CSF cryptococcal antigen. Additionally obtain CSF ADA though suspicion for tubercular meningitis is low at this time. Obtain Lyme antibody and CSF and West Nile antibody in CSF. Additional evaluation to include urine histoplasma antigen, histoplasma antibody, Blastomyces and Coccidioides antibody. Obtain tick panel and tularemia serology. Additionally requested [employer] meningitis panel to be sent to [facility]. In the interim broaden antibiotic coverage. Discontinue ceftriaxone. Changed to meropenem 2 g IV every 8 hours this will additionally include presumptive Listeria coverage. Start doxycycline 100 mg IV every 12 hours and acyclovir 10 mg/kg IV every 8 hours. Will reassess with findings of repeat lumbar puncture. Patient is awaiting transfer to [facility]. We will continue to follow while patient remains at [facility]. PDMP PDMP Reviewed: Not Reviewed Coding Level of Care Code Acute Code for Chg Fwd Diagnoses Meningitis G03.9 Altered mental status R41.82
--- NOTE | 2025-04-03 11:40 | PC.NURSE ---
patient refused Urea powder, Ceci Ching notifed
[2025-04-03] MEDS: MEROPENEM 2,000 MG in sodium chloride 0.9% (plus) 50 ML 100 MG IV ×2 (11:49→22:21)
[2025-04-03] MEDS: doxycycline 100 MG in sodium chloride 0.9% (plus) 100 ML IV (11:50)
--- NOTE | 2025-04-03 11:53 | CT_ITS ---
WS: [id number] CT HEAD TECHNIQUE: Noncontrast CT of the head obtained from the skullbase to the vertex. CLINICAL INFORMATION: asses for hydrocephalus prior to LP COMPARISON: None. DLP: 1055.[address] scans at [facility] use at least one of these dose optimization techniques: automated exposure control; mA and/or kV adjustment per patient size (includes targeted exams where dose is matched to clinical indication); or iterative reconstruction. FINDINGS: No evidence of intracranial hemorrhage or mass effect. Ventricular system and basal cisterns are patent. Mild small vessel changes with mild parenchymal volume loss. Small lacunar infarcts or small vessel changes in the bilateral ontiveros radiata appear more prominent compared to previous. No extra-axial fluid collections. No evidence of mass or mass effect. Paranasal sinuses and mastoid air cells are well aerated. .Normal visualized soft tissues. CT/CT head wo con* [id number] IMPRESSION: Some images degraded by motion artifact. 1. No evidence of intracranial hemorrhage or mass effect. 2. Small lacunar infarcts are small vessel changes in the periventricular whit e matter/ontiveros radiata. Some appear more prominent compared to previous. This could be followed up with MRI to assess for small infarcts if clinically indica mekhi. 3. No other suspicious findings
[2025-04-03 14:42] LABS: CSF Mononuclear # 0.151 10^3/uL (50-90); Mononuclear WBC CSF % 96 % (50-90); Polynuclear Cells ,CSF # 0.007 10^3/uL (0-10); Polynuclear WBC CSF % 4 % (0-10); Red Blood Cell CSF 0 10^3/uL (0-0); White Blood Cell CSF 158 /uL (0-5)
[2025-04-03 14:45] LABS: Cyto Order Verification No Order
[2025-04-03 14:46] LABS: Pathology Referral Yes
--- NOTE | 2025-04-03 15:29 | PM.PN ---
Subjective Subjective: Seen this morning. Patient appears to be confused. Sister at bedside. Awaiting transfer to [facility] Vitals/I&O/Wt Last Vital Signs Temp 98.1 F 04/03/25 05:00 Pulse 93 04/03/25 12:00 Resp 17 04/03/25 12:00 BP 173/106 04/03/25 12:00 Pulse Ox 98 04/03/25 11:00 O2 Del Method Room Air 03/31/25 04:15 04/03/25 04/03/25 04/03/25 06:59 14:59 22:59 Intake Total 60 / 970 200 / 200 Balance 60 / 820 200 / 200 Weight last 48 hrs Weight 50.349 kg Weight 51.029 kg Physical Exam Narrative: Patient is alert oriented to self only today Heart regular normal S1-S2 Lungs clear to auscultation without wheezes rales or rhonchi Abdomen soft nontender nondistended sluggish bowel sounds Extremities no clubbing cyanosis or edema Data 03/28/25 11:38 04/02/25 09:32 Micro: Microbiology 04/03/25 13:45 Cryptococcal Antigen (CSF) - Final Cerebrospinal Fluid A&P Assessment and plan 1. Somnolence: 2. Abnormal cerebrospinal fluid: 3. Hypokalemia: 4. Hyponatremia: 5. Hypomagnesemia: 6. Weakness: Plan: 1. AMS (altered mental status): Initially suspected bacterial meningitis that may have been partially treated due to being on a couple different courses of antibiotics over the last 4 weeks. -No pathogens identified. Continues ceftriaxone 2 g IV every 12 hours. When I called and spoke with the medicine physician at [facility] he said he is not allowed to give advice over the phone but his thoughts were possible EBV or lymphoma. Based on the patient's history of weight loss I do wonder if it is lymphoma. Unfortunately there is no recommended treatment for EBV, and up-to-date they do not recommend acyclovir although he asked me if we started it. Since the patient is not exactly any worse I want to hold off on any further treatment in case they plan to repeat a CSF study. And regarding lymphoma we are unable to treat that here at our hospital 2. Hyponatremia: SIADH. SIADH could be from the [employer] abnormality or medication induced or combination thereof. - See nephrology note for current recommendations -Medication. Bupropion is weaning. Protonix has been stopped. However we have continued her SSRI since she has been on that for 1 year and no documented hyponatremia until recently 4. hypokalemia -patient may not be absorbing this medication which is why it has been crushed. Nurse educated on crushing all pills 5. Hypomagnesia. Magnesium stable at 1.8-1.9 6. RN just found a scopolamine patch behind her ear yesterday 04/01/2025 Yesterday (04/01/2025) I called [facility] and spoke to a triage medicine physician for regarding Ms. Saldaña. I reviewed her labs extensively even back until January. We reviewed her imaging studies MRI and CAT scan. And we also reviewed her last hospitalization. After extensive discussion and reporting Dr. Pereira agreed to accept this patient on high priority. Unfortunately they have not called back with a bed yet. Patient's son Jose Eduardo has been updated daily. Patient's sister Maki visits most days Full code Lovenox for DVT prophylaxis 04/03/2025 Given patient's lab values and chart review. We will consult infectious disease specialty. Will repeat lumbar puncture. Will await recommendations and proceed. Check labs today CBC CMP. Patient is awaiting transfer to [facility]. Her altered mental status is not improving. Will escalate to meropenem today. Per nursing staff patient not taking her urea. Culture data reviewed. Discussed with ID physician. Will await final recommendations and proceed. Discussed LP with sister who was at bedside and she was agreeable. PDMP PDMP Reviewed: Not Reviewed Attestations Medical Necessity Statement*: Awaiting transfer to [facility], ID consult. Diagnoses Somnolence R40.0 Altered mental status type: somnolence Abnormal cerebrospinal fluid R83.9 Hypokalemia E87.6 Hyponatremia E87.1 Hypomagnesemia E83.42 Weakness R53.1
[2025-04-03 19:17] LABS: Hematocrit 28.8 % (36-47); Hemoglobin 9.50 g/dL (11.27-16.99); Mean Corpuscular HGB Conc 33.0 g/dL (30-55); Mean Corpuscular Hemoglobin 27.9 pg (27-33); Mean Corpuscular Volume 84.5 fl (85-98); Nucleated Red Blood Cells % 0 %; Platelet Count 188 10^3/cmm (157-399); Red Blood Count 3.41 10^6/uL (3.85-5.65); White Blood Count 6.04 10^3/uL (3.29-11.43)
[2025-04-03 19:33] LABS: Alanine Aminotransferase 7 U/L (0-33); Albumin Level 3.6 g/dL (3.5-5.2); Alkaline Phosphatase 33 U/L (35-105); Aspartate Amino Transferase 8 U/L (0-32); Blood Urea Nitrogen 15 mg/dL (8-23); Calcium 9.0 mg/dL (8.5-10.5); Carbon Dioxide 25 mmol/L (22-29); Chloride 97 mmol/L (98-107); Creatinine Clr Calc Pharmacy 118.8796; Globulin 2.8 g/dL (1.3-4.6); Glucose 97 mg/dL (65-115); Osmolality Calculated 277 mOsm/kg (285-295); Sodium 133 mmol/L (136-145); Total Protein 6.4 g/dL (6.6-8.7)
[2025-04-03 19:36] LABS: Anion Gap 14.9 (5-19); Potassium 3.9 mmol/L (3.5-5.1)
--- NOTE | 2025-04-03 23:38 | PC.NURSE ---
Transfer orders received, contacted son Jose Eduardo and made aware of pt moving to [facility] and was thankful for notification, and called report to [facility].
[2025-04-04] VITALS (7 sets, daily range): BP systolic 145–162; BP diastolic 69–76; PULSE 100–118; RESP 15–18; TEMP 36.4–36.8; O2SAT 92–97
[2025-04-04] MEDS: doxycycline 100 MG in sodium chloride 0.9% (plus) 100 ML IV ×2 (00:17→12:08)
[2025-04-04] MEDS: MEROPENEM 2,000 MG in sodium chloride 0.9% (plus) 50 ML 100 MG IV ×3 (05:27→21:53)
[2025-04-04 05:57] LABS: Hematocrit 29.6 % (36-47); Hemoglobin 9.70 g/dL (11.27-16.99); Mean Corpuscular HGB Conc 32.8 g/dL (30-55); Mean Corpuscular Hemoglobin 27.7 pg (27-33); Mean Corpuscular Volume 84.6 fl (85-98); Nucleated Red Blood Cells % 0 %; Platelet Count 174 10^3/cmm (157-399); Red Blood Count 3.50 10^6/uL (3.85-5.65); White Blood Count 5.17 10^3/uL (3.29-11.43)
[2025-04-04 06:21] LABS: Alanine Aminotransferase 7 U/L (0-33); Albumin Level 3.7 g/dL (3.5-5.2); Alkaline Phosphatase 35 U/L (35-105); Anion Gap 18.2 (5-19); Aspartate Amino Transferase 6 U/L (0-32); Blood Urea Nitrogen 11 mg/dL (8-23); Calcium 9.1 mg/dL (8.5-10.5); Carbon Dioxide 25 mmol/L (22-29); Chloride 97 mmol/L (98-107); Creatinine Clr Calc Pharmacy 95.1037; Globulin 2.6 g/dL (1.3-4.6); Glucose 109 mg/dL (65-115); Magnesium 1.8 mg/dL (1.7-2.3); Osmolality Calculated 284 mOsm/kg (285-295); Potassium 3.2 mmol/L (3.5-5.1); Sodium 137 mmol/L (136-145); Total Protein 6.3 g/dL (6.6-8.7)
--- NOTE | 2025-04-04 07:15 | P.PN_ITS ---
Subjective 2 Subjective: Patient remains confused. She follows simple commands. She cannot tell me why she is here or that she is in the hospital. Patient serum sodium has been improving. Patient is not eating well. Denies complaints Medications: Reviewed: Yes Medication Review Details: Current Medications Amlodipine Besylate (Amlodipine 5 Mg Tablet) 10 mg PO DAILY [facility] Last Admin: 04/03/25 08:40 Dose: 10 mg Aspirin (Aspirin 81 Mg Ec Tablet) 81 mg PO DAILY [facility] Last Admin: 04/03/25 08:40 Dose: 81 mg Bupropion HCl (Bupropion Sr (12 Hr) 150 Mg Tablet) 150 mg PO DAILY [facility] Stop: 04/05/25 09:01 Last Admin: 04/03/25 08:40 Dose: 150 mg Hydralazine HCl (Hydralazine 25 Mg Tablet) 25 mg PO TID [facility] Last Admin: 04/03/25 22:22 Dose: 25 mg Hydralazine HCl (Hydralazine 20 Mg/Ml Inj 1 Ml) 10 mg IVP Q6H PRN PRN Reason: HYPERTENSION Last Admin: 03/31/25 02:08 Dose: 10 mg Acyclovir 500 mg/ Sodium (Chloride) 260 mls @ 270 mls/hr IV Q8H [facility] Last Admin: 04/04/25 06:19 Dose: 270 mls/hr Doxycycline Hyclate 100 mg/ (Sodium Chloride) 100 mls @ 100 mls/hr IV Q12H [facility]; Protocol Last Infusion: 04/04/25 01:32 Dose: Infused Meropenem 2,000 mg/ Sodium (Chloride) 50 mls @ 100 mls/hr IV Q8H [facility]; Protocol Last Infusion: 04/04/25 06:15 Dose: Infused Metoprolol Succinate (Metoprolol Succinate Er (24 Hr) 50 Mg Tablet) 25 mg PO DAILY [facility] Last Admin: 04/03/25 08:40 Dose: 25 mg Naloxone HCl (Naloxone 0.4 Mg/Ml Sdv) 0.1 mg IVP Q2M PRN PRN Reason: OPIATERV Ondansetron HCl (Ondansetron 2 Mg/Ml Sdv 2 Ml) 8 mg IVP Q6H PRN PRN Reason: vomiting, or N/V if npo Last Admin: 04/02/25 10:15 Dose: 8 mg Potassium Chloride (Potassium Chloride Er 20 Meq Tablet) 40 meq PO BID [facility] Last Admin: 04/03/25 17:03 Dose: 40 meq Sertraline HCl (Sertraline 100 Mg Tablet) 100 mg PO DAILY [facility] Last Admin: 04/03/25 08:41 Dose: 100 mg Sodium Chloride (Sodium Chloride 1 Gm Tablet) 2 gm PO TID [facility] Last Admin: 04/03/25 22:22 Dose: 2 gm Urea (Urea 15 Gm Powder) 15 gm PO BID [facility] Last Admin: 04/03/25 17:05 Dose: Not Given Vitals/I&O/Wt Last Vital Signs Temp 98.0 F 04/04/25 04:00 Pulse 102 H 04/04/25 06:00 Resp 17 04/04/25 04:00 BP 160/71 04/04/25 04:00 Pulse Ox 93 04/04/25 04:00 O2 Del Method Room Air 04/04/25 04:00 04/03/25 04/04/25 04/04/25 22:59 06:59 14:59 Intake Total 530 / 730 460 / 1190 Balance 530 / 730 460 / 1190 Weight last 48 hrs Weight 50.349 kg Weight 50.349 kg Physical Exam 2 Narrative: Petite lady in bed blood pressure noted and elevated. No apparent distress. HEENT normocephalic atraumatic. Neck is supple no JVP no carotid bruits. Lungs are clear to auscultation. Heart is regular no rubs or gallops. Abdomen is soft positive bowel sounds. Extremities have no edema. Neuro follows simple commands awake tracks. Interactive. Data 04/04/25 05:35 04/04/25 05:35 Micro: Microbiology 04/03/25 12:30 Cryptococcal Antigen (Serum) - Final Blood 04/03/25 13:45 Cryptococcal Antigen (CSF) - Final Cerebrospinal Fluid A&P Assessment and plan 1. Hyponatremia: 59-year-old lady with hyponatremia and elevated urine sodium consistent with SIADH. Patient serum sodium has improved with urea and salt tablets. Given the fact that the patient has hypertension will DC salt tablets. Given the fact that patient's serum sodium calvin from 127 yesterday morning to 137 this morning. Will decrease urea dose. Will repeat chemistries later today continue fluid restriction. Will replace potassium magnesium as needed. Hypertension will monitor on current medications. Patient was seen and examined using audiovisual equipment with the aid of a nurse. Plan: Monitor electrolytes PDMP PDMP Reviewed: Not Reviewed Attestations 2 Medical Necessity Statement*: Altered mental status and electrolyte abnormalities Time Spent in Patient Care: 16 - 35 minutes (>than 50% of time sp ent in counselling and/or direct pt care on unit) . Coding Level of Care Code Acute Code for Chg Fwd Diagnoses Hyponatremia E87.1
[2025-04-04] MEDS: metoprolol succinate ER (24 HR) 50 mg Tablet 25 MG PO (09:28)
[2025-04-04] MEDS: thiamine 500 MG in sodium chloride 0.9% (100 ml) 100 ML 210 MG IV (09:45)
--- NOTE | 2025-04-04 12:43 | P.PN_ITS ---
Subjective 2 Subjective: Seen this morning. Still confused. Sister at bedside. Discussed with ID physician at length this morning. She spoke to son yesterday in detail and updated him regarding the plan. Patient still awaiting a bed at [facility]. Vitals/I&O/Wt Last Vital Signs Temp 98.2 F 04/04/25 12:35 Pulse 100 04/04/25 12:35 Resp 16 04/04/25 12:35 BP 145/72 04/04/25 12:35 Pulse Ox 97 04/04/25 12:35 O2 Del Method Room Air 04/04/25 07:29 04/03/25 04/04/25 04/04/25 22:59 06:59 14:59 Intake Total 530 / 730 460 / 1190 365 / 365 Balance 530 / 730 460 / 1190 365 / 365 Weight last 48 hrs Weight 50.349 kg Weight 50.349 kg Physical Exam 2 Narrative: Patient is alert oriented to self only today Heart regular normal S1-S2 Lungs clear to auscultation without wheezes rales or rhonchi Abdomen soft nontender nondistended sluggish bowel sounds Extremities no clubbing cyanosis or edema Data 04/04/25 05:35 04/04/25 05:35 Micro: Microbiology 04/03/25 12:30 Cryptococcal Antigen (Serum) - Final Blood 04/03/25 13:45 Cryptococcal Antigen (CSF) - Final Cerebrospinal Fluid A&P Assessment and plan 1. Somnolence: 2. Abnormal cerebrospinal fluid: 3. Hypokalemia: 4. Hyponatremia: 5. Hypomagnesemia: 6. Weakness: 7. Meningitis: 8. Altered mental status: 9. SIADH (syndrome of inappropriate ADH production): Plan: 1. AMS (altered mental status): Initially suspected bacterial meningitis that may have been partially treated due to being on a couple different courses of antibiotics over the last 4 weeks. -No pathogens identified. Continues ceftriaxone 2 g IV every 12 hours. When I called and spoke with the medicine physician at [facility] he said he is not allowed to give advice over the phone but his thoughts were possible EBV or lymphoma. Based on the patient's history of weight loss I do wonder if it is lymphoma. Unfortunately there is no recommended treatment for EBV, and up-to-date they do not recommend acyclovir although he asked me if we started it. Since the patient is not exactly any worse I want to hold off on any further treatment in case they plan to repeat a CSF study. And regarding lymphoma we are unable to treat that here at our hospital 2. Hyponatremia: SIADH. SIADH could be from the [employer] abnormality or medication induced or combination thereof. - See nephrology note for current recommendations -Medication. Bupropion is weaning. Protonix has been stopped. However we have continued her SSRI since she has been on that for 1 year and no documented hyponatremia until recently 4. hypokalemia -patient may not be absorbing this medication which is why it has been crushed. Nurse educated on crushing all pills 5. Hypomagnesia. Magnesium stable at 1.8-1.9 6. RN just found a scopolamine patch behind her ear yesterday 04/01/2025 Yesterday (04/01/2025) I called [facility] and spoke to a triage medicine physician for regarding Ms. Saldaña. I reviewed her labs extensively even back until January. We reviewed her imaging studies MRI and CAT scan. And we also reviewed her last hospitalization. After extensive discussion and reporting Dr. Pereira agreed to accept this patient on high priority. Unfortunately they have not called back with a bed yet. Patient's son Jose Eduardo has been updated daily. Patient's sister Maki visits most days Full code Lovenox for DVT prophylaxis 04/03/2025 Given patient's lab values and chart review. We will consult infectious disease specialty. Will repeat lumbar puncture. Will await recommendations and proceed. Check labs today CBC CMP. Patient is awaiting transfer to [facility]. Her altered mental status is not improving. Will escalate to meropenem today. Per nursing staff patient not taking her urea. Culture data reviewed. Discussed with ID physician. Will await final recommendations and proceed. Discussed LP with sister who was at bedside and she was agreeable. 04/04/2025 Sodium 137 today. Continue acyclovir IV every 8 hours, meropenem IV, doxycycline per ID recommendations. Extensive ID workup ordered and pending. Continue urea 15 g daily. Placed on normal saline at 80 cc/h. Okayed by nephrology. Check serum and urine osmolality, check urine sodium Patient is still altered. Has been afebrile. Repeat LP does indicate an suggestive of meningitis. Glucose very low at 6. Still awaiting transfer to [facility]. [employer] lymphoma not ruled out. PDMP PDMP Reviewed: Not Reviewed Attestations 2 Medical Necessity Statement*: Continue to hospitalize at this time for presumed meningitis however other causes not ruled out at this time. Diagnoses Somnolence R40.0 Altered mental status type: somnolence Abnormal cerebrospinal fluid R83.9 Hypokalemia E87.6 Hyponatremia E87.1 Hypomagnesemia E83.42 Weakness R53.1 Meningitis G03.9 Altered mental status R41.82 SIADH (syndrome of inappropriate ADH production) E22.2
[2025-04-04 14:50] LABS: Anion Gap 15.7 (5-19); Blood Urea Nitrogen 21 mg/dL (8-23); Calcium 9.0 mg/dL (8.5-10.5); Carbon Dioxide 25 mmol/L (22-29); Chloride 96 mmol/L (98-107); Creatinine Clr Calc Pharmacy 95.1037; Glucose 86 mg/dL (65-115); Osmolality Calculated 278 mOsm/kg (285-295); Potassium 3.7 mmol/L (3.5-5.1); Sodium 133 mmol/L (136-145)
[2025-04-04 22:39] LABS: Anion Gap 14.1 (5-19); Blood Urea Nitrogen 14 mg/dL (8-23); Calcium 8.6 mg/dL (8.5-10.5); Carbon Dioxide 26 mmol/L (22-29); Chloride 99 mmol/L (98-107); Creatinine Clr Calc Pharmacy 95.1037; Glucose 92 mg/dL (65-115); Osmolality Calculated 282 mOsm/kg (285-295); Potassium 3.1 mmol/L (3.5-5.1); Sodium 136 mmol/L (136-145)
[2025-04-05] VITALS: BP 147/68; PULSE 105; RESP 16; TEMP 36.7; O2SAT 94
[2025-04-05] MEDS: doxycycline 100 MG in sodium chloride 0.9% (plus) 100 ML IV ×2 (00:53→11:49)
[2025-04-05 04:00] VITALS: BP 135/70; PULSE 96; RESP 16; TEMP 36.7; O2SAT 97
[2025-04-05 04:19] LABS: Hematocrit 27.9 % (36-47); Hemoglobin 9.00 g/dL (11.27-16.99); Mean Corpuscular HGB Conc 32.3 g/dL (30-55); Mean Corpuscular Hemoglobin 27.7 pg (27-33); Mean Corpuscular Volume 85.8 fl (85-98); Nucleated Red Blood Cells % 0 %; Platelet Count 151 10^3/cmm (157-399); Red Blood Count 3.25 10^6/uL (3.85-5.65); White Blood Count 5.90 10^3/uL (3.29-11.43)
[2025-04-05 04:41] LABS: Alanine Aminotransferase 8 U/L (0-33); Albumin Level 3.3 g/dL (3.5-5.2); Alkaline Phosphatase 35 U/L (35-105); Anion Gap 12.8 (5-19); Aspartate Amino Transferase 9 U/L (0-32); Blood Urea Nitrogen 10 mg/dL (8-23); Calcium 8.5 mg/dL (8.5-10.5); Carbon Dioxide 27 mmol/L (22-29); Chloride 99 mmol/L (98-107); Creatinine Clr Calc Pharmacy 118.8796; Globulin 2.5 g/dL (1.3-4.6); Glucose 93 mg/dL (65-115); Magnesium 1.8 mg/dL (1.7-2.3); Osmolality Calculated 281 mOsm/kg (285-295); Sodium 136 mmol/L (136-145); Total Protein 5.8 g/dL (6.6-8.7)
[2025-04-05] MEDS: MEROPENEM 2,000 MG in sodium chloride 0.9% (plus) 50 ML 100 MG IV (04:59)
[2025-04-05 05:14] LABS: Potassium 2.8 mmol/L (3.5-5.1)
[2025-04-05 06:14] LABS: Blood Urea Nitrogen 10 mg/dL (8-23); Calcium 8.5 mg/dL (8.5-10.5); Carbon Dioxide 26 mmol/L (22-29); Chloride 97 mmol/L (98-107); Creatinine Clr Calc Pharmacy 117.8076; Glucose 110 mg/dL (65-115); Osmolality Calculated 280 mOsm/kg (285-295); Sodium 135 mmol/L (136-145)
[2025-04-05 06:15] LABS: Anion Gap 14.7 (5-19)
[2025-04-05 06:20] LABS: Potassium 2.7 mmol/L (3.5-5.1)
[2025-04-05 07:56] VITALS: BP 154/75; PULSE 101; RESP 15; TEMP 36.7; O2SAT 96
[2025-04-05] MEDS: potassium chloride premix 100 ML 25 MEQ IV (08:43)
[2025-04-05] MEDS: metoprolol succinate ER (24 HR) 50 mg Tablet 25 MG PO (08:43)
[2025-04-05] MEDS: ondansetron 2 mg/ML SDV 2 mL 8 MG IVP (08:44)
--- NOTE | 2025-04-05 09:13 | PC.NURSE ---
This nurse gave an update to the [facility] Call Center at 912am. Still awaiting a bed.
--- NOTE | 2025-04-05 10:19 | PM.PN ---
Subjective Subjective: Nausea weak not feeling well no appetite not eating well had episode of diarrhea has episodes of hypotension. Denies shortness of breath denies chest pain. No itching or cramps does have tachycardia. Medications: Reviewed: Yes Medication Review Details: Current Medications Amlodipine Besylate (Amlodipine 5 Mg Tablet) 10 mg PO DAILY [facility] Last Admin: 04/05/25 08:43 Dose: 10 mg Aspirin (Aspirin 81 Mg Ec Tablet) 81 mg PO DAILY [facility] Last Admin: 04/05/25 08:43 Dose: 81 mg Hydralazine HCl (Hydralazine 25 Mg Tablet) 25 mg PO TID [facility] Last Admin: 04/05/25 08:43 Dose: 25 mg Hydralazine HCl (Hydralazine 20 Mg/Ml Inj 1 Ml) 10 mg IVP Q6H PRN PRN Reason: HYPERTENSION Last Admin: 03/31/25 02:08 Dose: 10 mg Acyclovir 500 mg/ Sodium (Chloride) 260 mls @ 270 mls/hr IV Q8H [facility] Last Infusion: 04/05/25 06:48 Dose: Infused Doxycycline Hyclate 100 mg/ (Sodium Chloride) 100 mls @ 100 mls/hr IV Q12H [facility]; Protocol Last Infusion: 04/05/25 02:06 Dose: Infused Meropenem 2,000 mg/ Sodium (Chloride) 50 mls @ 100 mls/hr IV Q8H [facility]; Protocol Last Infusion: 04/05/25 05:47 Dose: Infused Sodium Chloride (Sodium Chloride 0.9%) 1,000 mls @ 80 mls/hr IV .[id number] [facility] Last Admin: 04/05/25 04:59 Dose: 80 mls/hr Potassium Chloride (K-Bakari) 100 mls @ 25 mls/hr IV Q4H [facility] Stop: 04/05/25 12:29 Last Admin: 04/05/25 08:43 Dose: 25 mls/hr Magnesium Oxide (Magnesium Oxide 400 Mg Tablet) 400 mg PO BID@0500,1700 [facility] Last Admin: 04/05/25 04:59 Dose: 400 mg Metoprolol Succinate (Metoprolol Succinate Er (24 Hr) 50 Mg Tablet) 25 mg PO DAILY [facility] Last Admin: 04/05/25 08:43 Dose: 25 mg Naloxone HCl (Naloxone 0.4 Mg/Ml Sdv) 0.1 mg IVP Q2M PRN PRN Reason: OPIATERV Ondansetron HCl (Ondansetron 2 Mg/Ml Sdv 2 Ml) 8 mg IVP Q6H PRN PRN Reason: vomiting, or N/V if npo Last Admin: 04/05/25 08:44 Dose: 8 mg Sertraline HCl (Sertraline 100 Mg Tablet) 100 mg PO DAILY [facility] Last Admin: 04/05/25 08:43 Dose: 100 mg Urea (Urea 15 Gm Powder) 15 gm PO DAILY [facility] Last Admin: 04/05/25 08:43 Dose: 15 gm Vitals/I&O/Wt Last Vital Signs Temp 98.1 F 04/05/25 07:56 Pulse 101 H 04/05/25 07:56 Resp 15 04/05/25 07:56 BP 154/75 04/05/25 07:56 Pulse Ox 96 04/05/25 07:56 O2 Del Method Room Air 04/05/25 07:56 04/04/25 04/05/25 04/05/25 22:59 06:59 14:59 Intake Total 430 / 1305 1670 / 2975 Output Total 500 / 500 200 / 700 Balance -70 / 805 1470 / 2275 Weight last 48 hrs Weight 49.895 kg Weight 50.349 kg Physical Exam Narrative: Petite lady in bed blood pressure noted and improving No apparent distress. HEENT normocephalic atraumatic. Neck is supple no JVP no carotid bruits. Lungs are clear to auscultation. Heart is regular no rubs or gallops. Abdomen is soft positive bowel sounds. Extremities have no edema. Neuro -more awake, and interactive, moving Data 04/05/25 03:17 04/05/25 05:47 Micro: Microbiology 04/03/25 13:45 Fungal Smear - Preliminary Cerebrospinal Fluid Mycobacterial Smear - Preliminary A&P Assessment and plan 1. Hyponatremia: 59-year-old lady with hyponatremia and elevated urine sodium consistent with SIADH. Patient serum sodium has improved with urea and salt tablets. Given the fact that the patient has hypertension I stopped her salt tablets. --her serum sodium is stable on NS can continue ivf as pt is on acyclovir -hypokalemia- can be from diarrhea -replace magnesium Hypertension will monitor on current medications. Patient was seen and examined using audiovisual equipment with the aid of a nurse. Plan: Monitor electrolytes and replete as needed PDMP PDMP Reviewed: Not Reviewed Attestations Medical Necessity Statement*: hypokalemia Time Spent in Patient Care: 16 - 35 minutes (>than 50% of time spent in counselling and/or direct pt care on unit). Coding Level of Care Code Acute Code for Chg Fwd Diagnoses Hyponatremia E87.1
[2025-04-05 11:45] VITALS: BP 138/73; PULSE 100; RESP 18; TEMP 36.8; O2SAT 95
[2025-04-05] MEDS: potassium chloride oral liq 20 mEq/15 mL UDC PO (11:49)
--- NOTE | 2025-04-05 13:23 | P.PN_ITS ---
Subjective 2 Subjective: Seen this morning. BioFire panel negative. Patient febrile overnight Potassium 2.7 this morning. Patient still confused Vitals/I&O/Wt Last Vital Signs Temp 98.3 F 04/05/25 11:45 Pulse 100 04/05/25 11:45 Resp 18 04/05/25 11:45 BP 138/73 04/05/25 11:45 Pulse Ox 95 04/05/25 11:45 O2 Del Method Room Air 04/05/25 11:45 04/04/25 04/05/25 04/05/25 22:59 06:59 14:59 Intake Total 430 / 1305 1670 / 2975 1.667 / 1.667 Output Total 500 / 500 200 / 700 Balance -70 / 805 1470 / 2275 1.667 / 1.667 Weight last 48 hrs Weight 49.895 kg Weight 50.349 kg Physical Exam 2 Narrative: Patient is alert oriented to self only today Heart regular normal S1-S2 Lungs clear to auscultation without wheezes rales or rhonchi Abdomen soft nontender nondistended sluggish bowel sounds Extremities no clubbing cyanosis or edema Data 04/05/25 03:17 04/05/25 05:47 Micro: Microbiology 04/03/25 13:45 Fungal Smear - Preliminary Cerebrospinal Fluid Mycobacterial Smear - Preliminary A&P Assessment and plan 1. Somnolence: 2. Abnormal cerebrospinal fluid: 3. Hypokalemia: 4. Hyponatremia: 5. Hypomagnesemia: 6. Weakness: 7. Meningitis: 8. Altered mental status: 9. SIADH (syndrome of inappropriate ADH production): Plan: 1. AMS (altered mental status): Initially suspected bacterial meningitis that may have been partially treated due to being on a couple different courses of antibiotics over the last 4 weeks. -No pathogens identified. Continues ceftriaxone 2 g IV every 12 hours. When I called and spoke with the medicine physician at [place] he said he is not allowed to give advice over the phone but his thoughts were possible EBV or lymphoma. Based on the patient's history of weight loss I do wonder if it is lymphoma. Unfortunately there is no recommended treatment for EBV, and up-to-date they do not recommend acyclovir although he asked me if we started it. Since the patient is not exactly any worse I want to hold off on any further treatment in case they plan to repeat a CSF study. And regarding lymphoma we are unable to treat that here at our hospital 2. Hyponatremia: SIADH. 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 - See nephrology note for current recommendations -Medication. Bupropion is weaning. Protonix has been stopped. However we have continued her SSRI since she has been on that for 1 year and no documented hyponatremia until recently 4. hypokalemia -patient may not be absorbing this medication which is why it has been crushed. Nurse educated on crushing all pills 5. Hypomagnesia. Magnesium stable at 1.8-1.9 6. RN just found a scopolamine patch behind her ear yesterday 04/01/2025 Yesterday (04/01/2025) I called [facility] and spoke to a triage medicine physician for regarding Ms. Saldaña. I reviewed her labs extensively even back until January. We reviewed her imaging studies MRI and CAT scan. And we also reviewed her last hospitalization. After extensive discussion and reporting Dr. Pereira agreed to accept this patient on high priority. Unfortunately they have not called back with a bed yet. Patient's son Jose Eduardo has been updated daily. Patient's sister Maki visits most days Full code Lovenox for DVT prophylaxis 04/03/2025 Given patient's lab values and chart review. We will consult infectious disease specialty. Will repeat lumbar puncture. Will await recommendations and proceed. Check labs today CBC CMP. Patient is awaiting transfer to [place]. Her altered mental status is not improving. Will escalate to meropenem today. Per nursing staff patient not taking her urea. Culture data reviewed. Discussed with ID physician. Will await final recommendations and proceed. Discussed LP with sister who was at bedside and she was agreeable. 04/04/2025 Sodium 137 today. Continue acyclovir IV every 8 hours, meropenem IV, doxycycline per ID recommendations. Extensive ID workup ordered and pending. Continue urea 15 g daily. Placed on normal saline at 80 cc/h. Okayed by nephrology. Check serum and urine osmolality, check urine sodium Patient is still altered. Has been afebrile. Repeat LP does indicate an suggestive of meningitis. Glucose very low at 6. Still awaiting transfer to [place]. 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 04/05/2025 Discussed at length with ID Extensive ID workup ordered and pending. Continue doxycycline Will check CTA head Check SIOBHAN double-stranded DNA, sarcoidosis workup check aldolase, JOELLE enzyme Will order high-dose fluconazole by ID. Meropenem stopped today. Patient awaiting transfer to [place]. Continue aspirin, hydralazine, magnesium oxide, metoprolol succinate Culture data negative to date LP that was repeated has low glucose still suggestive of meningitis. PDMP PDMP Reviewed: Not Reviewed Attestations 2 Medical Necessity Statement*: Meningitis Diagnoses Somnolence R40.0 Altered mental status type: somnolence Abnormal cerebrospinal fluid R83.9 Hypokalemia E87.6 Hyponatremia E87.1 Hypomagnesemia E83.42 Weakness R53.1 Meningitis G03.9 Altered mental status R41.82 SIADH (syndrome of inappropriate ADH production) E22.2
[2025-04-05 15:11] VITALS: BP 135/64; PULSE 92; RESP 16; TEMP 36.8; O2SAT 93
--- NOTE | 2025-04-05 15:47 | PM.PN ---
Subjective Subjective: infectious disease progress note no significant change in mentation today States correct name, age, , states this is Apr 07, 2026 and that Wilfrido Hay is president. Intermittently confused. Medications: Reviewed: Yes Medication Review Details: Current Medications Amlodipine Besylate (Amlodipine 5 Mg Tablet) 10 mg PO DAILY [facility] Last Admin: 04/05/25 08:43 Dose: 10 mg Aspirin (Aspirin 81 Mg Ec Tablet) 81 mg PO DAILY [facility] Last Admin: 04/05/25 08:43 Dose: 81 mg Hydralazine HCl (Hydralazine 25 Mg Tablet) 25 mg PO TID [facility] Last Admin: 04/05/25 08:43 Dose: 25 mg Hydralazine HCl (Hydralazine 20 Mg/Ml Inj 1 Ml) 10 mg IVP Q6H PRN PRN Reason: HYPERTENSION Last Admin: 03/31/25 02:08 Dose: 10 mg Acyclovir 500 mg/ Sodium (Chloride) 260 mls @ 270 mls/hr IV Q8H [facility] Last Infusion: 04/05/25 06:48 Dose: Infused Doxycycline Hyclate 100 mg/ (Sodium Chloride) 100 mls @ 100 mls/hr IV Q12H [facility]; Protocol Last Infusion: 04/05/25 02:06 Dose: Infused Meropenem 2,000 mg/ Sodium (Chloride) 50 mls @ 100 mls/hr IV Q8H [facility]; Protocol Last Infusion: 04/05/25 05:47 Dose: Infused Sodium Chloride (Sodium Chloride 0.9%) 1,000 mls @ 80 mls/hr IV .[id number] [facility] Last Admin: 04/05/25 04:59 Dose: 80 mls/hr Potassium Chloride (K-Bakari) 100 mls @ 25 mls/hr IV Q4H [facility] Stop: 04/05/25 12:29 Last Admin: 04/05/25 08:43 Dose: 25 mls/hr Magnesium Oxide (Magnesium Oxide 400 Mg Tablet) 400 mg PO BID@0500,1700 [facility] Last Admin: 04/05/25 04:59 Dose: 400 mg Metoprolol Succinate (Metoprolol Succinate Er (24 Hr) 50 Mg Tablet) 25 mg PO DAILY [facility] Last Admin: 04/05/25 08:43 Dose: 25 mg Naloxone HCl (Naloxone 0.4 Mg/Ml Sdv) 0.1 mg IVP Q2M PRN PRN Reason: OPIATERV Ondansetron HCl (Ondansetron 2 Mg/Ml Sdv 2 Ml) 8 mg IVP Q6H PRN PRN Reason: vomiting, or N/V if npo Last Admin: 04/05/25 08:44 Dose: 8 mg Sertraline HCl (Sertraline 100 Mg Tablet) 100 mg PO DAILY [facility] Last Admin: 04/05/25 08:43 Dose: 100 mg Urea (Urea 15 Gm Powder) 15 gm PO DAILY [facility] Last Admin: 04/05/25 08:43 Dose: 15 gm Vitals/I&O/Wt Last Vital Signs Temp 98.2 F 04/05/25 15:11 Pulse 92 04/05/25 15:11 Resp 16 04/05/25 15:11 BP 135/64 04/05/25 15:11 Pulse Ox 93 04/05/25 15:11 O2 Del Method Room Air 04/05/25 15:11 04/05/25 04/05/25 04/05/25 06:59 14:59 22:59 Intake Total 1670 / 2975 101.667 / 101.667 98.333 / 200.000 Output Total 200 / 700 Balance 1470 / 2275 101.667 / 101.667 98.333 / 200.000 Weight last 48 hrs Weight 49.895 kg Weight 50.349 kg Physical Exam Narrative: General: No acute distress, AO x2 HEENT: PERRLA, pupils bilaterally equal and reactive, pallors not present Chest: Normal vesicular breath sounds, no added sounds, equal good air entry bilaterally CVS: S1-S2 regular, no murmurs, no tachycardia, no gallops, no rubs Abdomen: Soft, nontender, no organomegaly, bowel sounds present Neuro: No focal deficits, no facial deformity, AO x2, power 5/5 in all limbs Data 04/05/25 03:17 04/05/25 05:47 Micro: Microbiology 04/03/25 13:45 Fungal Smear - Preliminary Cerebrospinal Fluid Mycobacterial Smear - Preliminary A&P Assessment and plan 1. Meningitis: 2. Altered mental status: Plan: 59-year-old female with a past medical history as noted above, no overt immunocompromising conditions, currently admitted to the hospital in view of altered mental status over the past few weeks, this current admission also preceded by development of hallucinations. Hospital course complicated additionally by hyponatremia which is now resolved. Cause of patient's altered mentation is not entirely clear. CT and MRI of the head on a recent admission were without any acute intracranial abnormalities. Significantly she has an abnormal lumbar puncture. On 03/26, lumbar puncture was performed which showed an opening pressure of 14 cm water. WBC count of 267, predominant mononuclear infiltrate of 85%, CSF glucose of 4, CSF total protein of 175. Negative serum cryptococcal antigen. CSF Gram stain and culture without any growth Negative CSF VDRL Negative serum HIV 1/2 antibody and antigen screen Negative bacterial antigen panel for group A strep, Hib, strep pneumo, and meningitis. Negative serum QuantiFERON. No known history of tuberculosis. Negative respiratory viral panel upon admission. CSF cytology showing a significant increase in chronic inflammatory cells with subpopulation of neutrophils. No dysplastic or neoplastic cells were identified. She has been on a presumptive course for meningitis with ceftriaxone 2 g IV every 12 hours. She received IV vancomycin however this was discontinued with a negative CSF culture. Pending encephalitis antibody panel to evaluate for limbic encephalitis. Currently patient has not had any significant clinical improvement in her mental status in spite of presumptive treatment with ceftriaxone. Recommend to repeat lumbar puncture. Obtain CSF analysis including cell count protein glucose CSF culture and Gram stain to assess for any telephone exchange operator previous. Obtain another CSF cryptococcal antigen. Additionally obtain CSF ADA though suspicion for tubercular meningitis is low at this time. Obtain Lyme antibody and CSF and West Nile antibody in CSF. Additional evaluation to include urine histoplasma antigen, histoplasma antibody, Blastomyces and Coccidioides antibody. Obtain tick panel and tularemia serology. Additionally requested BioFire meningitis panel to be sent to [facility]. In the interim broaden antibiotic coverage. Discontinue ceftriaxone. Changed to meropenem 2 g IV every 8 hours this will additionally include presumptive Listeria coverage. Start doxycycline 100 mg IV every 12 hours and acyclovir 10 mg/kg IV every 8 hours. Will reassess with findings of repeat lumbar puncture. Patient is awaiting transfer to [facility]. We will continue to follow while patient remains at [facility]. 04/05/25: LP perfromed on 04/03 as below: NAME: Sara López LOC: [facility] #: [id number] AGE/SX: 59/F ROOM: [facility] RE03/24/[address]: Yeny Ornelas MD : [id number] BED: 1 DIS: FAX #: STATUS: ADM IN TLOC: Spec : [id number] Eric: 04/03/25-1345 Status: COMP Req : [id number] Recd: 04/03/25-[address]: Deepali Henry MD Ordered: CSF Analysis, CSF Glu Comments: Comment Biofire meningitis panel to [facility] Comment Biofire meningitis panel to [facility] Test Low Normal [place] Reference Site CSF Royce CLEAR CLEAR CSF Col COLORLESS COLORLESS CSF WBC 158 H 0-5 /uL CSF RBC 0 0-0 10^3/uL CSF [place] WBC % 96 H 50-90 % CSF Poly WBC % 4 0-10 % CSF Glu 6 L 40-70 mg/dL CSF [place] # 0.151 L 50-90 10^3/uL CSF Poly # 0.007 0-10 10^3/uL Path Referral Yes Continues to show glucose of 6, 96% mononuclear cells , cell count 158, TP 165 Biofire meningitis panel from [facility] negative for strep pneumo, Hib, listeria monocytogenes,neisseria, Strep pn. Strep agalactaie,HSV 1/2, VZV (pending dedicated panel), negative cryptococcus 9/2: Csf gram stain and cx negative, pending Fungal and AFB smear and cx Serum quantiferon negative , pending CSF ADA , low suspicion for TB with no antecedent history Cause remains unclear at this time Pending CSF lyme Ab, urine histo AG, histo ASSEMBLER MECHANICAL ORDNANCE, coccidiodies Ab, blastomyces Ab and serum tick panel Can d/c meropenem today given above results, completed course of ceftriaxone without clinical change Continue doxycycline while pendign tick panel Add empiric Fluconazole 800mg iv q24h while pending fungal serologies Considering autoimmune etiology in the differentials- check SIOBHAN panel, ds DNA, Thiago and aldolase level. CTA head to assess for cerebritis/vasculitis PDMP PDMP Reviewed: Not Reviewed Attestations Medical Necessity Statement*: per admitting Coding Level of Care Code Acute Code for Chg Fwd Diagnoses Meningitis G03.9 Altered mental status R41.82
[2025-04-05 16:54] LABS: Anion Gap 13.0 (5-19); Blood Urea Nitrogen 12 mg/dL (8-23); Calcium 8.7 mg/dL (8.5-10.5); Carbon Dioxide 24 mmol/L (22-29); Chloride 104 mmol/L (98-107); Creatinine Clr Calc Pharmacy 117.8076; Glucose 107 mg/dL (65-115); Osmolality Calculated 284 mOsm/kg (285-295); Potassium 4.0 mmol/L (3.5-5.1); Sodium 137 mmol/L (136-145)
[2025-04-05] MEDS: fluconazole premix 800 MG/400 ML PIGGYBACK 100 MG IV (16:59)
--- NOTE | 2025-04-05 18:35 | PC.NURSE ---
verified with Jose Enrique in transfer center at [facility] that she has indeed received fax with pt info from us. Accepting physician is Dr. Odell
[2025-04-05 20:00] VITALS: BP 160/76; PULSE 104; RESP 18; TEMP 36.8; O2SAT 95
[2025-04-05 21:54] LABS: VDRL on CSF NON-REACTIVE
[2025-04-06] VITALS (7 sets, daily range): BP systolic 147–166; BP diastolic 63–81; PULSE 100–111; RESP 15–20; TEMP 36.2–37.5; O2SAT 93–96
[2025-04-06] MEDS: doxycycline 100 MG in sodium chloride 0.9% (plus) 100 ML IV (00:04)
[2025-04-06 06:02] LABS: Alanine Aminotransferase 9 U/L (0-33); Albumin Level 3.2 g/dL (3.5-5.2); Alkaline Phosphatase 36 U/L (35-105); Blood Urea Nitrogen 8 mg/dL (8-23); Calcium 8.5 mg/dL (8.5-10.5); Carbon Dioxide 23 mmol/L (22-29); Chloride 99 mmol/L (98-107); Creatinine Clr Calc Pharmacy 117.8076; Globulin 2.8 g/dL (1.3-4.6); Glucose 81 mg/dL (65-115); Magnesium 2.0 mg/dL (1.7-2.3); Osmolality Calculated 279 mOsm/kg (285-295); Sodium 136 mmol/L (136-145); Total Protein 6.0 g/dL (6.6-8.7)
[2025-04-06 06:06] LABS: Anion Gap 17.3 (5-19); Aspartate Amino Transferase 11 U/L (0-32); Potassium 3.3 mmol/L (3.5-5.1)
[2025-04-06] MEDS: metoprolol succinate ER (24 HR) 50 mg Tablet 25 MG PO (08:32)
[2025-04-06 08:35] LABS: HSV 1 DNA Not Detected (Not Detected); HSV 2 DNA Not Detected (Not Detected)
--- NOTE | 2025-04-06 08:50 | PM.PN ---
Subjective Subjective: The patient continues to improve. She states she is eating and drinking. The patient states she has no diarrhea or vomiting. The patient knows she is in [place]. The patient does not know the year. Otherwise she is continuing to improve. No other complaints. Medications: Reviewed: Yes Medication Review Details: Current Medications Amlodipine Besylate (Amlodipine 5 Mg Tablet) 10 mg PO DAILY [facility] Last Admin: 04/06/25 08:32 Dose: 10 mg Aspirin (Aspirin 81 Mg Ec Tablet) 81 mg PO DAILY [facility] Last Admin: 04/06/25 08:32 Dose: 81 mg Hydralazine HCl (Hydralazine 25 Mg Tablet) 25 mg PO TID [facility] Last Admin: 04/06/25 08:32 Dose: 25 mg Hydralazine HCl (Hydralazine 20 Mg/Ml Inj 1 Ml) 10 mg IVP Q6H PRN PRN Reason: HYPERTENSION Last Admin: 03/31/25 02:08 Dose: 10 mg Acyclovir 500 mg/ Sodium (Chloride) 260 mls @ 270 mls/hr IV Q8H [facility] Last Infusion: 04/06/25 07:03 Dose: Infused Doxycycline Hyclate 100 mg/ (Sodium Chloride) 100 mls @ 100 mls/hr IV Q12H [facility]; Protocol Last Infusion: 04/06/25 01:04 Dose: Infused Sodium Chloride (Sodium Chloride 0.9%) 1,000 mls @ 80 mls/hr IV .[id number] [facility] Last Admin: 04/06/25 05:44 Dose: 80 mls/hr Fluconazole (Diflucan Premix) 800 mg in 400 mls @ 100 mls/hr IV Q24H [facility] Last Infusion: 04/05/25 20:55 Dose: Infused Magnesium Oxide (Magnesium Oxide 400 Mg Tablet) 400 mg PO BID@0500,1700 [facility] Last Admin: 04/06/25 05:44 Dose: Not Given Metoprolol Succinate (Metoprolol Succinate Er (24 Hr) 50 Mg Tablet) 25 mg PO DAILY [facility] Last Admin: 04/06/25 08:32 Dose: 25 mg Naloxone HCl (Naloxone 0.4 Mg/Ml Sdv) 0.1 mg IVP Q2M PRN PRN Reason: OPIATERV Ondansetron HCl (Ondansetron 2 Mg/Ml Sdv 2 Ml) 8 mg IVP Q6H PRN PRN Reason: vomiting, or N/V if npo Last Admin: 04/05/25 08:44 Dose: 8 mg Sertraline HCl (Sertraline 100 Mg Tablet) 100 mg PO DAILY [facility] Last Admin: 04/06/25 08:32 Dose: 100 mg Urea (Urea 15 Gm Powder) 15 gm PO DAILY [facility] Last Admin: 04/06/25 08:32 Dose: 15 gm Vitals/I&O/Wt Last Vital Signs Temp 98.4 F 04/06/25 07:10 Pulse 104 H 04/06/25 07:10 Resp 16 04/06/25 07:10 BP 150/75 04/06/25 07:10 Pulse Ox 96 04/06/25 07:10 O2 Del Method Room Air 04/06/25 07:10 04/05/25 04/06/25 04/06/25 22:59 06:59 14:59 Intake Total 2037.000 / 2138.667 1600 / 3738.667 260 / 260 Output Total 2 / 2 Balance 2037.000 / 2138.667 1598 / 3736.667 260 / 260 Weight last 48 hrs Weight 48.534 kg Weight 49.895 kg Physical Exam Narrative: Patient is sitting up in bed no apparent distress vital signs noted. HEENT normocephalic atraumatic. Neck is supple no JVP no carotid bruits. Lungs are clear to auscultation. Heart is regular no rubs or gallops. Abdomen is soft positive bowel sounds. Extremities have no edema. Neuro -more awake, and interactive, moving, knows she is in [place] does not know the date does not know who is president. Data 04/05/25 03:17 04/06/25 04:16 A&P Assessment and plan 1. Hyponatremia: 59-year-old lady with hyponatremia and elevated urine sodium consistent with SIADH. Patient serum sodium has improved with urea and salt tablets. Given the fact that the patient has hypertension I stopped her salt tablets. --her serum sodium is stable on NS can continue ivf as pt is on acyclovir We will decrease urea dose -hypokalemia- can be from diarrhea -replace potassium, phosphorus, and magnesium Hypertension will monitor on current medications. Patient was seen and examined using audiovisual equipment with the aid of a nurse. Plan: Monitor electrolytes and replete as needed PDMP PDMP Reviewed: Not Reviewed Attestations Medical Necessity Statement*: Per medicine and infectious disease. Time Spent in Patient Care: 16 - 35 minutes (>than 50% of time spent in counselling and/or direct pt care on unit). Coding Level of Care Code Acute Code for Chg Fwd Diagnoses Hyponatremia E87.1
[2025-04-06 11:10] LABS: Adenosine Deaminase CSF 4.4 U/L (<7.0)
--- NOTE | 2025-04-06 11:34 | PICC.NOTE ---
Orders received to place midline for poor access. After access for midline obtained, dilator inserted. No blood return noted. Pt reported pain with flushing. Midline removed and pressure held. Dr. Ornelas informed of unsuccessful midline attempt to right basilic vein. Orders received to place US guided IV if possible. US guided IV successfully placed to left upper arm. Report given to bedside nurse, YAMILEX Cohen.
--- NOTE | 2025-04-06 11:48 | PM.PN ---
Subjective Subjective: Potassium 3.3 this morning. Patient expresses desire to eat today. Phosphorus 1.7. She still does not know where she is or what is going on. Able to tell me her name date of . Appears more alert today. Still somewhat confused. I did call [facility] and discussed with neurology who have accepted patient for transfer to neuro service. We are still waiting for a bed. Patient's infectious disease note, they were requested from [facility] was faxed over to them yesterday evening. I personally discussed patient's lumbar puncture results current medications and workup so far with neurologist on-call. Has lost IV access. She has been a difficult access since she has been here. Vascular access nurse consulted today who will be attempting a midline if possible. Vitals/I&O/Wt Last Vital Signs Temp 98.4 F 04/06/25 07:10 Pulse 104 H 04/06/25 07:10 Resp 16 04/06/25 07:10 BP 150/75 04/06/25 07:10 Pulse Ox 96 04/06/25 07:10 O2 Del Method Room Air 04/06/25 07:10 04/05/25 04/06/25 04/06/25 22:59 06:59 14:59 Intake Total 2037.000 / 2138.667 1600 / 3738.667 500 / 500 Output Total 2 / 2 Balance 2037.000 / 2138.667 1598 / 3736.667 500 / 500 Weight last 48 hrs Weight 48.534 kg Weight 49.895 kg Physical Exam Narrative: Patient is alert oriented to self only today Heart regular normal S1-S2 Lungs clear to auscultation without wheezes rales or rhonchi Abdomen soft nontender nondistended sluggish bowel sounds Extremities no clubbing cyanosis or edema Data 04/05/25 03:17 04/06/25 04:16 A&P Assessment and plan 1. Somnolence: 2. Abnormal cerebrospinal fluid: 3. Hypokalemia: 4. Hyponatremia: 5. Hypomagnesemia: 6. Weakness: 7. Meningitis: 8. Altered mental status: 9. SIADH (syndrome of inappropriate ADH production): Plan: 1. AMS (altered mental status): Initially suspected bacterial meningitis that may have been partially treated due to being on a couple different courses of antibiotics over the last 4 weeks. -No pathogens identified. Continues ceftriaxone 2 g IV every 12 hours. When I called and spoke with the medicine physician at [facility] he said he is not allowed to give advice over the phone but his thoughts were possible EBV or lymphoma. Based on the patient's history of weight loss I do wonder if it is lymphoma. Unfortunately there is no recommended treatment for EBV, and up-to-date they do not recommend acyclovir although he asked me if we started it. Since the patient is not exactly any worse I want to hold off on any further treatment in case they plan to repeat a CSF study. And regarding lymphoma we are unable to treat that here at our hospital 2. Hyponatremia: SIADH. SIADH could be from the ORGANIZATIONAL DEVELOPMENT DIRECTOR abnormality or medication induced or combination thereof. - See nephrology note for current recommendations -Medication. Bupropion is weaning. Protonix has been stopped. However we have continued her SSRI since she has been on that for 1 year and no documented hyponatremia until recently 4. hypokalemia -patient may not be absorbing this medication which is why it has been crushed. Nurse educated on crushing all pills 5. Hypomagnesia. Magnesium stable at 1.8-1.9 6. RN just found a scopolamine patch behind her ear yesterday 04/01/2025 Yesterday (04/01/2025) I called [facility] and spoke to a triage medicine physician for regarding Ms. Saldaña. I reviewed her labs extensively even back until January. We reviewed her imaging studies MRI and CAT scan. And we also reviewed her last hospitalization. After extensive discussion and reporting Dr. Pereira agreed to accept this patient on high priority. Unfortunately they have not called back with a bed yet. Patient's son Jose Eduardo has been updated daily. Patient's sister Maki visits most days Full code Lovenox for DVT prophylaxis 04/03/2025 Given patient's lab values and chart review. We will consult infectious disease specialty. Will repeat lumbar puncture. Will await recommendations and proceed. Check labs today CBC CMP. Patient is awaiting transfer to [facility]. Her altered mental status is not improving. Will escalate to meropenem today. Per nursing staff patient not taking her urea. Culture data reviewed. Discussed with ID physician. Will await final recommendations and proceed. Discussed LP with sister who was at bedside and she was agreeable. 04/04/2025 Sodium 137 today. Continue acyclovir IV every 8 hours, meropenem IV, doxycycline per ID recommendations. Extensive ID workup ordered and pending. Continue urea 15 g daily. Placed on normal saline at 80 cc/h. Okayed by nephrology. Check serum and urine osmolality, check urine sodium Patient is still altered. Has been afebrile. Repeat LP does indicate an suggestive of meningitis. Glucose very low at 6. Still awaiting transfer to [facility]. ORGANIZATIONAL DEVELOPMENT DIRECTOR lymphoma not ruled out. 04/05/2025 Discussed at length with ID Extensive ID workup ordered and pending. Continue doxycycline Will check CTA head Check SIOBHAN double-stranded DNA, sarcoidosis workup check aldolase, JOELLE enzyme Will order high-dose fluconazole by ID. Meropenem stopped today. Patient awaiting transfer to [facility]. Continue aspirin, hydralazine, magnesium oxide, metoprolol succinate Culture data negative to date LP that was repeated has low glucose still suggestive of meningitis. 04/06/2025 I did call [facility] and discussed with neurology who have accepted patient for transfer to neuro service. We are still waiting for a bed. Patient's infectious disease note, they were requested from [facility] was faxed over to them yesterday evening. I personally discussed patient's lumbar puncture results current medications and workup so far with neurologist on-call. continue on thiamine 100 daily -potassium phosphate ordered Continue high-dose fluconazole, doxycycline, acyclovir Continue IV fluids 80 cc/h since patient is on acyclovir. Sodium has been 135 136 range. ? Patient is awaiting transfer to [facility] for further workup. CTA head and neck could not be done yesterday secondary to patient's IV access issue and the fact that patient was not cooperative. We will attempt again today. Speech therapy evaluation to be completed today. Potentially advance diet. Patient has been on liquids since patient is unable to participate with speech therapy on other occasions. We will attempt pur?ed food today if possible as her mental status seems to be slightly better. If patient continues with inadequate calories, will need to discuss PEG tube with family. PDMP PDMP Reviewed: Not Reviewed Attestations Medical Necessity Statement*: Awaiting transfer to [facility]. Diagnoses Somnolence R40.0 Altered mental status type: somnolence Abnormal cerebrospinal fluid R83.9 Hypokalemia E87.6 Hyponatremia E87.1 Hypomagnesemia E83.42 Weakness R53.1 Meningitis G03.9 Altered mental status R41.82 SIADH (syndrome of inappropriate ADH production) E22.2
[2025-04-06] MEDS: potassium phosphate (mEq K) 40 MEQ in sodium chloride 0.9% (100 ml) 100 ML 27.25 MEQ IV (11:50)
--- NOTE | 2025-04-06 14:21 | PC.NUTR ---
Received consult for TPN vs PPN. If central line placed and TPN medically appropriate, recommend beginning @12mls/hr and increasing 10mls Q4-8H until goal rate of 42mls/hr is reached. Recommend considering standard electrolytes, MV 10mls/day, and 20gm/100mls fat emulsion 2x/week. (TPN @42mls/hr would provide 80 grams protein or 163% Pt's estimated protein needs and 660kcals or 57% Pt's estimated calorie needs). If peripheral IV, recommend PPN to begin @12mls/hr and increasing 10mls Q4-8H until goal rate of 42mls/hr is reached. Recommend considering standard electrolytes, MV 10mls/day, and 20gm/100mls fat emulsion 2x/week. (PPN @ 42mls/hr will provide 42.5 grams protein or 87% Pt's estimated protein needs and 340kcals or 35% Pt's estimated calorie needs).
[2025-04-06 14:44] LABS: COMPLEMENT COMPONENT C3C 67 mg/dL (83-193); COMPLEMENT COMPONENT C4C 12 mg/dL (15-57)
[2025-04-06 14:48] LABS: COMPLEMENT, TOTAL (CH50) 35 U/mL (31-60)
--- NOTE | 2025-04-06 15:12 | PC.NURSE ---
Peripheral IV infliltrated this morning. 7 IVs have went bad this admission and pt has poor IV access. Obtained a verbal order by Dr. Ornelas to obtain a midline, however, the midline failed and ANAM Rodríguez placed an ultrasound guided IV in the upper left arm. Approximately 2 hours after placement, IV went bad. IJ is the only access at this point. Dr. Ornelas notified and she spoke with/consulted anesthesia to obtain IJ for IV abx and TPN.
[2025-04-06 16:49] LABS: Anti-Double Strand DNA AB <1 IU/mL
--- NOTE | 2025-04-06 16:55 | XRR_ITS ---
PROCEDURE INFORMATION: Exam: XR Chest Exam date and time: 04/06/2025 5:45 PM Age: 59 years old Clinical indication: Other vascular access device placement or adjustment; Central line, non-tunnelled; Additional info: Central line placement TECHNIQUE: Imaging protocol: Radiologic exam of the chest. 3 image(s) are submitted. Views: 1 view. COMPARISON: CT chest con [id number] 03/24/2025 11:01 PM FINDINGS: Lungs: Unremarkable. No consolidation. Pleural spaces: See Soft tissues finding. Heart/Mediastinum: Unremarkable. No cardiomegaly. Bones/joints: Unremarkable. Soft tissues: Right-sided internal jugular central venous catheter is noted with tip located 4 cm inferior to the cavoatrial junction, within right atrium. No pneumothorax seen. Possible subcutaneous emphysema in the left axillary region. XR/XR chest 1V portable [id number] IMPRESSION: Right-sided internal jugular central venous catheter is noted with tip located 4 cm inferior to the cavoatrial junction, within right atrium. No pneumothorax seen. Possible subcutaneous emphysema in the left axillary region.
--- NOTE | 2025-04-06 16:58 | ANES.PROC ---
Anesthesia Procedures Procedure/Date: 04/06/25 Central Venous Insert: Central Venous Line: Central line access requested per hospitalist due to inability to obtain IV access. Patient is requiring TPN. Spoke to patient's son, Jose Eduardo, and he consents to proceeding with procedure at this time. Understands risks. Time Out Performed: Yes Consent: requested by attending/covering physician and from patient Central Line: New Anesthesia monitors: pulse oximetry, EKG, BP cuff and oxygen Vein cannulated: right internal jugular Ultrasound used: to identify patency to vessel Post procedure: Obtain Chest X-Ray Additional Comments: Patient tolerated procedure well. Chest x-ray is pending
--- NOTE | 2025-04-06 17:36 | PM.TDS ---
Transfer Summary Providers Date of Admission: 03/24/25 22:31 Date of Discharge/Transfer: 04/06/25 Attending Provider at Admission: Dimitrios fPeiffer MD Attending Provider at Transfer: Yeyn Ornelas MD Primary Care Provider: Haley Kinsey MD Transfer Plans: Anticipated date of transfer: 04/06/25. Receiving Facility: [facility]. Receiving Provider: Dr. Johnson. Diagnoses at Discharge Discharge Diagnosis 1. Somnolence: 2. Abnormal cerebrospinal fluid: 3. Hypokalemia: 4. Hyponatremia: 5. Hypomagnesemia: 6. Weakness: 7. Meningitis: 8. Altered mental status: 9. SIADH (syndrome of inappropriate ADH production): Reason for Visit Reason for Visit WEAKNESS Hospital Course Hospital Course Patient was admitted to the hospital. IV normal saline was initiated and simultaneously fluid restrict restricted salt tabs were started. Initial workup of altered mental status included a UA with normal limits no focal pneumonia on chest x-ray. Patient underwent a CT of the chest for the reported weight loss. CT of chest showed mild hyperinflation free of consolidation no acute abnormality. CT of abdomen and pelvis showed no acute disease no masses. On 03/26/2025 a lumbar puncture was done that was found to be abnormal. WBC count was 267 with 85% mononuclear cells and 15% polynuclear cells. RBCs was 0 glucose 4 and total protein 175. The CSF was negative for strep group B H influenza strep pneumonia and and meningitis. It was also negative for cryptococcal antigen. A neurology consult ensued and given that the patient had been on antibiotics in the previous few weeks it was decided to treat her for bacterial meningitis with ceftriaxone 2 g IV every 12 hours. Throughout the hospitalization her hyponatremia actually worsened. When I got on service on 03/28/2025 she had dipped to 118. At that time I stopped the IV fluids and she was maintained on fluid restriction. Nephrology consultation ensued. I also investigated her home medications. She has been on Protonix and SSRI for over a year with normal sodiums. She was started on bupropion a month ago I have started the to taper that. I did stop the Protonix. We were in agreement that the SSRI could probably be maintained. The sodium started to come up slowly and eventually on 03/31/2025 she received small dose of hypertonic saline. This improved her sodium to 126. Also during this hospitalization she had derangements in potassium magnesium and phosphorus requiring replacement. It was noted that she had a full potassium pill in her stool. Question whether she was absorbing. Yesterday after I personally reviewed her initial CAT scan I questioned white matter changes. The on-call radiologist concurred that it did look abnormal even though it was read as normal. He suggested I perform a MRI. We attempted an MRI today however she became claustrophobic and agitated moving constantly. This was despite Valium 10 mg. At this point today I do not have a definitive diagnosis she is not improving significantly and our resources are limited at a small [facility]. Both myself and family wish to transfer the patient to [facility]. They have excepted her and placed her on high-priority. We are awaiting a bed Above Note from apr 01 Sara Michelle López is a 59 year old female with a past medical history of anxiety depression GERD, hypertension, who has developed increasing generalized weakness, 35 pound weight loss, inability to tolerate p.o. intake with recurrent episodes of nausea and vomiting for the last 3-4 weeks. Family reports that she has also been exhibiting some hallucinations since 1-2 days [employer]LLAR [employer]. She was recently discharged from the hospital from 03/22/2025 for intractable nausea and vomiting when no obvious cause was found for symptoms. She did have hyponatremia which was corrected with IV hydration. She was suspected to be going through nicotine withdrawal. With addition of a nicotine patch patient felt symptomatically much better and was able to be discharged home on the . Her family reported that since returning home she stopped eating. On this current admission she was found to be intermittently confused. Today she is able to answer questions about her name, age and . She knows she is in the hospital however states the year to be 1984 instead of 2024. She reports she has only one son but then goes on to name 2 sons corretly. She knows she is in a hospital but does not know the city. She had a fever of 100 Fahrenheit upon admission. ROS + diarrhea at home, now resolved. Hospital course has been complicated by hyponatremia for which she was in the ICU receiving 3% saline previously. She has recently completed a CT of the chest abdomen and pelvis which did not show any acute abnormalities. No mass was encountered. Currently UA is negative for a UTI. Patient has had CT head and MRI of the brain recently which did not show any acute abnormalities. Given fever, hallucinations, altered mentation, there was concern about chronic meningitis such as cryptococcal meningitis given history of several parakeets at home. LP was performed on 03/26/25 which showed a WBC count of 267, 85% mononuclear, CSF glucose at 4, TP at 175 raising concern for bacterial vs chronic fungal meningitis. CSF CX remained negative. CSF VDRL NR. HIV 1/2 AG/AB negative. negative cryptococcal antigen. No known history of tuberculosis. Cytology showed chronic inflammatory cells with a subpopulation of neutrophils without any dysplastic or neoplastic cells identified. Neurology service was consulted. She had been started on treatment for presumed bacterial meningitis given her abnormal lumbar puncture and has been receiving ceftriaxone 2 g IV every 12 hours. She previously also received vancomycin, however with negative CSF cultures this was eventually discontinued. It was planned to repeat lumbar puncture after treating with presumptive course of ceftriaxone to assess for any interval improvement, however patient's mental status has not changed in any meaningful way. Per the son, she is still intermittently confused and hallucinating. There is no h/o travel. Hospital course complicated additionally by hyponatremia which is now resolved. Cause of patient's altered mentation is not entirely clear. CT and MRI of the head on a recent admission were without any acute intracranial abnormalities. Significantly she has an abnormal lumbar puncture. On 03/26, lumbar puncture was performed which showed an opening pressure of 14 cm water. WBC count of 267, predominant mononuclear infiltrate of 85%, CSF glucose of 4, CSF total protein of 175. Negative serum cryptococcal antigen. CSF Gram stain and culture without any growth Negative CSF VDRL Negative serum HIV 1/2 antibody and antigen screen Negative bacterial antigen panel for group A strep, Hib, strep pneumo, and meningitis. Negative serum QuantiFERON. No known history of tuberculosis. Negative respiratory viral panel upon admission. CSF cytology showing a significant increase in chronic inflammatory cells with subpopulation of neutrophils. No dysplastic or neoplastic cells were identified. She has been on a presumptive course for meningitis with ceftriaxone 2 g IV every 12 hours. She received IV vancomycin however this was discontinued with a negative CSF culture. Pending encephalitis antibody panel to evaluate for limbic encephalitis. Currently patient has not had any significant clinical improvement in her mental status in spite of presumptive treatment with ceftriaxone. Recommend to repeat lumbar puncture. Obtain CSF analysis including cell count protein glucose CSF culture and Gram stain to assess for any oil changer previous. Obtain another CSF cryptococcal antigen. Additionally obtain CSF ADA though suspicion for tubercular meningitis is low at this time. Obtain Lyme antibody and CSF and West Nile antibody in CSF. Additional evaluation to include urine histoplasma antigen, histoplasma antibody, Blastomyces and Coccidioides antibody. Obtain tick panel and tularemia serology. Additionally requested [employer] meningitis panel to be sent to [facility]. -It has been negative In the interim broaden antibiotic coverage. Discontinue ceftriaxone. Changed to meropenem 2 g IV every 8 hours this will additionally include presumptive Listeria coverage. Start doxycycline 100 mg IV every 12 hours and acyclovir 10 mg/kg IV every 8 hours. Please see progress note from today for further detail. Central line has been placed today in anticipation of starting TPN. Physical Exam Narrative: Patient is alert oriented to self only today Heart regular normal S1-S2 Lungs clear to auscultation without wheezes rales or rhonchi Abdomen soft nontender nondistended sluggish bowel sounds Extremities no clubbing cyanosis or edema TS Data Studies Completed and Pending Pending at discharge Category Date Time Status CT angio head [id number] Routine Cat Scan 04/06/25 08:[address] head w con [id number] Routine Cat Scan 04/06/25 08:00 Ordered XR chest 1V portable [id number] Stat Exams 04/06/25 16:55 Ordered SIOBHAN Profile Rheumatology Routine Lab 04/05/25 12:09 Results BMP [Basic Metabolic Panel] Q12H Lab 04/06/25 16:28 Ordered BMP [Basic Metabolic Panel] Q12H Lab 04/07/25 04:28 Ordered BMP [Basic Metabolic Panel] Q12H Lab 04/07/25 16:28 Ordered BMP [Basic Metabolic Panel] Q12H Lab 04/08/25 04:28 Ordered BMP [Basic Metabolic Panel] Q12H Lab 04/08/25 16:28 Ordered BMP [Basic Metabolic Panel] Q12H Lab 04/09/25 04:28 Ordered Blastomyces AB Panel CF and ID Routine Lab 04/03/25 12:29 Received C.Diff PCR (Lab) Routine Lab 03/24/25 20:23 Uncollected CSF Culture Routine Lab 04/03/25 13:45 Results Coccidioides AB CF Serum Routine Lab 04/03/25 12:29 Received Comprehensive Metabolic Panel AM LABS Lab 04/07/25 04:00 Ordered Comprehensive Metabolic Panel AM LABS Lab 04/08/25 04:00 Ordered Cryptococcal Antigen (CSF) Routine Lab 04/03/25 13:45 Results Francisella tularensis IgM/IgG Routine Lab 04/03/25 12:29 Received Fungal Culture not HR/SK/BL Routine Lab 04/03/25 13:45 Results Histoplasma Antibody Immunodif Routine Lab 04/03/25 12:29 Received Histoplasma Quantitative AG Routine Lab 04/03/25 09:49 Ordered Lymes Disease Antibodies CSF Routine Lab 04/03/25 13:45 Received MAG [Magnesium] Q12H Lab 04/06/25 16:28 Ordered MAG [Magnesium] Q12H Lab 04/07/25 04:28 Ordered MAG [Magnesium] Q12H Lab 04/07/25 16:28 Ordered MAG [Magnesium] Q12H Lab 04/08/25 04:28 Ordered MAG [Magnesium] Q12H Lab 04/08/25 16:28 Ordered MAG [Magnesium] Q12H Lab 04/09/25 04:28 Ordered Magnesium AM LABS Lab 04/07/25 04:00 Ordered Magnesium AM LABS Lab 04/08/25 04:00 Ordered Miscellaneous Test Routine Lab 03/28/25 12:23 Received Miscellaneous Test Routine Lab 04/04/25 05:35 Received Miscellaneous Test Routine Lab 04/04/25 08:45 Received Mycobacteria, Culture w/Fluor Routine Lab 04/03/25 13:45 Results Osmolality Urine Stat Lab 04/04/25 12:47 Uncollected Phosphorus AM LABS Lab 04/07/25 04:00 Ordered Phosphorus AM LABS Lab 04/08/25 04:00 Ordered Phosphorus Q12H Lab 04/06/25 16:28 Ordered Phosphorus Q12H Lab 04/07/25 04:28 Ordered Phosphorus Q12H Lab 04/07/25 16:28 Ordered Phosphorus Q12H Lab 04/08/25 04:28 Ordered Phosphorus Q12H Lab 04/08/25 16:28 Ordered Phosphorus Q12H Lab 04/09/25 04:28 Ordered Tick Panel Routine Lab 04/04/25 05:35 Results Urine Sodium [Urine Random Sodium] Stat Lab 04/04/25 12:47 Uncollected West Nile Virus AB Panel,CSF Routine Lab 04/03/25 13:45 Received Completed Studies During Hospitalization Category Date Time Status CT abdomen pelvis w con* [id number] Routine Cat Scan 03/26/25 10:[address] chest wo con [id number] Stat Cat Scan 03/24/25 22:[address] head wo con* [id number] Routine Cat Scan 04/03/25 11:[address] head wo con* [id number] Urgent Cat Scan 03/24/25 20:27 Completed FL guided lumbarpunc dx* [id number] Routine Exams 03/26/25 15:28 Completed FL guided lumbarpunc dx* [id number] Routine Exams 04/03/25 09:49 Completed XR chest 1V portable [id number] Stat Exams 03/24/25 20:02 Completed CV carotid duplex BI* [id number] Routine Ultrasound 03/25/25 23:43 Completed CV. echo complete* [id number] Routine Ultrasound 03/25/25 23:43 Completed Laboratory Last Values WBC 5.90 10^3/uL (3.29-11.43) 04/05/25 03:17 RBC 3.25 10^6/uL (3.85-5.65) L 04/05/25 03:17 Hgb 9.00 g/dL (11.27-16.99) L 04/05/25 03:17 Hct 27.9 % (36-47) L 04/05/25 03:17 MCV 85.8 fl (85-98) 04/05/25 03:17 MCH 27.7 pg (27-33) 04/05/25 03:17 MCHC 32.3 g/dL (30-55) 04/05/25 03:17 RDW 14.5 % (12.1-15.1) 04/05/25 03:17 Plt Count 151 10^3/cmm (157-399) L 04/05/25 03:17 MPV 8.4 fL (7.4-10.4) 04/05/25 03:17 Neut % (Auto) 71.2 % 04/05/25 03:17 Lymph % (Auto) 15.1 % 04/05/25 03:17 Frederick % (Auto) 10.3 % 04/05/25 03:17 Eos % (Auto) 0.5 % 04/05/25 03:17 Baso % (Auto) 0.0 % 04/05/25 03:17 Neut # (Auto) 4.20 10^3/uL (1.8-7.7) 04/05/25 03:17 Lymph # (Auto) 0.9 10^3/uL (0.8-4.8) 04/05/25 03:17 Frederick # (Auto) 0.6 10^3/uL (0.2-0.9) 04/05/25 03:17 Eos # (Auto) 0.0 10^3/uL (0.0-0.8) 04/05/25 03:17 Baso # (Auto) 0.0 10^3/uL (0.0-0.1) 04/05/25 03:17 Nucleated RBC % (auto) 0 % 04/05/25 03:17 Nucleated RBCs # 0.0 /100WBC 04/05/25 03:17 ESR 32 mm/hr (0-15) H 03/24/25 20:20 Sodium 136 mmol/L (136-145) 04/06/25 04:16 Potassium 3.3 mmol/L (3.5-5.1) L 04/06/25 04:16 Chloride 99 mmol/L (98-107) 04/06/25 04:16 Carbon Dioxide 23 mmol/L (22-29) 04/06/25 04:16 Anion Gap 17.3 (5-19) 04/06/25 04:16 BUN 8 mg/dL (8-23) 04/06/25 04:16 Creatinine 0.4 mg/dL (0.5-0.9) L 04/06/25 04:16 GFR Calculation 162.8 mL/min (90-130) H 04/06/25 04:16 Glucose 81 mg/dL (65-115) 04/06/25 04:16 POC Glucose 89 mg/dL (70-110) 03/30/25 14:42 Serum Osmolality 289 mOsm/kg (278-305) 04/04/25 14:14 Calculated Osmolality 279 mOsm/kg (285-295) L 04/06/25 04:16 Lactic Acid 0.8 mmol/L (0.5-2.2) 03/24/25 20:20 Calcium 8.5 mg/dL (8.5-10.5) 04/06/25 04:16 Phosphorus 1.7 mg/dL (2.5-4.5) L 04/06/25 04:16 Magnesium 2.0 mg/dL (1.7-2.3) 04/06/25 04:16 Total Bilirubin 0.7 mg/dL (0.15-1.2) 04/06/25 04:16 AST 11 U/L (0-32) 04/06/25 04:16 ALT 9 U/L (0-33) 04/06/25 04:16 Alkaline Phosphatase 36 U/L (35-105) 04/06/25 04:16 Ammonia 32 umol/L (11-51) 03/24/25 00:48 Troponin T Baseline 15 ng/L (0-10) H 03/24/25 00:48 Troponin T 120 Minute 10.94 ng/L (0-10) H 03/25/25 01:19 Delta Troponin T -4.06 ABS# (0-10) L 03/25/25 01:19 Troponin T Hi Sens 6Hr 11.31 ng/L (0-10) H 03/25/25 04:55 Troponin T Hi Sens 6Hr Delta -3.69 ng/L (0-12) L 03/25/25 04:55 C-Reactive Protein 12.9 mg/L (0.0-4.9) H 03/27/25 09:48 Total Protein 6.0 g/dL (6.6-8.7) L 04/06/25 04:16 Albumin 3.2 g/dL (3.5-5.2) L 04/06/25 04:16 Globulin 2.8 g/dL (1.3-4.6) 04/06/25 04:16 Aldolase 5.5 U/L (< OR = 8.1) 04/05/25 12:09 Angiotensin Convert Enz 10 U/L (9-67) 04/05/25 12:09 Vitamin B12 993 pg/mL (232-1245) 03/28/25 11:38 Procalcitonin 0.04 ng/mL (0-0.5) 03/27/25 09:48 Random Cortisol 38.86 ug/dL (2.47-19.5) H 03/26/25 05:26 ACTH 78 pg/mL (6-50) H 03/26/25 13:44 Urine Color Yellow (Yellow) 03/24/25 20:23 Urine Appearance Clear (CLEAR) 03/24/25 20: Urine pH 5.5 (5-7) 03/24/25 20:23 Ur Specific Hornick 1.025 (1.005-1.030) 03/24/25 20:23 Urine Protein 2+ (Negative) A 03/24/25 20: Urine Glucose (UA) Negative (Normal) 03/24/25 20: Urine Ketones 1+ (Negative) H 03/24/25 20:23 Urine Blood 3+ (Negative) A 03/24/25 20:23 Urine Nitrate Negative (Negative) 03/24/25 20: Urine Bilirubin Negative (Negative) 03/24/25 20:23 Urine Urobilinogen 1.0 mg/dL (Negative) 03/24/25 20:23 Ur Leukocyte Esterase Negative (Negative) 03/24/25 20:23 Urine RBC 11-20 /hpf (0-2) H 03/24/25 20:23 Urine WBC 0-5 /hpf (0-5) 03/24/25 20:23 Ur Squamous Epith Cells 6-10 /hpf (0-5) 03/24/25 20:23 Amorphous Sediment Not Reportable 03/24/25 20:23 Urine Bacteria None seen /hpf (NONE) 03/24/25 20:23 Hyaline Casts 8.26 /lpf 03/24/25 20:23 Urine Osmolality 435 mOsm/kg (50-1200) 03/30/25 11:18 Ur Random Sodium 126 mmol/L 03/30/25 11:18 Ur Random Potassium 45 mmol/L 03/30/25 11:18 Ur Random Chloride 155 mmol/L 03/30/25 11:18 CSF Appearance Clear (CLEAR) 04/03/25 13:45 CSF Color Colorless (COLORLESS) 04/03/25 13:45 CSF WBC 158 /uL (0-5) H 04/03/25 13:45 CSF RBC 0 10^3/uL (0-0) 04/03/25 13:45 CSF Mononuclear # Auto 0.151 10^3/uL (50-90) L 04/03/25 13:45 CSF Mononuclear WBCs % 96 % (50-90) H 04/03/25 13:45 CSF Polynuclear WBCs # 0.007 10^3/uL (0-10) 04/03/25 13:45 CSF Polynuclear WBCs % 4 % (0-10) 04/03/25 13:45 CSF Diff Comment Yes 04/03/25 13:45 CSF Glucose 6 mg/dL (40-70) L 04/03/25 13:45 CSF Adenosine Deaminase 4.4 U/L (<7.0) 04/03/25 13:45 CSF Total Protein 165 mg/dL (15-45) H 04/03/25 13:45 CSF VDRL Non-reactive 04/03/25 13:45 Anti-ds DNA IgG Ab <1 IU/mL 04/05/25 12:09 Complement C3c 67 mg/dL (83-193) L 04/05/25 12:09 Complement C4c 12 mg/dL (15-57) L 04/05/25 12:09 CH50 Classical Pathway 35 U/mL (31-60) 04/05/25 12:09 RPR Nonreactive (Nonreactive) 03/24/25 00:48 Adenovirus (PCR) Not detected (NOT DETECT) 03/27/25 09:21 Lyme Ab (Western Blot) <0.90 index 04/04/25 05:35 C. pneumoniae DNA (PCR) Not detected (NOT DETECT) 03/27/25 09:21 Coronavirus 229E (PCR) Not detected (NOT DETECT) 03/27/25 09:21 Herpes Simplex Source Results below 04/03/25 13:45 HSV I IgG Ab 27.40 index H 03/28/25 11:38 HSV I IgG Ab 28.30 INDEX H 03/28/25 11:38 HSV II IgG >23.00 INDEX H 03/28/25 11:38 HSV II IgG >23.00 index H 03/28/25 11:38 HSV II Inhibition IgG Positive A 03/28/25 11:38 HIV 1&2 Ab & HIV 1 Ag Non-reactive (Non-Reactiv) 03/26/25 05:26 HIV 1&2 Antibody Non-reactive (Non-Reactiv) 03/26/25 05:26 Human Metapneumovir PCR Not detected (NOT DETECT) 03/27/25 09:21 Influenza A (H1) PCR Not detected (NOT DETECT) 03/27/25 09:21 Influenza A (PCR) Negative (Negative) 03/24/25 20:10 Influ A (H1/09) PCR Not detected (NOT DETECT) 03/27/25 09:21 Influenza A (H3) PCR Not detected (NOT DETECT) 03/27/25 09:21 Influenza Type A (PCR) Not detected (NOT DETECT) 03/27/25 09:21 Influenza Type B (PCR) Not detected (NOT DETECT) 03/27/25 09:21 M. pneumoniae (PCR) Not detected (NOT DETECT) 03/27/25 09:21 Parainfluenza 1 (PCR) Not detected (NOT DETECT) 03/27/25 09:21 Parainfluenza 2 (PCR) Not detected (NOT DETECT) 03/27/25 09:21 Parainfluenza 3 (PCR) Not detected (NOT DETECT) 03/27/25 09:21 Parainfluenza 4 (PCR) Not detected (NOT DETECT) 03/27/25 09:21 RSV (PCR) Negative (Negative) 03/24/25 20:10 RSV Type A (PCR) Not detected (NOT DETECT) 03/27/25 09:21 RSV Type B (PCR) Not detected (NOT DETECT) 03/27/25 09:21 Entero/Rhino (PCR) Not detected (NOT DETECT) 03/27/25 09:21 SARS-CoV-2 (PCR) Not detected (NOT DETECT) 03/27/25 09:21 Toxoplasma IgG Quant <7.20 IU/mL 04/05/25 12:09 Toxoplasma IgM Ab Conf <8.00 AU/mL 04/05/25 12:09 Toxoplasma Ab Interp See note 04/05/25 12:09 TB (QFT) Gold In Tube Negative (NEGATIVE) 04/04/25 05:35 TB Test (QFT) Nil 0.15 IU/mL 04/04/25 05:35 TB Test (QFT) Mitogen 7.70 IU/mL 04/04/25 05:35 TB Test Mitogen - Nil 0.01 IU/mL 04/04/25 05:35 TB Test TB -Nil 0.01 IU/mL 04/04/25 05:35 VZV IgG Antibody 10.10 S/CO 03/28/25 11:38 VZV IgM Antibody 0.50 03/28/25 11:38 HSV 1 DNA Not detected (Not Detected) 04/03/25 13:45 HSV 2 DNA Not detected (Not Detected) 04/03/25 13:45 Misc Test Reference See note 04/03/25 13:45 Radiology Impressions Chest X-Ray 03/24/25 20:02 IMPRESSION: No acute findings. Chest CT 03/24/25 22:50 IMPRESSION: No acute abnormality. Carotid Doppler Study 03/25/25 23:43 IMPRESSION: No carotid arterial stenosis. REFERENCES: SRU CRITERIA. The degree of internal carotid artery stenosis is based on criteria defined by the Society of Radiologists in Ultrasound (SRU). Normal is no stenosis. Mild is less than 50% stenosis. Moderate is 50-69% stenosis. Severe is greater than 69% stenosis to near occlusion. Near occlusion is a markedly narrowed lumen. Total occlusion is no detectable patent lumen. Maicol Garcia et al. Carotid Artery Stenosis: Chaparro-Scale and Doppler US Diagnosis-Society of Radiologists in Ultrasound Consensus Conference. Radiology 2003; 229:340-346. Abdomen/Pelvis CT 03/26/25 10:59 IMPRESSION: No definite acute findings. Aortic atherosclerosis. COMMENTS: Consistent with the [employer]'s Incidental Findings Committee white paper (J Am Eric Radiol 2018): Any incidental renal lesion less than 1 cm or classified as too small to characterize, or any incidental cystic renal lesion characterized as simple-appearing, is likely benign. No follow-up imaging is recommended for these lesions per consensus recommendations based on imaging criteria. Lumbar Puncture Fluoroscopy 04/03/25 09:49 IMPRESSION: Fluoroscopically guided lumbar puncture. No immediate complications Head CT 04/03/25 11:53 IMPRESSION: Some images degraded by motion artifact. 1. No evidence of intracranial hemorrhage or mass effect. 2. Small lacunar infarcts are small vessel changes in the periventricular white matter/ontiveros radiata. Some appear more prominent compared to previous. This could be followed up with MRI to assess for small infarcts if clinically indicated. 3. No other suspicious findings Recent Clincial Data Last Vital Signs Temp 98.9 F 04/06/25 16:00 Pulse 103 H 04/06/25 16:00 Resp 16 04/06/25 16:00 BP 155/66 04/06/25 16:00 Pulse Ox 96 04/06/25 16:00 O2 Del Method Room Air 04/06/25 16:00 Vital Signs Temp Pulse Resp BP Pulse Ox O2 Del Method 04/06/25 16:00 98.9 F 103 H 16 155/66 96 Room Air 04/06/25 12:00 98.4 F 103 H 16 147/63 94 Room Air 04/06/25 07:10 98.4 F 104 H 16 150/75 96 Room Air 04/06/25 06:00 106 H 04/06/25 06:00 98.6 F 100 17 164/78 96 Intake & Output/Weight 04/04/25 04/05/25 04/06/25 04/07/25 06:59 06:59 06:59 06:59 Intake Total 1190 / 1190 2975 / 2975 3738.667 / 3738.667 1311.775 / 1311.775 Output Total 700 / 700 2 / 2 Balance 1190 / 1190 2275 / 2275 3736.667 / 3736.667 1311.775 / 1311.775 Weight 50.349 kg 49.895 kg 48.534 kg Vitals Last Vital Signs Temp 98.9 F 04/06/25 16:00 Pulse 103 H 04/06/25 16:00 Resp 16 04/06/25 16:00 BP 155/66 04/06/25 16:00 Pulse Ox 96 04/06/25 16:00 O2 Del Method Room Air 04/06/25 16:00 TS Medications Medications Amlodipine Besylate (Amlodipine 5 Mg Tablet) 10 mg PO DAILY [facility] Last Admin: 04/06/25 08:32 Dose: 10 mg Aspirin (Aspirin 81 Mg Ec Tablet) 81 mg PO DAILY [facility] Last Admin: 04/06/25 08:32 Dose: 81 mg Hydralazine HCl (Hydralazine 25 Mg Tablet) 25 mg PO TID [facility] Last Admin: 04/06/25 08:32 Dose: 25 mg Hydralazine HCl (Hydralazine 20 Mg/Ml Inj 1 Ml) 10 mg IVP Q6H PRN PRN Reason: HYPERTENSION Last Admin: 03/31/25 02:08 Dose: 10 mg Acyclovir 500 mg/ Sodium (Chloride) 260 mls @ 270 mls/hr IV Q8H [facility] Last Infusion: 04/06/25 07:03 Dose: Infused Doxycycline Hyclate 100 mg/ (Sodium Chloride) 100 mls @ 100 mls/hr IV Q12H [facility]; Protocol Last Infusion: 04/06/25 01:04 Dose: Infused Sodium Chloride (Sodium Chloride 0.9%) 1,000 mls @ 80 mls/hr IV .[id number] [facility] Last Infusion: 04/06/25 13:44 Dose: 0 mls/hr Fluconazole (Diflucan Premix) 800 mg in 400 mls @ 100 mls/hr IV Q24H [facility] Last Infusion: 04/05/25 20:55 Dose: Infused Magnesium Oxide (Magnesium Oxide 400 Mg Tablet) 400 mg PO BID@0500,1700 [facility] Last Admin: 04/06/25 05:44 Dose: Not Given Metoprolol Succinate (Metoprolol Succinate Er (24 Hr) 50 Mg Tablet) 25 mg PO DAILY [facility] Last Admin: 04/06/25 08:32 Dose: 25 mg Naloxone HCl (Naloxone 0.4 Mg/Ml Sdv) 0.1 mg IVP Q2M PRN PRN Reason: OPIATERV Ondansetron HCl (Ondansetron 2 Mg/Ml Sdv 2 Ml) 8 mg IVP Q6H PRN PRN Reason: vomiting, or N/V if npo Last Admin: 04/05/25 08:44 Dose: 8 mg Sertraline HCl (Sertraline 100 Mg Tablet) 100 mg PO DAILY [facility] Last Admin: 04/06/25 08:32 Dose: 100 mg Thiamine HCl (Thiamine 100 Mg/Ml 2ml Sdv) 100 mg IVP DAILY [facility] Urea (Urea 15 Gm Powder) 7.5 gm PO DAILY [facility] Last Admin: 04/06/25 09:00 Dose: Not Given Discontinued Medications Amlodipine Besylate (Amlodipine 5 Mg Tablet) 5 mg PO DAILY [facility] Last Admin: 03/31/25 09:25 Dose: 5 mg Atorvastatin Calcium (Atorvastatin 40 Mg Tablet) 20 mg PO DAILY [facility] Last Admin: 03/27/25 07:56 Dose: 20 mg Atorvastatin Calcium (Atorvastatin 40 Mg Tablet) 40 mg PO DAILY [facility] Atorvastatin Calcium (Atorvastatin 40 Mg Tablet) 40 mg PO ONCE ONE Stop: 03/28/25 02:11 Last Admin: 03/28/25 03:15 Dose: Not Given Atorvastatin Calcium (Atorvastatin 40 Mg Tablet) 20 mg PO DAILY [facility] Bupropion HCl (Bupropion Sr (12 Hr) 150 Mg Tablet) 150 mg PO BID [facility] Last Admin: 03/29/25 08:27 Dose: 150 mg Bupropion HCl (Bupropion Sr (12 Hr) 150 Mg Tablet) 150 mg PO DAILY [facility] Stop: 04/05/25 09:01 Last Admin: 04/05/25 08:43 Dose: 150 mg Ceftriaxone Sodium (Ceftriaxone 2,000 Mg Sdv) 2,000 mg IVP Q12H [facility]; Protocol Last Admin: 04/03/25 01:33 Dose: 2,000 mg Diazepam (Diazepam 5 Mg Tablet) 10 mg PO NOW ONE Stop: 04/01/25 09:01 Last Admin: 04/01/25 08:59 Dose: 10 mg Enoxaparin Sodium (Enoxaparin 40 Mg/0.4 Ml Syringe) 40 mg SUBCUT Q24H [facility] Last Admin: 03/25/25 23:14 Dose: 40 mg Famotidine (Famotidine 20 Mg/2 Ml Inj) 20 mg IVP Q12H [facility] Last Admin: 03/31/25 13:18 Dose: 20 mg Hydralazine HCl (Hydralazine 25 Mg Tablet) 25 mg PO ONCE ONE Stop: 03/30/25 17:22 Last Admin: 03/30/25 18:17 Dose: Not Given Hydralazine HCl (Hydralazine 25 Mg Tablet) 25 mg PO Q6H PRN PRN Reason: HYPERTENSION Hydroxyzine Pamoate (Hydroxyzine 25 Mg Capsule) 25 mg PO BID PRN PRN Reason: anxiety Last Admin: 03/27/25 20:48 Dose: 25 mg Sodium Chloride (Sodium Chloride 0.9%) 500 mls @ 999 mls/hr IV .Q31M ONE Stop: 03/24/25 20:32 Last Infusion: 03/24/25 23:29 Dose: Infused Lidocaine HCl 5 ml/ Potassium (Chloride) 105 mls @ 52.5 mls/hr IV ONCE ONE Stop: 03/25/25 01:42 Last Infusion: 03/25/25 02:32 Dose: Infused Sodium Chloride (Sodium Chloride 0.9%) 1,000 mls @ 75 mls/hr IV .[id number] [facility] Last Infusion: 03/29/25 13:08 Dose: Infused Potassium Chloride (K-Bakari Premix) 100 mls @ 50 mls/hr IV ONCE [facility] Potassium Chloride (K-Bakari Premix) 100 mls @ 50 mls/hr IV ONCE ONE Stop: 03/26/25 11:29 Last Infusion: 03/26/25 11:41 Dose: Infused Vancomycin HCl 1,000 mg/ (Sodium Chloride) 250 mls @ 250 mls/hr IV DAILY [facility]; Protocol Last Infusion: 03/30/25 10:18 Dose: Infused Potassium Phosphate 40 meq/ (Sodium Chloride) 109.0909 mls @ 27.25 mls/hr IV ONCE ONE Stop: 03/28/25 16:50 Last Infusion: 03/28/25 17:46 Dose: Infused Magnesium Sulfate (Magnesium Sulfate Premix) 4 gm in 100 mls @ 50 mls/hr IV ONCE ONE Stop: 03/29/25 13:26 Last Infusion: 03/29/25 14:37 Dose: Infused Lidocaine HCl 5 ml/ Potassium (Chloride) 105 mls @ 26.25 mls/hr IV ONCE ONE Stop: 03/29/25 15:44 Last Infusion: 03/29/25 16:46 Dose: Infused Magnesium Sulfate (Magnesium Sulfate Premix) 2 gm in 50 mls @ 50 mls/hr IV ONCE ONE Stop: 03/30/25 11:03 Last Admin: 03/30/25 11:32 Dose: Not Given Lidocaine HCl 5 ml/ Potassium (Chloride) 105 mls @ 26.25 mls/hr IV ONCE ONE Stop: 03/30/25 14:44 Last Admin: 03/30/25 11:15 Dose: 26.25 mls/hr Magnesium Sulfate (Magnesium Sulfate Premix) 2 gm in 50 mls @ 50 mls/hr IV ONCE ONE Stop: 03/30/25 12:14 Last Infusion: 03/30/25 12:49 Dose: Infused Albumin Human (Albumin) 25 g in 100 mls @ 60 mls/hr IV ONCE ONE Stop: 03/30/25 13:58 Last Infusion: 03/31/25 12:29 Dose: Infused Sodium Chloride 100 ml/ N/A 100 mls @ 25 mls/hr IV ONCE ONE Stop: 03/30/25 22:59 Last Infusion: 03/30/25 23:46 Dose: Infused Dextrose (D5w) 1,000 mls @ 50 mls/hr IV .Q20H [facility] Last Infusion: 03/31/25 05:57 Dose: 0 mls/hr Albumin Human (Albumin) 25 g in 100 mls @ 60 mls/hr IV ONCE ONE Stop: 03/31/25 10:17 Last Infusion: 03/31/25 12:45 Dose: Infused Sterile Water (Water) Confirm Administered Dose 10 mls @ as directed .ROUTE .[facility] ONE Stop: 03/31/25 10:06 Last Admin: 03/31/25 10:09 Dose: Not Given Albumin Human (Albumin) 25 g in 100 mls @ 60 mls/hr IV ONCE ONE Stop: 03/31/25 14:08 Last Infusion: 03/31/25 15:23 Dose: Infused Sodium Chloride (Sodium Chloride 3%) 500 mls @ 15 mls/hr IV .Q24H [facility] Last Admin: 04/02/25 19:05 Dose: Not Given Sterile Water (Water) Confirm Administered Dose 10 mls @ as directed .ROUTE .[facility] ONE Stop: 03/31/25 13:05 Last Infusion: 03/31/25 13:44 Dose: Infused Lidocaine HCl 5 ml/ Potassium (Chloride) 105 mls @ 26.25 mls/hr IV ONCE ONE Stop: 03/31/25 21:05 Last Infusion: 04/01/25 07:24 Dose: Infused Sterile Water (Water) Confirm Administered Dose 10 mls @ as directed .ROUTE .[facility] ONE Stop: 04/01/25 14:39 Last Infusion: 04/01/25 15:35 Dose: Infused Meropenem 2,000 mg/ Sodium (Chloride) 50 mls @ 100 mls/hr IV Q8H [facility]; Protocol Last Admin: 04/04/25 07:41 Dose: Not Given Doxycycline Hyclate 100 mg/ (Sodium Chloride) 100 mls @ 100 mls/hr IV Q12H [facility]; Protocol Last Admin: 04/04/25 07:42 Dose: Not Given Meropenem 2,000 mg/ Sodium (Chloride) 50 mls @ 100 mls/hr IV Q8H [facility]; Protocol Last Infusion: 04/05/25 05:47 Dose: Infused Thiamine HCl 500 mg/ Sodium (Chloride) 105 mls @ 210 mls/hr IV ONCE ONE Stop: 04/04/25 09:16 Last Infusion: 04/04/25 10:17 Dose: Infused Potassium Chloride (K-Bakari) 100 mls @ 25 mls/hr IV Q4H [facility] Stop: 04/05/25 12:29 Last Infusion: 04/05/25 13:48 Dose: Infused Potassium Phosphate 40 meq/ (Sodium Chloride) 109.0909 mls @ 27.25 mls/hr IV ONCE ONE Stop: 04/06/25 13:30 Last Infusion: 04/06/25 13:44 Dose: 0 mls/hr Iohexol (Iohexol 350 Mg/Ml 500 Ml Btl (Per Ml)) 0 ml IV ONCE ONE Stop: 03/26/25 18:28 Last Admin: 03/26/25 18:27 Dose: 100 ml Lisinopril (Lisinopril 20 Mg Tablet) 20 mg PO ONCE ONE Stop: 03/27/25 22:20 Last Admin: 03/27/25 22:25 Dose: 20 mg Lisinopril (Lisinopril 20 Mg Tablet) 20 mg PO DAILY [facility] Lisinopril (Lisinopril 20 Mg Tablet) 40 mg PO DAILY [facility] Last Admin: 03/30/25 08:44 Dose: 40 mg Lisinopril (Lisinopril 20 Mg Tablet) 40 mg PO ONCE ONE Stop: 03/28/25 02:24 Last Admin: 03/28/25 02:44 Dose: 40 mg Lorazepam (Lorazepam 1 Mg/0.5 Ml Injection) 1 mg IVP ONCE ONE Stop: 04/01/25 08:36 Last Admin: 04/01/25 09:50 Dose: Not Given Magnesium Oxide (Magnesium Oxide 400 Mg Tablet) 400 mg PO BID [facility] Last Admin: 04/04/25 09:29 Dose: 400 mg Metoprolol Succinate (Metoprolol Succinate Er (24 Hr) 25 Mg Tablet) 25 mg PO ONCE ONE Stop: 03/25/25 04:02 Last Admin: 03/25/25 04:20 Dose: 25 mg Ondansetron HCl (Ondansetron Hcl Odt 4 Mg Tab) 4 mg PO TID PRN PRN Reason: NAUSEA AND VOMITING Last Admin: 03/29/25 08:39 Dose: 4 mg Ondansetron HCl (Ondansetron 2 Mg/Ml Sdv 2 Ml) 4 mg IVP Q8H PRN PRN Reason: vomiting, or N/V if npo Last Admin: 03/25/25 23:23 Dose: 4 mg Ondansetron HCl (Ondansetron 2 Mg/Ml Sdv 2 Ml) 4 mg IVP Q4H PRN PRN Reason: vomiting, or N/V if npo Last Admin: 03/29/25 17:44 Dose: 4 mg Pantoprazole Sodium (Pantoprazole Dr 40 Mg Tablet) 40 mg PO BIDWM [facility] Last Admin: 03/25/25 17:41 Dose: 40 mg Pantoprazole Sodium (Pantoprazole 40 Mg Sdv) 40 mg IVP Q12H [facility] Pantoprazole Sodium (Pantoprazole 40 Mg Sdv) 40 mg IVP Q12H [facility] Last Admin: 03/29/25 12:06 Dose: 40 mg Pharmacy Profile Note (Formulary Statin) each PO DAILY [facility] Potassium Chloride (Potassium Chloride Er 20 Meq Tablet) 40 meq PO DAILY [facility] Last Admin: 03/28/25 09:48 Dose: 40 meq Potassium Chloride (Potassium Chloride Er 10 Meq Tablet) 40 meq PO DAILY [facility] Last Admin: 03/29/25 08:28 Dose: 40 meq Potassium Chloride (Potassium Chloride Er 10 Meq Tablet) 40 meq PO BIDWM [facility] Last Admin: 03/30/25 08:43 Dose: 40 meq Potassium Chloride (Potassium Chloride Oral Liq 20 Meq/15 Ml Udc) 40 meq PO BID [facility] Last Admin: 04/01/25 08:56 Dose: 40 meq Potassium Chloride (Potassium Chloride Oral Liq 20 Meq/15 Ml Udc) 20 meq PO ONCE ONE Stop: 03/31/25 03:17 Last Admin: 03/31/25 03:38 Dose: 20 meq Potassium Chloride (Potassium Chloride Oral Liq 20 Meq/15 Ml Udc) 40 meq PO ONCE ONE Stop: 03/31/25 05:58 Last Admin: 03/31/25 06:20 Dose: 40 meq Potassium Chloride (Potassium Chloride Er 20 Meq Tablet) 40 meq PO BID [facility] Potassium Chloride (Potassium Chloride Er 20 Meq Tablet) 40 meq PO BID [facility] Last Admin: 04/02/25 17:17 Dose: 40 meq Potassium Chloride (Potassium Chloride Er 20 Meq Tablet) 40 meq PO ONCE ONE Stop: 04/03/25 07:53 Last Admin: 04/03/25 08:40 Dose: 40 meq Potassium Chloride (Potassium Chloride Er 20 Meq Tablet) 40 meq PO BID [facility] Last Admin: 04/03/25 17:03 Dose: 40 meq Potassium Chloride (Potassium Chloride Er 20 Meq Tablet) 40 meq PO ONCE ONE Stop: 04/04/25 07:21 Last Admin: 04/04/25 09:28 Dose: 40 meq Potassium Chloride (Potassium Chloride Er 20 Meq Tablet) 40 meq PO ONCE ONE Stop: 04/05/25 08:20 Last Admin: 04/05/25 08:42 Dose: 40 meq Potassium Chloride (Potassium Chloride Oral Liq 20 Meq/15 Ml Udc) 20 meq PO ONCE ONE Stop: 04/05/25 10:26 Last Admin: 04/05/25 11:49 Dose: 20 meq Potassium Phosphate (Phosphorus 250 Mg Tablet) 250 mg PO BID [facility] Stop: 04/08/25 18:01 Prochlorperazine Edisylate (Prochlorperazine 10 Mg/2 Ml Inj) 10 mg IVP Q6H PRN PRN Reason: NAUSEA Last Admin: 03/26/25 00:45 Dose: 10 mg Sodium Chloride (Sodium Chloride 1 Gm Tablet) 1 gm PO BID [facility] Last Admin: 04/02/25 17:17 Dose: 1 gm Sodium Chloride (Sodium Chloride 1 Gm Tablet) 2 gm PO TID [facility] Last Admin: 04/03/25 22:22 Dose: 2 gm Urea (Urea 15 Gm Powder) 15 gm PO BID [facility] Last Admin: 04/03/25 17:05 Dose: Not Given Urea (Urea 15 Gm Powder) 15 gm PO DAILY [facility] Last Admin: 04/02/25 09:47 Dose: 15 gm Urea (Urea 15 Gm Powder) 15 gm PO DAILY [facility] Last Admin: 04/06/25 08:32 Dose: 15 gm Allergies influenza virus vaccine tvs (65 yr and up) (From Fluad (65yr+)(PF)) Allergy (Verified 03/15/25 11:52) rash Penicillins Allergy (Verified 03/15/25 11:52) Rash Patient has taken amoxicillin in the past and tolerated it well. Not sure if she has ever taken Keflex. vaccine adjuvant emulsion [id number].1 (From Fluad (65yr+)(PF)) Allergy (Verified 03/15/25 11:52) rash oxycodone Adverse Reaction (Verified 03/15/25 11:52) Dizziness, flushed Does not know if she is taking hydrocodone or Dilaudid in the past sulfamethoxazole (From Bactrim) Adverse Reaction (Verified 03/15/25 11:52) Nausea trimethoprim (From Bactrim) Adverse Reaction (Verified 03/15/25 11:52) Nausea Home Medications CPAP Mask small- Air Touch F-20 with tubing and supplies #1 ea 05/05/22 [Rx Confirmed 03/25/25] nebulizers (Compact Compressor Nebulizer) #1 ea 09/18/22 [Rx Confirmed 03/25/25] oxygen-air delivery systems 12/09/23 [History Confirmed 03/25/25] aspirin 81 mg tablet,delayed release (Adult Low Dose Aspirin) 81 mg PO DAILY circulation #100 tabs 03/21/24 [Rx Confirmed 03/25/25] hydroxyzine HCl 25 mg tablet 25 mg PO BID PRN anxiety #60 tabs 08/03/24 [Rx Confirmed 03/25/25] atorvastatin 20 mg tablet 20 mg PO DAILY cholesterol #90 tabs 08/29/24 [Rx Confirmed 03/25/25] metoprolol succinate 50 mg tablet,extended release 24 hr 25 mg (1/2 x 50 mg) PO DAILY #90 tabs 10/19/24 [Rx Confirmed 03/25/25] syringe with needle 3 mL 23 gauge x 1 1/2 ([employer] Luer Lock Syringe with needle) #100 ea 12/19/24 [Rx Confirmed 03/25/25] estradiol 0.01% (0.1 mg/gram) vaginal cream (Estrace) 1 g vaginal .twice weekly #42.5 grams 12/26/24 [Rx Confirmed 03/25/25] ipratropium 0.5 mg-albuterol 3 mg (2.5 mg base)/3 mL nebulization soln 3 ml inhalation Q4H PRN wheezing #180 mL 12/29/24 [Rx Confirmed 03/25/25] albuterol sulfate 1.25 mg/3 mL solution for nebulization 1.25 mg continuous nebulization Q4H PRN Shortness Of Breath Or Wheezing 02/20/25 [History Confirmed 03/25/25] albuterol sulfate 90 mcg/actuation aerosol inhaler (Ventolin HFA) 2 puff inhalation Q6H PRN Wheezing 02/20/25 [History Confirmed 03/25/25] cholecalciferol (vitamin D3) 25 mcg (1,000 unit) tablet (Vitamin D3) 25 mcg PO DAILY 02/20/25 [History Confirmed 03/25/25] fluticasone 250 mcg-salmeterol 50 mcg/dose blistr powdr for inhalation (Advair Diskus) 2 inh inhalation BID 02/20/25 [History Confirmed 03/25/25] ondansetron 4 mg disintegrating tablet 4 mg PO TID PRN nausea and vomiting #30 tabs 03/15/25 [Rx Confirmed 03/25/25] sertraline 100 mg tablet 100 mg PO DAILY #90 tabs 03/15/25 [Rx Confirmed 03/25/25] promethazine 25 mg tablet 25 mg PO Q6H PRN nausea and vomiting #14 tabs 03/17/25 [Rx Confirmed 03/25/25] bupropion HCl 150 mg tablet,12 hr sustained-release 150 mg PO BID 03/20/25 [History Confirmed 03/25/25] cyanocobalamin (vitamin B-12) 1,000 mcg/mL injection solution 1,000 mcg IM Q7D 03/20/25 [History Confirmed 03/25/25] cyclobenzaprine 10 mg tablet 10 mg PO TID PRN muscle spasms 03/20/25 [History Confirmed 03/25/25] nicotine 21 mg/24 hr daily transdermal patch 1 patch transdermal DAILY #14 ea 03/22/25 [Rx Confirmed 03/25/25] pantoprazole 40 mg tablet,delayed release 40 mg PO BIDWM #60 tabs 03/22/25 [Rx Confirmed 03/25/25] potassium chloride 20 mEq tablet,extended release 40 meq (2 x 20 mEq) PO DAILY 14 days #28 tabs 03/22/25 [Rx Confirmed 03/25/25] sodium chloride 1,000 mg soluble tablet 1,000 mg PO BID 10 days #20 tabs 03/22/25 [Rx Confirmed 03/25/25] Discharge Plan Discharge Patient Disposition: Xfer Short-Term Hosp Condition: Stable Prescriptions: No Action estradiol [Estrace] 0.01 % (0.1 mg/gram) cream 1 g vaginal .twice weekly Qty: 42.5 3RF Rx Instructions: space out doses atorvastatin 20 mg tablet 20 mg PO DAILY Qty: 90 3RF (DME) CPAP Mask small- Air Touch F-20 with tubing and supplies See Rx Instructions .Route .MEDSUPPLY Qty: 1 0RF Rx Instructions: As directed (DME) oxygen-air delivery systems Device See Rx Instructions .Route Rx Instructions: As directed (DME) Compact Compressor Nebulizer Misc See Rx Instructions .Route Qty: 1 0RF Rx Instructions: As directed, tubing and supplies included. aspirin [Adult Low Dose Aspirin] 81 mg tablet,delayed release (DR/EC) 81 mg PO DAILY Qty: 100 3RF hydroxyzine HCl 25 mg tablet 25 mg PO BID PRN (Reason: anxiety) Qty: 60 1RF metoprolol succinate 50 mg tablet extended release 24 hr 25 mg PO DAILY Qty: 90 0RF (DME) syringe with needle [[employer] Luer Lock Syr-needle] 3 mL 23 gauge x 1 1/2 syringe See Rx Instructions .Route Qty: 100 1RF Rx Instructions: As directed for B12 injections ipratropium-albuterol 0.5 mg-3 mg(2.5 mg base)/3 mL solution for nebulization 3 ml inhalation Q4H PRN (Reason: wheezing) Qty: 180 3RF sertraline 100 mg tablet 100 mg PO DAILY Qty: 90 0RF ondansetron 4 mg tablet,disintegrating 4 mg PO TID PRN (Reason: nausea and vomiting) Qty: 30 0RF fluticasone propion-salmeterol [Advair Diskus] 250-50 mcg/dose blister with device 2 inh inhalation BID albuterol sulfate 1.25 mg/3 mL solution for nebulization 1.25 mg continuous nebulization Q4H PRN (Reason: Shortness Of Breath Or Wheezing) albuterol sulfate [Ventolin HFA] 90 mcg/actuation HFA aerosol inhaler 2 puff inhalation Q6H PRN (Reason: Wheezing) cholecalciferol (vitamin D3) [Vitamin D3] 25 mcg (1,000 unit) Tablet 25 mcg PO DAILY promethazine 25 mg tablet 25 mg PO Q6H PRN (Reason: nausea and vomiting) Qty: 14 0RF bupropion HCl 150 mg tablet sustained-release 12 hr 150 mg PO BID cyclobenzaprine 10 mg tablet 10 mg PO TID PRN (Reason: muscle spasms) cyanocobalamin (vitamin B-12) 1,000 mcg/mL solution 1,000 mcg IM Q7D Rx Instructions: Tuesdays nicotine 21 mg/24 hr Patch 24 Hour 1 patch transdermal DAILY Qty: 14 0RF pantoprazole 40 mg tablet,delayed release (DR/EC) 40 mg PO BIDWM Qty: 60 0RF potassium chloride 20 mEq tablet extended release 40 meq PO DAILY 14 Days Qty: 28 0RF sodium chloride 1,000 mg Tablet,Soluble 1,000 mg PO BID 10 Days Qty: 20 0RF Rn Clinician OK for DC: Hospitalist Other Ambulatory Orders: DME: Santiago (Order) Location: None Selected Ordered By: Luís Ariza Referrals: Haley Kinsey MD [Primary Care Provider, 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
--- NOTE | 2025-04-06 18:14 | PC.NURSE ---
This nurse placed a STAT chest xray order at 1655 to obtain correct placement post IJ. We have called xray twice in an attempt to find out ETA as pt is unable to receive any of her delayed IV meds until placement is confirmed. They stated they would be up, but xray has still not been obtained as of now.
--- NOTE | 2025-04-06 18:25 | PC.NURSE ---
This nurse gave report to ANAM Hernandez at [place] at 1824. Awaiting EMS transport.
[2025-04-06 18:45] LABS: Lyme Disease AB (IGG),IBL NO BANDS DETECTED; Lyme Disease AB (IGM), IBL NO BANDS DETECTED
--- NOTE | 2025-04-06 18:56 | PC.NURSE ---
Unclear on if IJ is properly placed. Called xray to ask for a more specific impression. Shane is going to speak with the doctor who read the imaging and will call back up to our floor to give us a clear answer.
--- NOTE | 2025-04-06 19:41 | XRR_ITS ---
PROCEDURE INFORMATION: Exam: XR Chest Exam date and time: 04/06/2025 7:49 PM Age: 59 years old Clinical indication: Other vascular access device placement or adjustment; Central line, non-tunnelled; Check S/P retraction of central line; Additional info: Internal jugular placement, will call when doctor arrives to floor. Is wanting xray done TECHNIQUE: Imaging protocol: Radiologic exam of the chest. 526 image(s) are submitted. Views: 1 view. COMPARISON: CR (CHEST, ) 04/06/2025 5:45 PM FINDINGS: Tubes, catheters and devices: right-sided internal jugular central venous catheter has been pulled back with tip in the cavoatrial junction without pneumothorax. Decreased bilateral lung volumes since previous study with mild pulmonary venous congestion. Lungs: See Tubes, catheters and devices finding. Pleural spaces: Unremarkable. No pleural effusion. No pneumothorax. Heart/Mediastinum: Unremarkable. No cardiomegaly. Bones/joints: Unremarkable. XR/XR chest 1V portable [id number] IMPRESSION: Right side central venous catheter has been pulled back with tip in the cavoatrial junction.
[2025-04-06 20:49] LABS: Anion Gap 16.1 (5-19); Blood Urea Nitrogen 11 mg/dL (8-23); Calcium 8.8 mg/dL (8.5-10.5); Carbon Dioxide 26 mmol/L (22-29); Chloride 94 mmol/L (98-107); Creatinine Clr Calc Pharmacy 114.5942; Glucose 96 mg/dL (65-115); Magnesium 1.9 mg/dL (1.7-2.3); Osmolality Calculated 275 mOsm/kg (285-295); Potassium 3.1 mmol/L (3.5-5.1); Sodium 133 mmol/L (136-145)
[2025-04-07 03:44] LABS: CENTROMERE B ANTIBODY <1.0 NEG AI (<1.0 NEG); JO-1 ANTIBODY <1.0 NEG AI (<1.0 NEG); RNP ANTIBODY <1.0 NEG AI (<1.0 NEG); SCL-70 ANTIBODY <1.0 NEG AI (<1.0 NEG); SS-B <1.0 NEG AI (<1.0 NEG)
[2025-04-08 21:13] LABS: Histoplasma capsulatum H Ab NEGATIVE; Histoplasma capsulatum M Ab NEGATIVE
[2025-04-09 14:10] LABS: THYROID PEROXIDASE ANTIBODIES 1 IU/mL (<9)
[2025-04-09 22:45] LABS: F.tularensis IgG AB Serum Negative (Negative); F.tularensis IgM AB Serum Negative (Negative)
[2025-04-10 12:56] LABS: DNA AB (DS) CRITHIDIA,IFA NEGATIVE (NEGATIVE)
[2025-04-10 20:08] LABS: Blastomyces AB Immunodiffusion Negative (Negative); Blastomyces Dermatitidis AB <1:8 titer (<1:8)
[2025-04-11 16:30] LABS: Coccidioides AB CF Serum <1:2
[2025-04-11 19:24] LABS: RMSF IGG NOT DETECTED; RMSF IGM NOT DETECTED
== END 2025-04-06 20:30 | disposition short-term general hospital (02) | DRG 95 ==
LOC: ER 22:45 → MEDSURG 22:47 → ICU 03-30 14:04 → MEDSURG 04-03 23:56
PROVIDERS: Hospitalist; Internal Medicine; Internal Medicine Nephrology; Student in an Organized Health Care Education/Training Program; Admitting Provider Family Medicine; Emergency Provider Physician Assistant; PCP Family Medicine; Visit Provider Internal Medicine
DX: G00.9 Bacterial meningitis, unspecified (principal); E22.2 Syndrome of inappropriate secretion of antidiuretic hormone; F41.9 Anxiety disorder, unspecified; F32.A Depression, unspecified; R41.82 Altered mental status, unspecified; K21.9 Gastro-esophageal reflux disease without esophagitis; E87.6 Hypokalemia; F40.240 Claustrophobia; I95.9 Hypotension, unspecified; E83.42 Hypomagnesemia; I10 Essential (primary) hypertension; E83.39 Other disorders of phosphorus metabolism; F17.200 Nicotine dependence, unspecified, uncomplicated; E78.5 Hyperlipidemia, unspecified; R62.7 Adult failure to thrive; Z68.21 Body mass index [BMI] 21.0-21.9, adult; Z79.899 Other long term (current) drug therapy; Z88.0 Allergy status to penicillin; Z88.2 Allergy status to sulfonamides; Z88.5 Allergy status to narcotic agent; Z88.7 Allergy status to serum and vaccine; Z88.8 Allergy status to other drugs, medicaments and biological substances; Z90.49 Acquired absence of other specified parts of digestive tract; Z75.1 Person awaiting admission to adequate facility elsewhere
CPT/HCPCS: 36415; 36416; 62328; 70450; 71045; 71250; 74177; 80048; 80053; 80503; 81001; 82024; 82085; 82140; 82164; 82436; 82533; 82607; 82945; 82962; 83605; 83735; 83930; 83935; 84100; 84133; 84145; 84157; 84300; 84311; 84484; 85025; 85651; 86140; 86160; 86162; 86225; 86235; 86255; 86376; 86403; 86480; 86592; 86612; 86617; 86618; 86635; 86666; 86668; 86695; 86696; 86698; 86757; 86777; 86787; 86788; 86789; 87015; 87040; 87070; 87075; 87086; 87102; 87116; 87205; 87206; 87327; 87486; 87530; 87581; 87633; 87637; 87801; 87806; 87999; 89050; 92507; 92523; 92526; 92610; 93005; 93306; 93880; 94664; 96372; 97110; 97116; 97162; 97165; 97530; 97535; 99285; J0133; J0360; J0696; J0780; J1450; J1650; J2185; J2405; J2470; J3373; J3411; J3475; J3480; J3490; J7030; J7040; J7050; J7070; J7131; J9999; P9046; Q0162; Q3014